=== PATIENT | female | born 1945 | race Caucasian/White ===

== ENCOUNTER 2019-12-17 09:45 | Outpatient (CLI) | payer MEDICARE, SELFPAY | END 2019-12-17 09:46 | disposition home or self-care (01) | PROVIDERS: PCP Family Medicine; Visit Provider Nurse Practitioner Family | DX: D51.9 Vitamin B12 deficiency anemia, unspecified (principal) | CPT/HCPCS: 36415; 82607 ==

== ENCOUNTER 2020-06-22 08:08 | Outpatient (CLI) | payer MEDICARE, SELFPAY ==
[2020-06-22 08:55] LABS: Basophils Percent Auto 0.2 % (0.2-1.2); Eosinophils Absolute Auto 0.1 K/mm3 (0-0.3); Eosinophils Percent Auto 2.1 % (0-4.4); Hematocrit 39.6 % (37.0-47.0); Hemoglobin 13.2 g/dL (12.0-15.0); Immature Granulocyte Absolute 0.02 K/mm3 (0.00-0.031); Immature Granulocyte Percent A 0.4 % (0-0.5); Lymphocytes Absolute Auto 1.31 K/mm3 (0.9-3.2); Lymphocytes Percent Auto 25.6 % (18.3-44.2); Mean Corpuscular HGB Conc 33.3 g/dl (32-36); Mean Corpuscular Hemoglobin 28.2 pg (26-34); Mean Corpuscular Volume 84.6 fl (80-100); Mean Platelet Volume 10.9 fl (7.4-10.4); Monocytes Absolute Auto 0.5 K/mm3 (0.1-0.6); Monocytes Percent Auto 9.2 % (2.6-8.5); Neutrophils Absolute Auto 3.2 K/mm3 (1.3-6.7); Neutrophils Percent Auto 62.5 % (45.5-73.1); Platelet Count Result 229 k/mm3 (150-375); Red Blood Count 4.68 M/mm3 (4.2-5.4); Red Cell Distribution Width 14.5 % (11.5-14.5); White Blood Count 5.1 K/mm3 (4.5-10.0)
[2020-06-22 09:10] LABS: Alanine Aminotransferase 14 U/L (4-35); Albumin Level 4.3 g/dL (3.5-5.1); Alkaline Phosphatase 44 U/L (38-126); Anion Gap 9 mmol/L (8-16); Aspartate Amino Transferase 24 U/L (14-36); Bilirubin,Total 1.3 mg/dL (0.2-1.3); Blood Urea Nitrogen 24 mg/dL (7-17); Calcium 9.3 mg/dL (8.4-10.2); Carbon Dioxide 27 mmol/L (22-30); Chloride 98 mmol/L (98-107); Cholesterol 147 mg/dL (0-200); Estimated Glomerular Filt Rate > 60; Glucose 124 mg/dL (65-105); HDL Direct 41 mg/dL; Sodium 134 mmol/L (137-145); Triglycerides 169 mg/dL (<150)
[2020-06-22 09:21] LABS: LDL Cholesterol Direct 70 mg/dL
[2020-06-22 09:34] LABS: Hemoglobin A1C 5.9 % (<5.7)
[2020-06-22 10:15] LABS: Creatinine Urine 42.4 mg/dL
[2020-06-22 10:25] LABS: Vitamin D 25 Hydroxy 39.7 ng/mL
[2020-06-22 10:26] LABS: Free T4 Free Thyroxine 1.38 ng/mL (0.78-2.19)
[2020-06-22 11:08] LABS: MALB Creatinine Ratio < 14.2 mg/g (0-30); Microalbumin Urine Random < 6.0 mg/L (0-16.7)
[2020-06-26 04:02] LABS: Triiodothyronine T3 Free 2.8 pg/mL (2.3-4.2)
== END 2020-06-22 08:09 | disposition home or self-care (01) ==
PROVIDERS: PCP Family Medicine; Visit Provider Family Medicine
DX: E55.9 Vitamin D deficiency, unspecified (principal); D51.9 Vitamin B12 deficiency anemia, unspecified; I10 Essential (primary) hypertension; E78.2 Mixed hyperlipidemia; E11.9 Type 2 diabetes mellitus without complications
CPT/HCPCS: 36415; 80053; 80061; 82043; 82306; 82607; 83036; 84439; 84443; 84481; 85025

== ENCOUNTER 2020-09-15 12:02 | Emergency (ER) | payer MEDICARE, SELFPAY ==
--- NOTE | ~2020-09-15 | CT_ITS ---
EXAMINATION: CT abdomen pelvis wo con DATE: 09/15/2020 13:13 INDICATION: Hematuria TECHNIQUE: Computed tomography (CT) of the abdomen and pelvis was performed without intravenous contr ast. The dose-length product (DLP) was 602.92 mGy-cm. Automated exposure control and iterative recons truction technique were employed. COMPARISON: 09/07/2015 FINDINGS: There is a moderate size right pleural effusion. A lobulated pericardial cyst is not signif icantly changed in size. The heart size is normal. Stones are present in the nondistended gallbladder . The liver, pancreas, and left adrenal gland are normal. There is a 1.8 cm fluid attenuation lesion of the spleen with increase in size since the comparison examination. Severe lumbar spondylosis is no jeferson. Unchanged nodules of the right adrenal gland measuring up to 12 mm are consistent with adenomas. Nonobstructing stones of the right kidney lower pole measure up to 5 mm. There is a 3 mm nonobstruct ing stone of the left kidney lower pole. No stones are identified in the ureters or bladder. There is no hydronephrosis or hydroureter. A peripelvic cyst is noted in the left kidney. There is a widemout h ventral hernia left lower quadrant containing nonobstructed large and small bowel. There is no free intraperitoneal gas. No pathologically enlarged abdominal or pelvic lymph nodes are identified. Ther e is severe lumbar spondylosis. IMPRESSION: 1. Bilateral nonobstructing nephrolithiasis. 2. Moderate-sized right pleural effusion. 3. Cholelithiasis without evidence of cholecystitis. 4. Large ventral hernia of the left lower quadrant containing nonobstructed large and small bowel. 5. Fluid attenuation lesion of the spleen with increase in size. In the absence of known malignancy, this likely represents a hemangioma or lymphangioma. Reviewed, dictated and finalized at location A. [facility] [employer] IMPRESSION: 1. Bilateral nonobstructing nephrolithiasis. 2. Moderate-sized right pleural effusion. 3. Cholelithiasis without evidence of cholecystitis. 4. Large ventral hernia of the left lower quadrant containing nonobstructed lar ge and small bowel. 5. Fluid attenuation lesion of the spleen with increase in size. In the absence of known malignancy, this likely represents a hemangioma or lymphangioma.
[2020-09-15 12:38] VITALS: BP 154/57; PULSE 72; RESP 16; TEMP 36; O2SAT 96
[2020-09-15 13:16] LABS: Add Urine Microscopic? YES; Appearance Urine Cloudy (Clear); Bacteria Urine Trace /hpf; Bilirubin Urine Negative (Negative); Blood Urine 3+ (Negative); Color Urine Red (Yellow); Glucose Urine UA 1+ mg/dL (Negative); Ketones Urine Negative (Negative); Leukocyte Esterase Ur Negative LEU/UL (Negative); Nitrate Urine Negative (Negative); Protein Urine 2+ mg/dL (Negative); RBC Urine >75 /hpf (0-2); Specific Grav Ur 1.014 (1.001-1.035); Urobilinogen Urine Negative mg/dL (<2.0); WBC Urine 16-20 /hpf
[2020-09-15 14:43] VITALS: BP 118/57; PULSE 62; RESP 18; O2SAT 97
--- NOTE | 2020-09-15 14:43 | ED.FEMALEGU ---
HPI - Female Genitourinary General Chief complaint: Urogenital-Female Stated complaint: hematuria Time Seen by Provider: 09/15/20 12:53 History of Present Illness HPI Narrative: Patient is a 75-year-old female who presents the ER with hematuria. Noticed it this morning. Reports she also had some left lower quadrant and right lower quadrant pain that is been sharp. It has been very infrequent nonradiating. No fevers or chills or sweats. She is without vomiting. Patient did however have some nausea earlier. Has history of kidney stones which caused hematuria in the past and she is concerned she may be having another one. Related Data Home Medications Medication Instructions Recorded Confirmed fenofibrate nanocrystallized mg PO 09/15/20 hydrochlorothiazide 09/15/20 lisinopril 09/15/20 metformin mg 09/15/20 metoprolol succinate PO 09/15/20 simvastatin mg 09/15/20 Allergies Allergy/AdvReac Type Severity Reaction Status Date / Time Penicillins Allergy Mild Hives / Verified 09/15/20 12:44 Red Face prochlorperazine Allergy Mild Muscle Verified 09/15/20 12:44 Spasms codeine AdvReac Mild Vomiting Verified 09/15/20 12:44 clarithromycin [From Biaxin] AdvReac Nausea and Verified 09/15/20 12:45 Vomiting clindamycin AdvReac Diarrhea Verified 09/15/20 12:44 Review of Systems Constitutional: Constitutional: Denies chills and Denies fatigue Gastrointestinal: Gastrointestinal: Reports abdominal pain, Denies diarrhea, Denies nausea and Reports vomiting Genitourinary: Genitourinary: Reports hematuria, Denies nocturia and Denies dysuria PMFSH Past Medical History Medical History (Updated 09/15/20 @ 14:50 by Richardson Liu MD) Dyslipidemia Hypertension Kidney stone Surgical History Surgical History (Updated 09/15/20 @ 14:48 by Richardson Liu MD) History of hysterectomy Social History Social History Smoking status: Never smoker Alcohol intake: never Gender identity (if verbalized by the patient): Female Exam Narrative: Exam Narrative: GENERAL: Well-appearing, well-nourished, and in no acute distress. HEAD: Normocephalic, atraumatic. CHEST: Clear to auscultation. No respiratory distress. HEART: Regular rate and rhythm. Normal peripheral pulses. EXTREMITIES: Normal range of motion. Normal strength. NEURO: Alert and oriented x3. PSYCH: Normal mood and affect. Course Course Emergency Course: Patient informed of results. Will treat as hemorrhagic cystitis. Vital Signs Vital signs: Vital Signs Temperature 96.8 F L 09/15/20 12:38 Pulse Rate 72 09/15/20 12:38 Respiratory Rate 16 09/15/20 12:38 Blood Pressure 154/57 H 09/15/20 12:38 Pulse Oximetry 96 09/15/20 12:38 Temperature 96.8 F L 09/15/20 12:38 Pulse Rate 72 09/15/20 12:38 Respiratory Rate 16 09/15/20 12:38 Blood Pressure 154/57 H 09/15/20 12:38 Pulse Oximetry 96 09/15/20 12:38 MDM - Female Genitourinary Lab Data Labs: Lab Results 09/15/20 Range/Units 13:00 Urine Color Red H (Yellow) Urine Appearance Cloudy H (Clear) Urine pH 6.0 (5.0-9.0) Ur Specific [place] 1.014 (1.001-1.035) Urine Protein 2+ H (Negative) mg/dL Urine Glucose (UA) 1+ H (Negative) mg/dL Urine Ketones Negative (Negative) mg/dL Ur Blood (Man) 3+ H (Negative) Urine Nitrate Negative (Negative) Urine Bilirubin Negative (Negative) Urine Urobilinogen Negative (<2.0) mg/dL Leukocyte Esterase Rfl Negative (Negative) KODY/UL Urine RBC >75 H (0-2) /hpf Urine WBC 16-20 H /hpf Urine Bacteria Trace /hpf Imaging Data Radiologist's impression: ITS Impressions Abdomen/Pelvis CT 09/15/20 13:14 IMPRESSION: 1. Bilateral nonobstructing nephrolithiasis. 2. Moderate-sized right pleural effusion. 3. Cholelithiasis without evidence of cholecystitis. 4. Large ventral hernia of the left lower quadrant containing nonobstructed large and small bowel. 5. Fluid atten
== END 2020-09-15 15:00 | disposition home or self-care (01) ==
PROVIDERS: Emergency Provider Emergency Medicine; PCP Family Medicine
DX: E78.5 Hyperlipidemia, unspecified (principal); I10 Essential (primary) hypertension; N30.01 Acute cystitis with hematuria; N20.0 Calculus of kidney; Z87.442 Personal history of urinary calculi; K80.20 Calculus of gallbladder without cholecystitis without obstruction; K43.9 Ventral hernia without obstruction or gangrene; D73.9 Disease of spleen, unspecified; J90 Pleural effusion, not elsewhere classified
CPT/HCPCS: 74176; 81001; 87086; 99284

== ENCOUNTER 2021-01-17 14:31 | Outpatient (CLI) | payer MEDICARE, SELFPAY | END 2021-01-17 14:32 | disposition home or self-care (01) | LOC: ANHCOVIDVC 14:31 | PROVIDERS: PCP Family Medicine | DX: Z23 Encounter for immunization (principal) | CPT/HCPCS: 0001A; 91300 ==

== ENCOUNTER 2021-02-07 14:30 | Outpatient (CLI) | payer MEDICARE, SELFPAY | END 2021-02-07 14:31 | disposition home or self-care (01) | LOC: ANHCOVIDVC 14:30 | PROVIDERS: PCP Family Medicine | DX: Z23 Encounter for immunization (principal) | CPT/HCPCS: 0002A; 91300 ==

== ENCOUNTER 2021-06-14 05:32 | Emergency (ER) | payer MEDICARE, SELFPAY ==
--- NOTE | ~2021-06-14 | XR_ITS ---
EXAMINATION: XR abdomen/kub 1V DATE: 06/14/2021 07:34 INDICATION: Kidney stone TECHNIQUE: A supine view of the abdomen on 2 radiographs was obtained. COMPARISON: CT dated 06/14/2021 FINDINGS: The proximal right ureteral stone seen on prior CT is unable to be identified on the radiographs and given positioning on CT suspect that it is obscured by the severe hypertrophic facet osteoarthritis a t the lower lumbar spine. Additional tiny renal stones are also not visualized likely due to their sm all size. Small blunting at the right costophrenic angle consistent with moderate sized pleural effus ion seen on prior CT. Gas-filled bowel within the large left lower quadrant/pelvic ventral hernia can be seen projecting over the left upper thigh. Cervical surgical clips projecting over the left ingui nal region likely related to a prior attempted hernia repair. A cluster of several tiny densities pro jecting over the left abdomen correspond to a chronic small calcified nodule in the mesentery which c ould represent either sequela of old granulomatous disease or sclerosing mesenteritis and which is un changed since an earlier CT dated 09/07/2015. IMPRESSION: 1. The obstructing stone in the proximal right ureter is unable to be identified on the plain radiogr aphs, likely obscured by severe hypertrophic lower lumbar facet osteoarthritis. 2. Gas containing bowel within a large left lower quadrant ventral hernia. 3. Right pleural effusion. Reviewed, dictated and finalized at location A. IMPRESSION: 1. The obstructing stone in the proximal right ureter is unable to be identifie d on the plain radiographs, likely obscured by severe hypertrophic lower lumbar facet osteoarthritis. 2. Gas containing bowel within a large left lower quadrant ventral hernia. 3. Right pleural effusion.
--- NOTE | ~2021-06-14 | CT_ITS ---
EXAMINATION: CT abdomen pelvis wo con DATE: 06/14/2021 06:06 INDICATION: Right-sided flank pain. Nephrolithiasis. TECHNIQUE: Computed tomography (CT) of the abdomen and pelvis was performed without intravenous contr ast. Automated exposure control and iterative reconstruction technique were employed. The dose-length product was 456.41 mGy-cm. COMPARISON: 09/15/2020 FINDINGS: Unchanged unilateral moderate-sized right pleural effusion. Heart size is normal. No pericardial effu fan. There is a 4.8 x 3.2 cm fluid attenuation either lymphangioma or pericardial cyst at the right paracardial fat pad. There are a few calcified gallstones in the dependent aspect of the bladder. The re is an additional small calcification along the nondependent wall. Gallbladder. Unchanged 7 mm low- attenuation likely hemangioma in the left hepatic lobe. Significant change in a 1.5 cm fluid attenuat ion likely cyst versus hemangioma in the spleen. Moderate fatty atrophy of the pancreas. Interval santiago nge in mild low density nodular thickening of the bilateral adrenal glands likely representing small adenomas. 5 x 3 mm obstructing stone in the proximal right ureter with mild right hydronephrosis. Add itional 1-2 mm stone at the lower pole of the right kidney and three 1 mm nonobstructing stones at th e lower pole of the left kidney. Unchanged 3.4 similar parapelvic cyst in the left kidney. Decompress ed bladder is unremarkable. Again seen are multiple loops of nonobstructed large and small bowel exte nding into a large anterior left pelvic ventral hernia with postoperative changes suggesting prior fa iled hernia repair. The cecum and a normal appendix are located within the hernia sac. No bowel obstr uction. The uterus is not identified and has likely been surgically resected. No free intraperitoneal gas or fluid. No pathologically enlarged abdominal or pelvic lymphadenopathy. Mild lumbar dextroscol iosis with severe spondylosis. Moderate bilateral hip and sacroiliac osteoarthritis. IMPRESSION: 1. Bilateral nephrolithiasis with obstructing 5 x 3 mm proximal right ureteral stone with mild right hydronephrosis. 2. Unilateral small to moderate-sized right pleural effusion. 3. Large left lower quadrant/pelvic ventral hernia containing the cecum, appendix and multiple loops of nonobstructed small bowel. 4. Unchanged unilateral moderate-sized right pleural effusion. 5. Cholelithiasis. Reviewed, dictated and finalized at location A. IMPRESSION: 1. Bilateral nephrolithiasis with obstructing 5 x 3 mm proximal right ureteral stone with mild right hydronephrosis. 2. Unilateral small to moderate-sized right pleural effusion. 3. Large left lower quadrant/pelvic ventral hernia containing the cecum, append ix and multiple loops of nonobstructed small bowel. 4. Unchanged unilateral moderate-sized right pleural effusion. 5. Cholelithiasis.
[2021-06-14 05:38] VITALS: BP 140/63; PULSE 74; RESP 20; TEMP 36.8; O2SAT 98
[2021-06-14 05:40] VITALS: RESP 15; O2SAT 98
[2021-06-14 05:57] LABS: Basophils Percent Auto 0.3 % (0.2-1.2); Eosinophils Absolute Auto 0.3 K/mm3 (0-0.3); Eosinophils Percent Auto 3.6 % (0-4.4); Hematocrit 40.4 % (37.0-47.0); Hemoglobin 13.2 g/dL (12.0-15.0); Immature Granulocyte Absolute 0.04 K/mm3 (0.00-0.031); Immature Granulocyte Percent A 0.6 % (0-0.5); Lymphocytes Absolute Auto 1.43 K/mm3 (0.9-3.2); Lymphocytes Percent Auto 19.9 % (18.3-44.2); Mean Corpuscular HGB Conc 32.7 g/dl (32-36); Mean Corpuscular Hemoglobin 28.4 pg (26-34); Mean Corpuscular Volume 86.9 fl (80-100); Mean Platelet Volume 10.8 fl (7.4-10.4); Monocytes Absolute Auto 0.8 K/mm3 (0.1-0.6); Neutrophils Absolute Auto 4.6 K/mm3 (1.3-6.7); Neutrophils Percent Auto 64.6 % (45.5-73.1); Platelet Count Result 224 k/mm3 (150-375); Red Blood Count 4.65 M/mm3 (4.2-5.4); Red Cell Distribution Width 14.4 % (11.5-14.5); White Blood Count 7.2 K/mm3 (4.5-10.0)
[2021-06-14 06:00] LABS: Anion Gap 8 mmol/L (8-16); Blood Urea Nitrogen 27 mg/dL (7-17); Calcium 9.7 mg/dL (8.4-10.2); Carbon Dioxide 26 mmol/L (22-30); Chloride 103 mmol/L (98-107); Estimated CRCL calculation 44 ml/min; Estimated Glomerular Filt Rate 48; Glucose 151 mg/dL (65-110); Potassium 3.7 mmol/L (3.4-5.0); Sodium 137 mmol/L (137-145)
[2021-06-14 06:15] LABS: Add Urine Microscopic? YES; Appearance Urine Cloudy (Clear); Bacteria Urine Trace /hpf; Bilirubin Urine Negative (Negative); Blood Urine 3+ (Negative); Color Urine Yellow (Yellow); Glucose Urine UA Negative (Negative); Ketones Urine Negative (Negative); Leukocyte Esterase Ur 2+ LEU/UL (Negative); Mucus Urine Rare /lpf; Nitrate Urine Negative (Negative); Protein Urine 2+ mg/dL (Negative); RBC Urine 51-75 /hpf (0-2); Specific Grav Ur 1.021 (1.001-1.035); Squamous Epithelial Cell Urine Moderate /hpf (Few); Urobilinogen Urine Negative mg/dL (<2.0)
--- NOTE | 2021-06-14 06:20 | ED.GENADULT ---
HPI - General Adult General Chief complaint: Abdominal Pain Stated complaint: RT ABD/FLANK PAIN - HX KIDNEY STONES Time Seen by Provider: 06/14/21 06:06 History of Present Illness HPI narrative: Patient is a 75-year-old female who presents the emergency department with chief complaint of right side flank pain. Patient reports that this evening she started having an uncomfortable feeling in the right side/flank the patient states that it is not worsened by anything and reports that improved spontaneously the patient reports she felt some nausea during this episode reports that she had no vomiting denies diarrhea denies chest pain denies shortness of breath. Patient reports she has prior history of kidney stones and reports this feels similar to when she had kidney stones in the past. Related Data Home Medications Medication Instructions Recorded Confirmed fenofibrate nanocrystallized mg PO 09/15/20 hydrochlorothiazide 09/15/20 lisinopril 09/15/20 metformin mg 09/15/20 metoprolol succinate PO 09/15/20 simvastatin mg 09/15/20 Allergies Allergy/AdvReac Type Severity Reaction Status Date / Time Penicillins Allergy Mild Hives / Verified 06/14/21 07:45 Red Face prochlorperazine Allergy Mild Muscle Verified 06/14/21 07:45 Spasms codeine AdvReac Mild Vomiting Verified 06/14/21 07:45 clarithromycin [From Biaxin] AdvReac Nausea and Verified 06/14/21 07:45 Vomiting clindamycin AdvReac Diarrhea Verified 06/14/21 07:45 Review of Systems Review of Systems: A 10 system review of systems was completed on the patient and is negative except for what is stated in the HPI. Nursing and ancillary documentation was reviewed. PMFSH Past Medical History Medical History Dyslipidemia Hypertension Kidney stone Surgical History Surgical History History of hysterectomy Social History Social History Smoking status: Never smoker Alcohol intake: never Gender identity (if verbalized by the patient): Female Exam Narrative: GENERAL: Well-appearing, well-nourished, and in no acute distress. HEAD: Normocephalic, atraumatic. EYES: PERRLA and EOMI. ENT: Nares clear, no rhinorrhea or epistaxis. Mucous membranes moist. NECK: Supple. CHEST: Clear to auscultation. No respiratory distress. HEART: Regular rate and rhythm. No murmur heard. Normal peripheral pulses. ABDOMEN: Soft, nontender, nondistended, normal active bowel sounds. EXTREMITIES: Normal range of motion. No edema. SKIN: Warm, dry, no rash. NEURO: No focal deficits. Alert and oriented x3. PSYCH: Normal mood and affect. Course Course Emergency Course: CT scan showed evidence of a 8 mm proximal stone this was discussed with urology she will be scheduled for an outpatient lithotripsy in the next [address] scan also showed a epicardiac masslike lesion that it is recommended for follow-up CT scan Vital Signs Vital signs: Vital Signs Temperature 36.8 C 06/14/21 05:38 Pulse Rate 74 06/14/21 05:38 Respiratory Rate 20 06/14/21 05:38 Blood Pressure 140/63 06/14/21 05:38 Pulse Oximetry 98 06/14/21 05:38 Temperature 36.8 C 06/14/21 05:38 Pulse Rate 67 06/14/21 07:09 Respiratory Rate 18 06/14/21 07:09 Blood Pressure 126/55 L 06/14/21 07:09 Pulse Oximetry 99 06/14/21 07:09 Medical Decision Making Vital Signs Vital Signs: Vital Signs Temperature 36.8 C 06/14/21 05:38 Pulse Rate 74 06/14/21 05:38 Respiratory Rate 20 06/14/21 05:38 Blood Pressure 140/63 06/14/21 05:38 Pulse Oximetry 98 06/14/21 05:38 Temperature 36.8 C 06/14/21 05:38 Pulse Rate 67 06/14/21 07:09 Respiratory Rate 18 06/14/21 07:09 Blood Pressure 126/55 L 06/14/21 07:09 Pulse Oximetry 99 06/14/21 07:09 Lab Data Result diagrams:
[2021-06-14 07:09] VITALS: BP 126/55; PULSE 67; RESP 18; O2SAT 99
--- NOTE | 2021-06-14 07:25 | PM.IMHP ---
H&P: HPI History of Present Illness Date/Time: 06/14/21 07:25 75-year-old female known to our practice with a history of urolithiasis. She was last seen approximately 6 months ago with imaging demonstrated moderate size nonobstructing bilateral calculus in each kidney. She presents to the ER today with right flank pain and nausea. She has had no fevers chills. CT scan of the abdomen and pelvis without contrast shows an obstructing 8 mm right proximal ureteral stone. She denies fevers chills or gross hematuria. She takes no blood thinners, denying aspirin or anti-inflammatories. Her urine appears uninfected. She is relatively comfortable at this point. I will discharge her and make arrangements for outpatient ESWL. Will get a KUB prior to discharge and give her 1 dose of ceftriaxone. Chief Complaint: Right flank pain Review of Systems Cardiovascular: Cardiovascular: Denies chest pain, Denies lightheadedness, Denies palpitations and Denies dyspnea Respiratory: Respiratory: Denies dyspnea Gastrointestinal: Gastrointestinal: Denies diarrhea, Denies nausea and Denies vomiting Genitourinary: Genitourinary: Denies hematuria and Denies dysuria Endocrine: Endocrine: Denies palpitations [facility] Past Medical History Medical History Dyslipidemia Hypertension Kidney stone Surgical History Surgical History History of hysterectomy Social History Social History Smoking status: Never smoker Alcohol intake: never Gender identity (if verbalized by the patient): Female Meds Home Medications and Allergies Home Medications Medication Instructions Recorded Confirmed Type cephalexin [Keflex] 500 mg PO Q12H #14 cap 09/15/20 Rx fenofibrate nanocrystallized mg PO 09/15/20 History hydrochlorothiazide 09/15/20 History lisinopril 09/15/20 History metformin mg 09/15/20 History metoprolol succinate PO 09/15/20 History simvastatin mg 09/15/20 History Allergies Allergy/AdvReac Type Severity Reaction Status Date / Time Penicillins Allergy Mild Hives / Verified 09/15/20 12:44 Red Face prochlorperazine Allergy Mild Muscle Verified 09/15/20 12:44 Spasms codeine AdvReac Mild Vomiting Verified 09/15/20 12:44 clarithromycin [From Biaxin] AdvReac Nausea and Verified 09/15/20 12:45 Vomiting clindamycin AdvReac Diarrhea Verified 09/15/20 12:44 Vital Signs Vital Signs - 24 hr 06/14/21 05:38 06/14/21 07:09 Temperature 98.3 F Pulse Rate 74 67 Respiratory Rate 20 18 Blood Pressure 140/63 126/55 L Pulse Oximetry 98 99 Exam Const: General: no acute distress Resp: Effort & Inspection: normal respiratory effort GI: Inspection: non-distended GI Palp: No abdominal tenderness and No Guarding due to palpation present (GI) Auscultation: normal bowel sounds H&P: Results Labs Labs: Short CBC 06/14/21 Range/Units 05:43 WBC 7.2 (4.5-10.0) K/mm3 Hgb 13.2 (12.0-15.0) g/dL Hct 40.4 (37.0-47.0) % Plt Count 224 (150-375) k/mm3 BMP 06/14/21 05:43 Sodium 137 Potassium 3.7 Chloride 103 Carbon Dioxide 26 BUN 27 H Creatinine 1.10 H Glucose 151 H Calcium 9.7 Urine 06/14/21 Range/Units 05:54 Urine Color Yellow (Yellow) Urine Appearance Cloudy H (Clear) Urine pH 5.0 (5.0-9.0) Ur Specific [place] 1.021 (1.001-1.035) Urine Protein 2+ H (Negative) mg/dL Urine Glucose (UA) Negative (Negative) mg/dL Assessment and Plan Assessment and plan (1) Right ureteral stone: Code(s): N20.1 - Calculus of ureter Status: Acute Assessment and Plan: Outpatient right ESWL
--- NOTE | 2021-06-14 07:29 | PC.NURSE ---
Report taken from SHANNA Powell. Pt to xray.
[2021-06-14 08:26] VITALS: BP 131/59; PULSE 73; RESP 18; O2SAT 98
== END 2021-06-14 08:29 | disposition home or self-care (01) ==
PROVIDERS: Emergency Provider Emergency Medicine; PCP Family Medicine
DX: N13.2 Hydronephrosis with renal and ureteral calculous obstruction (principal); E78.5 Hyperlipidemia, unspecified; I10 Essential (primary) hypertension; Z87.442 Personal history of urinary calculi; Z79.84 Long term (current) use of oral hypoglycemic drugs; J90 Pleural effusion, not elsewhere classified; K43.9 Ventral hernia without obstruction or gangrene; K80.20 Calculus of gallbladder without cholecystitis without obstruction
CPT/HCPCS: 36415; 74018; 74176; 80048; 81001; 85025; 87086; 87088; 96365; 99284; J0696

== ENCOUNTER 2021-06-15 02:25 | Day surgery (SDC) | payer MEDICARE, SELFPAY ==
[2021-06-14 12:52] VITALS: BMI 33.9
[2021-06-15] VITALS (8 sets, daily range): BP systolic 136–160; BP diastolic 60–77; PULSE 52–95; RESP 15–18; TEMP 36.4–36.7; O2SAT 99–100
--- NOTE | ~2021-06-15 | XR_ITS ---
EXAMINATION: XR abdomen/kub 1V INDICATION: Nephrolithiasis TECHNIQUE: Supine views of the abdomen were obtained on 2 radiographs. COMPARISON: 06/14/2021 FINDINGS: The right ureteral stone described on recent CT is not definitely identified. In addition, the small kidney stones on the recent CT are not definitely identified. The bowel gas pattern is norm al. A small right pleural effusion is noted. There is moderate osteoarthritis of the hips. IMPRESSION: 1. No definite urolithiasis identified. Reviewed, dictated and finalized at location A.
--- NOTE | ~2021-06-15 | XR_ITS ---
XR retrograde pyelo w/stent RT DATE: 06/15/2021 12:47 INDICATION: Obstructing 5 x 3 mm proximal right ureteral calculus TECHNIQUE: 41.5 seconds fluoroscopy time 893.20 radcm2 COMPARISON: 06/14/[address] abdomen pelvis 06/14/2021 and 06/15/2021 KUB examinations FINDINGS: A ureteroscope is visualized in the right ureter, with passage of a guidewire and subsequen t placement of a right internal urinary stent, proximal pigtail overlying the right renal collecting system, the distal pigtail overlying the base of the urinary bladder. IMPRESSION: Right internal urinary stent placement Reviewed, dictated and finalized at Location A. Reviewed, dictated and finalized at location B.
--- NOTE | 2021-06-15 06:03 | ECG_ITS ---
Measurements Intervals [place] Rate: 59 P: -43 LA: 184 QRS: -56 QRSD: 146 T: 53 QT: 471 QTc: 468 Interpretive Statements SINUS BRADYCARDIA RIGHT BUNDLE BRANCH BLOCK LEFT ANTERIOR FASCICULAR BLOCK BASELINE ARTIFACT- I, II, III, AVR, AVL, AVF, V4-V6 ABNORMAL ECG Electronically Signed On 06-15-2021 10:09:07 CDT by Pablo Pat D.O.
[2021-06-15] MEDS: LACTATED RINGERS 1,000 ML 30 ML IV CONT (10:19)
[2021-06-15 10:28] LABS: Glucose Point of Care 133 mg/dl (65-105)
--- NOTE | 2021-06-15 10:36 | WPDHPUPDATE1 ---
History and Physical Update Update Date/Time: 06/15/21 10:36 History and Physical has been reviewed, including an updated exam of the patient. There are NO changes in the patient's condition. Risks, benefits, and alternatives have been discussed and questions answered. Patient agrees to proceed with procedure. Stone not visualized on plain film. Proceed with cysto , right retrograde, right ureteroscopy with stone extraction, possible laser and stent placement.
[2021-06-15 10:57] LABS: Prothrombin Time 13.3 Seconds (11.1-14.7)
[2021-06-15 10:58] LABS: Partial Thromboplastin Time 28.1 SECONDS (22.3-36.8)
--- NOTE | 2021-06-15 11:08 | WPDANESEPPF ---
Anes - Initial Pre Proc Eval Procedure: Operation Date: 06/15/21 11:00 Proposed Procedures p Right Ureteral Extracorporeal Shock Wave Lithotripsy - Hussein Lopez MD s Possible Cystoscopy, Possible Right Ureteroscopy, Possible Right Retrograde Pyelogram, Possible Right Stone Extraction, Possible Right Stent Placement, - Hussein Lopez MD s Possible Holmium Laser Procedure - Hussein Lopez MD Date/Time: 06/15/21 11:08 Surgeon: Hussein Lopez MD Pre Op Diagnosis: right ureteral stone Patient Data Age: 75 Gender: F Height: 1.68 m Weight: 90.8 kg Last Vital Signs Temp 36.4 C L 06/15/21 10:00 Pulse 95 06/15/21 10:00 Resp 16 06/15/21 10:00 BP 151/68 H 06/15/21 10:00 Pulse Ox 100 06/15/21 10:00 Allergies Allergy/AdvReac Type Severity Reaction Status Date / Time Penicillins Allergy Mild Hives / Verified 06/15/21 10:35 Red Face prochlorperazine Allergy Mild Muscle Verified 06/15/21 10:35 Spasms codeine AdvReac Mild Vomiting Verified 06/15/21 10:35 clarithromycin [From Biaxin] AdvReac Nausea and Verified 06/15/21 10:35 Vomiting clindamycin AdvReac Diarrhea Verified 06/15/21 10:35 Home Medications Medication Instructions Recorded Confirmed Type fenofibrate nanocrystallized 145 mg PO DAILY 09/15/20 06/14/21 History hydrochlorothiazide 50 mg PO DAILY 09/15/20 06/14/21 History lisinopril 40 mg PO DAILY 09/15/20 06/14/21 History metformin 1,500 mg PO DAILY 09/15/20 06/14/21 History metoprolol succinate 125 mg PO QAM 09/15/20 06/15/21 History simvastatin 20 mg PO HS 09/15/20 06/14/21 History calcium 600 mg PO DAILY 06/14/21 06/14/21 History cholecalciferol (vitamin D3) 125 mcg PO DAILY 06/14/21 06/14/21 History sitagliptin [Januvia] 100 mg PO DAILY 06/14/21 06/14/21 History verapamil 300 mg PO HS 06/14/21 06/14/21 History Laboratory Tests 06/15/21 06/15/21 09:57 10:21 PT 13.3 Seconds Seconds (11.1-14.7) INR 1.0 APTT 28.1 SECONDS SECONDS (22.3-36.8) POC Capillary Glucose 133 mg/dl H mg/dl (65-105) Patient hx anesthesia problems: none Family hx anesthesia problems: none [facility] Past Medical History Medical History (Updated 06/15/21 @ 11:08 by Eliot Tao MD) Dyslipidemia Hypertension Kidney stone Obesity Surgical History Surgical History History of hysterectomy Social History Social History Smoking status: Never smoker Alcohol intake: never Living arrangements: with family Gender identity (if verbalized by the patient): Female Spiritual care concerns: No Anes - Eval Final PreProcedure Day of Procedure 06/15/21 11:08 Heart: regular rate and rhythm Lungs: clear to auscultation Airway: Mallampati scale class III Neurological: alert and oriented Last oral intake: >/= 8 hours ASA classification: III Emergent: no Anesthetic plan: proceed Anesthesia type and monitoring: general LMA and standard monitoring Informed Consent: The patient's anesthetic plan and its attendant risks and benefits were discussed with the patient/family/POA. Questions were solicited and answers provided to the satisfaction of the patient/family/POA.
[2021-06-15] MEDS: ceFAZolin 2 GM/D5W 50 ML 2 GM/50 ML BAG IVPB (12:10)
[2021-06-15] MEDS: LIDOCAINE HCL 2% GEL UROJET 10 ML PKG MUCOUS MEM (12:42)
--- NOTE | 2021-06-15 12:42 | W.PM.PROC2 ---
Procedure Note - Detailed Date of Procedure 06/15/21 Pre-op Diagnosis right ureteral stone Post-op Diagnosis same ( urethral tightness) Procedure Performed Cystoscopy, right retrograde pyelogram, right ureteroscopy with holmium laser, stone extraction, right ureteral stent placement, urethral dilation to 24 [place] Surgeon Hussein Lopez MD Description of Procedure patient is taken the operative suite and correctly identified. Once anesthesia was obtained she was placed in dorsal lithotomy position and prepped draped usual sterile fashion. The urethra was taken could not tolerated 22 [place] scope. We thus dilated the meatus using female sounds up to 24 [place]. Twenty-two [place] scope was then inserted into the bladder. There are no tumors noted. Right ureteral orifice was cannulated with a guidewire. It was dilated with an 8/10 dilator. A rigid ureteral scope was then inserted into the ureter. The stone was visualized but too large to retrieve 1 piece. Using the holmium laser fiber we fragmented in multiple pieces and retrieve the larger stones and sent for analysis. Reinspection revealed no residual stones. Pyelogram was then performed to confirm placement of the stent. 4.8 [place] contour stent was then placed with the proximal end coiled pelvis and the distal in the bladder. Bladder was drained. 2% viscous lidocaine was inserted urethra patient is taken recovery stable condition. She will follow up in a week's time for stent removal. Drains Yes Packing No Pathology yes Complications No immediate complications Condition stable
[2021-06-15 12:56] LABS: Glucose Point of Care 114 mg/dl (65-105)
== END 2021-06-15 14:45 | disposition home or self-care (01) ==
PROVIDERS: PCP Family Medicine; Visit Provider Urology
PROC: (CPT 52352; 2021-06-15 11:00)
PROC: (CPT 52356; 2021-06-15 11:00)
DX: N20.1 Calculus of ureter (principal); I10 Essential (primary) hypertension; E78.5 Hyperlipidemia, unspecified; E11.9 Type 2 diabetes mellitus without complications; K21.9 Gastro-esophageal reflux disease without esophagitis; E78.00 Pure hypercholesterolemia, unspecified; Z79.84 Long term (current) use of oral hypoglycemic drugs; E66.9 Obesity, unspecified; Z68.32 Body mass index [BMI] 32.0-32.9, adult
CPT/HCPCS: 52356; 36415; 74018; 74420; 82365; 82948; 85610; 85730; 88300; 93005; A9270; C1769; C2617; J0690; J1100; J2405; J2704; J3010; J7030; J7120; Q9966

== ENCOUNTER → 2022-01-22 14:42 | Outpatient (CLI) | payer MEDICARE, SELFPAY ==
--- NOTE | ~2022-01-22 | CT_ITS ---
EXAMINATION:CT diagnostic chest w con DATE: 01/22/2022 15:17 INDICATION: Right pleural effusion. Ill-defined heart disease. TECHNIQUE: Computed tomography (CT) of the chest was performed with 75 mm Omnipaque 350 intravenous c ontrast. Automated exposure control and iterative reconstruction technique were employed. The dose-le ngth product (DLP) was 444.75 mGy-cm. COMPARISON: CT abdomen and pelvis 06/14/2021, 09/07/2015 FINDINGS: There is a moderate-sized right pleural effusion. There is mild atelectasis bilaterally. Th ere are nodules in the thyroid measuring up to 11 mm, likely not clinically significant. The heart si ze is normal. No pericardial effusion. There is a 4.8 x 3.0 cm cystic mass in the right paracardial f at pad that measured 4.6 x 2.9 cm on 09/07/2015, likely a pericardial cyst. There is a small sliding hiatal hernia. There is a 16 mm cyst in the spleen. There is mild thoracic spondylosis. There are suleiman dging endplate osteophytes at multiple levels in the spine, consistent with diffuse idiopathic skelet al hyperostosis (DISH). IMPRESSION: 1. Moderate-sized right pleural effusion, mildly worsened from 06/14/2021. Reviewed, dictated and finalized at location A.
[2022-01-22 15:00] LABS: Estimated Glomerular Filt Rate > 60
== END ==
PROVIDERS: PCP Family Medicine; Visit Provider Nurse Practitioner Adult Health
DX: I51.89 Other ill-defined heart diseases (principal); K44.9 Diaphragmatic hernia without obstruction or gangrene; M47.814 Spondylosis without myelopathy or radiculopathy, thoracic region; D73.4 Cyst of spleen
CPT/HCPCS: 71260; Q9967

== ENCOUNTER → 2022-01-29 16:03 | Outpatient (CLI) | payer MEDICARE, SELFPAY ==
--- NOTE | ~2022-01-29 | XR_ITS ---
XR chest 2V 01/29/2022 16:28 Indication: Pleural effusion Procedure: 2 view chest Comparison: CT dated 01/22/2022 Findings: Moderate right pleural effusion with underlying compressive atelectasis. Heart size normal. Left lung is clear. No pneumothorax. No edema. Impression: 1: Moderate right pleural effusion with underlying compressive atelectasis. Reviewed, dictated and finalized at location A. Impression: 1: Moderate right pleural effusion with underlying compressive atelectasis.
== END ==
PROVIDERS: PCP Nurse Practitioner Adult Health; Visit Provider Nurse Practitioner Adult Health
DX: R06.02 Shortness of breath (principal); R91.8 Other nonspecific abnormal finding of lung field; J90 Pleural effusion, not elsewhere classified
CPT/HCPCS: 71046

== ENCOUNTER 2022-03-02 11:34 | Outpatient (CLI) | payer MEDICARE, SELFPAY ==
[2022-03-02 12:05] LABS: Basophils Percent Auto 0.4 % (0.2-1.2); Eosinophils Absolute Auto 0.1 K/mm3 (0-0.3); Eosinophils Percent Auto 1.4 % (0-4.4); Hematocrit 38.7 % (37.0-47.0); Hemoglobin 12.8 g/dL (12.0-15.0); Immature Granulocyte Absolute 0.03 K/mm3 (0.00-0.031); Immature Granulocyte Percent A 0.5 % (0-0.5); Lymphocytes Absolute Auto 1.17 K/mm3 (0.9-3.2); Lymphocytes Percent Auto 20.6 % (18.3-44.2); Mean Corpuscular HGB Conc 33.1 g/dl (32-36); Mean Corpuscular Hemoglobin 28.6 pg (26-34); Mean Corpuscular Volume 86.6 fl (80-100); Mean Platelet Volume 10.5 fl (7.4-10.4); Monocytes Absolute Auto 0.5 K/mm3 (0.1-0.6); Monocytes Percent Auto 7.9 % (2.6-8.5); Neutrophils Absolute Auto 3.9 K/mm3 (1.3-6.7); Neutrophils Percent Auto 69.2 % (45.5-73.1); Platelet Count Result 234 k/mm3 (150-375); Red Blood Count 4.47 M/mm3 (4.2-5.4); Red Cell Distribution Width 14.3 % (11.5-14.5); White Blood Count 5.7 K/mm3 (4.5-10.0)
[2022-03-02 12:15] LABS: Alanine Aminotransferase 16 U/L (4-35); Albumin Level 4.2 g/dL (3.5-5.1); Alkaline Phosphatase 51 U/L (38-126); Anion Gap 6 mmol/L (8-16); Aspartate Amino Transferase 26 U/L (14-36); Bilirubin,Total 1.4 mg/dL (0.2-1.3); Blood Urea Nitrogen 23 mg/dL (7-17); Carbon Dioxide 26 mmol/L (22-30); Chloride 105 mmol/L (98-107); Estimated Glomerular Filt Rate 54; Glucose 231 mg/dL (65-110); Potassium 3.8 mmol/L (3.4-5.0); Sodium 137 mmol/L (137-145)
[2022-03-06 11:42] LABS: ANA Cascade Screen Negative (Negative)
== END 2022-03-02 11:35 | disposition home or self-care (01) ==
LOC: ANHLAB 11:49
PROVIDERS: PCP Family Medicine; Visit Provider Internal Medicine Critical Care Medicine
DX: M35.9 Systemic involvement of connective tissue, unspecified (principal); J90 Pleural effusion, not elsewhere classified
CPT/HCPCS: 36415; 80053; 85025; 86038

== ENCOUNTER 2022-03-07 11:15 | Outpatient (CLI) | payer MEDICARE, SELFPAY ==
[2022-02-28 09:30] VITALS: BMI 35.2
--- NOTE | 2022-02-28 09:31 | PC.NURSE ---
Pre Radiology instructions Report to the Outpatient Waiting Room, entrance under the green pavilion located off [facility], at time __11:30AM on date ___03/07/22____. Procedure Time: ___1:30PM . One visitor will be allowed to accompany the patient into the hospital. The visitor will be instructed to remain with patient at all times or leave the building. We will allow the visitor to come back to the postoperative area when patient is ready. You and your visitor will be asked a series of questions to screen for COVID 19 for your protection. A mask is required within the hospital. Pre-procedure COVID Testing Requirements: No COVID Test needed if: (proof is required; if not received patient will have Rapid Test prior to entry)- Patient has received COVID Vaccine at least 14 days prior to procedure date or- Patient has positive COVID test result within last 90 days of procedure date. COVID Test needed if above criteria is not met If not COVID vaccinated a COVID test must be conducted within 72 hours of surgery and patient is asked to isolate self from time of testing until procedure. You will go to the [facility] for your COVID testing. The [facility] site is located at the corner of [address] [facility]. You will only be called if COVID results are positive and your surgeon may reschedule your elective procedure date Patients are to have no food or drink 6 hours prior to procedure time Driving will be restricted after the procedure, you must have a person to drive you home. Labs will be drawn in preop area and once reviewed, you will be taken to radiology area for procedure. When the procedure is completed, you will be taken to outpatient where you will be monitored for several hours. You may have one visitor in this area. Other than holding anti-coagulants, patient may take other medication(s) as scheduled. Prior to your appointment date patients are instructed to hold anti-coagulants after discussing with ordering provider to stop. If unable to discontinue anti-coagulants please notify radiologist. No aspirin or warfarin (Coumadin) for 7 days prior to the procedure. No clopidogrel (Plavix), ticagrelor (Brilinta), prasugrel (Effient) or dabigatran (Pradaxa) for 5 days prior to the procedure. No rivaroxaban (Xarelto), apixaban (Eliquis), dipyridamole (Aggrenox or Persantine) or cilostazol (Pletal) for 2 days prior to the procedure. Medications to discontinue per physician: NONE Date to take last dose: Please leave all valuables, including medications, at home the day of procedure. The hospital will not accept responsibility for valuables. Wear comfortable, loose fitting clothing. Follow any additional instructions given to you from ordering provider. Telephone instructions given to ___PATIENT and asked if any additional questions and then verbalized understanding. Patient advised to call scheduling provider office or registration scheduling [phone] if any additional questions.
[2022-03-07] VITALS (8 sets, daily range): BP systolic 143–169; BP diastolic 64–73; PULSE 53–66; RESP 14–18; TEMP 36.3; O2SAT 100
--- NOTE | ~2022-03-07 | US_ITS ---
EXAMINATION: US thoracentesis DATE: 03/07/2022 14:31 INDICATION: pleural effusion TECHNIQUE: The procedure and its risks, benefits, and alternatives were discussed with the patient. P otential risks discussed included bleeding, infection, and pneumothorax. The patient understood the r isks and agreed to proceed. The skin was prepped and draped in sterile fashion. 1% lidocaine was used for local anesthesia. Under ultrasound guidance, a 5 Fr catheter with trochar was advanced into the right pleural effusion. Fluid was aspirated. The catheter was removed, and a dressing was applied. Th ere were no immediate complications. FINDINGS: Ultrasound images demonstrate a right pleural effusion and the catheter within the fluid. IMPRESSION: 1. Successful ultrasound-guided thoracentesis yielding 1000 mL of clear, bereket-colored fluid. Reviewed, dictated and finalized at location A. IMPRESSION: 1. Successful ultrasound-guided thoracentesis yielding 1000 mL of clear, bereket -colored fluid.
--- NOTE | ~2022-03-07 | XR_ITS ---
EXAMINATION: [id number]_[id number]_CR DATE: 03/07/2022 14:20 INDICATION: Right pleural effusion status post thoracentesis. TECHNIQUE: A single frontal view of the chest was obtained. COMPARISON: Chest CT 01/23/2012, chest 2 views 01/29/2022 FINDINGS: There is a small right pleural effusion. There are airspace opacities are lung base. No pne umothorax. The heart size is normal. IMPRESSION: 1. Small right pleural effusion with improvement status post thoracentesis. 2. Airspace opacities at right lung base, likely atelectasis. Reviewed, dictated and finalized at location A.
[2022-03-07 12:15] LABS: INR 1.1; Prothrombin Time 13.4 Seconds (11.1-14.7)
[2022-03-07 14:29] LABS: Glucose Point of Care 110 mg/dl (65-105)
[2022-03-07 15:01] LABS: pH Pleural Fluid 7.474 (7.210-7.500)
[2022-03-07 16:08] LABS: Appearance Pleural Fluid Clear (Clear); Color Pleural Fluid Yellow (Colorless); Lymphocytes Pleural Fluid 54 %; Macrophages Pleural Fluid 22 %; Monocytes Pleural Fluid 22 %; Neutrophils Pleural Fluid 2 % (0-25); Nucleated Cell Pleural Fluid 418 /uL (0-1000); Pleural fluid source Pleural fluid; RBC Pleural Fluid 728 /uL (0-0)
[2022-03-12 20:59] LABS: Glucose Pleural Fluid 138 mg/dL; LDH Pleural Fluid 80 U/L; Total Protein Pleural Fluid 3.7 g/dL
== END 2022-03-07 16:28 | disposition home or self-care (01) ==
PROVIDERS: Radiology Diagnostic Radiology; PCP Family Medicine; Referring Provider Internal Medicine Critical Care Medicine; Visit Provider Radiology Diagnostic Radiology
DX: J90 Pleural effusion, not elsewhere classified (principal)
CPT/HCPCS: 32555; 36415; 82945; 82948; 83615; 83986; 84157; 85610; 87015; 87070; 87075; 87077; 87102; 87116; 87186; 87205; 87206; 88104; 88108; 88305; 89051

== ENCOUNTER → 2022-03-07 12:29 | Outpatient (REF) | payer MEDICARE, SELFPAY | LOC: ANHLAB 12:29 | PROVIDERS: PCP Family Medicine; Visit Provider Internal Medicine Critical Care Medicine | DX: J90 Pleural effusion, not elsewhere classified (principal) | CPT/HCPCS: 88104; 88108; 88305 ==

== ENCOUNTER 2022-03-20 12:21 | Outpatient (CLI) | payer MEDICARE, SELFPAY ==
--- NOTE | 2022-03-20 | ECHO_ITS ---
Patient Info Name: Katie Peguero Age: 76 years : 1945 Gender: Female Ht: 66 in Wt: 214 lbs BSA: 2.16 m2 HR: 66 bpm BP: 152 / 72 mmHg Technical Quality: Good Exam Date: 03/20/2022 1:20 PM Exam Location: [facility] Patient Status: Outpatient Admit Date: 03/20/2022 Staff Ordering Physician: Ivania Akhtar MD Philosophy Faculty: Rajan Liu RDCS, RT Attending Provider: Ivania Akhtar MD Referring Physician: Giovana SAUCEDO; Exam Type: CA echo doppler color flow Study Info Indications J90 - Pleural effusion, not elsewhere classified Complete two-dimensional, color flow and Doppler transthoracic echocardiogram is performed. Strain analysis performed. Summary 1. Complete two-dimensional, color flow and Doppler transthoracic echocardiogram is performed. 2. Left ventricular chamber dimension is normal. 3. Left ventricular systolic function is normal, estimated at 65-70%. 4. The left ventricular diastolic function is grade I diastolic dysfunction. 5. E/e' 14 is mildly elevated. 6. Global longitudinal strain is normal at -22.6%. 7. The mitral valve has mildly calcified annulus. 8. There is mild mitral valve regurgitation. 9. There is trace tricuspid valve regurgitation. Left Ventricle E/e' 14 is mildly elevated. Global longitudinal strain is normal at -22.6%. Left ventricular chamber dimension is normal. Left ventricular systolic function is normal, estimated at 65-70%. The left ventricular diastolic function is grade I diastolic dysfunction. Right Ventricle Right ventricular systolic function is normal and with normal TAPSE 2.4 cm. Right ventricular chamber dimension is normal. Left Atria Left atrial chamber dimension is normal. Right Atria Right atrial chamber dimension is normal. Aortic Valve The aortic valve is trileaflet. There is no aortic valve stenosis. There is no aortic valve regurgitation. Pulmonic Valve There is no pulmonic regurgitation. Mitral Valve The mitral valve has mildly calcified annulus. There is no mitral valve stenosis. There is mild mitral valve regurgitation. Tricuspid Valve There is trace tricuspid valve regurgitation. RVSP is not calculated due to an inadequate TR jet. Pericardium/Pleural There is no pericardial effusion. Inferior Vena Cava Normal inferior vena cava with >50% collapse upon inspiration consistent with normal right atrial pressure, 5 mmHg. Aorta The aortic root size at the sinus of Valsalva is normal. Left Ventricular Outflow Tract Name Value Normal LVOT 2D LVOT Diameter 2.0 cm LVOT Doppler LVOT Peak Gradient 6 mmHg LVOT Mean Gradient 3 mmHg LVOT VTI 29 cm LVOT VTI/AV VTI Ratio 0.8 LVOT Stroke Volume 94 ml LVOT CO 6.0 l/min LVOT CI 2.8 l/min/m2 Mitral Valve Name Value Normal -------
== END 2022-03-20 12:22 | disposition home or self-care (01) ==
LOC: ANHCARD 12:23
PROVIDERS: PCP Family Medicine; Visit Provider Internal Medicine Critical Care Medicine
DX: J90 Pleural effusion, not elsewhere classified (principal); I34.0 Nonrheumatic mitral (valve) insufficiency
CPT/HCPCS: 93306

== ENCOUNTER 2022-04-23 00:21 | Outpatient (CLI) | payer MEDICARE, SELFPAY ==
--- NOTE | 2022-04-12 14:23 | PC.NURSE ---
Pre Radiology instructions Report to the Outpatient Waiting Room, entrance under the green pavilion located off [facility], at time _1300 on date _04/23/22 . Procedure Time: __1330 . AT THE IMAGING ENTERENCE PER NOTE One visitor will be allowed to accompany the patient into the hospital. The visitor will be instructed to remain with patient at all times or leave the building. We will allow the visitor to come back to the postoperative area when patient is ready. You and your visitor will be asked a series of questions to screen for COVID 19 for your protection. A mask is required within the hospital. Patients are to have no food or drink 6 hours prior to procedure time Driving will be restricted after the procedure, you must have a person to drive you home. Labs will be drawn in preop area and once reviewed, you will be taken to radiology area for procedure. When the procedure is completed, you will be taken to outpatient where you will be monitored for several hours. You may have one visitor in this area. Other than holding anti-coagulants, patient may take other medication(s) as scheduled. Prior to your appointment date patients are instructed to hold anti-coagulants after discussing with ordering provider to stop. If unable to discontinue anti-coagulants please notify radiologist. No aspirin or warfarin (Coumadin) for 7 days prior to the procedure. No clopidogrel (Plavix), ticagrelor (Brilinta), prasugrel (Effient) or dabigatran (Pradaxa) for 5 days prior to the procedure. No rivaroxaban (Xarelto), apixaban (Eliquis), dipyridamole (Aggrenox or Persantine) or cilostazol (Pletal) for 2 days prior to the procedure. Medications to discontinue per physician: NONE Date to take last dose: Please leave all valuables, including medications, at home the day of procedure. The hospital will not accept responsibility for valuables. Wear comfortable, loose fitting clothing. Follow any additional instructions given to you from ordering provider. Telephone instructions given to __PATIEN and asked if any additional questions and then verbalized understanding. Patient advised to call scheduling provider office or registration scheduling [phone] if any additional questions.
[2022-04-12 14:34] VITALS: BMI 34.8
[2022-04-23] VITALS (9 sets, daily range): BP systolic 141–161; BP diastolic 58–75; PULSE 53–61; RESP 16–17; O2SAT 99–100
--- NOTE | ~2022-04-23 | US_ITS ---
EXAMINATION: US thoracentesis DATE: 04/23/2022 14:18 INDICATION: Right pleural effusion TECHNIQUE: The procedure and its risks and benefits were discussed with the patient. Potential risks discussed included bleeding, infection, and pneumothorax. The patient understood the risks and agreed to proceed. The skin was prepped and draped in sterile fashion. 1% lidocaine was used for local anes thesia. Under ultrasound guidance, a 5 Fr catheter with trochar was advanced into the right pleural e ffusion. Fluid was aspirated. The catheter was removed, and a dressing was applied. There were no imm ediate complications. FINDINGS: Ultrasound images demonstrate a small right pleural effusion and the catheter within the fluid. IMPRESSION: 1. Successful ultrasound-guided thoracentesis yielding 800 mL of clear rkrohnf-fpkqb-msqzuea fluid. Reviewed, dictated and finalized at location A. IMPRESSION: 1. Successful ultrasound-guided thoracentesis yielding 800 mL of clear reddish -bereket-colored fluid.
--- NOTE | ~2022-04-23 | XR_ITS ---
EXAMINATION: XR_[id number]_CR DATE: 04/23/2022 14:09 INDICATION: Status post right thoracentesis TECHNIQUE: frontal view of the chest was obtained. COMPARISON: Chest radiograph dated 03/07/2022 FINDINGS: Opacities at the right lung base consistent with small right pleural effusion and associated atelecta sis. Left lung is clear. No pulmonary edema, pneumothorax or left-sided pleural effusion.. The cardio mediastinal silhouette is normal. Visualized bones and soft tissues are unremarkable. IMPRESSION: 1. Opacities at the right lung base consistent with residual small right pleural effusion and associa jeferson atelectasis. Reviewed, dictated and finalized at location A. IMPRESSION: 1. Opacities at the right lung base consistent with residual small right pleura l effusion and associated atelectasis.
[2022-04-23 14:38] LABS: Glucose Point of Care 134 mg/dl (65-105)
[2022-04-23 16:27] LABS: Appearance Pleural Fluid Cloudy (Clear); Color Pleural Fluid Red (Colorless); Pleural fluid source Pleural fluid
[2022-04-23 16:30] LABS: Lymphocytes Pleural Fluid 58 %; Macrophages Pleural Fluid 35 %; Monocytes Pleural Fluid 2 %; Neutrophils Pleural Fluid 5 % (0-25); Nucleated Cell Pleural Fluid 456 /uL (0-1000); RBC Pleural Fluid 3822 /uL (0-0)
[2022-04-26 17:06] LABS: Glucose Pleural Fluid 134 mg/dL; LDH Pleural Fluid 77 U/L; Total Protein Pleural Fluid 3.5 g/dL
== END 2022-04-23 16:01 | disposition home or self-care (01) ==
PROVIDERS: PCP Family Medicine; Referring Provider Internal Medicine Critical Care Medicine; Visit Provider Radiology Diagnostic Radiology
DX: J90 Pleural effusion, not elsewhere classified (principal)
CPT/HCPCS: 32555; 82945; 82948; 83615; 83986; 84157; 87015; 87070; 87075; 87102; 87116; 87205; 87206; 89051

== ENCOUNTER → 2022-09-05 15:31 | Outpatient (CLI) | payer MEDICARE, SELFPAY ==
--- NOTE | ~2022-09-05 | XR_ITS ---
XR chest 2V 09/05/2022 16:03 Indication: Pleural effusion. Procedure: 2 view chest Comparison: Comparison to multiple prior studies sequentially, with oldest reviewed study dated 02/2012. Findings: There is a chronic right pleural effusion with underlying atelectasis. Heart size upper nor mal. Left lung clear. No pneumothorax. No edema. Impression: 1: Chronic right pleural effusion with underlying compressive atelectasis. Reviewed, dictated and finalized at location B. Impression: 1: Chronic right pleural effusion with underlying compressive atelectasis.
== END ==
PROVIDERS: PCP Family Medicine; Visit Provider Internal Medicine Critical Care Medicine
DX: J90 Pleural effusion, not elsewhere classified (principal)
CPT/HCPCS: 71046

== ENCOUNTER 2022-09-19 09:19 | Outpatient (CLI) | payer MEDICARE, SELFPAY ==
[2022-09-19 19:47] LABS: Cholesterol 202 mg/dL (0-200); HDL Direct 38 mg/dL; Triglycerides 193 mg/dL (<150)
[2022-09-19 19:57] LABS: LDL Cholesterol Direct 111 mg/dL
== END 2022-09-19 09:20 | disposition home or self-care (01) ==
LOC: ANHGOSHLAB 09:24
PROVIDERS: PCP Family Medicine; Visit Provider Family Medicine
DX: E78.5 Hyperlipidemia, unspecified (principal)
CPT/HCPCS: 36415; 80061

== ENCOUNTER 2022-11-07 12:24 | Emergency (ER) | payer MEDICARE, SELFPAY ==
[2022-11-07 13:06] VITALS: BP 133/66; PULSE 95; RESP 19; TEMP 36.6; O2SAT 100
--- NOTE | 2022-11-07 13:51 | ED.SKABFB ---
HPI - Skin/Abscess/Foreign Bdy General Chief complaint: Wound/Laceration Stated complaint: infected toenail Time Seen by Provider: 11/07/22 13:51 Source: patient, RN notes reviewed and old records reviewed Mode of arrival: ambulatory Limitations: no limitations History of Present Illness HPI narrative: 77-year-old female presents to the [facility] with infected right great toe. 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 Patient reports that calluses were trimmed for both great toes last week on the , states the 1 on the left is better, 1 on the right is causing her issues. No redness noted to the dorsal aspect measuring 3 in a half by 2 cm. No fluctuance noted Patient has a history of diabetes, poor circulation. Discussed in great detail with patient that if the redness gets any Chicas that she needs to go to the emergency room which she verbalized understanding Related Data Home Medications Medication Instructions Recorded Confirmed fenofibrate nanocrystallized 145 145 mg PO DAILY 09/15/20 11/07/22 mg tablet hydrochlorothiazide 50 mg tablet 50 mg PO DAILY 09/15/20 11/07/22 lisinopril 40 mg tablet 40 mg PO DAILY 09/15/20 11/07/22 metformin 500 mg tablet 1,500 mg PO DAILY 09/15/20 11/07/22 metoprolol succinate 100 mg 125 mg PO DAILY 09/15/20 04/12/22 tablet,extended release 24 hr simvastatin 20 mg tablet 20 mg PO HS 09/15/20 04/12/22 calcium 600 mg capsule 600 mg PO DAILY 06/14/21 11/07/22 cholecalciferol (vitamin D3) 125 125 mcg PO DAILY 06/14/21 11/07/22 mcg (5,000 unit) capsule sitagliptin phosphate 100 mg 100 mg PO DAILY 06/14/21 11/07/22 tablet (Januvia) verapamil 300 mg capsule 24hr 300 mg PO HS 06/14/21 04/12/[address],ext.release cyanocobalamin (vitamin B-12) 100 mcg subcut MONTHLY 02/22/22 11/07/22 1,000 mcg/mL injection solution Allergies Allergy/AdvReac Type Severity Reaction Status Date / Time Penicillins Allergy Mild Hives / Verified 11/07/22 13:26 Red Face alendronate sodium AdvReac Intermediate Diarrhea Verified 11/07/22 13:26 [From Fosamax] codeine AdvReac Mild Vomiting Verified 11/07/22 13:26 prochlorperazine AdvReac Mild Muscle Verified 11/07/22 13:26 Spasms clarithromycin [From Biaxin] AdvReac Nausea and Verified 11/07/22 13:26 Vomiting clindamycin AdvReac Diarrhea Verified 11/07/22 13:26 Review of Systems Review of Systems: All systems reviewed & are unremarkable except as noted in HPI and below Constitutional: Constitutional: Reports no additional constitutional complaints Eyes: Eyes: Reports no additional eye complaints ENT: Reports system reviewed and no additional complaints, except as documented Cardiovascular: Cardiovascular: Reports no additional cardiovascular complaints, Denies chest pain and Denies dyspnea Respiratory: Respiratory: Reports no additional respiratory complaints, Denies chest congestion, Denies cough and Denies dyspnea Gastrointestinal: Gastrointestinal: Reports no additional gastrointestinal complaints, Denies abdominal pain, Denies nausea and Denies vomiting Musculoskeletal: Musculoskeletal: Reports as per HPI Integumentary/Breasts: Skin/Breast: Reports as per HPI and Reports erythema Neurologic: Reports system reviewed and no additional complaints, except as documented Psychiatric: Psychiatric: Reports no additional psychiatric complaints Allergic/Immunologic: Allergic/Immunologic: Reports no additional allergic/immunologic complaints PMF Past Medical History Medical History (Updated 11/07/22 @ 14:02 by Nohelia Arroyo APRN) Diabetes Dyslipidemia Hypertension Kidney stone Obesity Surgical History Surgical History History of hysterectomy Status post repair of ventral hernia 1997; mesh broke, she required revision 2000 Social History Social History Smoking status: Never smoker Alcohol intak
== END 2022-11-07 14:03 | disposition home or self-care (01) ==
PROVIDERS: Emergency Provider Nurse Practitioner; PCP Family Medicine
DX: L03.031 Cellulitis of right toe (principal); E11.9 Type 2 diabetes mellitus without complications; E78.5 Hyperlipidemia, unspecified; I10 Essential (primary) hypertension; E66.9 Obesity, unspecified
CPT/HCPCS: 99213; G0463

== ENCOUNTER 2022-11-10 11:36 | Inpatient (IN) | payer MEDICARE, SELFPAY ==
--- NOTE | ~2022-11-10 | XR_ITS ---
EXAMINATION: XR foot LT 2V DATE: 11/10/2022 12:13 INDICATION: Left great toe ulcer. TECHNIQUE: 2 views of left foot were obtained. COMPARISON: None. FINDINGS: There is an old healed fracture of diaphysis of fifth metatarsal. There is diffuse osteopen ia. There is mild osteoarthritis of some of the interphalangeal joints and midfoot joints and first m etatarsophalangeal joint. There are enthesophytes at the posterior and plantar aspects of calcaneal t uberosity. IMPRESSION: 1. No evidence of osteomyelitis. 2. Mild polyarticular osteoarthritis. Reviewed, dictated and finalized at location A. [employer] S[employer] PROFESSIONAL
--- NOTE | ~2022-11-10 | US_ITS ---
EXAMINATION: US venous doppler [facility] DATE: 11/11/2022 12:41 INDICATION: Lower limb swelling. TECHNIQUE: Grayscale ultrasound images without and with compression and Doppler ultrasound images of the bilateral lower extremity veins were obtained. COMPARISON: Ultrasound 01/01/2017 FINDINGS: The visualized portions of right common femoral vein, profunda (deep) femoral vein, femoral vein, pop liteal vein, peroneal veins, posterior tibial veins, and greater saphenous vein outflow are patent. T here is thrombus in a varicose vein in right calf. The visualized portions of left common femoral vein, profunda femoral vein, femoral vein, and greater saphenous vein outflow are patent. There is thrombus in the left popliteal and posterior tibial vein s. IMPRESSION: 1. Deep vein thrombosis involving the left popliteal and posterior tibial veins. 2. Superficial vein thrombosis in right calf. Reviewed, dictated and finalized at location A. NT ACCOUNT MANAGER IMPRESSION: 1. Deep vein thrombosis involving the left popliteal and posterior tibial vein s. 2. Superficial vein thrombosis in right calf.
--- NOTE | ~2022-11-10 | XR_ITS ---
EXAMINATION: XR foot RT min 3V DATE: 11/11/2022 11:02 INDICATION: Right great toe diabetic ulcer. TECHNIQUE: 4 views of right foot were obtained. COMPARISON: None. FINDINGS: There is an ulcer at the plantar aspect of the great toe. There is dorsiflexion of the seco nd-fifth metatarsophalangeal joints with flexion of the interphalangeal joints. No fracture. There is mild osteoarthritis of first metatarsophalangeal joint and some the interphalangeal joints and midfo ot joints. There are enthesophytes at the posterior and plantar aspects of calcaneal tuberosity. IMPRESSION: 1. No evidence of osteomyelitis. 2. Mild polyarticular osteoarthritis. Reviewed, dictated and finalized at location A. HOUSE LOGISTICS MANAGER
--- NOTE | ~2022-11-10 | US_ITS ---
EXAMINATION: US art doppler w press LE BI DATE: 11/11/2022 12:41 INDICATION: Right great toe ulcer. TECHNIQUE: Segmental pressures and plethysmographic and Doppler waveforms of the brachial and lower e xtremity arteries were obtained. COMPARISON: Chest CT 01/22/2022 FINDINGS: Right and left brachial artery pressures of 158 mm Hg and 137 mm Hg, respectively, are concordant (no rmal difference <= 30 mmHg). The right ankle-brachial index (CRISTINA) is 1.21 (normal >= 0.9-1.0). The right great toe-brachial index (TBI) is 0.34 (normal >= 0.65). Arterial Doppler waveforms are biphasic from common femoral artery to the ankle. The left CRISTINA was not measured due to the presence of deep vein thrombosis. The left TBI is 0.47. Triny rial Doppler waveforms are biphasic from common femoral artery to the ankle. IMPRESSION: 1. Decreased bilateral TBIs and normal right CRISTINA, consistent with arterial occlusive disease. Note th at CRISTINA may be overestimated if arteries are calcified. Left CRISTINA not measured due to the presence of d eep vein thrombosis. Reviewed, dictated and finalized at location A. VIORAL HEALTH AIDE IMPRESSION: 1. Decreased bilateral TBIs and normal right CRISTINA, consistent with arterial occl usive disease. Note that CRISTINA may be overestimated if arteries are calcified. Le ft CRISTINA not measured due to the presence of deep vein thrombosis.
[2022-11-10 11:51] VITALS: BP 130/55; PULSE 101; RESP 20; TEMP 36.4; O2SAT 95
[2022-11-10 12:43] LABS: Basophils Percent Auto 0.1 % (0.2-1.2); Eosinophils Absolute Auto 0.1 K/mm3 (0-0.3); Eosinophils Percent Auto 0.5 % (0-4.4); Hematocrit 36.1 % (37.0-47.0); Hemoglobin 12.1 g/dL (12.0-15.0); Immature Granulocyte Absolute 0.06 K/mm3 (0.00-0.031); Immature Granulocyte Percent A 0.6 % (0-0.5); Lymphocytes Absolute Auto 0.39 K/mm3 (0.9-3.2); Lymphocytes Percent Auto 4.2 % (18.3-44.2); Mean Corpuscular HGB Conc 33.5 g/dl (32-36); Mean Corpuscular Hemoglobin 28.1 pg (26-34); Mean Platelet Volume 10.8 fl (7.4-10.4); Monocytes Absolute Auto 1.1 K/mm3 (0.1-0.6); Monocytes Percent Auto 11.6 % (2.6-8.5); Neutrophils Absolute Auto 7.7 K/mm3 (1.3-6.7); Platelet Count Result 228 k/mm3 (150-375); Red Cell Distribution Width 14.5 % (11.5-14.5); White Blood Count 9.3 K/mm3 (4.5-10.0)
[2022-11-10 13:41] LABS: Alanine Aminotransferase 23 U/L (6-35); Albumin Level 4.2 g/dL (3.5-5.1); Alkaline Phosphatase 54 U/L (38-126); Anion Gap 10 mmol/L (8-16); Aspartate Amino Transferase 25 U/L (14-36); Bilirubin,Total 1.7 mg/dL (0.2-1.3); Blood Urea Nitrogen 28 mg/dL (7-17); Calcium 8.9 mg/dL (8.4-10.2); Carbon Dioxide 26 mmol/L (22-30); Chloride 96 mmol/L (98-107); Estimated CRCL calculation 43 ml/min; Estimated Glomerular Filt Rate 48; Glucose 187 mg/dL (65-110); Potassium 3.6 mmol/L (3.4-5.0); Sodium 132 mmol/L (137-145)
[2022-11-10 13:42] LABS: Influenza A QL RT-PCR Negative (Negative); Influenza B QL RT-PCR Negative (Negative); SARS-CoV-2 RNA PCR Negative
[2022-11-10 13:53] LABS: Lactic Acid Reflex 1.5 mmol/L (0.7-2.0)
--- NOTE | 2022-11-10 14:33 | ED.EXTPRO ---
HPI - Extremity Problem General Chief complaint: Extremity Problem,Nontraumatic Stated complaint: infection right big toe, back of left foot black Time Seen by Provider: 11/10/22 12:02 History of Present Illness HPI Narrative: Patient is a 77-year-old female who presents ER with infection to her feet bilaterally. Patient recently underwent skin debridement by her hair dryer. A couple days later she developed redness to right great toe and she was started on cephalexin by an urgent care. Today she has developed redness to her left great toe that extending towards mid thigh and the right great toe also has redness that is extending to midfoot. Is worsened. She also has developed a new blister over the medial plantar aspect of the first MTP. No fevers or chills or sweats. No chest pain. Here for further evaluation. Related Data Home Medications Medication Instructions Recorded Confirmed fenofibrate nanocrystallized 145 145 mg PO DAILY 09/15/20 11/10/22 mg tablet hydrochlorothiazide 50 mg tablet 50 mg PO DAILY 09/15/20 11/10/22 lisinopril 40 mg tablet 40 mg PO DAILY 09/15/20 11/10/22 metformin 500 mg tablet 1,500 mg PO BIDWMEAL 09/15/20 11/10/22 metoprolol succinate 100 mg 100 mg PO DAILY 09/15/20 11/10/22 tablet,extended release 24 hr calcium 600 mg capsule 600 mg PO DAILY 06/14/21 11/10/22 cholecalciferol (vitamin D3) 125 125 mcg PO DAILY 06/14/21 11/10/22 mcg (5,000 unit) capsule sitagliptin phosphate 100 mg 100 mg PO DAILY 06/14/21 11/10/22 tablet (Januvia) Allergies Allergy/AdvReac Type Severity Reaction Status Date / Time Penicillins Allergy Mild Hives / Verified 11/07/22 13:26 Red Face alendronate sodium AdvReac Intermediate Diarrhea Verified 11/07/22 13:26 [From Fosamax] codeine AdvReac Mild Vomiting Verified 11/07/22 13:26 prochlorperazine AdvReac Mild Muscle Verified 11/07/22 13:26 Spasms clarithromycin [From Biaxin] AdvReac Nausea and Verified 11/07/22 13:26 Vomiting clindamycin AdvReac Diarrhea Verified 11/07/22 13:26 Review of Systems Constitutional: Constitutional: Reports no additional constitutional complaints Cardiovascular: Cardiovascular: Reports no additional cardiovascular complaints Respiratory: Respiratory: Reports no additional respiratory complaints Gastrointestinal: Gastrointestinal: Reports no additional gastrointestinal complaints Musculoskeletal: Musculoskeletal: Reports no additional musculoskeletal complaints Integumentary/Breasts: Skin/Breast: Reports erythema and Reports skin ulcer PMFSH Past Medical History Medical History (Updated 11/10/22 @ 14:35 by Richardson Liu MD) Diabetes Dyslipidemia Hypertension Kidney stone Obesity Surgical History Surgical History History of hysterectomy Status post repair of ventral hernia 1997; mesh broke, she required revision 2000 Social History Social History Smoking status: Never smoker Alcohol intake: never Substance use: never Substance use type: does not use Lack of Transportation: No Lack of Food: Never True Current Housing: I Have Housing Concerned About Future Housing: No Difficulty Paying Gas/Electric Bills: No Difficulty Paying for Meds: No Currently Unemployed: No Education: High School Diploma/GED Difficulty w/ Childcare or Family Care: No Gender identity (if verbalized by the patient): Female Spiritual care concerns: Yes (Rastafarian) Exam Narrative: GENERAL: Well-appearing, morbidly obese, and in no acute distress. HEAD: Normocephalic, atraumatic. NECK: Supple. CHEST: Clear to auscultation. No respiratory distress. HEART: Regular rate and rhythm. Normal peripheral pulses. EXTREMITIES: Normal range of motion. No edema. Cellulitis to bilateral great toes with a large blister that contained blood to the medial aspect of left first MTP. SKIN
[2022-11-10 14:44] VITALS: BP 124/50; PULSE 77; RESP 15; O2SAT 100
--- NOTE | 2022-11-10 14:59 | PC.NURSE ---
called dietary and ordered dinner tray at this time, per pt request
[2022-11-10 16:20] VITALS: BMI 34.0
[2022-11-10 16:37] LABS: Glucose Point of Care 200 mg/dl (65-105)
[2022-11-10 17:00] VITALS: BP 110/32; PULSE 79; RESP 16; TEMP 36.2; O2SAT 99
[2022-11-10] MEDS: SODIUM CHLORIDE 0.9% IV 1,000 ML 999 ML IV CONT (17:11)
[2022-11-10] MEDS: metroNIDAZOLE 500 MG/ISO 100ML 500 MG/100 ML BAG 100 MG IVPB ×2 (18:15→22:45)
[2022-11-10 18:21] VITALS: BP 118/52; TEMP 36.3
[2022-11-10] MEDS: SODIUM CHLORIDE 0.9% IV 1,000 ML 75 ML IV CONT (20:55)
[2022-11-10 20:56] LABS: Glucose Point of Care 136 mg/dl (65-105)
[2022-11-10 22:00] VITALS: BP 130/74; PULSE 70; RESP 16; TEMP 36.2; O2SAT 97
--- NOTE | 2022-11-10 22:24 | PM.IMHP ---
H&P: HPI History of Present Illness Date/Time: 11/10/22 22:24 Chief Complaint: Infection the lower extremities. Narrative: This is a 77-year-old female patient who came to the emergency room with complaints of infection to bilateral big toes. The patient has been seeing her salvage engineer Every few weeks. The patient stated that she has been wearing shoes that have been too small for her and she does not recall if her salvage engineer actually debrided her feet or not. Patient has wounds on each great toe that appeared to be a popped blister. Both of her toes are red and swollen. Patient was started on Keflex by urgent care. her condition worsened. She has redness up both of her legs. And the left streak radiates up to her mid thigh. Patient has no fever chills. X-ray of left foot shows no evidence of osteomyelitis mild poly articular osteoarthritis. Chest x-ray read is right chronic pleural effusion with underlying compressive atelectasis. The patient is diabetic and therefore was started on cefepime, Flagyl and vancomycin. She was also started on IV fluids. The patient's blood pressure dropped low earlier today and had to be given an IV bolus. BUN 28 creatinine 1.1 which is baseline of normal readings either 0.9 or 1.0. Her A1c from today was 7.0. Her blood glucose was 200 earlier in came down to 136. The patient is being admitted to observation status on the date of service of 11/10/2022 Review of Systems Review of Systems: see HPI All systems reviewed & are unremarkable except as noted in HPI and below Constitutional: Constitutional: Reports as per HPI and Reports no additional constitutional complaints Eyes: Eyes: Reports as per HPI and Reports no additional eye complaints ENT: Reports system reviewed and no additional complaints, except as documented and Reports Normal hearing present Cardiovascular: Cardiovascular: Reports no additional cardiovascular complaints Respiratory: Respiratory: Reports no additional respiratory complaints and Reports no additional respiratory complaints Gastrointestinal: Gastrointestinal: Reports as per HPI and Reports no additional gastrointestinal complaints Musculoskeletal: Musculoskeletal: Reports no additional musculoskeletal complaints Integumentary/Breasts: Skin/Breast: Reports system reviewed and no additional complaints, except as docu and Reports as per HPI Neurologic: Reports system reviewed and no additional complaints, except as documented, Reports as per HPI and Reports Normal hearing present Psychiatric: Psychiatric: Reports no additional psychiatric complaints and Reports as per HPI Endocrine: Endocrine: Reports no additional endocrine complaints Hematologic/Lymphatic: Hematologic/Lymphatic: Reports no additional hematologic/lymphatic complaints Allergic/Immunologic: Allergic/Immunologic: Reports no additional allergic/immunologic complaints [facility] Past Medical History Medical History (Updated 11/10/22 @ 14:35 by Richardson Liu MD) Diabetes Dyslipidemia Hypertension Kidney stone Obesity Surgical History Surgical History (Updated 11/11/22 @ 00:56 by Renetta Mcclure NP) History of hysterectomy S/P tonsillectomy and adenoidectomy Status post repair of ventral hernia 1997; mesh broke, she required revision 2000 Social History Social History (Updated 11/11/22 @ 00:57 by Renetta Mcclure NP) Social History: the patient is and lives home alone. She only has 1 daughter. 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 She does not use any alcohol marijuana illicit drugs. - code status full code. Smoking status: Never smoker Alcohol intake: never Substance use: never Substance use type: does not use Lack of Transportation: No Lack of Food: Never True Current Housing: I Have Housing Concerned About Future Housing: No Difficulty Paying Gas/Electric Bills: No Difficulty Paying for Meds: No Cu
[2022-11-11 05:41] VITALS: BP 117/54; PULSE 71; RESP 16; TEMP 36.2; O2SAT 97
[2022-11-11] MEDS: metroNIDAZOLE 500 MG/ISO 100ML 500 MG/100 ML BAG 100 MG IVPB ×3 (06:05→21:43)
[2022-11-11 06:46] LABS: Basophils Percent Auto 0.2 % (0.2-1.2); Eosinophils Absolute Auto 0.2 K/mm3 (0-0.3); Eosinophils Percent Auto 4.5 % (0-4.4); Hematocrit 32.5 % (37.0-47.0); Hemoglobin 10.8 g/dL (12.0-15.0); Immature Granulocyte Absolute 0.03 K/mm3 (0.00-0.031); Immature Granulocyte Percent A 0.7 % (0-0.5); Lymphocytes Percent Auto 11.9 % (18.3-44.2); Mean Corpuscular HGB Conc 33.2 g/dl (32-36); Mean Corpuscular Hemoglobin 28.6 pg (26-34); Mean Platelet Volume 10.3 fl (7.4-10.4); Monocytes Absolute Auto 0.7 K/mm3 (0.1-0.6); Monocytes Percent Auto 15.7 % (2.6-8.5); Neutrophils Absolute Auto 2.8 K/mm3 (1.3-6.7); Platelet Count Result 198 k/mm3 (150-375); Red Blood Count 3.78 M/mm3 (4.2-5.4); Red Cell Distribution Width 14.5 % (11.5-14.5); White Blood Count 4.2 K/mm3 (4.5-10.0)
[2022-11-11 06:53] LABS: Lactic Acid Reflex 0.9 mmol/L (0.7-2.0)
[2022-11-11 07:14] LABS: Alanine Aminotransferase 18 U/L (6-35); Albumin Level 3.3 g/dL (3.5-5.1); Alkaline Phosphatase 43 U/L (38-126); Anion Gap 5 mmol/L (8-16); Aspartate Amino Transferase 20 U/L (14-36); Bilirubin,Total 1.1 mg/dL (0.2-1.3); Blood Urea Nitrogen 18 mg/dL (7-17); Calcium 8.1 mg/dL (8.4-10.2); Carbon Dioxide 26 mmol/L (22-30); Chloride 106 mmol/L (98-107); Estimated CRCL calculation 52 ml/min; Estimated Glomerular Filt Rate 60; Glucose 136 mg/dL (65-110); Magnesium 1.5 mg/dL (1.6-2.3); Potassium 3.4 mmol/L (3.4-5.0); Sodium 137 mmol/L (137-145)
[2022-11-11 08:30] LABS: Glucose Point of Care 154 mg/dl (65-105)
[2022-11-11] MEDS: SODIUM CHLORIDE 0.9% IV 1,000 ML 75 ML IV CONT (08:30)
[2022-11-11] MEDS: FENOFIBRATE NANOCRYSTALLIZED 145 MG TABLET PO (08:31)
[2022-11-11] MEDS: ENOXAPARIN 40 MG/0.4 ML SYRINGE SUB-Q (08:31)
[2022-11-11] MEDS: CHOLECALCIFEROL 1,000 UNITS TABLET 5000 UNITS PO (08:31)
[2022-11-11] MEDS: CALCIUM CARBONATE (OSCAL) 500 MG TABLET PO (08:31)
[2022-11-11] MEDS: METOPROLOL SUCCINATE EXT REL 100 MG TABCR PO (08:31)
--- NOTE | 2022-11-11 10:01 | PM.CNOR ---
Assessment and Plan Assessment and plan (1) Foot ulcer: Qualifiers: Laterality: bilateral Code(s): L97.509 - Non-pressure chronic ulcer of other part of unspecified foot with unspecified severity Status: Acute Assessment and Plan: patient is a 77-year-old female came into the hospital emergency room yesterday afternoon noticing yesterday morning a large blood blister under the 1st metatarsal phalangeal joint of the left foot. She had developed blistering and some drainage 5 days earlier were she had a intractable plantar keratosis he is under the plantar medial aspect of the right great toe under the distal pad to the level of the IP joint and went to the urgent care 5 days ago was started on Keflex at that time. She has a history of IPK under the left 1st metatarsophalangeal joint and medial aspect of the foot. She sees Dr. Gordon on a scheduled basis approximately every 9 weeks and was last seen 20 days ago for her trimming work on these IPKs right great toe left 1st MTP. Her shoes were noted to be quite worn out and she was told to get rid of them and to start wearing her new diabetic shoes. She has been doing so over the last 20 days. Her past medical history is significant for diabetes. No history of deep venous thromboses. On exam she has lymphedema in both lower legs from the knee down. She has pronounced numbness in both feet. I was able to debride the blisters without discomfort both feet. She had a 2+ dorsalis pedis pulse palpable on the right side. I could not feel a dorsalis pedis or posterior tibial on the left. She did have normal pink color in the skin around the ulcers both feet. On the right side she has a blister about an inch by 1 in and there was a 7 by 10 mm area of white dermis and the center of this plantar medial which likely corresponds to the plantar medial aspect of the IP joint. The blister skin was carefully debrided at the bedside. On the left side there is a much larger area of skin blistering about 3 x 2 in that is centered over the plantar medial aspect of the 1st MTP joint and there was an area about 2 cm wide 1 cm proximal to distal right under the sesamoids where the dermis underneath was white looked necrotic. Proximal to that area there was appearance of at least partial dermal necrosis but it appeared only partial. The blistering extended far passed these areas particularly distally where this dermis underneath was pink and bled. The blister area was debrided Sharply with scissors and exudate wiped off with 4x4s. she had no pain with movements of her great toes on both sides. Again she has I believe fairly dense neuropathy. 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 Coinciding with her switching to a new pair of diabetic shoes, she has developed soft tissue breakdown and blistering under these keratoses and has some central necrosis in both. Certainly there is concomitant infection but she does not have obvious signs of spreading cellulitis and I think that the infection seems to be localized to the areas of tissue necrosis. I have wrapped the wounds with Kerlix which will provide some mechanical debridement with dressing changes and I will consult the wound care nurse for recommendations on conducive gels that should be applied and their use. I think she will need to be followed in the [facility] and I would recommend that she be seen by Dr. Silveira additional recommendations and decision on whether formal debridement in the operating room would be indicated or further imaging be obtained And any other specialized recommendations would be request. I am going to obtain x-rays of the right foot since those have not been done yet. Left foot x-rays sh
[2022-11-11 14:00] VITALS: BP 129/50; PULSE 82; RESP 16; TEMP 36.3; O2SAT 97
--- NOTE | 2022-11-11 15:10 | PM.IMPN ---
Progress Note: A&P Assessment and Plan (1) Cellulitis in diabetic foot: Code(s): E11.628 - Type 2 diabetes mellitus with other skin complications; L03.119 - Cellulitis of unspecified part of limb Status: Acute Assessment and Plan: As per diabetic cellulitis antibiotics stewardship the patient was started on cefepime, Flagyl and vancomycin. - tailor antibiotics to culture sensitivities. - consult Dr. Lujan (2) Hypertension: Code(s): I10 - Essential (primary) hypertension Status: Acute Assessment and Plan: -the patient's blood pressure was 110/32 and was given IV bolus. Now her blood pressures up to 130/70. I did continue with metoprolol after her blood pressure came back to normal. Hydrochlorothiazide and lisinopril on hold. Blood pressure optimal continue to hold for (3) Diabetes: Code(s): E11.9 - Type 2 diabetes mellitus without complications Status: Acute Assessment and Plan: -I held her metformin to avoid lactic acidosis. - Accu-Cheks AC and HS with sliding scale insulin and hypoglycemic protocol. Patient's A1c is 7.0. Continue with Januvia (4) DVT (deep venous thrombosis): Code(s): I82.409 - Acute embolism and thrombosis of unspecified deep veins of unspecified lower extremity Status: Acute Plan Acute left popliteal and tibial vein DVT: Will start Lovenox. If no further procedure will transition to 1 of the [place] Peripheral vascular disease low TBI normal CRISTINA will get aspirin 81 mg daily check lipid panel may need statin she is already on fenofibrate at home Subjective Date/time seen: 11/11/22 15:10 Interval history: HPI: This is a 77-year-old female patient who came to the emergency room with complaints of infection to bilateral big toes.? The patient has been seeing her digital editor ? Every few weeks.? The patient stated that she has been wearing shoes that have been too small for her and she does not recall if her digital editor actually debrided her feet or not.? Patient has wounds on each great toe that appeared to be a popped blister.? Both of her toes are red and swollen.? Patient was started on Keflex by urgent care. ? her condition worsened.? She has redness up both of her legs.? And the left streak radiates up to her mid thigh.? Patient has no fever chills.? X-ray of left foot shows no evidence of osteomyelitis mild poly articular osteoarthritis.? Chest x-ray read is right chronic pleural effusion with underlying compressive atelectasis.? The patient is diabetic and therefore was started on cefepime, Flagyl and vancomycin.? She was also started on IV fluids.? The patient's blood pressure dropped low earlier today and had to be given an IV bolus.? BUN 28 creatinine 1.1 which is baseline of normal readings either 0.9 or 1.0.? Her A1c from today was 7.0.? Her blood glucose was 200 earlier in came down to 136.? The patient is being admitted to observation status on the date of service of 11/10/2022 11/11/2022: No overnight events. History reviewed. Denies any fever chills. Review of Systems Review of Systems: All systems reviewed & are unremarkable except as noted in HPI and below Exam Narrative: GENERAL: Well-appearing, morbidly obese, and in no acute distress. HEAD: Normocephalic, atraumatic. NECK: Supple. Nontender CHEST: Clear to auscultation.? No respiratory distress. HEART: Regular rate and rhythm. ? Normal peripheral pulses. EXTREMITIES: Normal range of motion.? No edema.? Cellulitis to bilateral great toes with open ulceration in plantar aspect of great toe SKIN: Warm, dry, no rash.? Cellulitis to forefoot NEURO: No focal deficits.? Alert and oriented x3. PSYCH: Normal mood and affect. Objective Data Vital Signs Vital Signs: Vital Signs - 24 hr 11/10/22 17:00 11/10/22 18:21 11/10/22 17:00 Temperature 97.3 F L 97.2 F L Pulse Rate 79 Respiratory Rate 16 Blood Pressure 118/52 L 110/32 L Pulse Oximetry 99 Oxygen Hamiltonive
[2022-11-11] MEDS: CYANOCOBALAMIN INJ 1,000 MCG/ML VIAL 1000 MCG IM (16:09)
[2022-11-11 17:01] LABS: Glucose Point of Care 148 mg/dl (65-105)
[2022-11-11] MEDS: ENOXAPARIN 100 MG/ML SYRINGE 95 MG SUB-Q (17:52)
[2022-11-11] MEDS: MAGNESIUM SULF 2 GM/WATER 50ML 2 GM/50 ML BAG IVPB (18:26)
[2022-11-11 21:08] LABS: Glucose Point of Care 181 mg/dl (65-105)
[2022-11-11 22:22] VITALS: BP 138/72; PULSE 76; RESP 16; TEMP 36.7; O2SAT 97
[2022-11-12 01:03] LABS: Glucose Point of Care 170 mg/dl (65-105)
--- NOTE | 2022-11-12 01:13 | PC.NURSE ---
Patient woke up confused. Stated she did not know how she got to [facility] or why she was here. Reorientated her to surroundings and situation. Lathe Hand was strong. Glucose checked-107. Patient was not slurring words. Arms were not dropping when held out in front of her. Patient stuck out tongue with no issues. After lights were turned on patient started to come to after some time. She now remembers more details of her hospital stay. Will continue to monitor.
[2022-11-12 05:01] VITALS: BP 158/67; PULSE 77; RESP 16; TEMP 36.1; O2SAT 97
[2022-11-12] MEDS: SODIUM CHLORIDE 0.9% IV 1,000 ML 75 ML IV CONT (05:04)
[2022-11-12] MEDS: metroNIDAZOLE 500 MG/ISO 100ML 500 MG/100 ML BAG 100 MG IVPB ×3 (06:14→21:06)
[2022-11-12] MEDS: ENOXAPARIN 100 MG/ML SYRINGE 95 MG SUB-Q (06:20)
[2022-11-12 07:28] LABS: Alanine Aminotransferase 16 U/L (6-35); Albumin Level 3.3 g/dL (3.5-5.1); Alkaline Phosphatase 46 U/L (38-126); Anion Gap 7 mmol/L (8-16); Aspartate Amino Transferase 20 U/L (14-36); Bilirubin,Total 0.7 mg/dL (0.2-1.3); Blood Urea Nitrogen 13 mg/dL (7-17); Calcium 8.4 mg/dL (8.4-10.2); Carbon Dioxide 25 mmol/L (22-30); Chloride 107 mmol/L (98-107); Estimated CRCL calculation 58 ml/min; Estimated Glomerular Filt Rate > 60; Glucose 153 mg/dL (65-110); Magnesium 1.8 mg/dL (1.6-2.3); Potassium 3.5 mmol/L (3.4-5.0); Sodium 139 mmol/L (137-145)
[2022-11-12 07:35] LABS: Basophils Percent Auto 0.3 % (0.2-1.2); Eosinophils Absolute Auto 0.2 K/mm3 (0-0.3); Eosinophils Percent Auto 4.4 % (0-4.4); Hematocrit 33.5 % (37.0-47.0); Immature Granulocyte Absolute 0.05 K/mm3 (0.00-0.031); Immature Granulocyte Percent A 1.3 % (0-0.5); Lymphocytes Absolute Auto 0.67 K/mm3 (0.9-3.2); Lymphocytes Percent Auto 17.5 % (18.3-44.2); Mean Corpuscular HGB Conc 32.8 g/dl (32-36); Mean Corpuscular Volume 85.2 fl (80-100); Mean Platelet Volume 10.5 fl (7.4-10.4); Monocytes Absolute Auto 0.6 K/mm3 (0.1-0.6); Monocytes Percent Auto 15.1 % (2.6-8.5); Neutrophils Absolute Auto 2.4 K/mm3 (1.3-6.7); Neutrophils Percent Auto 61.4 % (45.5-73.1); Platelet Count Result 223 k/mm3 (150-375); Red Blood Count 3.93 M/mm3 (4.2-5.4); Red Cell Distribution Width 14.3 % (11.5-14.5); White Blood Count 3.8 K/mm3 (4.5-10.0)
[2022-11-12 08:55] LABS: Glucose Point of Care 166 mg/dl (65-105)
--- NOTE | 2022-11-12 09:24 | PM.CNOR ---
Assessment and Plan Assessment and plan (1) Foot ulcer: Qualifiers: Laterality: bilateral Non-pressure ulcer stage: limited to breakdown of skin Qualified Code(s): L97.511 - Non-pressure chronic ulcer of other part of right foot limited to breakdown of skin; L97.521 - Non-pressure chronic ulcer of other part of left foot limited to breakdown of skin Code(s): L97.509 - Non-pressure chronic ulcer of other part of unspecified foot with unspecified severity Status: Acute Assessment and Plan: History, exam, radiographs, CRISTINA and Dopplers reviewed with the patient. Bilateral foot radiographs reveal no evidence of osteomyelitis. Patient has undergone debridement by Dr. Mcqueen per reports. patient has wounds on both the right hallux and left plantar 1st MTP joint. Wounds appear to be superficial in nature, and no probing to bone at this time. Surrounding tissue with cellulitis and erythema. Discussed condition, nature, etiology and course of natural history. Conservative and operative treatment options reviewed as well as risks and benefits of each. Recommended conservative treatment at this time with daily dressing changes. [place] wound care nurse available during assessment and decision for dressing changes with silver gel and covered dry. Patient may need home health to assist with wound care. Patient is well established with a union carpenter who she may follow-up with upon discharge. She would also benefit from a referral to vascular surgery which she can obtain from her primary care provider or through care coordination prior to discharge if possible. Patient would benefit from bilateral postop shoes. Will eventually require custom orthotics depth shoes. These may be obtained through her union carpenter as well. Continue antibiotics under the direction of the medicine team. Blood cultures pending. Thank you for allowing us to assist in the care of this patient. (2) Arterial occlusive disease: Code(s): I70.90 - Unspecified atherosclerosis Status: Acute Assessment and Plan: ABIs reviewed. ABIs reveal decreased bilateral TBIs and a normal right CRISTINA. Results are consistent with arterial occlusive disease. Patient would need vascular workup as an outpatient. (3) DVT (deep venous thrombosis): Code(s): I82.409 - Acute embolism and thrombosis of unspecified deep veins of unspecified lower extremity Status: Acute Assessment and Plan: Lower extremity Doppler reveals a left DVT in the superficial vein thrombosis in the right calf. Medicine team following. Patient has been started on Lovenox. (4) Cellulitis in diabetic foot: Code(s): E11.628 - Type 2 diabetes mellitus with other skin complications; L03.119 - Cellulitis of unspecified part of limb Status: Acute Assessment and Plan: Blood cultures are pending. It does not appear wound cultures were obtained. Patient is being treated with antibiotics per the antibiotic stewardship program. Given her diabetes, she is currently on cefepime, Flagyl and vancomycin. (5) Diabetes: Code(s): E11.9 - Type 2 diabetes mellitus without complications Status: Acute Assessment and Plan: Defer to medicine team. Patient will need optimal blood glucose control in order for healing of bilateral foot ulcers. History of Present Illness HPI Consult date: 11/12/22 Chief complaint: Cellulitis in Diabetic Foot Narrative: 77-year-old female admitted due to concern for infection of bilateral feet. The patient is closely followed by union carpenter, Dr. Becerra in [place], [place]. The patient states that she recently saw her union carpenter and he debrided her feet and began dressing changes. Per the medical record, patient was also seen in the Urgent Care on 11/07 reporting the union carpenter had trimmed calluses the week prior. She was started on oral antibiotics at that time. After noticing no improvement and seeing worsening of the
[2022-11-12] MEDS: METOPROLOL SUCCINATE EXT REL 100 MG TABCR PO (09:57)
[2022-11-12] MEDS: FENOFIBRATE NANOCRYSTALLIZED 145 MG TABLET PO (09:57)
[2022-11-12] MEDS: CHOLECALCIFEROL 1,000 UNITS TABLET 5000 UNITS PO (09:57)
[2022-11-12] MEDS: SILVERGEL (ELTA) 45 ML 1 APPLIC TOPICAL (09:57)
[2022-11-12] MEDS: CALCIUM CARBONATE (OSCAL) 500 MG TABLET PO (09:57)
[2022-11-12 12:03] LABS: Glucose Point of Care 221 mg/dl (65-105)
--- NOTE | 2022-11-12 14:22 | PM.IMPN ---
Progress Note: A&P Assessment and Plan (1) Cellulitis in diabetic foot: Code(s): E11.628 - Type 2 diabetes mellitus with other skin complications; L03.119 - Cellulitis of unspecified part of limb Status: Acute Assessment and Plan: As per diabetic cellulitis antibiotics stewardship the patient was started on cefepime, Flagyl and vancomycin. - tailor antibiotics to culture sensitivities. - consult Dr. Lujan Continue wound care at home. (2) Hypertension: Code(s): I10 - Essential (primary) hypertension Status: Acute Assessment and Plan: -the patient's blood pressure was 110/32 and was given IV bolus. Now her blood pressures up to 130/70. I did continue with metoprolol after her blood pressure came back to normal. Hydrochlorothiazide and lisinopril on hold. Blood pressure optimal continue to hold for (3) Diabetes: Code(s): E11.9 - Type 2 diabetes mellitus without complications Status: Acute Assessment and Plan: -I held her metformin to avoid lactic acidosis. - Accu-Cheks AC and HS with sliding scale insulin and hypoglycemic protocol. Patient's A1c is 7.0. Continue with Januvia (4) DVT (deep venous thrombosis): Code(s): I82.409 - Acute embolism and thrombosis of unspecified deep veins of unspecified lower extremity Status: Acute Assessment and Plan: Acute left popliteal and tibial vein DVT: Started on Lovenox. No further plans for any procedure. Will switch to Eliquis from this evening Plan # Peripheral vascular disease low TBI normal CRISTINA will get aspirin 81 mg daily check lipid panel may need statin she is already on fenofibrate at home Subjective Date/time seen: 11/12/22 14:22 Interval history: HPI: This is a 77-year-old female patient who came to the emergency room with complaints of infection to bilateral big toes.? The patient has been seeing her pusher runner ? Every few weeks.? The patient stated that she has been wearing shoes that have been too small for her and she does not recall if her pusher runner actually debrided her feet or not.? Patient has wounds on each great toe that appeared to be a popped blister.? Both of her toes are red and swollen.? Patient was started on Keflex by urgent care. ? her condition worsened.? She has redness up both of her legs.? And the left streak radiates up to her mid thigh.? Patient has no fever chills.? X-ray of left foot shows no evidence of osteomyelitis mild poly articular osteoarthritis.? Chest x-ray read is right chronic pleural effusion with underlying compressive atelectasis.? The patient is diabetic and therefore was started on cefepime, Flagyl and vancomycin.? She was also started on IV fluids.? The patient's blood pressure dropped low earlier today and had to be given an IV bolus.? BUN 28 creatinine 1.1 which is baseline of normal readings either 0.9 or 1.0.? Her A1c from today was 7.0.? Her blood glucose was 200 earlier in came down to 136.? The patient is being admitted to observation status on the date of service of 11/10/2022 11/11/2022: No overnight events. History reviewed. Denies any fever chills. 11/12/2022: No overnight events. She however states that she was confused when she woke up at night last night. Her wound has been dressed. She is independent prior to this admission. She is also independent now. Needs dressing changes Review of Systems Review of Systems: All systems reviewed & are unremarkable except as noted in HPI and below Exam Narrative: GENERAL: Well-appearing, morbidly obese, and in no acute distress. HEAD: Normocephalic, atraumatic. NECK: Supple. Nontender CHEST: Clear to auscultation.? No respiratory distress. HEART: Regular rate and rhythm. ? Normal peripheral pulses. EXTREMITIES: Normal range of motion.? No edema.? Cellulitis to bilateral great toes with open ulceration in plantar aspect of great toe SKIN: Warm, dry, no rash.? Cellulitis to forefoot which has improved.
[2022-11-12 15:18] LABS: Cholesterol 162 mg/dL (0-200); HDL Direct 27 mg/dL; Triglycerides 204 mg/dL (<150)
[2022-11-12 15:20] VITALS: BP 140/66; PULSE 74; RESP 18; TEMP 36.9; O2SAT 99
[2022-11-12 15:29] LABS: LDL Cholesterol Direct 89 mg/dL
[2022-11-12 17:22] LABS: Glucose Point of Care 188 mg/dl (65-105)
[2022-11-12] MEDS: APIXABAN 5 MG TABLET 10 MG PO (21:05)
[2022-11-12] MEDS: MELATONIN 3 MG TABLET PO (21:06)
[2022-11-12 21:12] VITALS: BP 143/70; PULSE 72; RESP 16; TEMP 36.5; O2SAT 100
[2022-11-12] MEDS: HALOPERIDOL LACTATE 5 MG/ML VIAL IM (22:16)
[2022-11-12 23:53] VITALS: O2SAT 98
[2022-11-13] MEDS: LORazepam INJ (*CRX) 2 MG/ML VIAL 1 MG IV PUSH (00:51)
[2022-11-13 06:00] VITALS: BP 105/45; PULSE 55; RESP 12; TEMP 36.5; O2SAT 100
[2022-11-13 06:21] LABS: Basophils Percent Auto 0.2 % (0.2-1.2); Eosinophils Absolute Auto 0.1 K/mm3 (0-0.3); Eosinophils Percent Auto 2.9 % (0-4.4); Hematocrit 33.1 % (37.0-47.0); Hemoglobin 10.9 g/dL (12.0-15.0); Immature Granulocyte Absolute 0.06 K/mm3 (0.00-0.031); Immature Granulocyte Percent A 1.4 % (0-0.5); Lymphocytes Absolute Auto 0.71 K/mm3 (0.9-3.2); Lymphocytes Percent Auto 16.1 % (18.3-44.2); Mean Corpuscular HGB Conc 32.9 g/dl (32-36); Mean Corpuscular Hemoglobin 28.3 pg (26-34); Mean Platelet Volume 9.9 fl (7.4-10.4); Monocytes Absolute Auto 0.6 K/mm3 (0.1-0.6); Monocytes Percent Auto 12.9 % (2.6-8.5); Neutrophils Absolute Auto 2.9 K/mm3 (1.3-6.7); Neutrophils Percent Auto 66.5 % (45.5-73.1); Platelet Count Result 235 k/mm3 (150-375); Red Blood Count 3.85 M/mm3 (4.2-5.4); Red Cell Distribution Width 14.5 % (11.5-14.5); White Blood Count 4.4 K/mm3 (4.5-10.0)
[2022-11-13] MEDS: metroNIDAZOLE 500 MG/ISO 100ML 500 MG/100 ML BAG 100 MG IVPB ×3 (06:36→21:17)
[2022-11-13 06:40] LABS: Alanine Aminotransferase 18 U/L (6-35); Albumin Level 3.2 g/dL (3.5-5.1); Alkaline Phosphatase 42 U/L (38-126); Anion Gap 4 mmol/L (8-16); Aspartate Amino Transferase 26 U/L (14-36); Bilirubin,Total 0.5 mg/dL (0.2-1.3); Blood Urea Nitrogen 11 mg/dL (7-17); Calcium 8.2 mg/dL (8.4-10.2); Carbon Dioxide 26 mmol/L (22-30); Chloride 109 mmol/L (98-107); Estimated CRCL calculation 58 ml/min; Estimated Glomerular Filt Rate > 60; Glucose 156 mg/dL (65-110); Magnesium 1.6 mg/dL (1.6-2.3); Potassium 3.7 mmol/L (3.4-5.0); Sodium 139 mmol/L (137-145)
[2022-11-13 06:43] LABS: Vancomycin Trough 12.6 ug/mL (10.0-20.0)
--- NOTE | 2022-11-13 08:06 | PM.PNORT ---
Progress Note: A&P Assessment and Plan (1) Cellulitis in diabetic foot: Code(s): E11.628 - Type 2 diabetes mellitus with other skin complications; L03.119 - Cellulitis of unspecified part of limb Status: Acute Assessment and Plan: Patient seen and examined. Orthopedic consultation reviewed and agree. On IV antibiotic regimen. Dressings changed this morning. Moderate serous drainage left hallux. May be from venous stasis or DVT. Also with peripheral arterial disease. Continue IV antibiotics. Continue dressing changes with silver gel. Protected weight with postoperative shoes. Will be prolonged healing time due to peripheral arterial disease. No indication for surgical debridement at this time. (2) Foot ulcer: Qualifiers: Laterality: bilateral Non-pressure ulcer stage: limited to breakdown of skin Qualified Code(s): L97.511 - Non-pressure chronic ulcer of other part of right foot limited to breakdown of skin; L97.521 - Non-pressure chronic ulcer of other part of left foot limited to breakdown of skin Code(s): L97.509 - Non-pressure chronic ulcer of other part of unspecified foot with unspecified severity Status: Acute (3) Arterial occlusive disease: Code(s): I70.90 - Unspecified atherosclerosis Status: Acute (4) DVT (deep venous thrombosis): Code(s): I82.409 - Acute embolism and thrombosis of unspecified deep veins of unspecified lower extremity Status: Acute Subjective Subjective Date/Time Seen: 11/13/22 08:06 Principal diagnosis: Cellulitis Interval history: patient resting comfortably. No overnight complaints. States that her toes began having problems within the past week. Review of Systems Constitutional: Constitutional: Reports no additional constitutional complaints, Denies chills, Denies fatigue, Denies fever(s), Denies headache(s) and Denies weakness Eyes: Eyes: Denies change in vision ENT: Reports Normal hearing present and Denies headache(s) Cardiovascular: Cardiovascular: Denies chest pain and Denies dyspnea Respiratory: Respiratory: Denies cough, Denies dyspnea and Denies wheezing Gastrointestinal: Gastrointestinal: Denies constipation, Denies diarrhea, Denies nausea and Denies vomiting Genitourinary: Genitourinary: Denies hematuria, Denies dysuria and Denies urinary urgency Musculoskeletal: Musculoskeletal: Reports as per HPI, Denies numbness and Denies tingling Integumentary/Breasts: Skin/Breast: Reports as per HPI Neurologic: Reports as per HPI, Reports Normal hearing present, Denies headache(s), Denies numbness, Denies tingling and Denies weakness Psychiatric: Psychiatric: Reports no additional psychiatric complaints Endocrine: Endocrine: Reports no additional endocrine complaints and Denies fatigue Hematologic/Lymphatic: Hematologic/Lymphatic: Reports no additional hematologic/lymphatic complaints Allergic/Immunologic: Allergic/Immunologic: Reports no additional allergic/immunologic complaints and Denies wheezing Exam Const: General: comfortable and no acute distress Nutritional Appearance: overweight Orientation/consciousness: patient oriented x3 Neck: Neck: supple and no JVD Resp: Effort & Inspection: normal respiratory effort GI: Inspection: non-distended GI Palp: Yes Soft to palpation Neuro: Cognition (Neuro): normal cognition Speech: normal speech Extrem: Right lower extremity: lower leg (edema ), ankle Details: swelling and foot (swelling, wounds noted, see below ) Left lower extremity: lower leg (edema ), ankle Details: swelling and foot (swelling, wounds noted, see below ) Other: Right Medial Hallux measures 2.5x2.5x0.2cm, 50% red/50% yellow, superficial, no probing to bone. Appears to be blistering in nature. Left plantar 1st MTP joint wound measures 3.0x5.0x0.3cm, 30% yellow/70% red. Erythema of bilateral forefoot. No extension to the midfoot or ankle noted. B/L Lower extremity swelling
[2022-11-13] MEDS: APIXABAN 5 MG TABLET 10 MG PO ×2 (08:38→21:17)
[2022-11-13] MEDS: CALCIUM CARBONATE (OSCAL) 500 MG TABLET PO (08:39)
[2022-11-13] MEDS: FENOFIBRATE NANOCRYSTALLIZED 145 MG TABLET PO (08:39)
[2022-11-13] MEDS: CHOLECALCIFEROL 1,000 UNITS TABLET 5000 UNITS PO (08:39)
[2022-11-13] MEDS: METOPROLOL SUCCINATE EXT REL 100 MG TABCR PO (08:39)
[2022-11-13] MEDS: ASPIRIN 81 MG ENTERIC TABLET PO (08:39)
[2022-11-13 09:08] LABS: Glucose Point of Care 153 mg/dl (65-105)
[2022-11-13 11:57] LABS: Glucose Point of Care 186 mg/dl (65-105)
[2022-11-13 14:00] VITALS: BP 138/58; PULSE 88; RESP 18; TEMP 36.6; O2SAT 98
[2022-11-13] MEDS: SILVERGEL (ELTA) 45 ML 1 APPLIC TOPICAL (15:43)
[2022-11-13 16:58] LABS: Glucose Point of Care 200 mg/dl (65-105)
--- NOTE | 2022-11-13 17:51 | PM.IMPN ---
Progress Note: A&P Assessment and Plan (1) Foot ulcer: Qualifiers: Laterality: bilateral Non-pressure ulcer stage: limited to breakdown of skin Qualified Code(s): L97.511 - Non-pressure chronic ulcer of other part of right foot limited to breakdown of skin; L97.521 - Non-pressure chronic ulcer of other part of left foot limited to breakdown of skin Code(s): L97.509 - Non-pressure chronic ulcer of other part of unspecified foot with unspecified severity Status: Acute Assessment and Plan: Appreciate orthopedic surgeon consultation. Continue IV antibiotics.? Continue dressing changes with silver gel.? Protected weight with postoperative shoes. ? Will be prolonged healing time due to peripheral arterial disease.? No indication for surgical debridement at this time. (2) Arterial occlusive disease: Code(s): I70.90 - Unspecified atherosclerosis Status: Acute (3) Cellulitis in diabetic foot: Code(s): E11.628 - Type 2 diabetes mellitus with other skin complications; L03.119 - Cellulitis of unspecified part of limb Status: Acute (4) Hypertension: Code(s): I10 - Essential (primary) hypertension Status: Acute (5) Diabetes: Code(s): E11.9 - Type 2 diabetes mellitus without complications Status: Acute (6) Collagen vascular disease: Code(s): M35.9 - Systemic involvement of connective tissue, unspecified Status: Acute (7) Pleural effusion: Code(s): J90 - Pleural effusion, not elsewhere classified Status: Acute (8) DVT (deep venous thrombosis): Code(s): I82.409 - Acute embolism and thrombosis of unspecified deep veins of unspecified lower extremity Status: Acute Assessment and Plan: Acute left popliteal and tibial vein DVT:? Started on Lovenox.? No further plans for any procedure.? Will switch to Eliquis from this evening (9) Right ureteral stone: Code(s): N20.1 - Calculus of ureter Status: Acute Subjective Date/time seen: 11/13/22 17:51 Saw examined patient. Patient does not have a new showed event or even over the night. Pain swelling, purulent discharge from left foot is improving. Afebrile, hemodynamically stable, denies chest pain, some pain, shortness a diarrhea dysuria Interval history: patient resting comfortably. No overnight complaints. States that her toes began having problems within the past week. Exam Narrative: GENERAL: Well-appearing, morbidly obese, and in no acute distress. HEAD: Normocephalic, atraumatic. NECK: Supple. Nontender CHEST: Clear to auscultation.? No respiratory distress. HEART: Regular rate and rhythm. ? Normal peripheral pulses. EXTREMITIES: Normal range of motion.? No edema.? Cellulitis to bilateral great toes with open ulceration in plantar aspect of great toe SKIN: Warm, dry, no rash.? Cellulitis to forefoot which has improved. Bilateral forefoot with dressing on NEURO: No focal deficits.? Alert and oriented x3. PSYCH: Normal mood and affect. Const: General: cooperative, comfortable, no acute distress, well developed, alert, awake, Physically active, ill appearing and obese Nutritional Appearance: obese Orientation/consciousness: oriented to person, oriented to place, oriented to time and patient oriented x3 Limitations: no limitations HENMT: Head: normal to inspection, No palpable skull fracture present, normocephalic, atraumatic and abrasion Ears: hearing grossly normal bilaterally and external ears normal Face/Nose/Sinus: Normal external nose present and Normal nares present Eyes: General: appearance normal, both eyes and all related structures Alignment and Position: alignment normal Periorbital: periorbital findings normal Eyelids: eyelids normal Sclera: sclerae normal Pupils: Equal, round and reactive pupils present EOM: EOMs intact bilaterally Neck: Neck: normal visual inspection, full ROM, no lymphadenopathy, trachea midline and supple Chest:
[2022-11-13] MEDS: MELATONIN 3 MG TABLET PO (21:17)
[2022-11-13 22:00] VITALS: BP 141/65; PULSE 84; RESP 18; TEMP 36.3; O2SAT 97
[2022-11-13 22:00] LABS: Glucose Point of Care 196 mg/dl (65-105)
[2022-11-14] MEDS: metroNIDAZOLE 500 MG/ISO 100ML 500 MG/100 ML BAG 100 MG IVPB (05:07)
[2022-11-14 06:00] VITALS: BP 134/72; PULSE 78; RESP 18; TEMP 36.4; O2SAT 94
[2022-11-14 06:54] LABS: Estimated CRCL calculation 66 ml/min; Estimated Glomerular Filt Rate > 60
[2022-11-14] MEDS: APIXABAN 5 MG TABLET 10 MG PO (08:14)
[2022-11-14] MEDS: ASPIRIN 81 MG ENTERIC TABLET PO (08:14)
[2022-11-14] MEDS: CHOLECALCIFEROL 1,000 UNITS TABLET 5000 UNITS PO (08:15)
[2022-11-14] MEDS: SILVERGEL (ELTA) 45 ML 1 APPLIC TOPICAL (08:15)
[2022-11-14] MEDS: CALCIUM CARBONATE (OSCAL) 500 MG TABLET PO (08:15)
[2022-11-14] MEDS: FENOFIBRATE NANOCRYSTALLIZED 145 MG TABLET PO (08:15)
[2022-11-14] MEDS: METOPROLOL SUCCINATE EXT REL 100 MG TABCR PO (08:15)
[2022-11-14 08:16] LABS: Glucose Point of Care 207 mg/dl (65-105)
[2022-11-14] MEDS: INSULIN ASPART (*BKC) 100 UNITS/ML SUB-Q (08:22)
[2022-11-14 12:19] LABS: Glucose Point of Care 156 mg/dl (65-105)
--- NOTE | 2022-11-14 13:11 | PM.DS ---
DS: Admitting Diagnosis Discharge Date 11/14/22 Admitting Diagnosis cellulitis DS: Discharge Diagnosis Discharge Diagnosis (1) Arterial occlusive disease: Code(s): I70.90 - Unspecified atherosclerosis Status: Acute (2) Cellulitis in diabetic foot: Code(s): E11.628 - Type 2 diabetes mellitus with other skin complications; L03.119 - Cellulitis of unspecified part of limb Status: Acute (3) Hypertension: Code(s): I10 - Essential (primary) hypertension Status: Acute (4) Diabetes: Code(s): E11.9 - Type 2 diabetes mellitus without complications Status: Acute DS: Summary Hospital Course Reason for hospitalization: cellulitis Hospital Course: This is a 77-year-old female patient who came to the emergency room with complaints of infection to bilateral big toes.? The patient has been seeing her project management it specialist ? Every few weeks.? The patient stated that she has been wearing shoes that have been too small for her and she does not recall if her project management it specialist actually debrided her feet or not.? Patient has wounds on each great toe that appeared to be a popped blister.? Both of her toes are red and swollen.? Patient was started on Keflex by urgent care. ? her condition worsened.? She has redness up both of her legs.? And the left streak radiates up to her mid thigh.? Patient has no fever chills.? X-ray of left foot shows no evidence of osteomyelitis mild poly articular osteoarthritis.? Chest x-ray read is right chronic pleural effusion with underlying compressive atelectasis.? The patient is diabetic and therefore was started on cefepime, Flagyl and vancomycin.? She was also started on IV fluids.? The patient's blood pressure dropped low earlier POA in ED and had to be given an IV bolus.? BUN 28 creatinine 1.1 which is baseline of normal readings either 0.9 or 1.0.? Her A1c from today was 7.0.? Her blood glucose was 200 earlier in came down to 136.? during hospitalization, patient received vancomycin, cefepime, metronidazole IV. osteophytic surgery also evaluated the patient, patient does not debridement. no cellulitis is improving. Kidney function recovers. patient is afebrile, hemodynamically stable. will continue Keflex p.o. 7 days, added doxycycline 100 mg b.i.d. p.o. for 7 days. patient will see primary care doctor and orthopedic surgeon in the office and schedule appointments Status at Discharge Cognitive/behavioral status at discharge: stable Time Spent with Patient Time attestation: Total time spent providing and/or coordinating discharge services: 40 mins Exam Narrative: GENERAL: Well-appearing, morbidly obese, and in no acute distress. HEAD: Normocephalic, atraumatic. NECK: Supple.? Nontender CHEST: Clear to auscultation.? No respiratory distress. HEART: Regular rate and rhythm. ? Normal peripheral pulses. EXTREMITIES: Normal range of motion.? No edema.? Cellulitis to bilateral great toes with open ulceration in plantar aspect of great toe, but improving significantly SKIN: Warm, dry, no rash.? Cellulitis to forefoot which has improved.? Bilateral forefoot with dressing on NEURO: No focal deficits.? Alert and oriented x3. PSYCH: Normal mood and affect. DS: Data Data Completed and Pending Labs on day of discharge: Labs from last 24 hours 11/14/22 11/14/22 11/14/22 12:07 08:12 06:08 Creatinine 0.70 Estim Creat Clear Calc 66 Estimated GFR > 60 POC Capillary Glucose 156 H 207 H 11/13/22 11/13/22 21:25 16:42 Creatinine Estim Creat Clear Calc Estimated GFR POC Capillary Glucose 196 H 200 H Preliminary micro results at discharge 11/10/22 12:48 Blood Culture - Preliminary Blood 11/10/22 12:48 Blood Culture - Preliminary Blood Discharge Plan Discharge Attending physician on discharge: Briana Schroeder Consulting providers: Trev Cardenas ; Benny Silveira Discharging Clinician: Briana Schroeder Patient Disposition:
== END 2022-11-14 15:30 | disposition home health service (06) | DRG 638 ==
LOC: ANHED 14:35 → ANH3MEDSUR 15:25
PROVIDERS: Nurse Practitioner; Admitting Provider Internal Medicine; Emergency Provider Emergency Medicine; PCP Family Medicine; Visit Provider Hospitalist
DX: E11.628 Type 2 diabetes mellitus with other skin complications (principal); L97.411 Non-pressure chronic ulcer of right heel and midfoot limited to breakdown of skin; L97.521 Non-pressure chronic ulcer of other part of left foot limited to breakdown of skin; L03.032 Cellulitis of left toe; L03.031 Cellulitis of right toe; I82.432 Acute embolism and thrombosis of left popliteal vein; I82.442 Acute embolism and thrombosis of left tibial vein; E11.621 Type 2 diabetes mellitus with foot ulcer; E11.51 Type 2 diabetes mellitus with diabetic peripheral angiopathy without gangrene; E78.5 Hyperlipidemia, unspecified; E66.01 Morbid (severe) obesity due to excess calories; I10 Essential (primary) hypertension; Z68.34 Body mass index [BMI] 34.0-34.9, adult; Z90.710 Acquired absence of both cervix and uterus; Z87.442 Personal history of urinary calculi; Z20.822 Contact with and (suspected) exposure to COVID-19; Z79.84 Long term (current) use of oral hypoglycemic drugs
CPT/HCPCS: 36415; 73620; 73630; 80053; 80061; 80202; 82565; 82948; 83036; 83605; 83735; 84443; 85025; 87040; 87636; 93923; 93970; 96361; 96365; 96366; 96367; 96372; 96375; 97116; 97161; 97165; 97530; 99285; A9270; G0378; G0379; J0692; J1630; J1650; J1815; J2060; J3370; J3420; J3475; J7030

== ENCOUNTER 2022-12-06 19:47 | Inpatient (IN) | payer MEDICARE, SELFPAY ==
--- NOTE | ~2022-12-06 | MR_ITS ---
EXAMINATION: MR foot LT wo con DATE: 12/07/2022 15:40 INDICATION: Left great toe ulcer. TECHNIQUE: Magnetic resonance imaging (MRI) of the left foot was performed without intravenous contra st. COMPARISON: Left foot radiographs 11/10/2022 FINDINGS: Bone alignment is normal. No fracture. There is mild osteoarthritis of first metatarsophala ngeal joint and medial naviculocuneiform joint. Lisfranc ligament is intact. The flexor and extensor tendons are normal. There is variable fatty atrophy of much of the musculature. There is edema in the forefoot with a plantar predominance. IMPRESSION: 1. No evidence of osteomyelitis. Reviewed, dictated and finalized at location A. LE HOME TECHNICIAN
--- NOTE | ~2022-12-06 | XR_ITS ---
XR foot RT min 3V 12/07/2022 00:42 Indication: Right great toe cellulitis Procedure: 4 views right foot Comparison: 12/07/2022 Findings: Osteopenia. Mild polyarticular osteoarthritis. No acute fracture or traumatic malalignment. Lisfranc joint intact. No evidence to suggest osteomyelitis. No foreign bodies. Impression: 1: No acute bone or joint abnormality. If there is continued clinical concern for osteomyelitis, amandeep elation with MRI without and with contrast recommended. Reviewed, dictated and finalized at location A. MONKEY Impression: 1: No acute bone or joint abnormality. If there is continued clinical concern f or osteomyelitis, correlation with MRI without and with contrast recommended.
--- NOTE | ~2022-12-06 | MR_ITS ---
EXAMINATION: MR foot RT wo con DATE: 12/07/2022 15:40 INDICATION: Right great toe ulcer. TECHNIQUE: Magnetic resonance imaging (MRI) of the right foot was performed without intravenous contr ast. COMPARISON: Right foot radiographs 12/07/2022 FINDINGS: A bunionette is noted. No fracture. There is soft tissue edema involving the great toe at i ts medial and plantar aspect. There is edema in first distal phalanx and head of first proximal phala nx characterized by increased T2-weighted signal intensity and normal T1-weighted signal intensity, c onsistent with reactive osteitis. There is mild osteoarthritis of many of the interphalangeal joints. There is severe osteoarthritis of third proximal interphalangeal joint. Lisfranc ligament is normal. There is variable fatty atrophy of much of the musculature. IMPRESSION: 1. Reactive osteitis involving first distal phalanx and head of first proximal phalanx. No T1-weighte d signal abnormality to suggest osteomyelitis. Reviewed, dictated and finalized at location A. WARE SUPPORT TECHNICIAN IMPRESSION: 1. Reactive osteitis involving first distal phalanx and head of first proximal phalanx. No T1-weighted signal abnormality to suggest osteomyelitis.
[2022-12-06 19:57] VITALS: BP 124/50; PULSE 66; RESP 16; TEMP 36.2; O2SAT 100
[2022-12-06 21:46] VITALS: BP 106/42; PULSE 77; RESP 16; O2SAT 100
[2022-12-06 23:50] VITALS: PULSE 62; RESP 17; O2SAT 100
[2022-12-07] VITALS (14 sets, daily range): BP systolic 116–131; BP diastolic 58–79; PULSE 58–66; RESP 12–25; TEMP 36.2–36.9; O2SAT 95–100; BMI 30.9
--- NOTE | 2022-12-07 00:03 | ED.EXTPRO ---
HPI - Extremity Problem General Chief complaint: Extremity Problem,Nontraumatic <Uzma Hayes PA-C - Last Filed: 12/07/22 03:02> Stated complaint: Cellulitis to Right foot <KAREN Medley Last Filed: 12/07/22 03:02> Time Seen by Provider: 12/06/22 23:52 <Uzma Hayes PA-C - Last Filed: 12/07/22 03:02> Source: patient and family <Uzma Hayes PA-C - Last Filed: 12/07/22 03:02> Mode of arrival: ambulatory <KAREN Medley Last Filed: 12/07/22 03:02> Limitations: no limitations <KAREN Medley Last Filed: 12/07/22 03:02> History of Present Illness HPI Narrative: This is a 77 year old female that presents to the ER for right foot cellulitis. Was recently admitted for same. She did have relief of her symptoms with antibiotics initially. Her daughter noted again yesterday that the right great toe started to get red and swollen. This is started to radiate into the foot. Patient denies any fevers. She does have history of diabetes and peripheral neuropathy. They called her PCP who prompted her to be seen in the ER for further evaluation. <Uzma Hayes PA-C - Last Filed: 12/07/22 03:02> Related Data Home medications: Home Medications Medication Instructions Recorded Confirmed fenofibrate nanocrystallized 145 145 mg PO DAILY 09/15/20 12/07/22 mg tablet hydrochlorothiazide 50 mg tablet 50 mg PO DAILY 09/15/20 12/07/22 lisinopril 40 mg tablet 40 mg PO DAILY 09/15/20 12/07/22 metformin 500 mg tablet 1,500 mg PO BIDWMEAL 09/15/20 12/07/22 metoprolol succinate 100 mg 100 mg PO DAILY 09/15/20 12/07/22 tablet,extended release 24 hr calcium 600 mg capsule 600 mg PO DAILY 06/14/21 12/07/22 cholecalciferol (vitamin D3) 125 125 mcg PO DAILY 06/14/21 12/07/22 mcg (5,000 unit) capsule sitagliptin phosphate 100 mg 100 mg PO DAILY 06/14/21 12/07/22 tablet (Januvia) cyanocobalamin (vitamin B-12) 1,000 mcg IM MONTHLY 11/11/22 12/07/22 1,000 mcg/mL injection solution <Uzma Hayes PA-C - Last Filed: 12/07/22 03:02> Allergies/Adverse reactions: Allergies Allergy/AdvReac Type Severity Reaction Status Date / Time Penicillins Allergy Mild Hives / Verified 12/06/22 23:54 Red Face alendronate sodium AdvReac Intermediate Diarrhea Verified 12/06/22 23:54 [From Fosamax] codeine AdvReac Mild Vomiting Verified 12/06/22 23:54 prochlorperazine AdvReac Mild Muscle Verified 12/06/22 23:54 Spasms clarithromycin [From Biaxin] AdvReac Nausea and Verified 12/06/22 23:54 Vomiting clindamycin AdvReac Diarrhea Verified 12/06/22 23:54 <Uzma Hayes PA-C - Last Filed: 12/07/22 03:02> Review of Systems Review of Systems: CONSTITUTIONAL: Denies fever SKIN: Reports redness and swelling NEUROLOGIC: Reports numbness <Uzma Hayes PA-C - Last Filed: 12/07/22 03:02> All systems reviewed & are unremarkable except as noted in HPI and below <Uzma Hayes PA-C - Last Filed: 12/07/22 03:02> FORMERLY [facility], [facility] Past Medical History Medical History: Medical History (Updated 12/07/22 @ 01:25 by Uzma Hayes PA-C) Arterial occlusive disease Diabetes Dyslipidemia Hypertension Kidney stone Obesity <Uzma Hayes PA-C - Last Filed: 12/07/22 03:02> Surgical History Surgical History: Surgical History History of hysterectomy S/P tonsillectomy and adenoidectomy Status post repair of ventral hernia 1997; mesh broke, she required revision 2000 <Uzma Hayes PA-C - Last Filed: 12/07/22 03:02> Social History Social History: Social History (Reviewed 11/12/22 @ 13:03 by ALEKSANDAR Fitzgerald Social History: the patient is and lives home alone. She only has 1 daughter. 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 She does not use any alcohol marijuana illicit drugs. - code status full code. Smoking status: Ne
[2022-12-07 00:11] LABS: Basophils Percent Auto 0.1 % (0.2-1.2); Eosinophils Absolute Auto 0.2 K/mm3 (0-0.3); Eosinophils Percent Auto 2.6 % (0-4.4); Hematocrit 39.4 % (37.0-47.0); Hemoglobin 13.1 g/dL (12.0-15.0); Immature Granulocyte Absolute 0.05 K/mm3 (0.00-0.031); Immature Granulocyte Percent A 0.7 % (0-0.5); Lymphocytes Absolute Auto 1.73 K/mm3 (0.9-3.2); Lymphocytes Percent Auto 23.5 % (18.3-44.2); Mean Corpuscular HGB Conc 33.2 g/dl (32-36); Mean Corpuscular Hemoglobin 28.4 pg (26-34); Mean Corpuscular Volume 85.3 fl (80-100); Monocytes Percent Auto 12.9 % (2.6-8.5); Neutrophils Absolute Auto 4.4 K/mm3 (1.3-6.7); Neutrophils Percent Auto 60.2 % (45.5-73.1); Platelet Count Result 261 k/mm3 (150-375); Red Blood Count 4.62 M/mm3 (4.2-5.4); Red Cell Distribution Width 15.1 % (11.5-14.5); White Blood Count 7.4 K/mm3 (4.5-10.0)
[2022-12-07 00:19] LABS: Chloride 99 mmol/L (98-107)
[2022-12-07 00:47] LABS: Anion Gap 9 mmol/L (8-16); Blood Urea Nitrogen 41 mg/dL (7-17); Calcium 9.5 mg/dL (8.4-10.2); Carbon Dioxide 25 mmol/L (22-30); Estimated CRCL calculation 34 ml/min; Estimated Glomerular Filt Rate 36; Glucose 137 mg/dL (65-110); Potassium 3.8 mmol/L (3.4-5.0); Sodium 133 mmol/L (137-145)
[2022-12-07 00:54] LABS: Erythrocyte Sedimentation Rate 24 mm/hr (0-20)
[2022-12-07] MEDS: SODIUM CHLORIDE 0.9% IV 500 ML 999 ML IV CONT (01:18)
[2022-12-07] MEDS: metroNIDAZOLE 500 MG/ISO 100ML 500 MG/100 ML BAG 100 MG IVPB (02:11)
[2022-12-07 02:24] LABS: Glucose Point of Care 120 mg/dl (65-105)
--- NOTE | 2022-12-07 02:32 | PM.IMHP ---
H&P: HPI History of Present Illness Date/Time: 12/07/22 02:32 Chief Complaint: Right toe redness Narrative: This is a 77-year-old female with past medical history significant for type diabetes mellitus, chronic bilateral toes ulcers, anticoagulated, hypertension, rate controlled. Patient was just recently discharged on a course of antibiotics for bilateral lower extremity ulcers went home with home healthcare and nurse noted redness on the right side and was recommended to come to the emergency room for evaluation. Patient denies any chills, rigors, fevers, night sweats, nausea, vomiting, abdominal pain had some diarrhea with the antibiotics, concluded a course of 4 days ago. Preliminary workup was significant for chemistry panel with BUN of 41, creatinine 1.4. Patient is been admitted for further evaluation management and treatment. Review of Systems Review of Systems: Right toe cellulitis, worsening diabetic foot ulcer Constitutional: Constitutional: Denies chills, Denies fever(s), Denies malaise, Denies night sweats, Denies poor appetite and Denies weakness Eyes: Eyes: Denies change in vision ENT: Denies dysphagia and Denies odynophagia Cardiovascular: Cardiovascular: Denies chest pain, Reports leg edema, Denies lightheadedness, Denies radiating jaw, neck or arm pain and Denies palpitations Respiratory: Respiratory: Denies chest congestion, Denies cough, Denies excessive phlegm production, Denies dyspnea, Denies dyspnea on exertion and Denies wheezing Gastrointestinal: Gastrointestinal: Denies abdominal pain, Denies dyspepsia, Denies heartburn, Denies diarrhea, Denies nausea and Denies vomiting Genitourinary: Genitourinary: Denies dysuria Musculoskeletal: Musculoskeletal: Reports other (Bilateral toe ulcers) Integumentary/Breasts: Skin/Breast: Reports swelling, Reports non-healing lesions, Reports erythema and Reports skin ulcer Neurologic: Denies focal weakness and Denies Sensory deficit (Neuro) Psychiatric: Psychiatric: Reports no additional psychiatric complaints and Reports as per HPI Endocrine: Endocrine: Denies cold intolerance, Denies flushing, Denies heat intolerance, Denies polyphagia, Denies polydipsia and Denies palpitations Hematologic/Lymphatic: Hematologic/Lymphatic: Reports no additional hematologic/lymphatic complaints and Reports as per HPI Allergic/Immunologic: Allergic/Immunologic: Reports no additional allergic/immunologic complaints and Reports as per HPI [facility] Past Medical History Medical History (Updated 12/07/22 @ 01:25 by Uzma Hayes PA-C) Arterial occlusive disease Diabetes Dyslipidemia Hypertension Kidney stone Obesity Surgical History Surgical History History of hysterectomy S/P tonsillectomy and adenoidectomy Status post repair of ventral hernia 1997; mesh broke, she required revision 2000 Social History Social History Social History: the patient is and lives home alone. She only has 1 daughter. 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 She does not use any alcohol marijuana illicit drugs. - code status full code. Smoking status: Never smoker Alcohol intake: never Substance use: never Substance use type: does not use Lack of Transportation: No Lack of Food: Never True Current Housing: I Have Housing Concerned About Future Housing: No Difficulty Paying Gas/Electric Bills: No Difficulty Paying for Meds: No Currently Unemployed: No Education: High School Diploma/GED Difficulty w/ Childcare or Family Care: No Living arrangements: with family Gender identity (if verbalized by the patient): Female Spiritual care concerns: Yes (Islam) Meds Home Medications and Allergies Home Medications Medication Instructions Recorded Confirmed Type fenofibrate nanocrystallized 145 145 mg P
--- NOTE | 2022-12-07 02:53 | PC.NURSE ---
Daughter, Kaycee, called at this time per family request that pt now has a bed assignment. VM left at this time.
--- NOTE | 2022-12-07 04:10 | PC.NURSE ---
This patient, Katie Marteg, was admitted to Medical Room 346-01. Patient/family oriented to hospital policies and general routines including ID bracelet, bed and alarms, visiting hours, pain management, procedures, bathroom and other care routines, personal items, smoking policy, room service/diet, and visiting hours. Information on how to activate the Rapid Response Team has been discussed. Patient/Family are encouraged to report perceived risks to care and to ask questions if they do not understand what they are told or what they should do.
[2022-12-07 09:14] LABS: Glucose Point of Care 159 mg/dl (65-105)
--- NOTE | 2022-12-07 09:18 | PM.IMPN ---
Progress Note: A&P Assessment and Plan (1) Foot ulcer: Qualifiers: Laterality: bilateral Non-pressure ulcer stage: limited to breakdown of skin Qualified Code(s): L97.511 - Non-pressure chronic ulcer of other part of right foot limited to breakdown of skin; L97.521 - Non-pressure chronic ulcer of other part of left foot limited to breakdown of skin Code(s): L97.509 - Non-pressure chronic ulcer of other part of unspecified foot with unspecified severity Status: Acute Assessment and Plan: Started on cefepime, metronidazole and vancomycin in ED. attempt to obtain wound culture Blood cultures pending. Wound care consult Will add silver gel and gauze dressing changes daily for now. XRAY negative for osteomyelitis involvement. Will check MRI. (2) Arterial occlusive disease: Code(s): I70.90 - Unspecified atherosclerosis Status: Acute Assessment and Plan: On Eliquis BID. Right TBI diminished. No necrosis noted. (3) Cellulitis in diabetic foot: Code(s): E11.628 - Type 2 diabetes mellitus with other skin complications; L03.119 - Cellulitis of unspecified part of limb Status: Acute Assessment and Plan: A1c 7% this month. Blood sugars with good control. Accu-checks AC/HS with sliding scale and hypoglycemia protocol. Resume januvia. Hold metformin while inpatient. Her dose is >recommended values. Consider adjusting medications. (4) Hypertension: Code(s): I10 - Essential (primary) hypertension Status: Acute Assessment and Plan: Resume home meds continue to monitor (5) DVT (deep venous thrombosis): Code(s): I82.409 - Acute embolism and thrombosis of unspecified deep veins of unspecified lower extremity Status: Acute Assessment and Plan: Continue apixaban Time Spent With Patient Time with patient: 25 - 35 minutes Subjective Date/time seen: 12/07/22 09:18 Patient is a 77-year-old female with past medical history significant for type diabetes mellitus, chronic bilateral toes ulcers, anticoagulated, hypertension, rate controlled.? Patient was just recently discharged on a course of antibiotics for bilateral lower extremity ulcers went home with home healthcare and nurse noted redness on the right side, recommended to come to the emergency room for evaluation.? She denies fevers, chills, diaphoresis, dizziness, or wound discharge. She was told she had green discharge to her right foot wound by the home health nurse. The erythema to her right great toe is unchanged.? Review of Systems Review of Systems: All systems reviewed & are unremarkable except as noted in HPI and below Exam Narrative: General: No acute distress.? Well-developed older adult female. Nontoxic appearing. Mental Status/Psych: Awake, alert and oriented x3 with clear speech. Neutral mood and affect. Pleasant and cooperative. Skin: Skin fair, warm, and dry. plantar surface at the right first digit with quarter-sized diabetic ulcer; wound bed with yellow slough; minimal discharge noted to be clear; dull erythema to dorsal surface of first metatarsal blanches.. Left plantar surface of first metatarsal with nickel sized diabetic ulcer surrounding skin with peeling, hyperkeratinized skin. HEENT: Normocephalic. Sclera is non-icteric. EOM intact. PERRL. Grossly normal hearing. Oral mucosa pink and moist. Tongue midline. Oropharynx within normal limits. Neck: Supple. Thyroid without nodularity. Trachea midline. No JVD. Heart: S1 and S2 regular rate and rhythm. No murmurs, gallops, or rubs auscultated. Chest: Respirations even and unlabored. Lung sounds are clear to auscultation in all lobes bilaterally without wheezes, rhonchi, or rales. Abdomen: Soft, round and non-tender to palpation.? Bowel sounds present in all 4 quadrants. Extremities:? Grossly normal ROM all extremities. No edema. Radial and dorsalis pedis pulses +2 bilaterally. Neurological: No focal deficits. Crani
[2022-12-07] MEDS: METOPROLOL SUCCINATE EXT REL 100 MG TABCR PO (10:14)
[2022-12-07] MEDS: CHOLECALCIFEROL 1,000 UNITS TABLET 5000 UNITS PO (10:15)
[2022-12-07] MEDS: APIXABAN 5 MG TABLET PO ×2 (10:15→20:04)
[2022-12-07] MEDS: CALCIUM CARBONATE (OSCAL) 500 MG TABLET PO (10:15)
[2022-12-07] MEDS: FENOFIBRATE NANOCRYSTALLIZED 145 MG TABLET PO (10:16)
[2022-12-07] MEDS: lisinopriL 20 MG TABLET 40 MG PO (10:16)
[2022-12-07] MEDS: SODIUM CHLORIDE 0.9% IV 1,000 ML 75 ML IV CONT (10:21)
[2022-12-07 10:28] LABS: Anion Gap 6 mmol/L (8-16); Blood Urea Nitrogen 32 mg/dL (7-17); Calcium 8.7 mg/dL (8.4-10.2); Carbon Dioxide 27 mmol/L (22-30); Chloride 100 mmol/L (98-107); Estimated CRCL calculation 41 ml/min; Estimated Glomerular Filt Rate 48; Glucose 191 mg/dL (65-110); Potassium 3.6 mmol/L (3.4-5.0); Sodium 133 mmol/L (137-145)
[2022-12-07 10:39] LABS: Uric Acid 5.5 mg/dL (2.5-7.5)
[2022-12-07 10:58] LABS: Procalcitonin 0.1 ng/mL
[2022-12-07 11:59] LABS: Glucose Point of Care 237 mg/dl (65-105)
[2022-12-07] MEDS: INSULIN ASPART (*BKC) 100 UNITS/ML SUB-Q (12:40)
[2022-12-07] MEDS: metroNIDAZOLE 250 MG TABLET 500 MG PO ×2 (12:40→20:04)
[2022-12-07 17:21] LABS: Glucose Point of Care 135 mg/dl (65-105)
[2022-12-07 20:24] LABS: Glucose Point of Care 186 mg/dl (65-105)
[2022-12-08 05:20] LABS: Basophils Percent Auto 0.2 % (0.2-1.2); Eosinophils Absolute Auto 0.2 K/mm3 (0-0.3); Eosinophils Percent Auto 4.5 % (0-4.4); Hematocrit 33.7 % (37.0-47.0); Hemoglobin 11.2 g/dL (12.0-15.0); Immature Granulocyte Absolute 0.02 K/mm3 (0.00-0.031); Immature Granulocyte Percent A 0.4 % (0-0.5); Lymphocytes Percent Auto 10.6 % (18.3-44.2); Mean Corpuscular HGB Conc 33.2 g/dl (32-36); Mean Corpuscular Hemoglobin 27.8 pg (26-34); Mean Corpuscular Volume 83.6 fl (80-100); Mean Platelet Volume 11.1 fl (7.4-10.4); Monocytes Absolute Auto 0.6 K/mm3 (0.1-0.6); Monocytes Percent Auto 12.1 % (2.6-8.5); Neutrophils Absolute Auto 3.4 K/mm3 (1.3-6.7); Neutrophils Percent Auto 72.2 % (45.5-73.1); Platelet Count Result 211 k/mm3 (150-375); Red Blood Count 4.03 M/mm3 (4.2-5.4); Red Cell Distribution Width 14.7 % (11.5-14.5); White Blood Count 4.7 K/mm3 (4.5-10.0)
[2022-12-08] MEDS: metroNIDAZOLE 250 MG TABLET 500 MG PO ×3 (05:24→20:26)
[2022-12-08 05:33] LABS: Alanine Aminotransferase 18 U/L (6-35); Albumin Level 3.2 g/dL (3.5-5.1); Alkaline Phosphatase 44 U/L (38-126); Anion Gap 7 mmol/L (8-16); Aspartate Amino Transferase 24 U/L (14-36); Bilirubin,Total 1.2 mg/dL (0.2-1.3); Blood Urea Nitrogen 25 mg/dL (7-17); Calcium 8.5 mg/dL (8.4-10.2); Carbon Dioxide 24 mmol/L (22-30); Chloride 105 mmol/L (98-107); Estimated CRCL calculation 35 ml/min; Estimated Glomerular Filt Rate 40; Glucose 132 mg/dL (65-110); Potassium 3.6 mmol/L (3.4-5.0); Sodium 136 mmol/L (137-145)
[2022-12-08 06:00] VITALS: BP 119/51; PULSE 79; RESP 18; TEMP 36.9; O2SAT 97
[2022-12-08 08:24] VITALS: PULSE 77
[2022-12-08] MEDS: METOPROLOL SUCCINATE EXT REL 100 MG TABCR PO (08:24)
[2022-12-08] MEDS: FENOFIBRATE NANOCRYSTALLIZED 145 MG TABLET PO (08:24)
[2022-12-08] MEDS: lisinopriL 20 MG TABLET 40 MG PO (08:24)
[2022-12-08] MEDS: CHOLECALCIFEROL 1,000 UNITS TABLET 5000 UNITS PO (08:24)
[2022-12-08] MEDS: CALCIUM CARBONATE (OSCAL) 500 MG TABLET PO (08:25)
[2022-12-08] MEDS: APIXABAN 5 MG TABLET PO ×2 (08:25→20:26)
[2022-12-08] MEDS: SILVERGEL (ELTA) 45 ML 1 APPLIC TOPICAL (08:25)
[2022-12-08 08:38] LABS: Glucose Point of Care 147 mg/dl (65-105)
[2022-12-08 11:56] LABS: Glucose Point of Care 157 mg/dl (65-105)
[2022-12-08 14:00] VITALS: BP 141/54; PULSE 64; RESP 20; TEMP 36.9; O2SAT 98
--- NOTE | 2022-12-08 14:30 | PM.IMPN ---
Progress Note: A&P Assessment and Plan (1) Foot ulcer: Qualifiers: Laterality: bilateral Non-pressure ulcer stage: limited to breakdown of skin Qualified Code(s): L97.511 - Non-pressure chronic ulcer of other part of right foot limited to breakdown of skin; L97.521 - Non-pressure chronic ulcer of other part of left foot limited to breakdown of skin Code(s): L97.509 - Non-pressure chronic ulcer of other part of unspecified foot with unspecified severity Status: Acute Assessment and Plan: Started on cefepime, metronidazole and vancomycin in ED. attempt to obtain wound culture - no significant drainage to culture. Blood cultures negative to date. Wound care consulted and appreciate recommendations. continue silver gel and gauze dressing changes daily for now. XRAY negative for osteomyelitis involvement. MRI suggests ostelitis right great toe. Will plan to consult Ortho, it appears she has been seen by Dr. Silveira during her last hospital stay. (2) Arterial occlusive disease: Code(s): I70.90 - Unspecified atherosclerosis Status: Acute Assessment and Plan: On Eliquis BID. Right TBI diminished. No necrosis noted. (3) Cellulitis in diabetic foot: Code(s): E11.628 - Type 2 diabetes mellitus with other skin complications; L03.119 - Cellulitis of unspecified part of limb Status: Acute Assessment and Plan: A1c 7% this month. Blood sugars with good control. Accu-checks AC/HS with sliding scale and hypoglycemia protocol. continue januvia. Hold metformin while inpatient. Her dose is >recommended dose. Consider adjusting medication. (4) Hypertension: Code(s): I10 - Essential (primary) hypertension Status: Acute Assessment and Plan: Resume home meds continue to monitor (5) DVT (deep venous thrombosis): Code(s): I82.409 - Acute embolism and thrombosis of unspecified deep veins of unspecified lower extremity Status: Acute Assessment and Plan: Continue apixaban (6) CKD (chronic kidney disease) stage 3, GFR 30-59 ml/min: Code(s): N18.30 - Chronic kidney disease, stage 3 unspecified Status: Acute Assessment and Plan: Acute on chronic renal disease. Stage 3a BUN 25-41, creatinine 0.8 to 1.1, eGFR 48 to >60 since 03/02/22. Holding metformin and HCTZ. On lisinopril PO. Pharmacy to dose vancomycin. I/Os unable to fully discern due to unquantified voids but does not appear overtly dehydrated or hypervolemic. Avoid nephrotoxic agents and trend BMP Time Spent With Patient Time with patient: 15 - 25 minutes Subjective Date/time seen: 12/08/22 14:30 Patient is a 77-year-old female with past medical history significant for type diabetes mellitus, chronic bilateral toes ulcers, anticoagulated, hypertension, rate controlled.? Patient was just recently discharged on a course of antibiotics for bilateral lower extremity ulcers went home with home healthcare and nurse noted redness on the right side, recommended to come to the emergency room for evaluation.? No new complaints or overnight events. Afebrile since admission. No diarrhea. Review of Systems Review of Systems: All systems reviewed & are unremarkable except as noted in HPI and below Exam Narrative: General: No acute distress.? Nontoxic appearing. Mental Status/Psych: Awake, alert and oriented x3 with clear speech. Neutral mood and affect. Pleasant and cooperative. Skin: Skin fair, warm, and dry. plantar surface at the right first digit with quarter-sized diabetic ulcer; wound bed with yellow slough 2/3 center of would with surrounding pink granulation tissue; minimal discharge noted to be clear; dull erythema to dorsal surface of first metatarsal blanches and unchanged in appearance. Left plantar surface of first metatarsal with nickel sized diabetic ulcer surrounding skin with peeling, hyperkeratinized skin. bilateral varicose veins. HEENT: Sclera is
[2022-12-08 17:46] LABS: Glucose Point of Care 145 mg/dl (65-105)
[2022-12-08 20:00] VITALS: PULSE 64; RESP 20; O2SAT 98
[2022-12-08 21:12] LABS: Glucose Point of Care 171 mg/dl (65-105)
[2022-12-08 22:00] VITALS: BP 138/52; PULSE 68; RESP 16; TEMP 36.6; O2SAT 98
[2022-12-09 05:53] LABS: Estimated CRCL calculation 41 ml/min; Estimated Glomerular Filt Rate 48
[2022-12-09] MEDS: metroNIDAZOLE 250 MG TABLET 500 MG PO ×3 (05:56→20:14)
[2022-12-09 06:00] VITALS: BP 130/57; PULSE 70; RESP 16; TEMP 36.7; O2SAT 99
--- NOTE | 2022-12-09 08:14 | PM.IMPN ---
Progress Note: A&P Assessment and Plan (1) Foot ulcer: Qualifiers: Laterality: bilateral Non-pressure ulcer stage: limited to breakdown of skin Qualified Code(s): L97.511 - Non-pressure chronic ulcer of other part of right foot limited to breakdown of skin; L97.521 - Non-pressure chronic ulcer of other part of left foot limited to breakdown of skin Code(s): L97.509 - Non-pressure chronic ulcer of other part of unspecified foot with unspecified severity Status: Acute Assessment and Plan: Started on cefepime, metronidazole and vancomycin in ED. attempt to obtain wound culture - no significant drainage to culture. Blood cultures negative to date. Wound care consulted and appreciate recommendations - continue silver gel and gauze dressing changes daily. XRAY negative for osteomyelitis involvement. MRI suggests ostelitis right great toe - consult Ortho, it appears she has been seen by Dr. Silveira during her last hospital stay. (2) Arterial occlusive disease: Code(s): I70.90 - Unspecified atherosclerosis Status: Acute Assessment and Plan: On Eliquis BID. Right TBI diminished. No necrosis noted. (3) Cellulitis in diabetic foot: Code(s): E11.628 - Type 2 diabetes mellitus with other skin complications; L03.119 - Cellulitis of unspecified part of limb Status: Acute Assessment and Plan: A1c 7% this month. Blood sugars with good control. Accu-checks AC/HS with sliding scale and hypoglycemia protocol. continue januvia. Hold metformin while inpatient. Her dose is >recommended dose. Consider adjusting medication. (4) Hypertension: Code(s): I10 - Essential (primary) hypertension Status: Chronic Assessment and Plan: Resume home meds continue to monitor (5) DVT (deep venous thrombosis): Code(s): I82.409 - Acute embolism and thrombosis of unspecified deep veins of unspecified lower extremity Status: Chronic Assessment and Plan: Continue apixaban (6) CKD (chronic kidney disease) stage 3, GFR 30-59 ml/min: Code(s): N18.30 - Chronic kidney disease, stage 3 unspecified Status: Chronic Assessment and Plan: Acute on chronic renal disease. Stage 3a BUN 25-41, creatinine 0.8 to 1.1, eGFR 48 to >60 since 03/02/22. Holding metformin and HCTZ. On lisinopril PO. Pharmacy to dose vancomycin. I/Os unable to fully discern due to unquantified voids but does not appear overtly dehydrated or hypervolemic. Avoid nephrotoxic agents and trend BMP Plan code status: full code Discharge disposition: home with home health care resumed Time Spent With Patient Time with patient: 15 - 25 minutes Subjective Date/time seen: 12/09/22 08:14 Patient is a 77-year-old female with past medical history significant for type diabetes mellitus, chronic bilateral toes ulcers, anticoagulated, hypertension, rate controlled.? Patient was just recently discharged on a course of antibiotics for bilateral lower extremity ulcers went home with home healthcare and nurse noted redness on the right side, recommended to come to the emergency room for evaluation.? She felt some cold air blowing on her this morning and was concerned. She reports the wound care nurse changed her dressing today and she wasn't sure if she should be wearing her postop shoe or not. She reported wearing the shoes in bed because it was easier for her to get around and not get up and down all the time. No fever, diaphoresis, rigors, abd pain, N/V/D or anuria. Review of Systems Review of Systems: All systems reviewed & are unremarkable except as noted in HPI and below Exam Narrative: General: No acute distress.? Nontoxic appearing. Mental Status/Psych: Awake, alert and oriented x3 with clear speech. Neutral mood and affect. Skin: Skin fair, warm, and dry. bilateral plantar surface of great toes with clean, dry and intact dressing. varicose veins BLE
[2022-12-09] MEDS: CHOLECALCIFEROL 1,000 UNITS TABLET 5000 UNITS PO (08:30)
[2022-12-09] MEDS: lisinopriL 20 MG TABLET 40 MG PO (08:32)
[2022-12-09] MEDS: CALCIUM CARBONATE (OSCAL) 500 MG TABLET PO (08:33)
[2022-12-09] MEDS: FENOFIBRATE NANOCRYSTALLIZED 145 MG TABLET PO (08:33)
[2022-12-09] MEDS: APIXABAN 5 MG TABLET PO ×2 (08:33→20:14)
[2022-12-09 08:48] LABS: Glucose Point of Care 124 mg/dl (65-105)
[2022-12-09 09:48] VITALS: PULSE 67
[2022-12-09] MEDS: METOPROLOL SUCCINATE EXT REL 100 MG TABCR PO (09:48)
[2022-12-09 12:17] LABS: Glucose Point of Care 171 mg/dl (65-105)
[2022-12-09 14:00] VITALS: BP 130/51; PULSE 63; RESP 16; TEMP 36.1; O2SAT 100
[2022-12-09 17:15] LABS: Glucose Point of Care 121 mg/dl (65-105)
[2022-12-09 20:00] VITALS: PULSE 63; RESP 16; O2SAT 100
[2022-12-09 20:34] LABS: Glucose Point of Care 208 mg/dl (65-105)
[2022-12-09 22:00] VITALS: BP 139/58; PULSE 63; RESP 16; TEMP 36.7; O2SAT 98
[2022-12-10 03:01] LABS: Alanine Aminotransferase 19 U/L (6-35); Albumin Level 3.3 g/dL (3.5-5.1); Alkaline Phosphatase 47 U/L (38-126); Anion Gap 6 mmol/L (8-16); Aspartate Amino Transferase 27 U/L (14-36); Bilirubin,Total 0.7 mg/dL (0.2-1.3); Blood Urea Nitrogen 18 mg/dL (7-17); CRP 1.1 mg/dL (<1.0); Calcium 8.7 mg/dL (8.4-10.2); Carbon Dioxide 26 mmol/L (22-30); Chloride 102 mmol/L (98-107); Estimated CRCL calculation 45 ml/min; Estimated Glomerular Filt Rate 53; Glucose 124 mg/dL (65-110); Potassium 3.8 mmol/L (3.4-5.0); Sodium 134 mmol/L (137-145)
[2022-12-10 03:14] LABS: INR 1.5; Prothrombin Time 17.7 Seconds (11.1-14.7)
[2022-12-10 03:18] LABS: Vancomycin Trough 8.5 ug/mL (10.0-20.0)
[2022-12-10 03:33] LABS: Basophils Percent Auto 0.2 % (0.2-1.2); Eosinophils Absolute Auto 0.3 K/mm3 (0-0.3); Eosinophils Percent Auto 8.2 % (0-4.4); Hematocrit 36.6 % (37.0-47.0); Hemoglobin 12.2 g/dL (12.0-15.0); Immature Granulocyte Absolute 0.02 K/mm3 (0.00-0.031); Immature Granulocyte Percent A 0.5 % (0-0.5); Lymphocytes Absolute Auto 0.74 K/mm3 (0.9-3.2); Lymphocytes Percent Auto 17.9 % (18.3-44.2); Mean Corpuscular HGB Conc 33.3 g/dl (32-36); Mean Corpuscular Hemoglobin 28.2 pg (26-34); Mean Corpuscular Volume 84.5 fl (80-100); Monocytes Absolute Auto 0.6 K/mm3 (0.1-0.6); Monocytes Percent Auto 14.8 % (2.6-8.5); Neutrophils Absolute Auto 2.4 K/mm3 (1.3-6.7); Neutrophils Percent Auto 58.4 % (45.5-73.1); Platelet Count Result 220 k/mm3 (150-375); Red Blood Count 4.33 M/mm3 (4.2-5.4); Red Cell Distribution Width 14.6 % (11.5-14.5); White Blood Count 4.1 K/mm3 (4.5-10.0)
[2022-12-10] MEDS: metroNIDAZOLE 250 MG TABLET 500 MG PO ×3 (05:37→21:13)
[2022-12-10 06:00] VITALS: BP 102/47; PULSE 56; RESP 16; TEMP 36.5; O2SAT 99
[2022-12-10 09:08] LABS: Glucose Point of Care 135 mg/dl (65-105)
[2022-12-10] MEDS: SILVERGEL (ELTA) 45 ML 1 APPLIC TOPICAL (09:28)
[2022-12-10] MEDS: lisinopriL 20 MG TABLET 40 MG PO (09:29)
[2022-12-10] MEDS: CALCIUM CARBONATE (OSCAL) 500 MG TABLET PO (09:29)
[2022-12-10] MEDS: APIXABAN 5 MG TABLET PO ×2 (09:29→21:13)
[2022-12-10 09:30] VITALS: PULSE 60; PULSE 69; RESP 16; O2SAT 100
[2022-12-10] MEDS: FENOFIBRATE NANOCRYSTALLIZED 145 MG TABLET PO (09:30)
[2022-12-10] MEDS: METOPROLOL SUCCINATE EXT REL 100 MG TABCR PO (09:30)
[2022-12-10] MEDS: CHOLECALCIFEROL 1,000 UNITS TABLET 5000 UNITS PO (09:31)
--- NOTE | 2022-12-10 09:31 | PM.CNOR ---
Assessment and Plan Assessment and plan (1) Foot ulcer: Qualifiers: Laterality: bilateral Non-pressure ulcer stage: limited to breakdown of skin Qualified Code(s): L97.511 - Non-pressure chronic ulcer of other part of right foot limited to breakdown of skin; L97.521 - Non-pressure chronic ulcer of other part of left foot limited to breakdown of skin <Laisha Isma. Jovani, SEARCH ANALYST - Last Filed: 12/10/22 16:35> Code(s): L97.509 - Non-pressure chronic ulcer of other part of unspecified foot with unspecified severity <Laisha M. Ruwe, SEARCH ANALYST - Last Filed: 12/10/22 16:35> Status: Acute <Laisha M. Ruwe, SEARCH ANALYST - Last Filed: 12/10/22 16:35> Assessment and Plan: History, exam, radiographs and MRI reviewed with the patient. Radiographs of the right foot reveal no acute bone or joint abnormality. Possible concern for osteomyelitis which prompted MRI. MRI of the left foot reveals no evidence of osteomyelitis. MRI of the right foot reveals reactive osteitis involving the 1st distal phalanx in the head of the 1st proximal phalanx. No T1 weighted signal abnormality to suggest osteomyelitis. On exam, patient has an ulcer on the plantar right foot which does probe to bone. It is 50% red 50% yellow. Mild malodor. Hallux with erythema. No purulence. Scant serosanguineous drainage. Surrounding callus noted. Ulcer on the plantar aspect of the left 1st MTP joint with abundant callus formation surrounding. Recommended debridement under sterile conditions at the bedside of bilateral feet. See procedure note for details. Recommended continued IV antibiotics this time under the direction of the medicine team. We will continue to watch bilateral feet to see if there is resolution of erythema. recommended topical antibiotic as well with daily dressing changes. Foam for pressure offloading. change dressings daily. No current surgical plan so we will continue to follow the patient and monitor for overall improvement. <Laisha Isma. Ryanduane, SEARCH ANALYST - Last Filed: 12/10/22 16:35> (2) Arterial occlusive disease: Code(s): I70.90 - Unspecified atherosclerosis <Laisha M. Ryanduane, SEARCH ANALYST - Last Filed: 12/10/22 16:35> Status: Acute <Laisha M. Ruwe, SEARCH ANALYST - Last Filed: 12/10/22 16:35> (3) Cellulitis in diabetic foot: Code(s): E11.628 - Type 2 diabetes mellitus with other skin complications; L03.119 - Cellulitis of unspecified part of limb <FOZIA Fitzgerald - Last Filed: 12/10/22 16:35> Status: Acute <FOZIA Fitzgerald - Last Filed: 12/10/22 16:35> Assessment and Plan: Patient seen and examined with FOZIA Hahn. Consult reviewed and agree. Plan for debridement bilateral toes today. Continue IV antibiotics and dressing changes. We will re-evaluate. <Benny Silveira MD - Last Filed: 12/11/22 12:08> History of Present Illness HPI Consult date: 12/10/22 <FOZIA Fitzgerald - Last Filed: 12/10/22 16:35> 12/11/22 <Benny Silveira MD - Last Filed: 12/11/22 12:08> Consult reason: other (b/l foot wounds ) <FOZIA Fitzgerald - Last Filed: 12/10/22 16:35> Chief complaint: Cellulitis, Zohreh <FOZIA Fitzgerald - Last Filed: 12/10/22 16:35> Narrative: 77-year-old female admitted for recurrent bilateral foot ulcers. Patient is known to the Orthopedic service for these wounds at a recent visit. Patient had been discharged from the hospital on November 14 on a 14 day course of doxycycline due to these wounds. She was supposed to follow up with her utilization engineer but her appointment was not until December 17. She has not seen him up until this time. She does have a home health nurse who noted redness on the right hallux and recommended the patient come to the emergency room for further evaluation. Patient denies fever, chills, night sweats, nausea, vomiting or diarrhea. Patient was admitted under the hospitalist service for further evaluation and orthopedic consult
[2022-12-10 12:34] LABS: Glucose Point of Care 143 mg/dl (65-105)
--- NOTE | 2022-12-10 12:34 | PM.IMPN ---
Progress Note: A&P Assessment and Plan (1) Foot ulcer: Qualifiers: Laterality: bilateral Non-pressure ulcer stage: limited to breakdown of skin Qualified Code(s): L97.511 - Non-pressure chronic ulcer of other part of right foot limited to breakdown of skin; L97.521 - Non-pressure chronic ulcer of other part of left foot limited to breakdown of skin Code(s): L97.509 - Non-pressure chronic ulcer of other part of unspecified foot with unspecified severity Status: Acute Assessment and Plan: Started on cefepime, metronidazole and vancomycin in ED, first doses given 12/07/22. attempt to obtain wound culture - no significant drainage to culture. Blood cultures negative to date. Wound care consulted and appreciate recommendations - continue silver gel and gauze dressing changes daily. XRAY negative for osteomyelitis involvement. MRI suggests osteitis right great toe - consulted Ortho, it appears she has been seen by Dr. Silveira during her last hospital stay. Appreciate recommendations on management. Continue IV antibiotics until further recommendations by Ortho (2) Arterial occlusive disease: Code(s): I70.90 - Unspecified atherosclerosis Status: Acute Assessment and Plan: On Eliquis BID. Right TBI diminished. No wound or digit necrosis noted. (3) Cellulitis in diabetic foot: Code(s): E11.628 - Type 2 diabetes mellitus with other skin complications; L03.119 - Cellulitis of unspecified part of limb Status: Acute Assessment and Plan: A1c 7% this month. Blood sugars with good control. Accu-checks AC/HS with sliding scale and hypoglycemia protocol. continue januvia. Hold metformin while inpatient. Her dose is >recommended dose and should consider dose adjustment at discharge. (4) Hypertension: Qualifiers: Hypertension type: primary hypertension Qualified Code(s): I10 - Essential (primary) hypertension Code(s): I10 - Essential (primary) hypertension Status: Chronic Assessment and Plan: Resume home meds continue to monitor (5) DVT (deep venous thrombosis): Qualifiers: DVT location: lower extremity Affected thrombotic vein of extremity: popliteal Chronicity: chronic Laterality: left Qualified Code(s): I82.532 - Chronic embolism and thrombosis of left popliteal vein Code(s): I82.409 - Acute embolism and thrombosis of unspecified deep veins of unspecified lower extremity Status: Chronic Assessment and Plan: Left popliteal/post tibial DVT and right calf SVT found 11/11/22 Continue apixaban (6) CKD (chronic kidney disease) stage 3, GFR 30-59 ml/min: Code(s): N18.30 - Chronic kidney disease, stage 3 unspecified Status: Chronic Assessment and Plan: Acute on chronic renal disease. Stage 3a BUN 25-41, creatinine 0.8 to 1.1, eGFR 48 to >60 since 03/02/22. Holding metformin and HCTZ. resume HCTZ 12/11/22 if BP still stable. On lisinopril PO. Pharmacy to dose vancomycin. I/Os unable to fully discern due to unquantified voids but does not appear overtly dehydrated or hypervolemic. Avoid nephrotoxic agents and trend BMP Stable. Avoid hypo or hypertension (7) Constipation: Qualifiers: Constipation type: slow transit constipation Qualified Code(s): K59.01 - Slow transit constipation Code(s): K59.00 - Constipation, unspecified Status: Acute Assessment and Plan: No BM for 3 days, per patient. 12/10/22 start senna plus 1 tab at HS and PRN bisacodyl. encourage ambulation. Plan code status: full code Discharge disposition: home with home health care resumed Time Spent With Patient Time with patient: 15 - 25 minutes Subjective Date/time seen: 12/10/22 12:34 Patient is a 77-year-old female with past medical history significant for type diabetes mellitus, chronic bilateral toes ulcers, anticoagulated, hypertension, rate control
--- NOTE | 2022-12-10 13:10 | P.OPB_ITS ---
Procedure Note - Brief Procedure Note - Brief Date of procedure: 12/10/22 Pre-op diagnosis: Cellulitis, Zohreh Procedure performed: Bilateral foot debridement Description of procedure: Debridement of the skin, subcutaneous tissue debrided under sterile conditions with #15 blade knife. All devitalized tissue removed. Procedure tolerated well. Patient instructed on post-debridement dressing changes. Reviewed signs/symptoms of complications to report to the office. Patient verbalized understanding and agrees with plan of care. Anesthesia: none Surgeon: FOZIA Fitzgerald Private Sector Executive: n/a Estimated blood loss (mL): 0 Tourniquet time (min): 0 IV fluids (mL): 0 Urine output (mL): 0 Drains: No Packing: No Pathology: None sent Complications: No immediate complications Condition: Stable Disposition: Floor Debridement/Burn/Wound Pre Procedure Consent was obtained, Procedures/risks were explained, Questions were answered, Correct patient identified and Correct side and site confirmed Episode New Episode Area was prepped and draped using sterile technique?: Yes Ulcer/Wound Debridement, skin, first 20 sq cm or less: Yes Bilateral Wound Location: big toe (Plantar right hallux, plantar left 1st MTP joint ) Dressing Applied antibiotic ointment and Applied sterile dressing Post Procedure Patient tolerated the procedure well?: Tolerated procedure well Comments: Ulcer on the plantar aspect of the right hallux debrided under sterile condition. Wound with probing to bone at 1.6cm depth. No purulence. Mild malodor. Redness on the dorsum of the hallux noted. No extension into the forefoot. Ulcer on the plantar aspect of the left 1st MTP joint debrided under sterile condition. Wound without probing to bone. 100% red/pink wound bed. No malodor. Moderate serous drainage. Mild redness noted.
[2022-12-10 14:00] VITALS: BP 126/50; PULSE 60; RESP 16; TEMP 36.8; O2SAT 100
[2022-12-10 16:54] LABS: Glucose Point of Care 147 mg/dl (65-105)
[2022-12-10 20:00] VITALS: PULSE 62; RESP 18; O2SAT 98
[2022-12-10 20:52] VITALS: BP 102/52; PULSE 62; RESP 18; TEMP 36.3; O2SAT 98
[2022-12-10 21:06] LABS: Glucose Point of Care 145 mg/dl (65-105)
[2022-12-11] MEDS: methylPREDNISolone SOD SUCC 125 MG VIAL IV PUSH (02:51)
[2022-12-11] MEDS: diphenhydrAMINE HCl INJ 50 MG/ML VIAL IV PUSH (02:51)
[2022-12-11 05:44] VITALS: BP 120/48; PULSE 58; RESP 16; TEMP 36.1; O2SAT 97
[2022-12-11] MEDS: metroNIDAZOLE 250 MG TABLET 500 MG PO ×3 (06:18→21:06)
[2022-12-11 09:30] VITALS: PULSE 68
[2022-12-11] MEDS: FENOFIBRATE NANOCRYSTALLIZED 145 MG TABLET PO (09:30)
[2022-12-11] MEDS: lisinopriL 20 MG TABLET 40 MG PO (09:30)
[2022-12-11] MEDS: SACCHAROMYCES BOULARDII 250 MG CAPSULE PO ×2 (09:30→17:28)
[2022-12-11] MEDS: hydroCHLOROthiazide 25 MG TABLET PO (09:30)
[2022-12-11] MEDS: SILVERGEL (ELTA) 45 ML 1 APPLIC TOPICAL (09:30)
[2022-12-11] MEDS: APIXABAN 5 MG TABLET PO ×2 (09:30→21:06)
[2022-12-11] MEDS: INSULIN ASPART (*BKC) 100 UNITS/ML SUB-Q ×2 (09:30→12:41)
[2022-12-11] MEDS: CHOLECALCIFEROL 1,000 UNITS TABLET 5000 UNITS PO (09:30)
[2022-12-11] MEDS: METOPROLOL SUCCINATE EXT REL 100 MG TABCR PO (09:30)
[2022-12-11] MEDS: CALCIUM CARBONATE (OSCAL) 500 MG TABLET PO (09:30)
[2022-12-11 10:29] LABS: Glucose Point of Care 229 mg/dl (65-105)
--- NOTE | 2022-12-11 11:00 | PC.NURSE ---
[facility] was down. Per pharmacy, meds can be seen on [facility] just not scanned in. all meds and dosage verified with pt. pt gave all correct identifiers. morning meds given at 0930. hospitalist notified of this.
[2022-12-11 11:29] LABS: Anion Gap 5 mmol/L (8-16); Blood Urea Nitrogen 20 mg/dL (7-17); Calcium 8.6 mg/dL (8.4-10.2); Carbon Dioxide 26 mmol/L (22-30); Chloride 98 mmol/L (98-107); Estimated CRCL calculation 41 ml/min; Estimated Glomerular Filt Rate 48; Glucose 332 mg/dL (65-110); Sodium 129 mmol/L (137-145)
[2022-12-11 11:30] LABS: Hematocrit 36.7 % (37.0-47.0); Hemoglobin 12.2 g/dL (12.0-15.0); Mean Corpuscular HGB Conc 33.2 g/dl (32-36); Mean Corpuscular Hemoglobin 28.6 pg (26-34); Mean Corpuscular Volume 86.2 fl (80-100); Platelet Count Result 230 k/mm3 (150-375); Red Blood Count 4.26 M/mm3 (4.2-5.4); Red Cell Distribution Width 14.8 % (11.5-14.5); White Blood Count 3.5 K/mm3 (4.5-10.0)
--- NOTE | 2022-12-11 12:08 | PM.PNORT ---
Progress Note: A&P Assessment and Plan (1) Foot ulcer: Qualifiers: Laterality: bilateral Non-pressure ulcer stage: with necrosis of muscle Qualified Code(s): L97.513 - Non-pressure chronic ulcer of other part of right foot with necrosis of muscle; L97.523 - Non-pressure chronic ulcer of other part of left foot with necrosis of muscle Code(s): L97.509 - Non-pressure chronic ulcer of other part of unspecified foot with unspecified severity Status: Acute Assessment and Plan: debridement performed yesterday bilateral feet and hallux. Redness and swelling improved today. No active drainage. Does not probe to bone or joint or tendon. Overall improved. Continue IV antibiotics. Continue daily dressing changes. offloading and protective weight-bearing with postoperative shoes. SCDs for edema control. (2) Arterial occlusive disease: Code(s): I70.90 - Unspecified atherosclerosis Status: Acute (3) Cellulitis in diabetic foot: Code(s): E11.628 - Type 2 diabetes mellitus with other skin complications; L03.119 - Cellulitis of unspecified part of limb Status: Acute Subjective Subjective Date/Time Seen: 12/11/22 12:08 Principal diagnosis: Bilateral diabetic foot ulcers Interval history: patient resting comfortably. No overnight complaints. States that her toes began having problems within the past week. Review of Systems Constitutional: Constitutional: Reports no additional constitutional complaints, Denies chills, Denies fatigue, Denies fever(s), Denies headache(s) and Denies weakness Eyes: Eyes: Denies change in vision ENT: Reports Normal hearing present and Denies headache(s) Cardiovascular: Cardiovascular: Denies chest pain and Denies dyspnea Respiratory: Respiratory: Denies cough, Denies dyspnea and Denies wheezing Gastrointestinal: Gastrointestinal: Denies constipation, Denies diarrhea, Denies nausea and Denies vomiting Genitourinary: Genitourinary: Denies hematuria, Denies dysuria and Denies urinary urgency Musculoskeletal: Musculoskeletal: Reports as per HPI, Denies numbness and Denies tingling Integumentary/Breasts: Skin/Breast: Reports as per HPI Neurologic: Reports as per HPI, Reports Normal hearing present, Denies headache(s), Denies numbness, Denies tingling and Denies weakness Psychiatric: Psychiatric: Reports no additional psychiatric complaints Endocrine: Endocrine: Reports no additional endocrine complaints and Denies fatigue Hematologic/Lymphatic: Hematologic/Lymphatic: Reports no additional hematologic/lymphatic complaints Allergic/Immunologic: Allergic/Immunologic: Reports no additional allergic/immunologic complaints and Denies wheezing Exam Const: General: comfortable, no acute distress and overweight Nutritional Appearance: overweight Orientation/consciousness: patient oriented x3 HENMT: Mouth: Yes moist mucous membranes Eyes: General: appearance normal, both eyes and all related structures Neck: Neck: supple and no JVD Resp: Effort & Inspection: normal respiratory effort Cardio: Rate: regular rate Rhythm: regular rhythm GI: Inspection: non-distended Neuro: General: patient oriented x3 and gait normal Cranial nerves: Yes Normal hearing present Cognition (Neuro): normal cognition Speech: normal speech Extrem: Right lower extremity: lower leg (edema ), ankle Details: swelling and foot (swelling, wounds noted, see below ) Left lower extremity: lower leg (edema ), ankle Details: swelling and foot (swelling, wounds noted, see below ) Other: Wound on the plantar aspect of the right hallux measures 1.5 x 1.5 x 1 cm. 50% red/ pink and 50% slough. Ability to probe to bone. Mild malodor. Hallux with erythema. Mild serous drainage. No purulence. No erythema into the forefoot. Wound on the plantar aspect of the left 1st MTP measures 1.8 x 1.5 x 0.1 cm. This is 100% red/pink. Both wounds show improvement in measurement
[2022-12-11 12:24] LABS: Glucose Point of Care 301 mg/dl (65-105)
[2022-12-11 13:00] LABS: Appearance Urine Clear (Clear); Bilirubin Urine Negative (Negative); Blood Urine Trace-lysed (Negative); Color Urine Yellow (Yellow); Glucose Urine UA 2+ mg/dL (Negative); Ketones Urine Negative (Negative); Leukocyte Esterase Ur 1+ LEU/UL (NEGATIVE); Nitrate Urine Negative (Negative); Protein Urine Negative (Negative); Specific Grav Ur <= 1.005 (1.001-1.035); Urobilinogen Urine 0.2 mg/dL (<2.0)
[2022-12-11 13:40] LABS: Budding Yeast Urine Present /hpf; Mucus Urine Rare /lpf; Squamous Epithelial Cell Urine Rare /hpf (Few); Transitional Epi Cells Urine Rare /hpf (None Seen)
[2022-12-11 13:42] LABS: Add Urine Microscopic? YES
--- NOTE | 2022-12-11 15:26 | PM.IMPN ---
Progress Note: A&P Assessment and Plan (1) Foot ulcer: Qualifiers: Laterality: bilateral Non-pressure ulcer stage: with necrosis of muscle Qualified Code(s): L97.513 - Non-pressure chronic ulcer of other part of right foot with necrosis of muscle; L97.523 - Non-pressure chronic ulcer of other part of left foot with necrosis of muscle Code(s): L97.509 - Non-pressure chronic ulcer of other part of unspecified foot with unspecified severity Status: Acute Assessment and Plan: Started on cefepime, metronidazole and vancomycin in ED, first doses given 12/07/22. attempt to obtain wound culture - no significant drainage to culture. Blood cultures negative to date. Wound care consulted and appreciate recommendations - continue silver gel and gauze dressing changes daily. XRAY negative for osteomyelitis involvement. MRI suggests osteitis right great toe - consulted Ortho, it appears she has been seen by Dr. Silveira during her last hospital stay. Appreciate recommendations on management. Patient underwent debridement on 12/10/22 12/11/20 Debridement revealed no purulence, mild malodor, moderate serous drainage and mild redness. No bone probing. Blood cultures likely a contaminant due to 1 out of 4 with gram pos. bacilli. Discussed patient's antibiotics with infectious disease pharmacist. Patient transitioned to oral antibiotics for treatment of cellulitis with flagyl and doxycycline. Augmentin would be preferred over flagyl but pt is allergic to penicillins. Will continue to follow blood cultures. (2) Arterial occlusive disease: Code(s): I70.90 - Unspecified atherosclerosis Status: Acute Assessment and Plan: On Eliquis BID. Right TBI diminished. No wound or digit necrosis noted. (3) Cellulitis in diabetic foot: Code(s): E11.628 - Type 2 diabetes mellitus with other skin complications; L03.119 - Cellulitis of unspecified part of limb Status: Acute Assessment and Plan: A1c 7% this month. Blood sugars with good control. Accu-checks AC/HS with sliding scale and hypoglycemia protocol. continue januvia. Hold metformin while inpatient. Her dose is >recommended dose and should consider dose adjustment at discharge. (4) Hypertension: Qualifiers: Hypertension type: primary hypertension Qualified Code(s): I10 - Essential (primary) hypertension Code(s): I10 - Essential (primary) hypertension Status: Chronic Assessment and Plan: Resume home meds continue to monitor (5) DVT (deep venous thrombosis): Qualifiers: Affected thrombotic vein of extremity: popliteal Chronicity: chronic DVT location: lower extremity Laterality: left Qualified Code(s): I82.532 - Chronic embolism and thrombosis of left popliteal vein Code(s): I82.409 - Acute embolism and thrombosis of unspecified deep veins of unspecified lower extremity Status: Chronic Assessment and Plan: Left popliteal/post tibial DVT and right calf SVT found 11/11/22 Continue apixaban (6) CKD (chronic kidney disease) stage 3, GFR 30-59 ml/min: Code(s): N18.30 - Chronic kidney disease, stage 3 unspecified Status: Chronic Assessment and Plan: Acute on chronic renal disease. Stage 3a BUN 25-41, creatinine 0.8 to 1.1, eGFR 48 to >60 since 03/02/22. Holding metformin and HCTZ. resume HCTZ 12/11/22 if BP still stable. On lisinopril PO. Pharmacy to dose vancomycin. I/Os unable to fully discern due to unquantified voids but does not appear overtly dehydrated or hypervolemic. Avoid nephrotoxic agents and trend BMP Stable. Avoid hypo or hypertension (7) Constipation: Qualifiers: Constipation type: slow transit constipation Qualified Code(s): K59.01 - Slow transit constipation Code(s): K59.00 - Constipation, unspecified Status: Acute Assessment and Plan: No BM for 3 days, per patient. 1
[2022-12-11 15:38] VITALS: BP 143/48; PULSE 67; RESP 18; TEMP 36.4; O2SAT 98
[2022-12-11 17:33] LABS: Glucose Point of Care 178 mg/dl (65-105)
[2022-12-11 19:59] VITALS: BP 120/60; PULSE 60; RESP 16; TEMP 36.6; O2SAT 98
[2022-12-11 20:00] VITALS: PULSE 60; RESP 16; O2SAT 98
[2022-12-11 21:01] LABS: Glucose Point of Care 205 mg/dl (65-105)
[2022-12-11] MEDS: DOXYCYCLINE HYCLATE 100 MG TABLET PO (21:06)
[2022-12-12 04:53] VITALS: BP 130/56; PULSE 66; RESP 16; TEMP 36.3; O2SAT 99
[2022-12-12] MEDS: metroNIDAZOLE 250 MG TABLET 500 MG PO ×3 (04:56→20:22)
[2022-12-12 05:42] LABS: Basophils Percent Auto 0.2 % (0.2-1.2); Eosinophils Absolute Auto 0.3 K/mm3 (0-0.3); Eosinophils Percent Auto 6.1 % (0-4.4); Hematocrit 35.2 % (37.0-47.0); Hemoglobin 11.5 g/dL (12.0-15.0); Immature Granulocyte Absolute 0.04 K/mm3 (0.00-0.031); Immature Granulocyte Percent A 0.8 % (0-0.5); Lymphocytes Percent Auto 22.2 % (18.3-44.2); Mean Corpuscular HGB Conc 32.7 g/dl (32-36); Mean Corpuscular Hemoglobin 27.6 pg (26-34); Mean Corpuscular Volume 84.4 fl (80-100); Mean Platelet Volume 10.7 fl (7.4-10.4); Monocytes Absolute Auto 0.6 K/mm3 (0.1-0.6); Monocytes Percent Auto 12.3 % (2.6-8.5); Neutrophils Absolute Auto 2.9 K/mm3 (1.3-6.7); Neutrophils Percent Auto 58.4 % (45.5-73.1); Platelet Count Result 213 k/mm3 (150-375); Red Blood Count 4.17 M/mm3 (4.2-5.4); Red Cell Distribution Width 14.7 % (11.5-14.5)
[2022-12-12 05:59] LABS: Alanine Aminotransferase 17 U/L (6-35); Albumin Level 3.2 g/dL (3.5-5.1); Alkaline Phosphatase 43 U/L (38-126); Anion Gap 5 mmol/L (8-16); Aspartate Amino Transferase 21 U/L (14-36); Bilirubin,Total 0.5 mg/dL (0.2-1.3); Blood Urea Nitrogen 22 mg/dL (7-17); Calcium 8.6 mg/dL (8.4-10.2); Carbon Dioxide 25 mmol/L (22-30); Chloride 103 mmol/L (98-107); Estimated CRCL calculation 41 ml/min; Estimated Glomerular Filt Rate 48; Glucose 140 mg/dL (65-110); Potassium 3.9 mmol/L (3.4-5.0); Sodium 133 mmol/L (137-145)
[2022-12-12 08:16] VITALS: PULSE 66
[2022-12-12] MEDS: APIXABAN 5 MG TABLET PO ×2 (08:16→20:22)
[2022-12-12] MEDS: DOXYCYCLINE HYCLATE 100 MG TABLET PO ×2 (08:16→20:22)
[2022-12-12] MEDS: METOPROLOL SUCCINATE EXT REL 100 MG TABCR PO (08:16)
[2022-12-12] MEDS: FENOFIBRATE NANOCRYSTALLIZED 145 MG TABLET PO (08:16)
[2022-12-12] MEDS: hydroCHLOROthiazide 25 MG TABLET PO (08:16)
[2022-12-12] MEDS: SACCHAROMYCES BOULARDII 250 MG CAPSULE PO ×2 (08:16→17:01)
[2022-12-12] MEDS: lisinopriL 20 MG TABLET 40 MG PO (08:17)
[2022-12-12] MEDS: CHOLECALCIFEROL 1,000 UNITS TABLET 5000 UNITS PO (08:17)
[2022-12-12] MEDS: CALCIUM CARBONATE (OSCAL) 500 MG TABLET PO (08:17)
[2022-12-12] MEDS: SILVERGEL (ELTA) 45 ML 1 APPLIC TOPICAL (08:18)
[2022-12-12 08:56] LABS: Glucose Point of Care 148 mg/dl (65-105)
[2022-12-12 12:17] LABS: Glucose Point of Care 175 mg/dl (65-105)
--- NOTE | 2022-12-12 13:06 | PM.PNORT ---
Progress Note: A&P Assessment and Plan (1) Foot ulcer: Qualifiers: Laterality: bilateral Non-pressure ulcer stage: with necrosis of muscle Qualified Code(s): L97.513 - Non-pressure chronic ulcer of other part of right foot with necrosis of muscle; L97.523 - Non-pressure chronic ulcer of other part of left foot with necrosis of muscle Code(s): L97.509 - Non-pressure chronic ulcer of other part of unspecified foot with unspecified severity Status: Acute Assessment and Plan: 2 days s/p debridement of bilateral feet and hallux. Redness and swelling with continued improvement today. Scant drainage. Overall improved. Medicine team transitioned patient to oral antibiotics. Defer antibiotic decision to medicine at discharge. Continue daily dressing changes. Offloading and protective weight-bearing with postoperative shoes. SCDs for edema control. 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 No current surgical intervention necessary. (2) Arterial occlusive disease: Code(s): I70.90 - Unspecified atherosclerosis Status: Acute (3) Cellulitis in diabetic foot: Code(s): E11.628 - Type 2 diabetes mellitus with other skin complications; L03.119 - Cellulitis of unspecified part of limb Status: Acute Subjective Subjective Date/Time Seen: 12/12/22 13:06 Principal diagnosis: Bilateral diabetic foot ulcers Interval history: Patient resting comfortably. No new complaints. Review of Systems Constitutional: Constitutional: Reports no additional constitutional complaints, Denies chills, Denies fatigue, Denies fever(s), Denies headache(s) and Denies weakness Eyes: Eyes: Denies change in vision ENT: Reports Normal hearing present and Denies headache(s) Cardiovascular: Cardiovascular: Denies chest pain and Denies dyspnea Respiratory: Respiratory: Denies cough, Denies dyspnea and Denies wheezing Gastrointestinal: Gastrointestinal: Denies constipation, Denies diarrhea, Denies nausea and Denies vomiting Genitourinary: Genitourinary: Denies hematuria, Denies dysuria and Denies urinary urgency Musculoskeletal: Musculoskeletal: Reports as per HPI, Denies numbness and Denies tingling Integumentary/Breasts: Skin/Breast: Reports as per HPI Neurologic: Reports as per HPI, Reports Normal hearing present, Denies headache(s), Denies numbness, Denies tingling and Denies weakness Psychiatric: Psychiatric: Reports no additional psychiatric complaints Endocrine: Endocrine: Reports no additional endocrine complaints and Denies fatigue Hematologic/Lymphatic: Hematologic/Lymphatic: Reports no additional hematologic/lymphatic complaints Allergic/Immunologic: Allergic/Immunologic: Reports no additional allergic/immunologic complaints and Denies wheezing Exam Const: General: comfortable, no acute distress and overweight Nutritional Appearance: overweight Orientation/consciousness: patient oriented x3 HENMT: Mouth: Yes moist mucous membranes Eyes: General: appearance normal, both eyes and all related structures Neck: Neck: supple and no JVD Resp: Effort & Inspection: normal respiratory effort Cardio: Rate: regular rate Rhythm: regular rhythm GI: Inspection: non-distended Neuro: General: patient oriented x3 and gait normal Cranial nerves: Yes Normal hearing present Cognition (Neuro): normal cognition Speech: normal speech Extrem: Right lower extremity: lower leg (edema ), ankle Details: swelling and foot (swelling, wounds noted, see below ) Left lower extremity: lower leg (edema ), ankle Details: swelling and foot (swelling, wounds noted, see below ) Other: Wound on the plantar aspect of the right hallux measures 1.5 x 1.5 x 1 cm. 70% red/ pink and 30% slough. Ability to probe to bone. Mild malodor. Hallux with erythema, significantly improve. Swelling resolved. Mild serous drainage. No purulence. No erythema into the forefoot. Wound on the pl
[2022-12-12 14:00] VITALS: BP 133/55; PULSE 61; RESP 18; TEMP 37.1; O2SAT 98
--- NOTE | 2022-12-12 14:32 | P.PNIM_ITS ---
Progress Note: A&P Assessment and Plan (1) Foot ulcer: Qualifiers: Laterality: bilateral Non-pressure ulcer stage: with necrosis of muscle Qualified Code(s): L97.513 - Non-pressure chronic ulcer of other part of right foot with necrosis of muscle; L97.523 - Non-pressure chronic ulcer of other part of left foot with necrosis of muscle Code(s): L97.509 - Non-pressure chronic ulcer of other part of unspecified foot with unspecified severity Status: Acute Assessment and Plan: Started on cefepime, metronidazole and vancomycin in ED, first doses given 12/07/22. * attempt to obtain wound culture - no significant drainage to culture. * Blood cultures negative to date. * Wound care consulted and appreciate recommendations - continue silver gel and gauze dressing changes daily. * XRAY negative for osteomyelitis involvement. * MRI suggests osteitis right great toe - consulted Ortho, it appears she has been seen by Dr. Silveira during her last hospital stay. Appreciate recommendations on management. * Patient underwent debridement on 12/10/22 12/11/20 * Debridement revealed no purulence, mild malodor, moderate serous drainage and mild redness. No bone probing. * Blood cultures likely a contaminant due to 1 out of 4 with gram pos. bacilli. * Discussed patient's antibiotics with infectious disease pharmacist. * Patient transitioned to oral antibiotics for treatment of cellulitis with flagyl and doxycycline. Augmentin would be preferred over flagyl but pt is allergic to penicillins. * Will continue to follow blood cultures. 12/12/22 * Patient transitioned to oral antibiotics. * Blood cultures likely contaminant. * Will continue to monitor blood culture growth. Should be final tomorrow. * Plan on discharge tomorrow. (2) Arterial occlusive disease: Code(s): I70.90 - Unspecified atherosclerosis Status: Acute Assessment and Plan: On Eliquis BID. Right TBI diminished. No wound or digit necrosis noted. (3) Cellulitis in diabetic foot: Code(s): E11.628 - Type 2 diabetes mellitus with other skin complications; L03.119 - Cellulitis of unspecified part of limb Status: Acute Assessment and Plan: A1c 7% this month. Blood sugars with good control. * Accu-checks AC/HS with sliding scale and hypoglycemia protocol. * continue januvia. * Hold metformin while inpatient. Her dose is >recommended dose and should consider dose adjustment at discharge. (4) Hypertension: Qualifiers: Hypertension type: primary hypertension Qualified Code(s): I10 - Essential (primary) hypertension Code(s): I10 - Essential (primary) hypertension Status: Chronic Assessment and Plan: Resume home meds * continue to monitor (5) DVT (deep venous thrombosis): Qualifiers: DVT location: lower extremity Affected thrombotic vein of extremity: popliteal Chronicity: chronic Laterality: left Qualified Code(s): I82.532 - Chronic embolism and thrombosis of left popliteal vein Code(s): I82.409 - Acute embolism and thrombosis of unspecified deep veins of unspecified lower extremity Status: Chronic Assessment and Plan: Left popliteal/post tibial DVT and right calf SVT found 11/11/22 * Continue apixaban (6) CKD (chronic kidney disease) stage 3, GFR 30-59 ml/min: Code(s): N18.30 - Chronic kidney disease, stage 3 unspecified Status: Chronic Assessment and Plan: Acute on chronic renal disease. Stage 3a * BUN 25-41, creatinine 0.8 to 1.1, eGFR 48 to >60 since 03/02/22. * Holding
--- NOTE | 2022-12-12 14:32 | PM.IMPN ---
Progress Note: A&P Assessment and Plan (1) Foot ulcer: Qualifiers: Laterality: bilateral Non-pressure ulcer stage: with necrosis of muscle Qualified Code(s): L97.513 - Non-pressure chronic ulcer of other part of right foot with necrosis of muscle; L97.523 - Non-pressure chronic ulcer of other part of left foot with necrosis of muscle Code(s): L97.509 - Non-pressure chronic ulcer of other part of unspecified foot with unspecified severity Status: Acute Assessment and Plan: Started on cefepime, metronidazole and vancomycin in ED, first doses given 12/07/22. attempt to obtain wound culture - no significant drainage to culture. Blood cultures negative to date. Wound care consulted and appreciate recommendations - continue silver gel and gauze dressing changes daily. XRAY negative for osteomyelitis involvement. MRI suggests osteitis right great toe - consulted Ortho, it appears she has been seen by Dr. Silveira during her last hospital stay. Appreciate recommendations on management. Patient underwent debridement on 12/10/22 12/11/20 Debridement revealed no purulence, mild malodor, moderate serous drainage and mild redness. No bone probing. Blood cultures likely a contaminant due to 1 out of 4 with gram pos. bacilli. Discussed patient's antibiotics with infectious disease pharmacist. Patient transitioned to oral antibiotics for treatment of cellulitis with flagyl and doxycycline. Augmentin would be preferred over flagyl but pt is allergic to penicillins. Will continue to follow blood cultures. 12/12/22 Patient transitioned to oral antibiotics. Blood cultures likely contaminant. Will continue to monitor blood culture growth. Should be final tomorrow. Plan on discharge tomorrow. (2) Arterial occlusive disease: Code(s): I70.90 - Unspecified atherosclerosis Status: Acute Assessment and Plan: On Eliquis BID. Right TBI diminished. No wound or digit necrosis noted. (3) Cellulitis in diabetic foot: Code(s): E11.628 - Type 2 diabetes mellitus with other skin complications; L03.119 - Cellulitis of unspecified part of limb Status: Acute Assessment and Plan: A1c 7% this month. Blood sugars with good control. Accu-checks AC/HS with sliding scale and hypoglycemia protocol. continue januvia. Hold metformin while inpatient. Her dose is >recommended dose and should consider dose adjustment at discharge. (4) Hypertension: Qualifiers: Hypertension type: primary hypertension Qualified Code(s): I10 - Essential (primary) hypertension Code(s): I10 - Essential (primary) hypertension Status: Chronic Assessment and Plan: Resume home meds continue to monitor (5) DVT (deep venous thrombosis): Qualifiers: DVT location: lower extremity Affected thrombotic vein of extremity: popliteal Chronicity: chronic Laterality: left Qualified Code(s): I82.532 - Chronic embolism and thrombosis of left popliteal vein Code(s): I82.409 - Acute embolism and thrombosis of unspecified deep veins of unspecified lower extremity Status: Chronic Assessment and Plan: Left popliteal/post tibial DVT and right calf SVT found 11/11/22 Continue apixaban (6) CKD (chronic kidney disease) stage 3, GFR 30-59 ml/min: Code(s): N18.30 - Chronic kidney disease, stage 3 unspecified Status: Chronic Assessment and Plan: Acute on chronic renal disease. Stage 3a BUN 25-41, creatinine 0.8 to 1.1, eGFR 48 to >60 since 03/02/22. Holding metformin and HCTZ. resume HCTZ 12/11/22 if BP still stable. On lisinopril PO. Pharmacy to dose vancomycin. I/Os unable to fully discern due to unquantified voids but does not appear overtly dehydrated or hypervolemic. Avoid nephrotoxic agents and trend BMP Stable. Avoid hypo or hypertension (7) Constipation: Qualifiers: Constipation type: slow transit constipati
[2022-12-12 17:03] LABS: Glucose Point of Care 151 mg/dl (65-105)
[2022-12-12] MEDS: SENNA/DOCUSATE SODIUM TABLET 1 TAB PO (20:22)
[2022-12-12 21:00] LABS: Glucose Point of Care 192 mg/dl (65-105)
[2022-12-12 21:37] VITALS: BP 130/46; PULSE 58; RESP 16; TEMP 36.6; O2SAT 99
[2022-12-13] MEDS: metroNIDAZOLE 250 MG TABLET 500 MG PO ×2 (05:47→14:38)
[2022-12-13 05:51] LABS: Hematocrit 34.3 % (37.0-47.0); Hemoglobin 11.4 g/dL (12.0-15.0); Mean Corpuscular HGB Conc 33.2 g/dl (32-36); Mean Corpuscular Hemoglobin 28.3 pg (26-34); Mean Corpuscular Volume 85.1 fl (80-100); Mean Platelet Volume 10.9 fl (7.4-10.4); Platelet Count Result 220 k/mm3 (150-375); Red Blood Count 4.03 M/mm3 (4.2-5.4); Red Cell Distribution Width 14.7 % (11.5-14.5); White Blood Count 3.8 K/mm3 (4.5-10.0)
[2022-12-13 06:00] VITALS: BP 128/43; PULSE 63; RESP 16; TEMP 36.6; O2SAT 97
[2022-12-13 06:02] LABS: Anion Gap 4 mmol/L (8-16); Blood Urea Nitrogen 21 mg/dL (7-17); Calcium 8.7 mg/dL (8.4-10.2); Carbon Dioxide 27 mmol/L (22-30); Chloride 104 mmol/L (98-107); Estimated CRCL calculation 49 ml/min; Estimated Glomerular Filt Rate 60; Glucose 131 mg/dL (65-110); Potassium 4.2 mmol/L (3.4-5.0); Sodium 135 mmol/L (137-145)
[2022-12-13 08:34] LABS: Glucose Point of Care 159 mg/dl (65-105)
[2022-12-13 08:37] VITALS: PULSE 68
[2022-12-13] MEDS: SACCHAROMYCES BOULARDII 250 MG CAPSULE PO (08:37)
[2022-12-13] MEDS: METOPROLOL SUCCINATE EXT REL 100 MG TABCR PO (08:37)
[2022-12-13] MEDS: CALCIUM CARBONATE (OSCAL) 500 MG TABLET PO (08:37)
[2022-12-13] MEDS: hydroCHLOROthiazide 25 MG TABLET PO (08:37)
[2022-12-13] MEDS: APIXABAN 5 MG TABLET PO (08:37)
[2022-12-13] MEDS: lisinopriL 20 MG TABLET 40 MG PO (08:37)
[2022-12-13] MEDS: DOXYCYCLINE HYCLATE 100 MG TABLET PO (08:37)
[2022-12-13] MEDS: FENOFIBRATE NANOCRYSTALLIZED 145 MG TABLET PO (08:37)
[2022-12-13] MEDS: CHOLECALCIFEROL 1,000 UNITS TABLET 5000 UNITS PO (08:38)
[2022-12-13] MEDS: SILVERGEL (ELTA) 45 ML 1 APPLIC TOPICAL (08:40)
[2022-12-13 12:22] LABS: Glucose Point of Care 192 mg/dl (65-105)
[2022-12-13 14:00] VITALS: BP 118/50; PULSE 57; RESP 18; TEMP 36.8; O2SAT 99
--- NOTE | 2022-12-13 16:06 | PM.DS ---
DS: Admitting Diagnosis Discharge Date 12/13/22 Admitting Diagnosis Right Diabetic foot ulcer DS: Discharge Diagnosis Discharge Diagnosis (1) Foot ulcer: Qualifiers: Laterality: bilateral Non-pressure ulcer stage: with necrosis of muscle Qualified Code(s): L97.513 - Non-pressure chronic ulcer of other part of right foot with necrosis of muscle; L97.523 - Non-pressure chronic ulcer of other part of left foot with necrosis of muscle Code(s): L97.509 - Non-pressure chronic ulcer of other part of unspecified foot with unspecified severity Status: Acute Assessment and Plan: Started on cefepime, metronidazole and vancomycin in ED, first doses given 12/07/22. attempt to obtain wound culture - no significant drainage to culture. Blood cultures negative to date. Wound care consulted and appreciate recommendations - continue silver gel and gauze dressing changes daily. XRAY negative for osteomyelitis involvement. MRI suggests osteitis right great toe - consulted Ortho, it appears she has been seen by Dr. Silveira during her last hospital stay. Appreciate recommendations on management. Patient underwent debridement on 12/10/22 12/11/20 Debridement revealed no purulence, mild malodor, moderate serous drainage and mild redness. No bone probing. Blood cultures likely a contaminant due to 1 out of 4 with gram pos. bacilli. Discussed patient's antibiotics with infectious disease pharmacist. Patient transitioned to oral antibiotics for treatment of cellulitis with flagyl and doxycycline. Augmentin would be preferred over flagyl but pt is allergic to penicillins. Will continue to follow blood cultures. 12/12/22 Patient transitioned to oral antibiotics. Blood cultures likely contaminant. Will continue to monitor blood culture growth. (2) Arterial occlusive disease: Code(s): I70.90 - Unspecified atherosclerosis Status: Acute Assessment and Plan: On Eliquis BID. Right TBI diminished. No wound or digit necrosis noted. (3) Cellulitis in diabetic foot: Code(s): E11.628 - Type 2 diabetes mellitus with other skin complications; L03.119 - Cellulitis of unspecified part of limb Status: Acute Assessment and Plan: A1c 7% this month. Blood sugars with good control. Accu-checks AC/HS with sliding scale and hypoglycemia protocol. continue januvia. Hold metformin while inpatient. Her dose is >recommended dose and should consider dose adjustment at discharge. (4) Hypertension: Qualifiers: Hypertension type: primary hypertension Qualified Code(s): I10 - Essential (primary) hypertension Code(s): I10 - Essential (primary) hypertension Status: Chronic Assessment and Plan: Resume home meds continue to monitor (5) DVT (deep venous thrombosis): Qualifiers: DVT location: lower extremity Affected thrombotic vein of extremity: popliteal Chronicity: chronic Laterality: left Qualified Code(s): I82.532 - Chronic embolism and thrombosis of left popliteal vein Code(s): I82.409 - Acute embolism and thrombosis of unspecified deep veins of unspecified lower extremity Status: Chronic Assessment and Plan: Left popliteal/post tibial DVT and right calf SVT found 11/11/22 Continue apixaban (6) CKD (chronic kidney disease) stage 3, GFR 30-59 ml/min: Code(s): N18.30 - Chronic kidney disease, stage 3 unspecified Status: Chronic Assessment and Plan: Acute on chronic renal disease. Stage 3a BUN 25-41, creatinine 0.8 to 1.1, eGFR 48 to >60 since 03/02/22. Holding metformin and HCTZ. resume HCTZ 12/11/22 if BP still stable. On lisinopril PO. Pharmacy to dose vancomycin. I/Os unable to fully discern due to unquantified voids but does not appear overtly dehydrated or hypervolemic. Avoid nephrotoxic agents and trend BMP Stable. Avoid hypo or hypertension (7) Constipation: Qualifiers:
== END 2022-12-13 17:30 | disposition home health service (06) | DRG 623 ==
LOC: ANHED 12-07 01:35 → ANH3MED 12-07 02:52
PROVIDERS: Nurse Practitioner Family; Orthopaedic Surgery; Physician Assistant; Admitting Provider Internal Medicine; Emergency Provider Emergency Medicine; PCP Family Medicine; Visit Provider Internal Medicine Critical Care Medicine
DX: E11.621 Type 2 diabetes mellitus with foot ulcer (principal); L03.115 Cellulitis of right lower limb; L97.519 Non-pressure chronic ulcer of other part of right foot with unspecified severity; L97.529 Non-pressure chronic ulcer of other part of left foot with unspecified severity; I82.532 Chronic embolism and thrombosis of left popliteal vein; I82.542 Chronic embolism and thrombosis of left tibial vein; I82.B22 Chronic embolism and thrombosis of left subclavian vein; N17.9 Acute kidney failure, unspecified; E11.628 Type 2 diabetes mellitus with other skin complications; E11.22 Type 2 diabetes mellitus with diabetic chronic kidney disease; I12.9 Hypertensive chronic kidney disease with stage 1 through stage 4 chronic kidney disease, or unspecified chronic kidney disease; N18.31 Chronic kidney disease, stage 3a; E11.42 Type 2 diabetes mellitus with diabetic polyneuropathy; E78.5 Hyperlipidemia, unspecified; E66.9 Obesity, unspecified; K59.00 Constipation, unspecified; I70.90 Unspecified atherosclerosis; Z79.84 Long term (current) use of oral hypoglycemic drugs; Z87.442 Personal history of urinary calculi; Z68.30 Body mass index [BMI] 30.0-30.9, adult; Z90.710 Acquired absence of both cervix and uterus
CPT/HCPCS: 36415; 73630; 73718; 80048; 80053; 80202; 81001; 82565; 82948; 84145; 84550; 85025; 85027; 85610; 85652; 86140; 87040; 87076; 96365; 96366; 96367; 96375; 99285; A9270; G0378; J0692; J1200; J1815; J2930; J3370; J7030; J7040

== ENCOUNTER 2023-01-28 15:15 | Outpatient (NON) | payer MEDICARE, SELFPAY ==
[2023-01-28 15:57] LABS: Appearance Urine Cloudy (Clear); Bacteria Urine 4+ /hpf; Bilirubin Urine Negative (Negative); Blood Urine 3+ (Negative); Color Urine Yellow (Yellow); Glucose Urine UA Trace mg/dL (Negative); Ketones Urine Trace mg/dL (Negative); Leukocyte Esterase Ur 3+ LEU/UL (Negative); Nitrate Urine Negative (Negative); Protein Urine Negative (Negative); RBC Urine >100 /hpf (0-2); Specific Grav Ur 1.012 (1.001-1.035); Squamous Epithelial Cell Urine Occasional /hpf (Few); WBC Urine 51-100 /hpf; pH Urine 6.5 (5.0-9.0)
[2023-01-28 16:07] LABS: Add Urine Microscopic? YES
== END 2023-01-28 15:16 | disposition home or self-care (01) ==
LOC: ANHLAB 15:18
PROVIDERS: PCP Family Medicine; Visit Provider Family Medicine
DX: E11.628 Type 2 diabetes mellitus with other skin complications (principal); L97.511 Non-pressure chronic ulcer of other part of right foot limited to breakdown of skin; L97.521 Non-pressure chronic ulcer of other part of left foot limited to breakdown of skin; Z48.00 Encounter for change or removal of nonsurgical wound dressing; N20.1 Calculus of ureter
CPT/HCPCS: 81001; 87077; 87086; 87186

== ENCOUNTER → 2023-02-03 15:05 | Outpatient (CLI) | payer MEDICARE, SELFPAY ==
--- NOTE | ~2023-02-03 | XR_ITS ---
XR chest 2V DATE: 02/03/2023 15:43 INDICATION: Pleural effusion TECHNIQUE: 2 views COMPARISON: 09/05/2022 PA and lateral chest 01/22/2022 CT chest FINDINGS: There is chronic mild right pleural effusion and right lower lobe infiltrate and/atelectasi s. The lungs are hyperinflated but otherwise clear. No left pleural effusion is noted. No pulmonary vascular congestion. No hilar or mediastinal enlargement. Heart size is within normal limits. Osteopenia. Degenerative spurring and mild levoscoliosis of the lumbar spine. IMPRESSION: Chronic right pleural effusion and right lower lung infiltrate or atelectasis Reviewed, dictated and finalized at location B. IMPRESSION: Chronic right pleural effusion and right lower lung infiltrate or a telectasis
== END ==
PROVIDERS: PCP Family Medicine; Visit Provider Internal Medicine Critical Care Medicine
DX: J90 Pleural effusion, not elsewhere classified (principal)
CPT/HCPCS: 71046

== ENCOUNTER 2023-03-24 14:52 | Outpatient (RCR) | payer MEDICARE, SELFPAY ==
[2023-03-24 15:15] LABS: Basophils Percent Auto 0.1 % (0.2-1.2); Eosinophils Absolute Auto 0.2 K/mm3 (0-0.3); Eosinophils Percent Auto 2.6 % (0-4.4); Hematocrit 38.4 % (37.0-47.0); Hemoglobin 12.6 g/dL (12.0-15.0); Immature Granulocyte Absolute 0.05 K/mm3 (0.00-0.031); Immature Granulocyte Percent A 0.7 % (0-0.5); Lymphocytes Absolute Auto 1.68 K/mm3 (0.9-3.2); Mean Corpuscular HGB Conc 32.8 g/dl (32-36); Mean Corpuscular Volume 88.3 fl (80-100); Mean Platelet Volume 11.6 fl (7.4-10.4); Monocytes Absolute Auto 0.8 K/mm3 (0.1-0.6); Monocytes Percent Auto 11.2 % (2.6-8.5); Neutrophils Absolute Auto 4.3 K/mm3 (1.3-6.7); Neutrophils Percent Auto 61.4 % (45.5-73.1); Platelet Count Result 274 k/mm3 (150-375); Red Blood Count 4.35 M/mm3 (4.2-5.4); Red Cell Distribution Width 15.6 % (11.5-14.5)
[2023-03-24 15:31] LABS: Alanine Aminotransferase 21 U/L (6-35); Albumin Level 3.7 g/dL (3.5-5.1); Alkaline Phosphatase 61 U/L (38-126); Anion Gap 10 mmol/L (8-16); Aspartate Amino Transferase 33 U/L (14-36); Bilirubin,Total 1.3 mg/dL (0.2-1.3); Blood Urea Nitrogen 36 mg/dL (7-17); CRP < 0.5 mg/dL (<1.0); Carbon Dioxide 24 mmol/L (22-30); Chloride 100 mmol/L (98-107); Estimated Glomerular Filt Rate 40; Glucose 86 mg/dL (65-110); Potassium 3.4 mmol/L (3.4-5.0); Sodium 134 mmol/L (137-145)
[2023-03-24 17:16] LABS: Vancomycin Trough 19.6 ug/mL (10.0-20.0)
== END 2023-06-22 23:59 | disposition home or self-care (01) ==
LOC: HOME HLTH 14:52
PROVIDERS: PCP Family Medicine
DX: M86.171 Other acute osteomyelitis, right ankle and foot (principal)
CPT/HCPCS: 80053; 80202; 85025; 86140

== ENCOUNTER 2023-03-31 16:40 | Outpatient (NON) | payer MEDICARE, SELFPAY ==
[2023-03-31 17:01] LABS: Hematocrit 33.3 % (37.0-47.0); Hemoglobin 10.7 g/dL (12.0-15.0); Mean Corpuscular HGB Conc 32.1 g/dl (32-36); Mean Corpuscular Volume 90.2 fl (80-100); Mean Platelet Volume 12.2 fl (7.4-10.4); Platelet Count Result 200 k/mm3 (150-375); Red Blood Count 3.69 M/mm3 (4.2-5.4); Red Cell Distribution Width 15.6 % (11.5-14.5); White Blood Count 6.5 K/mm3 (4.5-10.0)
[2023-03-31 17:02] LABS: Eosinophils Absolute Auto 0.1 K/mm3 (0-0.3); Eosinophils Percent Auto 2.1 % (0-4.4); Immature Granulocyte Absolute 0.04 K/mm3 (0.00-0.031); Immature Granulocyte Percent A 0.6 % (0-0.5); Lymphocytes Absolute Auto 1.17 K/mm3 (0.9-3.2); Lymphocytes Percent Auto 17.9 % (18.3-44.2); Monocytes Absolute Auto 0.7 K/mm3 (0.1-0.6); Neutrophils Absolute Auto 4.5 K/mm3 (1.3-6.7); Neutrophils Percent Auto 69.4 % (45.5-73.1)
[2023-03-31 17:16] LABS: Alanine Aminotransferase 18 U/L (6-35); Albumin Level 3.2 g/dL (3.5-5.1); Alkaline Phosphatase 52 U/L (38-126); Anion Gap 8 mmol/L (8-16); Aspartate Amino Transferase 30 U/L (14-36); Bilirubin,Total 0.5 mg/dL (0.2-1.3); Blood Urea Nitrogen 34 mg/dL (7-17); CRP 0.6 mg/dL (<1.0); Calcium 8.3 mg/dL (8.4-10.2); Carbon Dioxide 22 mmol/L (22-30); Chloride 106 mmol/L (98-107); Estimated Glomerular Filt Rate 19; Glucose 100 mg/dL (65-110); Potassium 3.4 mmol/L (3.4-5.0); Sodium 136 mmol/L (137-145)
[2023-03-31 18:42] LABS: Vancomycin Trough 37.9 ug/mL (10.0-20.0)
== END 2023-03-31 16:41 | disposition home or self-care (01) ==
PROVIDERS: PCP Family Medicine
DX: L97.511 Non-pressure chronic ulcer of other part of right foot limited to breakdown of skin (principal); L97.521 Non-pressure chronic ulcer of other part of left foot limited to breakdown of skin; E11.628 Type 2 diabetes mellitus with other skin complications; Z48.00 Encounter for change or removal of nonsurgical wound dressing
CPT/HCPCS: 80053; 80202; 85025; 86140

== ENCOUNTER 2023-04-03 11:49 | Outpatient (NON) | payer MEDICARE, SELFPAY ==
[2023-04-03 12:32] LABS: Alanine Aminotransferase 15 U/L (6-35); Albumin Level 3.2 g/dL (3.5-5.1); Alkaline Phosphatase 49 U/L (38-126); Anion Gap 9 mmol/L (8-16); Aspartate Amino Transferase 24 U/L (14-36); Bilirubin,Total 0.6 mg/dL (0.2-1.3); Blood Urea Nitrogen 26 mg/dL (7-17); Calcium 8.5 mg/dL (8.4-10.2); Carbon Dioxide 25 mmol/L (22-30); Chloride 101 mmol/L (98-107); Creatine Kinase 23 U/L (30-135); Estimated Glomerular Filt Rate 20; Glucose 112 mg/dL (65-110); Potassium 4.1 mmol/L (3.4-5.0); Sodium 135 mmol/L (137-145)
== END 2023-04-03 11:50 | disposition home or self-care (01) ==
LOC: HOME HLTH 11:52
PROVIDERS: PCP Family Medicine; Visit Provider Family Medicine
DX: M86.171 Other acute osteomyelitis, right ankle and foot (principal)
CPT/HCPCS: 80053; 82550

== ENCOUNTER 2023-04-10 14:43 | Outpatient (NON) | payer MEDICARE, SELFPAY ==
[2023-04-10 15:23] LABS: Basophils Percent Auto 0.2 % (0.2-1.2); Eosinophils Absolute Auto 0.2 K/mm3 (0-0.3); Eosinophils Percent Auto 2.4 % (0-4.4); Hematocrit 32.9 % (37.0-47.0); Hemoglobin 10.7 g/dL (12.0-15.0); Immature Granulocyte Absolute 0.03 K/mm3 (0.00-0.031); Immature Granulocyte Percent A 0.5 % (0-0.5); Lymphocytes Absolute Auto 0.96 K/mm3 (0.9-3.2); Lymphocytes Percent Auto 14.5 % (18.3-44.2); Mean Corpuscular HGB Conc 32.5 g/dl (32-36); Mean Corpuscular Hemoglobin 29.4 pg (26-34); Mean Corpuscular Volume 90.4 fl (80-100); Mean Platelet Volume 11.4 fl (7.4-10.4); Monocytes Absolute Auto 0.7 K/mm3 (0.1-0.6); Monocytes Percent Auto 10.3 % (2.6-8.5); Neutrophils Absolute Auto 4.8 K/mm3 (1.3-6.7); Neutrophils Percent Auto 72.1 % (45.5-73.1); Platelet Count Result 242 k/mm3 (150-375); Red Blood Count 3.64 M/mm3 (4.2-5.4); Red Cell Distribution Width 14.9 % (11.5-14.5); White Blood Count 6.6 K/mm3 (4.5-10.0)
[2023-04-10 15:36] LABS: Alanine Aminotransferase 17 U/L (6-35); Albumin Level 3.2 g/dL (3.5-5.1); Alkaline Phosphatase 48 U/L (38-126); Anion Gap 7 mmol/L (8-16); Aspartate Amino Transferase 30 U/L (14-36); Bilirubin,Total 0.6 mg/dL (0.2-1.3); Blood Urea Nitrogen 23 mg/dL (7-17); CRP 0.7 mg/dL (<1.0); Calcium 8.4 mg/dL (8.4-10.2); Carbon Dioxide 26 mmol/L (22-30); Chloride 100 mmol/L (98-107); Creatine Kinase 26 U/L (30-135); Estimated Glomerular Filt Rate 19; Glucose 127 mg/dL (65-110); Sodium 133 mmol/L (137-145)
== END 2023-04-10 14:44 | disposition home or self-care (01) ==
PROVIDERS: PCP Family Medicine
DX: M86.171 Other acute osteomyelitis, right ankle and foot (principal)
CPT/HCPCS: 36415; 80053; 82550; 85025; 86140

== ENCOUNTER 2023-04-17 10:40 | Outpatient (RCR) | payer MEDICARE, SELFPAY ==
[2023-04-17 11:05] LABS: Basophils Percent Auto 0.2 % (0.2-1.2); Eosinophils Absolute Auto 0.2 K/mm3 (0-0.3); Eosinophils Percent Auto 3.3 % (0-4.4); Hematocrit 33.8 % (37.0-47.0); Hemoglobin 11.1 g/dL (12.0-15.0); Immature Granulocyte Absolute 0.02 K/mm3 (0.00-0.031); Immature Granulocyte Percent A 0.3 % (0-0.5); Lymphocytes Absolute Auto 0.96 K/mm3 (0.9-3.2); Lymphocytes Percent Auto 15.8 % (18.3-44.2); Mean Corpuscular HGB Conc 32.8 g/dl (32-36); Mean Corpuscular Volume 88.3 fl (80-100); Mean Platelet Volume 10.9 fl (7.4-10.4); Monocytes Absolute Auto 0.7 K/mm3 (0.1-0.6); Monocytes Percent Auto 10.9 % (2.6-8.5); Neutrophils Absolute Auto 4.2 K/mm3 (1.3-6.7); Neutrophils Percent Auto 69.5 % (45.5-73.1); Platelet Count Result 283 k/mm3 (150-375); Red Blood Count 3.83 M/mm3 (4.2-5.4); Red Cell Distribution Width 14.9 % (11.5-14.5); White Blood Count 6.1 K/mm3 (4.5-10.0)
[2023-04-17 11:19] LABS: Alanine Aminotransferase 15 U/L (6-35); Albumin Level 3.5 g/dL (3.5-5.1); Alkaline Phosphatase 58 U/L (38-126); Anion Gap 10 mmol/L (8-16); Aspartate Amino Transferase 29 U/L (14-36); Bilirubin,Total 0.8 mg/dL (0.2-1.3); Blood Urea Nitrogen 24 mg/dL (7-17); CRP 1.4 mg/dL (<1.0); Calcium 8.5 mg/dL (8.4-10.2); Carbon Dioxide 25 mmol/L (22-30); Chloride 100 mmol/L (98-107); Creatine Kinase 41 U/L (30-135); Estimated Glomerular Filt Rate 20; Glucose 115 mg/dL (65-110); Potassium 3.5 mmol/L (3.4-5.0); Sodium 135 mmol/L (137-145)
== END 2023-07-16 23:59 | disposition home or self-care (01) ==
LOC: HOME HLTH 10:40
PROVIDERS: PCP Family Medicine
DX: M86.171 Other acute osteomyelitis, right ankle and foot (principal)
CPT/HCPCS: 80053; 82550; 85025; 86140

== ENCOUNTER 2023-04-24 15:59 | Outpatient (NON) | payer MEDICARE, SELFPAY ==
[2023-04-24 16:33] LABS: Basophils Percent Auto 0.2 % (0.2-1.2); Eosinophils Absolute Auto 0.1 K/mm3 (0-0.3); Hematocrit 32.1 % (37.0-47.0); Hemoglobin 10.4 g/dL (12.0-15.0); Immature Granulocyte Absolute 0.06 K/mm3 (0.00-0.031); Immature Granulocyte Percent A 1.1 % (0-0.5); Lymphocytes Absolute Auto 1.08 K/mm3 (0.9-3.2); Lymphocytes Percent Auto 19.9 % (18.3-44.2); Mean Corpuscular HGB Conc 32.4 g/dl (32-36); Mean Corpuscular Hemoglobin 29.2 pg (26-34); Mean Corpuscular Volume 90.2 fl (80-100); Mean Platelet Volume 10.9 fl (7.4-10.4); Monocytes Absolute Auto 0.7 K/mm3 (0.1-0.6); Monocytes Percent Auto 12.3 % (2.6-8.5); Neutrophils Absolute Auto 3.5 K/mm3 (1.3-6.7); Neutrophils Percent Auto 64.5 % (45.5-73.1); Platelet Count Result 245 k/mm3 (150-375); Red Blood Count 3.56 M/mm3 (4.2-5.4); Red Cell Distribution Width 15.1 % (11.5-14.5); White Blood Count 5.4 K/mm3 (4.5-10.0)
[2023-04-24 19:14] LABS: Alanine Aminotransferase 15 U/L (6-35); Albumin Level 3.3 g/dL (3.5-5.1); Alkaline Phosphatase 47 U/L (38-126); Anion Gap 8 mmol/L (8-16); Aspartate Amino Transferase 29 U/L (14-36); Bilirubin,Total 0.7 mg/dL (0.2-1.3); Blood Urea Nitrogen 29 mg/dL (7-17); CRP 0.5 mg/dL (<1.0); Calcium 8.3 mg/dL (8.4-10.2); Carbon Dioxide 25 mmol/L (22-30); Chloride 101 mmol/L (98-107); Creatine Kinase 46 U/L (30-135); Estimated Glomerular Filt Rate 19; Glucose 91 mg/dL (65-110); Potassium 3.4 mmol/L (3.4-5.0); Sodium 134 mmol/L (137-145)
== END 2023-04-24 16:00 | disposition home or self-care (01) ==
PROVIDERS: PCP Family Medicine
DX: E11.628 Type 2 diabetes mellitus with other skin complications (principal); L97.511 Non-pressure chronic ulcer of other part of right foot limited to breakdown of skin; L97.521 Non-pressure chronic ulcer of other part of left foot limited to breakdown of skin; Z48.00 Encounter for change or removal of nonsurgical wound dressing
CPT/HCPCS: 80053; 82550; 85025; 86140

== ENCOUNTER → 2023-05-09 12:30 | Outpatient (CLI) | payer MEDICARE, SELFPAY ==
--- NOTE | ~2023-05-09 | MR_ITS ---
EXAMINATION: MR foot LT wo/w con DATE: 05/09/2023 13:53 INDICATION: Acute osteomyelitis of the left foot TECHNIQUE: Magnetic resonance imaging (MRI) of the left fore/mid foot was performed without intraveno us contrast. Sequences included axial, sagittal and coronal T1-weighted FSE, axial and sagittal fluid sensitive FSE STIR, coronal PD-weighted FS FSE, axial T1-weighted FS FSE and postcontrast axial, sag ittal and coronal T1-weighted FS FSE. COMPARISON: 12/07/2022 FINDINGS: Bone alignment is normal. Old healed mid diaphyseal fracture deformity of the fifth metatarsal. Again seen is mild polyarticular osteoarthritis at the first metatarsophalangeal, the navicular cuneiform, the tarsometatarsal joints and multiple interphalangeal joints. Lisfranc ligament complex is normal. The collateral ligament complex at the metatarsophalangeal and interphalangeal joints are normal. Th e flexor and extensor tendons are normal. Moderate diffuse fatty atrophy of the visualized intrinsic musculature of the foot. There is diffuse subcutaneous edema about the forefoot. One of the regions t his is most focally prominent is at the dorsal aspect of the middle phalanx of the fourth toe which u nderlies the marker indicating the region of concern. There is a second region of prominent increased soft tissue edema and enhancement centered plantar to the head of the first metatarsal and first met atarsophalangeal joint. There is a 3 mm focus of essentially absent signal within this region of enha ncement plantar to the first metatarsophalangeal joint which suggests either a foreign body or focus of gas. No evident cortical erosions or regions of geographic T1 marrow signal loss or enhancement to suggest osteomyelitis. IMPRESSION: 1. Edema and enhancement in the subcutaneous tissues dorsal to the fourth middle phalanx consistent w ith a marker indicating the region of concern which is consistent with cellulitis. No associated absc ess or osteomyelitis.. 2. 3 mm focus of absent signal within a region of soft tissue edema and enhancement plantar to the fi rst metatarsophalangeal joint which suggests either a foreign body or focus of gas. Correlate for wit h plain radiographs and for adjacent skin ulceration or puncture wound. Reviewed, dictated and finalized at location A. IMPRESSION: 1. Edema and enhancement in the subcutaneous tissues dorsal to the fourth middl e phalanx consistent with a marker indicating the region of concern which is co nsistent with cellulitis. No associated abscess or osteomyelitis.. 2. 3 mm focus of absent signal within a region of soft tissue edema and enhance ment plantar to the first metatarsophalangeal joint which suggests either a for eign body or focus of gas. Correlate for with plain radiographs and for adjacen t skin ulceration or puncture wound.
== END ==
PROVIDERS: PCP Family Medicine; Visit Provider Podiatrist Foot & Ankle Surgery
DX: M86.172 Other acute osteomyelitis, left ankle and foot (principal); R60.0 Localized edema
CPT/HCPCS: 73720; A9577

== ENCOUNTER 2023-06-06 14:00 | Emergency (ER) | payer MEDICARE, SELFPAY ==
[2023-06-06 14:13] VITALS: BP 115/62; PULSE 104; RESP 16; TEMP 36.5; O2SAT 99
--- NOTE | 2023-06-06 14:14 | ED.EXTPRO ---
HPI - Extremity Problem General Chief complaint: Extremity Problem,Nontraumatic Stated complaint: INFECTED TOE Time Seen by Provider: 06/06/23 14:14 Source: patient, RN notes reviewed and old records reviewed Mode of arrival: ambulatory Limitations: no limitations History of Present Illness HPI Narrative: 77 year old female presents to express care with complaints of right great toe being increasingly red today and also noted some bloody drainage on Optifoam dressing she puts around her right great toe to prevent rubbing. Patient reports that she has been treated for wounds to her right foot in recent past with IV antibiotics and has been seeing Merchandise Handler routinely for follow up care. She states that she called elementary reading specialist and not in office today and PCP not available either was told to come to urgent care and get antibiotic.Patient has appointment on Friday with Podiatry. Patient is wearing bilateral post op shoes to her feet. Patient had been followed by home care services for wound care till 05/07/2023. Patient is diabetic and has decreased kidney functioning. MD Complaint: other (bloody drainage right plantar aspect great toe and redness dorsal aspect of right great toe) Onset (ago): day(s) (1) Related Data Home Medications Medication Instructions Recorded Confirmed fenofibrate nanocrystallized 145 145 mg PO DAILY 09/15/20 12/07/22 mg tablet hydrochlorothiazide 50 mg tablet 50 mg PO DAILY 09/15/20 12/07/22 lisinopril 40 mg tablet 40 mg PO DAILY 09/15/20 12/07/22 metformin 500 mg tablet 1,500 mg PO BIDWMEAL 09/15/20 12/07/22 metoprolol succinate 100 mg 100 mg PO DAILY 09/15/20 12/07/22 tablet,extended release 24 hr calcium 600 mg capsule 600 mg PO DAILY 06/14/21 12/07/22 cholecalciferol (vitamin D3) 125 125 mcg PO DAILY 06/14/21 12/07/22 mcg (5,000 unit) capsule sitagliptin phosphate 100 mg 100 mg PO DAILY 06/14/21 12/07/22 tablet (Januvia) cyanocobalamin (vitamin B-12) 1,000 mcg IM MONTHLY 11/11/22 12/07/22 1,000 mcg/mL injection solution Allergies Allergy/AdvReac Type Severity Reaction Status Date / Time Penicillins Allergy Mild Hives / Verified 12/06/22 23:54 Red Face alendronate sodium AdvReac Intermediate Diarrhea Verified 12/06/22 23:54 [From Fosamax] codeine AdvReac Mild Vomiting Verified 12/06/22 23:54 prochlorperazine AdvReac Mild Muscle Verified 12/06/22 23:54 Spasms clarithromycin [From Biaxin] AdvReac Nausea and Verified 12/06/22 23:54 Vomiting clindamycin AdvReac Diarrhea Verified 12/06/22 23:54 Review of Systems Review of Systems: CONSTITUTIONAL: Denies fever, chills, or sweats. EYES: Denies visual changes, redness, or discharge. ENT: Denies rhinorrhea, congestion, sore throat, or otalgia. CARDIOVASCULAR: Denies chest pain, palpitations, or edema. RESPIRATORY: Denies cough or dyspnea. GASTROINTESTINAL: Denies abdominal pain, nausea, vomiting, or diarrhea. GENITOURINARY: Denies dysuria or hematuria. SKIN: Denies rash or itching. Reports increased redness to dorsal aspect of right great toe today and also some bloody drainage from plantar aspect right great toe MUSCULOSKELETAL: Denies back pain, joint pain, or myalgia. NEUROLOGIC: Denies headache, numbness, or weakness. PSYCHIATRIC: Denies anxiety or depression. All systems reviewed & are unremarkable except as noted in HPI and below PMFSH Past Medical History Medical History Arterial occlusive disease CKD (chronic kidney disease) stage 3, GFR 30-59 ml/min Diabetes DVT (deep venous thrombosis) Dyslipidemia Foot ulcer Hypertension Kidney stone Obesity Surgical History Surgical History History of hysterectomy S/P tonsillectomy and adenoidectomy Status post repair of ventral hernia 1997; mesh broke, she required revision 2000 Social History Social History (Reviewed 06/06/23 @ 14:44 by Irma Blanca, N
== END 2023-06-06 14:51 | disposition home or self-care (01) ==
PROVIDERS: Emergency Provider Registered Nurse; PCP Family Medicine
DX: S91.101A Unspecified open wound of right great toe without damage to nail, initial encounter (principal); X58.XXXA Exposure to other specified factors, initial encounter; L53.9 Erythematous condition, unspecified; I12.9 Hypertensive chronic kidney disease with stage 1 through stage 4 chronic kidney disease, or unspecified chronic kidney disease; E11.22 Type 2 diabetes mellitus with diabetic chronic kidney disease; N18.30 Chronic kidney disease, stage 3 unspecified; Z79.84 Long term (current) use of oral hypoglycemic drugs; E78.5 Hyperlipidemia, unspecified; E66.9 Obesity, unspecified; Z68.29 Body mass index [BMI] 29.0-29.9, adult; Z86.718 Personal history of other venous thrombosis and embolism; I70.90 Unspecified atherosclerosis
CPT/HCPCS: 99213; G0463

== ENCOUNTER 2023-06-24 15:41 | Outpatient (CLI) | payer MEDICARE, SELFPAY ==
[2023-06-24 17:34] LABS: Albumin Level 3.9 g/dL (3.5-5.1); Anion Gap 8 mmol/L (8-16); Blood Urea Nitrogen 31 mg/dL (7-17); Calcium 9.3 mg/dL (8.4-10.2); Carbon Dioxide 26 mmol/L (22-30); Chloride 103 mmol/L (98-107); Estimated Glomerular Filt Rate 31; Glucose 103 mg/dL (65-110); Phosphorus 3.5 mg/dL (2.5-4.5); Potassium 3.7 mmol/L (3.4-5.0); Sodium 137 mmol/L (137-145)
== END 2023-06-24 15:42 | disposition home or self-care (01) ==
LOC: ANHLAB 15:45
PROVIDERS: PCP Family Medicine; Visit Provider Internal Medicine Nephrology
DX: R79.89 Other specified abnormal findings of blood chemistry (principal); I10 Essential (primary) hypertension
CPT/HCPCS: 36415; 80069

== ENCOUNTER 2023-08-19 14:28 | Outpatient (CLI) | payer MEDICARE, SELFPAY ==
[2023-08-19 15:18] LABS: Albumin Level 3.9 g/dL (3.5-5.1); Anion Gap 13 mmol/L (8-16); Blood Urea Nitrogen 47 mg/dL (7-17); Calcium 9.3 mg/dL (8.4-10.2); Carbon Dioxide 22 mmol/L (22-30); Chloride 98 mmol/L (98-107); Estimated Glomerular Filt Rate 25; Glucose 93 mg/dL (65-110); Phosphorus 4.3 mg/dL (2.5-4.5); Potassium 3.5 mmol/L (3.4-5.0); Sodium 133 mmol/L (137-145)
== END 2023-08-19 14:29 | disposition home or self-care (01) ==
LOC: ANHLAB 14:30
PROVIDERS: PCP Family Medicine; Visit Provider Internal Medicine Nephrology
DX: R79.89 Other specified abnormal findings of blood chemistry (principal)
CPT/HCPCS: 36415; 80069

== ENCOUNTER 2023-09-10 09:48 | Outpatient (CLI) | payer MEDICARE, SELFPAY ==
[2023-09-10 18:28] LABS: Basophils Percent Auto 0.3 % (0.2-1.2); Eosinophils Absolute Auto 0.2 K/mm3 (0-0.3); Eosinophils Percent Auto 2.2 % (0-4.4); Hematocrit 38.9 % (37.0-47.0); Hemoglobin 12.3 g/dL (12.0-15.0); Immature Granulocyte Absolute 0.03 K/mm3 (0.00-0.031); Immature Granulocyte Percent A 0.4 % (0-0.5); Lymphocytes Absolute Auto 0.91 K/mm3 (0.9-3.2); Lymphocytes Percent Auto 12.4 % (18.3-44.2); Mean Corpuscular HGB Conc 31.6 g/dl (32-36); Mean Corpuscular Hemoglobin 28.1 pg (26-34); Mean Corpuscular Volume 88.8 fl (80-100); Mean Platelet Volume 11.2 fl (7.4-10.4); Monocytes Absolute Auto 0.6 K/mm3 (0.1-0.6); Monocytes Percent Auto 8.1 % (2.6-8.5); Neutrophils Absolute Auto 5.6 K/mm3 (1.3-6.7); Neutrophils Percent Auto 76.6 % (45.5-73.1); Platelet Count Result 296 k/mm3 (150-375); Red Blood Count 4.38 M/mm3 (4.2-5.4); Red Cell Distribution Width 17.2 % (11.5-14.5); White Blood Count 7.3 K/mm3 (4.5-10.0)
[2023-09-10 20:28] LABS: Vitamin D 25 Hydroxy 43.7 ng/mL
[2023-09-10 20:30] LABS: Hemoglobin A1C 5.3 % (<5.7)
[2023-09-10 21:16] LABS: Alanine Aminotransferase 16 U/L (6-35); Albumin Level 3.9 g/dL (3.5-5.1); Alkaline Phosphatase 72 U/L (38-126); Anion Gap 9 mmol/L (8-16); Aspartate Amino Transferase 26 U/L (14-36); Bilirubin,Total 2.2 mg/dL (0.2-1.3); Blood Urea Nitrogen 25 mg/dL (7-17); Calcium 9.5 mg/dL (8.4-10.2); Carbon Dioxide 27 mmol/L (22-30); Chloride 98 mmol/L (98-107); Cholesterol 217 mg/dL (0-200); Estimated Glomerular Filt Rate 33; Glucose 122 mg/dL (65-110); HDL Direct 43 mg/dL; Potassium 3.9 mmol/L (3.4-5.0); Sodium 134 mmol/L (137-145); Triglycerides 130 mg/dL (<150)
[2023-09-10 21:27] LABS: LDL Cholesterol Direct 128 mg/dL
[2023-09-11 15:52] LABS: Total Triiodothyronine (T3) 1.04 NG/ML (0.97-1.69)
== END 2023-09-10 09:49 | disposition home or self-care (01) ==
PROVIDERS: PCP Family Medicine; Visit Provider Family Medicine
DX: E11.628 Type 2 diabetes mellitus with other skin complications (principal); I10 Essential (primary) hypertension; E78.5 Hyperlipidemia, unspecified; E55.9 Vitamin D deficiency, unspecified; R53.83 Other fatigue; R53.1 Weakness
CPT/HCPCS: 36415; 80053; 80061; 82306; 83036; 84439; 84443; 84480; 85025

== ENCOUNTER → 2023-09-19 15:46 | Outpatient (CLI) | payer MEDICARE, SELFPAY ==
--- NOTE | ~2023-09-19 | MR_ITS ---
EXAMINATION: MR foot RT wo con DATE: 09/19/2023 16:37 INDICATION: Right foot ulcer and osteomyelitis. TECHNIQUE: Magnetic resonance imaging (MRI) of the right foot was performed without intravenous contr ast. COMPARISON: Right foot radiographs 12/07/2022, MRI 12/07/2022 FINDINGS: There is dorsal subluxation of first distal phalanx with respect to the proximal phalanx. N o fracture. There is edema-like marrow signal intensity in first proximal phalanx and first distal ph alanx. There is an effusion of first interphalangeal joint. There is an ulcer plantar to first interp halangeal joint. There is mild osteoarthritis of first metatarsophalangeal joint and some the interph alangeal joints and midfoot joints. Lisfranc ligament is intact. There is widespread subcutaneous rickey ma. IMPRESSION: 1. Osteomyelitis involving first proximal and distal phalanges. Reviewed, dictated and finalized at location E. CTOR OF ALUMNI RELATIONS
== END ==
PROVIDERS: PCP Podiatrist Foot & Ankle Surgery; Visit Provider Podiatrist Foot & Ankle Surgery
DX: M86.171 Other acute osteomyelitis, right ankle and foot (principal)
CPT/HCPCS: 73718

== ENCOUNTER 2023-12-15 11:35 | Outpatient (CLI) | payer MEDICARE, SELFPAY ==
[2023-12-15 13:54] LABS: Albumin Level 3.7 g/dL (3.5-5.1); Anion Gap 18 mmol/L (8-16); Blood Urea Nitrogen 98 mg/dL (7-17); Calcium 8.9 mg/dL (8.4-10.2); Carbon Dioxide 14 mmol/L (22-30); Chloride 99 mmol/L (98-107); Estimated Glomerular Filt Rate 6; Glucose 143 mg/dL (65-110); Phosphorus 8.7 mg/dL (2.5-4.5); Potassium 5.3 mmol/L (3.4-5.0); Sodium 131 mmol/L (137-145)
[2023-12-15 13:59] LABS: Complement C3 102 mg/dL (88-165)
[2023-12-15 14:03] LABS: Parathyroid Intact 166.2 pg/mL (7.5-53.5)
[2023-12-15 15:12] LABS: Creatinine Urine 117.3 mg/dL; Total Protein Urine Random 26 mg/dL; Ur Ttl Prot Creatinine Ratio 0.22 mg/mg (0-0.20)
[2023-12-17 13:17] LABS: Albumin 3.3 g/dL (3.8-4.8); Alpha 1 Globulin 0.4 g/dL (0.2-0.3); Alpha 2 Globulin 0.8 g/dL (0.5-0.9); Beta 1 Globulin 0.4 g/dL (0.4-0.6); Gamma Globulin 0.6 g/dL (0.8-1.7); Protein, Total 5.8 g/dL (6.1-8.1)
[2023-12-18 12:22] LABS: Anti Glomerular Basement Memb <1.0 AI (<1.0)
[2023-12-19 22:25] LABS: ANCA Screen Negative (Negative)
[2023-12-20 01:59] LABS: Creatinine, Random Urine 105 mg/dL (20-275); Total Protein/Creatinine Ratio 267 mg/g creat (24-184)
== END 2023-12-15 11:36 | disposition home or self-care (01) ==
PROVIDERS: Visit Provider Internal Medicine Nephrology
DX: E11.22 Type 2 diabetes mellitus with diabetic chronic kidney disease (principal); E55.9 Vitamin D deficiency, unspecified; I12.9 Hypertensive chronic kidney disease with stage 1 through stage 4 chronic kidney disease, or unspecified chronic kidney disease; N18.4 Chronic kidney disease, stage 4 (severe); N25.81 Secondary hyperparathyroidism of renal origin
CPT/HCPCS: 36415; 80069; 82570; 83520; 83970; 84155; 84156; 84165; 84166; 86036; 86038; 86160; 86225

== ENCOUNTER 2023-12-16 21:54 | Inpatient (IN) | payer MEDICARE, SELFPAY ==
--- NOTE | ~2023-12-16 | US_ITS ---
EXAMINATION: US renal BI DATE: 12/17/2023 15:58 INDICATION: Chronic kidney disease, stage IV. TECHNIQUE: Multiple ultrasound grayscale images of the kidneys were obtained. COMPARISON: CT abdomen and pelvis 12/16/23 FINDINGS: The right kidney measures 9.8 x 4.3 x 4.5 cm. The left kidney measures 10.2 x 4.9 x 5.3 cm. The kidne ys demonstrate normal parenchymal echogenicity. There is a peripelvic cyst in left kidney. There is n o hydronephrosis. The bladder is decompressed by a [place] catheter. The gallbladder is distended and c ontains gallstones. There is trace ascites. IMPRESSION: 1. Normal kidney sizes. No hydronephrosis. 2. Cholelithiasis. Gallbladder distention may be secondary to fasting. Reviewed, dictated and finalized at location E. MODELER
--- NOTE | ~2023-12-16 | XR_ITS ---
EXAMINATION: XR chest 1V portable INDICATION: Shock TECHNIQUE: Portable AP chest at 1455 hours COMPARISON: 02/03/2023 FINDINGS: There is a small, chronic right pleural effusion with associated right basilar airspace opa cities. No new airspace opacities are identified. The left lung is clear. The cardiomediastinal silho uette is stable. IMPRESSION: 1. Small, chronic right pleural effusion with associated right basilar airspace opacity, likely passi ve atelectasis. Reviewed, dictated and finalized at location B. HES MODEL IMPRESSION: 1. Small, chronic right pleural effusion with associated right basilar airspace opacity, likely passive atelectasis.
--- NOTE | ~2023-12-16 | XR_ITS ---
Portable chest x-ray Comparison: 12/17/2023 Clinical History: Septic shock Findings: Stable small to moderate right pleural effusion. Left lung remains clear. Cardiomediastin al silhouette is stable. Bones and soft tissues are unremarkable. Impression: Stable small to moderate right pleural effusion. Reviewed, dictated and finalized at [facility]. OSIVES OPERATOR Impression: Stable small to moderate right pleural effusion.
--- NOTE | ~2023-12-16 | CT_ITS ---
EXAMINATION: CT abdomen pelvis wo con DATE: 12/16/2023 22:49 INDICATION: renal failure TECHNIQUE: Computed tomography (CT) of the abdomen and pelvis was performed without intravenous contr ast. Automated exposure control and iterative reconstruction technique were employed. The dose-length product was 716.56 mGy-cm. COMPARISON: 06/14/2021. FINDINGS: Lower thorax: Moderate right pleural effusion. Bibasilar atelectasis. Right pericardial fat pad lymph angioma or pericardial cyst, interval decreased size, now measuring 1.7 cm. Liver: Hepatomegaly. Left lobe cyst or hemangioma. Biliary/Gallbladder: Dilated gallbladder containing stones. Mild pericholecystic fluid. No bile duct dilation. Pancreas: Fatty atrophy. Spleen: 1.4 cm cyst or hemangioma. Adrenals:Bilateral nodular thickening. Kidneys: No suspicious mass. Simple left parapelvic cyst. Nonobstructing left inferior pole calcifica tions. GI tract: Wall edema at the junction of the second and third portions of the duodenum, with surroundi ng inflammatory change. Mild wall thickening noted multiple loops of proximal jejunum, also with mese nteric stranding. No small or large bowel dilation. Normal appendix (located within the hernia sac). Mesentery/Peritoneum: No ascites, mass, or free air. Retroperitoneum: No mass. Atherosclerotic abdominal aortic and/or arterial calcifications. Pelvis: The urinary bladder is mostly empty. Absent uterus. Small volume free pelvic fluid. Soft Tissues: Severe body wall edema. Large anterior left lower abdominal/pelvic wall hernia containi ng multiple loops of nonobstructed large and small bowel, with adjacent mesh. Bones: No acute osseous finding. Lumbar scoliosis. Multilevel severe lumbar degenerative disc diseas e and facet arthropathy. IMPRESSION: Moderate right pleural effusion. Hepatomegaly. Likely duodenitis and jejunal enteritis. Presumed reactive distention/fluid at the gallbladder. Cholecystitis is not excluded. Interval enlargement of the left lower abdominal/pelvic hernia containing multiple loops of nonobstru cted large and small bowel, as well as the normal appendix. Small volume ascites. Severe body wall edema. Reviewed, dictated and finalized at location K. SCOPIC TECHNICIAN IMPRESSION: Moderate right pleural effusion. Hepatomegaly. Likely duodenitis and jejunal enteritis. Presumed reactive distention/fluid at the gallbladder. Cholecystitis is not exc luded. Interval enlargement of the left lower abdominal/pelvic hernia containing multi ple loops of nonobstructed large and small bowel, as well as the normal appendi x. Small volume ascites. Severe body wall edema.
[2023-12-16 22:05] VITALS: BP 78/27; PULSE 42; RESP 12; TEMP 35.1; O2SAT 100
--- NOTE | 2023-12-16 22:13 | ECG_ITS ---
Measurements Intervals [place] Rate: 43 P: 57 AK: 218 QRS: -81 QRSD: 157 T: 83 QT: 563 QTc: 477 Interpretive Statements SINUS BRADYCARDIA WITH FIRST DEGREE AV BLOCK LEFT AXIS DEVIATION [QRS AXIS < -30] RIGHT BUNDLE BRANCH BLOCK [120+ ms QRS DURATION, UPRIGHT V1, 40+ ms S IN I/aVL/V4/V5/V6] PROLONGED QT INTERVAL COMPARED TO ECG 06/15/2021 10:05:20 FIRST DEGREE AV BLOCK NOW PRESENT PROLONGED QT INTERVAL NOW PRESENT Electronically Signed On 12-17-2023 15:10:28 AUTOMATIC PACKER OPERATOR by Nitesh Coronel M.D.
[2023-12-16 22:14] VITALS: BP 101/30; PULSE 43; RESP 14; O2SAT 99
[2023-12-16 22:15] VITALS: PULSE 43
[2023-12-16 22:16] VITALS: BP 97/37; PULSE 50; RESP 15; O2SAT 100
[2023-12-16] MEDS: SODIUM CHLORIDE 0.9% IV 1,000 ML 999 ML IV CONT ×2 (22:38→23:52)
[2023-12-16 23:06] VITALS: BP 83/31; PULSE 41; RESP 18; O2SAT 100
[2023-12-16 23:23] LABS: Basophils Percent Auto 0.2 % (0.2-1.2); Hematocrit 37.7 % (37.0-47.0); Hemoglobin 12.3 g/dL (12.0-15.0); Immature Granulocyte Absolute 0.09 K/mm3 (0.00-0.031); Immature Granulocyte Percent A 0.8 % (0-0.5); Mean Corpuscular HGB Conc 32.6 g/dl (32-36); Mean Corpuscular Hemoglobin 29.4 pg (26-34); Mean Platelet Volume 10.8 fl (7.4-10.4); Monocytes Absolute Auto 0.7 K/mm3 (0.1-0.6); Monocytes Percent Auto 6.2 % (2.6-8.5); Neutrophils Absolute Auto 9.9 K/mm3 (1.3-6.7); Neutrophils Percent Auto 85.8 % (45.5-73.1); Platelet Count Result 302 k/mm3 (150-375); Red Blood Count 4.19 M/mm3 (4.2-5.4); Red Cell Distribution Width 20.2 % (11.5-14.5); White Blood Count 11.5 K/mm3 (4.5-10.0)
[2023-12-16 23:35] LABS: INR 1.2; Prothrombin Time 16.3 Seconds (11.1-14.7)
[2023-12-16 23:36] LABS: Partial Thromboplastin Time 34.6 SECONDS (22.3-36.8)
[2023-12-16 23:37] LABS: Lactic Acid Reflex 1.6 mmol/L (0.7-2.0)
[2023-12-16 23:58] LABS: Alanine Aminotransferase 15 U/L (6-35); Albumin Level 3.6 g/dL (3.5-5.1); Alkaline Phosphatase 40 U/L (38-126); Anion Gap 18 mmol/L (8-16); Aspartate Amino Transferase 28 U/L (14-36); Bilirubin,Total 0.8 mg/dL (0.2-1.3); Carbon Dioxide 14 mmol/L (22-30); Chloride 99 mmol/L (98-107); Glucose 137 mg/dL (65-110); Magnesium 2.5 mg/dL (1.6-2.3); Sodium 131 mmol/L (137-145)
[2023-12-17] VITALS (31 sets, daily range): BP systolic 46–129; BP diastolic 24–59; PULSE 42–58; RESP 10–22; TEMP 33.6–36.9; O2SAT 90–100; BMI 26.4
--- NOTE | 2023-12-17 | ECHO_ITS ---
Patient Info Name: Katie Peguero Age: 78 years : 1945 Gender: Female Ht: 66 in Wt: 164 lbs BSA: 1.88 m2 HR: 51 bpm BP: 97 / 40 mmHg Heart Rhythm: Indeterminant Technical Quality: Good Exam Date: 12/17/2023 1:07 PM Exam Location: Echo Lab Patient Status: Inpatient Admit Date: 12/17/2023 Staff Ordering Physician: Leanne Rojo MD Lot Technician: Attending Provider: Leanne Rojo MD Referring Physician: Alia BOBO; Exam Type: CA echo doppler color flow Study Info Indications - hypotension Complete two-dimensional, color flow and Doppler transthoracic echocardiogram is performed. Summary 1. Complete two-dimensional, color flow and Doppler transthoracic echocardiogram is performed. 2. Normal left ventricular size with mild concentric hypertrophy. Good contractility of all segments. Ejection fraction 65-70%. Grade 2 diastolic dysfunction is present. 3. Left atrial chamber dimension is moderately enlarged. 4. No significant valve disease. 5. Dilated inferior vena cava with <50% collapse upon inspiration consistent with elevated right atrial pressure. RVSP could not be calculated on this study.. 6. Rhythm indeterminate. Left Ventricle Left ventricular chamber dimension is normal. Left ventricular systolic function is normal, estimated at 65-70%. There is mildly increased left ventricular wall thickness. Left ventricular septal wall motion is normal. The left ventricular diastolic function is grade II diastolic dysfunction. Right Ventricle Right ventricular chamber dimension is normal. Right ventricular systolic function is normal. Left Atria Left atrial chamber dimension is moderately enlarged. Right Atria Right atrial chamber dimension is normal. Aortic Valve The aortic valve is trileaflet. There is mild aortic valve sclerosis. There is no aortic valve stenosis. There is no aortic valve regurgitation. Pulmonic Valve The pulmonic valve is normal. There is no pulmonic valve stenosis. There is no pulmonic regurgitation. Mitral Valve The mitral valve has normal leaflets. There is no mitral valve stenosis. There is trace mitral valve regurgitation. Tricuspid Valve The tricuspid valve leaflets are normal. There is no significant tricuspid valve stenosis. There is trace tricuspid valve regurgitation. No pulmonary hypertension, estimated pulmonary arterial systolic pressure is Empty. Pericardium/Pleural The pericardium appears normal. There is no pericardial effusion. Inferior Vena Cava Dilated inferior vena cava with <50% collapse upon inspiration consistent with elevated right atrial pressure. RVSP could not be calculated on this study.. Aorta The aortic root size at the sinus of Valsalva is normal. The prox ascending aorta size is normal. Left Ventricular Outflow Tract Name Value Normal LVOT 2D LVOT Diameter 2.0 cm LVOT Doppler LVOT Peak Gradient 4 mmHg LVOT Mean Gradient 2 mmHg LVOT VTI 31 cm LVOT VTI/AV VTI Ratio 0.6 LVOT Stroke Volume 97 ml LVOT CO 4.5 l/min
[2023-12-17 00:02] LABS: Influenza A QL RT-PCR Negative (Negative); Influenza B QL RT-PCR Negative (Negative); RSV RNA, RT-PCR Negative (Negative); SARS-CoV-2 RNA PCR Negative (Negative)
[2023-12-17 00:09] LABS: Estimated CRCL calculation 8 ml/min; Estimated Glomerular Filt Rate 7
[2023-12-17 00:11] LABS: Blood Urea Nitrogen 126 mg/dL (7-17)
[2023-12-17] MEDS: SODIUM ZIRCONIUM CYCLOSILICATE 10 GM POWD.PACK PO (00:19)
[2023-12-17] MEDS: DEXTROSE 50% 25 GM/50 ML SYRINGE IV PUSH (00:21)
[2023-12-17] MEDS: SODIUM BICARBONATE 8.4% 50 MEQ/50 ML SYRINGE IV PUSH (00:21)
[2023-12-17] MEDS: CALCIUM GLUCONATE 1,000 MG/10 ML VIAL 1000 MG IV PUSH (00:22)
[2023-12-17] MEDS: INSULIN HUMAN REGULAR (*BKC) 100 UNITS/ML 10 UNITS IV PUSH (00:23)
--- NOTE | 2023-12-17 02:06 | ED.GENADULT ---
HPI - General Adult General Chief complaint: Weakness Stated complaint: Sent by [employer] Time Seen by Provider: 12/16/23 22:22 History of Present Illness HPI narrative: patient 78-year-old female who presents emergency department with chief complaint of generalized weakness. Patient reports that she is followed by nephrology and reports that she had labs that were done and was called and told to come to the emergency department. The patient has history of a baseline renal insufficiency with a creatinine normally around 1.5 the patient was called and told to come to the emergency department as her creatinine was over 6.0 potassium was in the 5's. The patient denies chest pain denies shortness of breath denies syncope does report that she feels extremely weak Related Data Home Medications Medication Instructions Recorded Confirmed fenofibrate nanocrystallized 145 145 mg PO DAILY 09/15/20 08/26/23 mg tablet hydrochlorothiazide 50 mg tablet 50 mg PO DAILY 09/15/20 08/26/23 lisinopril 40 mg tablet 40 mg PO DAILY 09/15/20 08/26/23 metformin 500 mg tablet 1,500 mg PO BIDWMEAL 09/15/20 08/26/23 metoprolol succinate 100 mg 100 mg PO DAILY 09/15/20 08/26/23 tablet,extended release 24 hr calcium 600 mg capsule 600 mg PO DAILY 06/14/21 08/26/23 cholecalciferol (vitamin D3) 125 125 mcg PO DAILY 06/14/21 08/26/23 mcg (5,000 unit) capsule sitagliptin phosphate 100 mg 100 mg PO DAILY 06/14/21 08/26/23 tablet (Januvia) cyanocobalamin (vitamin B-12) 1,000 mcg IM MONTHLY 11/11/22 08/26/23 1,000 mcg/mL injection solution Allergies Allergy/AdvReac Type Severity Reaction Status Date / Time Penicillins Allergy Mild Hives / Verified 12/16/23 22:16 Red Face alendronate sodium AdvReac Intermediate Diarrhea Verified 12/16/23 22:16 [From Fosamax] codeine AdvReac Mild Vomiting Verified 12/16/23 22:16 prochlorperazine AdvReac Mild Muscle Verified 12/16/23 22:16 Spasms clarithromycin [From Biaxin] AdvReac Nausea and Verified 12/16/23 22:16 Vomiting clindamycin AdvReac Diarrhea Verified 12/16/23 22:16 Review of Systems Review of Systems: A 10 system review of systems was completed on the patient and is negative except for what is stated in the HPI. Nursing and ancillary documentation was reviewed. [facility] Past Medical History Medical History Arterial occlusive disease CKD (chronic kidney disease) stage 3, GFR 30-59 ml/min Diabetes DVT (deep venous thrombosis) Dyslipidemia Foot ulcer Hypertension Kidney stone Obesity Surgical History Surgical History History of hysterectomy S/P tonsillectomy and adenoidectomy Status post repair of ventral hernia 1997; mesh broke, she required revision 2000 Social History Social History Social History: the patient is and lives home alone. She only has 1 daughter. 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 She does not use any alcohol marijuana illicit drugs. - code status full code. Smoking status: Never smoker Alcohol intake: never Substance use: never Substance use type: does not use Lack of Transportation: No Lack of Food: Never True Current Housing: I Have Housing Concerned About Future Housing: No Difficulty Paying Gas/Electric Bills: No Difficulty Paying for Meds: No Currently Unemployed: No Education: High School Diploma/GED Difficulty w/ Childcare or Family Care: No Living arrangements: with family Gender identity (if verbalized by the patient): Female Spiritual care concerns: No Exam Narrative: GENERAL: Well-appearing, well-nourished, and in no acute distress. HEAD: Normocephalic, atraumatic. EYES: PERRLA and EOMI. ENT: Nares clear, no rhinorrhea or epistaxis. Mucous membranes mois
[2023-12-17] MEDS: SODIUM CHLORIDE 0.9% IV 1,000 ML 999 ML IV CONT ×2 (03:43→06:00)
--- NOTE | 2023-12-17 03:53 | PM.IMHP ---
H&P: HPI History of Present Illness Date/Time: 12/17/23 03:53 Chief Complaint: Fatigue Narrative: This is an 78-year-old female with past medical history significant for type diabetes mellitus, chronic kidney disease, DVT. Patient was sent to the emergency room from Nephrology is office due to abnormal lab work patient had been in to see her doctor due to weakness. At the time of my visit patient is unable to provide much history to contributory to present illness. Preliminary workup was significant for a BUN of 120 creatinine of 6 potassium of 6 upon arrival to IMU patient was noted to be bradycardic in the 40s, rectal temperature of 92 ? blood pressure of 90/40. Patient wants us to talk to her daughter regarding advanced directives however we were unable to get hold of the daughter at the present time patient remains a full code. EXAMINATION: CT abdomen pelvis wo con DATE: 12/16/2023 22:49 INDICATION: renal failure TECHNIQUE: Computed tomography (CT) of the abdomen and pelvis was performed without intravenous contrast. Automated exposure control and iterative reconstruction technique were employed. The dose-length product was 716.56 mGy-cm. COMPARISON: 06/14/2021. FINDINGS: Lower thorax: Moderate right pleural effusion. Bibasilar atelectasis. Right pericardial fat pad lymphangioma or pericardial cyst, interval decreased size, now measuring 1.7 cm. Liver: Hepatomegaly. Left lobe cyst or hemangioma. Biliary/Gallbladder: Dilated gallbladder containing stones. Mild pericholecystic fluid. No bile duct dilation. Pancreas: Fatty atrophy. Spleen: 1.4 cm cyst or hemangioma. Adrenals:Bilateral nodular thickening. Kidneys: No suspicious mass. Simple left parapelvic cyst. Nonobstructing left inferior pole calcifications. GI tract: Wall edema at the junction of the second and third portions of the duodenum, with surrounding inflammatory change. Mild wall thickening noted multiple loops of proximal jejunum, also with mesenteric stranding. No small or large bowel dilation. Normal appendix (located within the hernia sac). Mesentery/Peritoneum: No ascites, mass, or free air. Retroperitoneum: No mass. Atherosclerotic abdominal aortic and/or arterial calcifications. Pelvis: The urinary bladder is mostly empty. Absent uterus. Small volume free pelvic fluid. Soft Tissues: Severe body wall edema. Large anterior left lower abdominal/pelvic wall hernia containing multiple loops of nonobstructed large and small bowel, with adjacent mesh. Bones:? No acute osseous finding. Lumbar scoliosis. Multilevel severe lumbar degenerative disc disease and facet arthropathy. IMPRESSION: Moderate right pleural effusion. Hepatomegaly. Likely duodenitis and jejunal enteritis. Presumed reactive distention/fluid at the gallbladder. Cholecystitis is not excluded. Interval enlargement of the left lower abdominal/pelvic hernia containing multiple loops of nonobstructed large and small bowel, as well as the normal appendix. Small volume ascites. Severe body wall edema. Review of Systems Review of Systems: fatigue Constitutional: Constitutional: Denies chills, Reports fatigue, Denies fever(s), Denies malaise and Reports weakness Eyes: Eyes: Denies change in vision ENT: Denies dysphagia and Denies odynophagia Cardiovascular: Cardiovascular: Denies chest pain, Denies radiating jaw, neck or arm pain and Denies palpitations Respiratory: Respiratory: Denies cough, Denies dyspnea and Denies dyspnea on exertion Gastrointestinal: Gastrointestinal: Denies abdominal pain, Denies dyspepsia, Denies heartburn, Denies diarrhea, Denies nausea and Denies vomiting Genitourinary: Genitourinary: Denies dysuria Musculoskeletal: Musculoskeletal: Reports muscle weakness Integumentary/Breasts: Skin/Breast: Denies rash Neurologic: Denies focal weakness and Denies Sensory deficit (Neuro) Psychiatric: Psychiatric: Reports no additional psychiatric complaints and Re
--- NOTE | 2023-12-17 04:01 | ADMGEN ---
This patient, Katie Marteg, was admitted to IMU Room 232-01. Patient/family oriented to hospital policies and general routines including ID bracelet, bed and alarms, visiting hours, pain management, procedures, bathroom and other care routines, personal items, smoking policy, room service/diet, and visiting hours. Information on how to activate the Rapid Response Team has been discussed. Patient/Family are encouraged to report perceived risks to care and to ask questions if they do not understand what they are told or what they should do.
[2023-12-17] MEDS: HYDROCORTISONE SODIUM SUCCINATE 100 MG/2 ML VIAL IV PUSH ×3 (04:43→20:39)
[2023-12-17 05:28] LABS: Eosinophils Percent Auto 0.1 % (0-4.4); Hematocrit 30.2 % (37.0-47.0); Hemoglobin 9.8 g/dL (12.0-15.0); Immature Granulocyte Absolute 0.05 K/mm3 (0.00-0.031); Immature Granulocyte Percent A 0.5 % (0-0.5); Lymphocytes Absolute Auto 0.59 K/mm3 (0.9-3.2); Lymphocytes Percent Auto 6.5 % (18.3-44.2); Mean Corpuscular HGB Conc 32.5 g/dl (32-36); Mean Corpuscular Hemoglobin 29.3 pg (26-34); Mean Corpuscular Volume 90.4 fl (80-100); Mean Platelet Volume 11.1 fl (7.4-10.4); Monocytes Absolute Auto 0.7 K/mm3 (0.1-0.6); Monocytes Percent Auto 7.9 % (2.6-8.5); Neutrophils Absolute Auto 7.7 K/mm3 (1.3-6.7); Platelet Count Result 219 k/mm3 (150-375); Red Blood Count 3.34 M/mm3 (4.2-5.4); White Blood Count 9.1 K/mm3 (4.5-10.0)
[2023-12-17 06:18] LABS: Anion Gap 13 mmol/L (8-16); Blood Urea Nitrogen 116 mg/dL (7-17); Calcium 8.1 mg/dL (8.4-10.2); Carbon Dioxide 13 mmol/L (22-30); Chloride 106 mmol/L (98-107); Estimated CRCL calculation 6 ml/min; Estimated Glomerular Filt Rate 6; Glucose 81 mg/dL (65-110); Potassium 4.6 mmol/L (3.4-5.0); Sodium 132 mmol/L (137-145)
--- NOTE | 2023-12-17 08:36 | PC.NURSE ---
Pt with BP of 74/29. Minimal urine output. Dr. Wray notified. No new orders
[2023-12-17] MEDS: APIXABAN 5 MG TABLET PO ×2 (08:54→20:39)
[2023-12-17] MEDS: CALCIUM CARBONATE (OSCAL) 500 MG TABLET PO (08:54)
[2023-12-17] MEDS: CHOLECALCIFEROL 1,000 UNITS TABLET 5000 UNITS PO (08:54)
[2023-12-17 10:17] LABS: Creatinine Urine 158.2 mg/dL; Urea Random Urine 300 MG/DL
[2023-12-17] MEDS: LACTATED RINGERS 1,000 ML 999 ML IV CONT (10:20)
[2023-12-17 10:24] LABS: Appearance Urine Turbid (Clear); Bacteria Urine 1+ /hpf; Bilirubin Urine Negative (Negative); Blood Urine 3+ (Negative); Budding Yeast Urine Present /hpf; Color Urine Yellow (Yellow); Glucose Urine UA Negative (Negative); Hyaline Casts Urine Present /lpf; Ketones Urine Negative (Negative); Leukocyte Esterase Ur 2+ LEU/UL (Negative); Need Manual Microscopic Reviewed; Nitrate Urine Negative (Negative); Non Pathogenic Casts >20; Protein Urine 2+ mg/dL (Negative); RBC Urine 21-50 /hpf (0-2); Specific Grav Ur 1.017 (1.001-1.035); Squamous Epithelial Cell Urine Many /hpf (Few); Urobilinogen Urine 0.2 mg/dL (<2.0); WBC Urine >100 /hpf
[2023-12-17 10:25] LABS: Add Urine Microscopic? YES
[2023-12-17 10:26] LABS: Eosinophil Urine None Seen % (None Seen); Sodium Urine Random 17 meq/L; Urine Eos QC 2nd Tech Confirmed
--- NOTE | 2023-12-17 11:05 | PC.NURSE ---
Addendum entered by Qi Calero RN 12/17/23 11:16: Pt had been confused overnight. When pt was confused, the daughter was called for code status. At that time daughter stated she did not want invasive measures taken to prolong life. Dr. Brooke then put in order for comfort care. At 7:30 when this nurse assumed care, pt was alert and oriented and stated she was unsure of wanting to remain comfort care only. Was agreeable to go through some testing. Dr. Wei spoke to pt's daughter again to clarify what measures should be taken. Pt and daughter both agreed to have all measures taken except intubation and CPR. At 1015, pt BP was 46/28. Confirmed with manual cuff. Notified Dr. Marques, who came to the bedside. Pt alert and oriented. Does not report any dizziness, shortness of breath. Order received to bolus 3 liters LR. Repeat BP at 1025 was 62/28. Social Sciences Department Chair, Dr. Dimas came to bedside. Pt transferred to ICU. Report given to SHANNA Castro. Original Note: At 1015, pt BP was 46/28. Confirmed with manual cuff. Notified Dr. Marques, who came to the bedside. Pt alert and oriented. Does not report any dizziness, shortness of breath. Order received to bolus 3 liters LR. Repeat BP at 1025 was 62/28. Social Sciences Department Chair, Dr. Dimas came to bedside. Pt transferred to ICU. Report given to SHANNA Castro.
--- NOTE | 2023-12-17 11:15 | PC.NURSE ---
This patient, Katie Marteg, was transferred to ICU-10 on 12/17/23 at 1031. Personal belongings sent with patient. Report given to SHANNA Castro. Appropriate documentation sent with patient.
--- NOTE | 2023-12-17 11:19 | P.PCNBED_ITS ---
Procedures Central Line Placement Right Femoral: Central Line Date: 12/17/23 Central Line Time: 11:20 Discussed w/ the patient/family/POA,the placement of a central venous catheter, including its clinical necessity/indication & associated potential risks, benifits and alternatives.: Yes The patient/family/POA understand(s) and acknowledge(s) the need to proceed with central venous catheter insertion as an important element of the patient's clinical management.: Yes Consent: I have discussed with the patient and/or surrogate, the non-emergent placement of a central venous catheter, including its clinical necessity/indication and associated potential risks and complications. The patient and/or surrogate understand(s) and acknowledge(s) the need to proceed with central venous catheter insertion as an important element of the patient's clinical management. Time Out Performed: Yes Patient placed on monitor/pulse ox: Yes Provider Prep: mask, sterile gown, sterile gloves, Max. sterile barrier precautions, cap and hand hygiene with conventional soap/water or alcohol based hand rub Central line prep: 2% Chlorhexidine scrub and sterile full body sheet applied Local anesthesia used: lidocaine 1% Amount of anesthesia used (ml): 3 Sterile US Technique with sterile gel/sterile probe covers: Yes Central line lumen inserted: triple [place]: 12 Length (cm): 16 Depth of Insertion (cm): 16 Post Procedure: sutured in place, good blood return, all ports aspirated, flushed, capped, transparent dressing, hemostatic product, antimicrobial product, securement product and aseptic technique maintained throughout procedure Patient tolerated procedure: well Complications: none
[2023-12-17] MEDS: NOREPINEPHRINE 8 MG/D5W 250 ML 8 MG/250 ML BAG 9.38 MG IV CONT (11:30)
--- NOTE | 2023-12-17 11:47 | WPDCNINT ---
Assessment and Plan Assessment and plan (1) Septic shock: Code(s): A41.9 - Sepsis, unspecified organism; R65.21 - Severe sepsis with septic shock Status: Acute Assessment and Plan: Patient with hypotension, refractory to 4 L IV fluids, initially patient was admitted to the IMU, her SBP on 12/17/2023 was in the 40s to 60s, additional 1 L IV fluid was started, patient was brought to the ICU and I emergently placed a central line in the right femoral vein and started her on Levophed -continue Levophed to maintain MAP > 70 mmHg or SBP > 100 mmHg for adequate end organ and renal perfusion -started on meropenem and vancomycin (12/17) -lactic acid is normal -will add albumin for volume expansion 12/16/2023 CT scan of the abdomen and pelvis without contrast Moderate right pleural effusion. Hepatomegaly. Likely duodenitis and jejunal enteritis. Presumed reactive distention/fluid at the gallbladder. Cholecystitis is not excluded. Interval enlargement of the left lower abdominal/pelvic hernia containing multiple loops of nonobstructed large and small bowel, as well as the normal appendix. Small volume ascites. (2) Bradycardia: Code(s): R00.1 - Bradycardia, unspecified Status: Acute Assessment and Plan: Likely related to hyperkalemia, septic shock, ACS, ischemic heart disease -troponins negative x1 -EKG bradycardia, with RBBB, 1st degree AV block -check echocardiogram (3) UTI (urinary tract infection): Code(s): N39.0 - Urinary tract infection, site not specified Status: Acute Assessment and Plan: UA reflective of UTI, continue antibiotics as above -obtain urine culture (4) Acute on chronic renal failure: Code(s): N17.9 - Acute kidney failure, unspecified; N18.9 - Chronic kidney disease, unspecified Status: Acute Assessment and Plan: Patient has history of chronic kidney disease stage 3, follows with as outpatient -baseline creatinine has been 1.5-2.4 -patient presented with a creatinine of 6.30 -received a total of 5 L of IV fluids -currently on Levophed -will check CK level, urine eosinophils -renal ultrasound has been ordered -renal electrolytes reflective of prerenal picture -nephrology has been consulted -monitor urine output, renal function and electrolytes -patient is at risk for needing dialysis if she does not have adequate urine output or if renal function does not improve (5) Diabetes: Code(s): E11.9 - Type 2 diabetes mellitus without complications Status: Acute Assessment and Plan: Will start Accu-Cheks and sliding scale insulin Plan DVT prophylaxis: Apixaban, history of DVTs Stress ulcer prophylaxis: Not indicated Nutrition: Diabetic diet Code Status: Do not resuscitate Critical Care Time Spent: 52 minutes Due to a high probability of clinically significant, life threatening deterioration, the patient required my highest level of preparedness to intervene emergently and I personally spent this critical care time directly and personally managing the patient. This critical care time included obtaining a history; examining the patient; pulse oximetry; ordering and review of studies; arranging urgent treatment with development of a management plan; evaluation of patient's response to treatment; frequent reassessment; and discussions with other providers. It was exclusive of separately billable procedures and treating other patients and teaching time. Please see Assessment and Plan section and the rest of the note for further information on patient assessment and treatment This dictation may have been done utilizing a voice recognition system. Attempts have been made to correct errors. However, there may be uncorrected grammatical, spelling, and recognitions errors present. Electroplater Helper Consult Note Consult date: 12/17/23 Reason for consult: Shock, hypotension, sepsis, leukocytosis, hypovolemia, acute on chronic kidney
--- NOTE | 2023-12-17 11:55 | PC.NURSE ---
1030- This patient, Katie Iglesias Rehg, was received from [facility] on 12/17/23 at 1156. Patient/family oriented to unit policies and routines.
--- NOTE | 2023-12-17 12:08 | ECG_ITS ---
Measurements Intervals [place] Rate: 48 P: 53 DC: 238 QRS: -65 QRSD: 145 T: 83 QT: 502 QTc: 451 Interpretive Statements SINUS BRADYCARDIA WITH FIRST DEGREE AV BLOCK RIGHT BUNDLE BRANCH BLOCK [120+ ms QRS DURATION, UPRIGHT V1, 40+ ms S IN I/aVL/V4/V5/V6] LEFT ANTERIOR FASCICULAR BLOCK [QRS AXIS <= -45, QR IN I, RS IN II] COMPARED TO ECG 12/16/2023 22:13:52 NO SIGNIFICANT CHANGES Electronically Signed On 12-17-2023 15:37:37 SAP BASIS ARCHITECT by Nitesh Coronel M.D.
[2023-12-17] MEDS: MEROPENEM 500 MG in SODIUM CHLORIDE 0.9% IV 100 ML 200 ML IVPB (12:48)
[2023-12-17] MEDS: VANCOMYCIN 1,000 MG/NS 250 ML 1,000 MG/250 ML BAG 250 MG IVPB (12:50)
[2023-12-17] MEDS: CALCIUM CARBONATE (TUMS) 500 MG (200 MG ELEMENTAL) PO (12:50)
[2023-12-17 13:07] LABS: Troponin I 0.016 ng/mL (0.000-0.034)
--- NOTE | 2023-12-17 13:35 | P.CONNP_ITS ---
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/dialysis given severity of insult * follow repeat labs and UOP (2) Stage 3b chronic kidney disease: Code(s): N18.32 - Chronic kidney disease, stage 3b Status: Chronic Assessment and Plan: * normal renal function about a year ago (early November 2022) * worsened to 2.3 - 2.4mg/dl in March 2023 * etiology suspected to be ATN for infection/osteomyelitis + vancomycin toxicity * leveled off to 1.5 - 1.9mg/dl from June - September 2023 * suspect left overs from DOLLY in March 2023 in conjunction with HTN, DM, vascular disease and age-related change (3) Septic shock: Code(s): A41.9 - Sepsis, unspecified organism; R65.21 - Severe sepsis with septic shock Status: Acute Assessment and Plan: * severe/significant hypotension earlier today * 80 - 90s systolic on admission/presentation * noted drop to 60 - 70s systolic several hours ago * refractory to IVF resuscitation (no improvement in BP despite 5L IVFs) * central line placed and initiated on vasopressor therapy * IV albumin added for further volume expansion * follow culture data * empiric antibiotics (4) Bradycardia: Code(s): R00.1 - Bradycardia, unspecified Status: Acute Assessment and Plan: * presumably due to to hyperkalemia and septic shock * EKG - bradycardia, with RBBB, 1st degree AV block * troponin so far negative * check echocardiogram (5) Metabolic acidosis: Code(s): E87.20 - Acidosis, unspecified Status: Acute Assessment and Plan: * likely due to DOLLY/ARF * lactic acid normal * follow trend of CO2 levels (6) UTI (urinary tract infection): Code(s): N39.0 - Urinary tract infection, site not specified Status: Acute Assessment and Plan: * admission UA suggestive of infection * follow culture data * on antibiotics (7) Diabetes: Code(s): E11.9 - Type 2 diabetes mellitus without complications Status: Acute Assessment and Plan: * follow accu-cheks * glycemic control per systems support engineer/hospitalist Discussed case with Dr. Dimas. Long and extensive discussion (> 2o minutes) with patient and her daughter (by phone) regarding her severe DOLLY/ARF on top her her CKD with the particular discussion regarding the possibility of renal replacement therapy/dialysis if her renal function continues to deteriorate or if she runs into problems with further hyperkalemia, metabolic acidosis, volume overload, or uremia despite conversative medical therapy -- I am not sure how much the patient understood during my explanation of this (due to relative confusion) but her daughter seemed to understand things quite clearly. Her daughter seem to indicate that she would not want to pursue renal replacement therapy /dialysis given the patient's age and multiple comorbidities. I will continue follow the patient with you while she remains hospitalized to make further recommendations as deemed ne
--- NOTE | 2023-12-17 13:35 | PM.CNNEP ---
Assessment and Plan Assessment and plan (1) DOLLY (acute kidney injury): Code(s): N17.9 - Acute kidney failure, unspecified Status: Acute Assessment and Plan: presumably related to hemodynamic instability/shock and possible infection (UTI) admission creatinine 6.3mg/dl and associated hyperkalemia s/p medical management for elevated K+ follow-up on outpatient serological testing evaluation to date noted: urine electrolytes prerenal urine eosinophils negative CT abd/pelvis without obstruction renal ultrasound pending follow-up on CPK remains at risk for SAT INSTRUCTOR/dialysis given severity of insult follow repeat labs and UOP (2) Stage 3b chronic kidney disease: Code(s): N18.32 - Chronic kidney disease, stage 3b Status: Chronic Assessment and Plan: normal renal function about a year ago (early November 2022) worsened to 2.3 - 2.4mg/dl in March 2023 etiology suspected to be ATN for infection/osteomyelitis + vancomycin toxicity leveled off to 1.5 - 1.9mg/dl from June - September 2023 suspect left overs from DOLLY in March 2023 in conjunction with HTN, DM, vascular disease and age-related change (3) Septic shock: Code(s): A41.9 - Sepsis, unspecified organism; R65.21 - Severe sepsis with septic shock Status: Acute Assessment and Plan: severe/significant hypotension earlier today 80 - 90s systolic on admission/presentation noted drop to 60 - 70s systolic several hours ago refractory to IVF resuscitation (no improvement in BP despite 5L IVFs) central line placed and initiated on vasopressor therapy IV albumin added for further volume expansion follow culture data empiric antibiotics (4) Bradycardia: Code(s): R00.1 - Bradycardia, unspecified Status: Acute Assessment and Plan: presumably due to to hyperkalemia and septic shock EKG - bradycardia, with RBBB, 1st degree AV block troponin so far negative check echocardiogram (5) Metabolic acidosis: Code(s): E87.20 - Acidosis, unspecified Status: Acute Assessment and Plan: likely due to DOLLY/ARF lactic acid normal follow trend of CO2 levels (6) UTI (urinary tract infection): Code(s): N39.0 - Urinary tract infection, site not specified Status: Acute Assessment and Plan: admission UA suggestive of infection follow culture data on antibiotics (7) Diabetes: Code(s): E11.9 - Type 2 diabetes mellitus without complications Status: Acute Assessment and Plan: follow accu-cheks glycemic control per kiln charger/hospitalist Discussed case with Dr. Dimas. Long and extensive discussion (> 2o minutes) with patient and her daughter (by phone) regarding her severe DOLLY/ARF on top her her CKD with the particular discussion regarding the possibility of renal replacement therapy/dialysis if her renal function continues to deteriorate or if she runs into problems with further hyperkalemia, metabolic acidosis, volume overload, or uremia despite conversative medical therapy -- I am not sure how much the patient understood during my explanation of this (due to relative confusion) but her daughter seemed to understand things quite clearly. Her daughter seem to indicate that she would not want to pursue renal replacement therapy /dialysis given the patient's age and multiple comorbidities. I will continue follow the patient with you while she remains hospitalized to make further recommendations as deemed necessary. Thank you for allowing me to participate care this patient. History of Present Illness Reason for Consult Consult date: 12/17/23 Reason for consult: acute renal failure (on chronic kidney disease) Chief Complaint Chief complaint: Acute Renal Failure, Hyperkalemia History of Present Illness Narrative: The patient is an 78-year-old female with a past medical history as outlined below who presented to [facility]
[2023-12-17] MEDS: CENTRAL LINE FLUSH 10 ML IV PUSH ×2 (14:13→20:40)
[2023-12-17] MEDS: ALBUMIN HUMAN 25% 25 GM/100 ML 100 ML IVPB ×2 (14:13→17:54)
[2023-12-17 15:11] LABS: Creatine Kinase 150 U/L (30-135)
[2023-12-17 15:23] LABS: Troponin I 0.015 ng/mL (0.000-0.034)
[2023-12-17 17:00] LABS: Glucose Point of Care 145 mg/dl (65-105)
[2023-12-17 18:23] LABS: Eosinophil Urine None Seen % (None Seen); Urine Eos QC 2nd Tech Confirmed
--- NOTE | 2023-12-17 18:54 | PM.IMPN ---
Progress Note: A&P Assessment and Plan (1) Septic shock: Code(s): A41.9 - Sepsis, unspecified organism; R65.21 - Severe sepsis with septic shock Status: Acute Assessment and Plan: Patient with hypotension, refractory to 4 L IV fluids, initially patient was admitted to the IMU, her SBP on 12/17/2023 was in the 40s to 60s, additional 1 L IV fluid was started, patient was brought to the ICU and I emergently placed a central line in the right femoral vein and started her on Levophed -continue Levophed to maintain MAP > 70 mmHg or SBP > 100 mmHg for adequate end organ and renal perfusion -started on meropenem and vancomycin (12/17) -lactic acid is normal -will add albumin for volume expansion 12/16/2023 CT scan of the abdomen and pelvis without contrast Moderate right pleural effusion. Hepatomegaly. Likely duodenitis and jejunal enteritis. Presumed reactive distention/fluid at the gallbladder. Cholecystitis is not excluded. Interval enlargement of the left lower abdominal/pelvic hernia containing multiple loops of nonobstructed large and small bowel, as well as the normal appendix. Small volume ascites. 12/17/23: Transferred to ICU; on Meropenem, Vancomycin, Norepinephrine (2) Bradycardia: Code(s): R00.1 - Bradycardia, unspecified Status: Acute Assessment and Plan: Likely related to hyperkalemia, septic shock, ACS, ischemic heart disease -troponins negative x1 -EKG bradycardia, with RBBB, 1st degree AV block -check echocardiogram (3) UTI (urinary tract infection): Code(s): N39.0 - Urinary tract infection, site not specified Status: Acute Assessment and Plan: UA reflective of UTI, continue antibiotics as above -obtain urine culture (4) Acute on chronic renal failure: Code(s): N17.9 - Acute kidney failure, unspecified; N18.9 - Chronic kidney disease, unspecified Status: Acute Assessment and Plan: Patient has history of chronic kidney disease stage 3, follows with as outpatient -baseline creatinine has been 1.5-2.4 -patient presented with a creatinine of 6.30 -received a total of 5 L of IV fluids -currently on Levophed -will check CK level, urine eosinophils -renal ultrasound has been ordered -renal electrolytes reflective of prerenal picture -nephrology has been consulted -monitor urine output, renal function and electrolytes -patient is at risk for needing dialysis if she does not have adequate urine output or if renal function does not improve (5) Diabetes: Code(s): E11.9 - Type 2 diabetes mellitus without complications Status: Acute Assessment and Plan: Will start Accu-Cheks and sliding scale insulin (6) Hypotension: Code(s): I95.9 - Hypotension, unspecified Status: Acute Plan DVT prophylaxis: Apixaban, history of DVTs Stress ulcer prophylaxis: Not indicated Nutrition: Diabetic diet Code Status: Do not resuscitate Time Spent With Patient Time with patient: 25 - 35 minutes Subjective Date/time seen: 12/17/23 18:54 Interval history: Seen and examined; not in painful or respiratory distress Poor urine output Review of Systems Review of Systems: fatigue All systems reviewed & are unremarkable except as noted in HPI and below Constitutional: Constitutional: Denies chills, Reports fatigue, Denies fever(s), Denies malaise and Reports weakness Eyes: Eyes: Denies change in vision ENT: Denies dysphagia and Denies odynophagia Cardiovascular: Cardiovascular: Denies chest pain, Denies radiating jaw, neck or arm pain, Denies palpitations, Denies dyspnea and Denies dyspnea on exertion Respiratory: Respiratory: Denies cough, Denies dyspnea and Denies dyspnea on exertion Gastrointestinal: Gastrointestinal: Denies abdominal pain, Denies dysphagia, Denies dyspepsia, Denies heartburn, Denies diarrhea, Denies nausea, Denies odynophagia and Denies vomiting Genitourinary: Genitourinary: Denies dysu
[2023-12-18] VITALS (24 sets, daily range): BP systolic 86–118; BP diastolic 40–80; PULSE 46–551; RESP 10–18; TEMP 36.1–37.2; O2SAT 92–99
[2023-12-18] MEDS: CENTRAL LINE FLUSH 10 ML IV PUSH ×3 (04:37→21:17)
[2023-12-18] MEDS: ALBUMIN HUMAN 25% 25 GM/100 ML 100 ML IVPB ×2 (04:37)
[2023-12-18] MEDS: HYDROCORTISONE SODIUM SUCCINATE 100 MG/2 ML VIAL IV PUSH ×3 (04:37→21:17)
[2023-12-18 04:47] LABS: Hematocrit 30.1 % (37.0-47.0); Hemoglobin 9.8 g/dL (12.0-15.0); Immature Granulocyte Absolute 0.04 K/mm3 (0.00-0.031); Immature Granulocyte Percent A 0.5 % (0-0.5); Lymphocytes Absolute Auto 0.46 K/mm3 (0.9-3.2); Lymphocytes Percent Auto 5.8 % (18.3-44.2); Mean Corpuscular HGB Conc 32.6 g/dl (32-36); Mean Corpuscular Hemoglobin 29.4 pg (26-34); Mean Corpuscular Volume 90.4 fl (80-100); Monocytes Absolute Auto 0.2 K/mm3 (0.1-0.6); Monocytes Percent Auto 2.9 % (2.6-8.5); Neutrophils Absolute Auto 7.3 K/mm3 (1.3-6.7); Neutrophils Percent Auto 90.8 % (45.5-73.1); Platelet Count Result 209 k/mm3 (150-375); Red Blood Count 3.33 M/mm3 (4.2-5.4); Red Cell Distribution Width 20.3 % (11.5-14.5)
[2023-12-18 04:59] LABS: Alanine Aminotransferase 9 U/L (6-35); Albumin Level 2.9 g/dL (3.5-5.1); Alkaline Phosphatase 29 U/L (38-126); Anion Gap 11 mmol/L (8-16); Aspartate Amino Transferase 19 U/L (14-36); Bilirubin,Total 0.5 mg/dL (0.2-1.3); Blood Urea Nitrogen 112 mg/dL (7-17); Calcium 8.3 mg/dL (8.4-10.2); Carbon Dioxide 15 mmol/L (22-30); Chloride 105 mmol/L (98-107); Estimated CRCL calculation 7 ml/min; Estimated Glomerular Filt Rate 7; Glucose 168 mg/dL (65-110); Magnesium 2.2 mg/dL (1.6-2.3); Phosphorus 8.2 mg/dL (2.5-4.5); Potassium 5.3 mmol/L (3.4-5.0); Sodium 131 mmol/L (137-145)
[2023-12-18 05:00] LABS: Lactic Acid Reflex 0.6 mmol/L (0.7-2.0)
[2023-12-18 05:03] LABS: Prothrombin Time 24.1 Seconds (11.1-14.7)
[2023-12-18 05:04] LABS: Partial Thromboplastin Time 40.1 SECONDS (22.3-36.8)
[2023-12-18 05:22] LABS: Anisocytosis 1+ (NORMAL); Burr Cells 2+ (NORMAL); Platelet Estimate Adequate (Adequate); Schistocytes None Seen (NORMAL)
[2023-12-18 07:42] LABS: Glucose Point of Care 159 mg/dl (65-105)
[2023-12-18 08:00] LABS: Hepatitis B Surface Antigen Negative (Negative)
[2023-12-18 08:07] LABS: Hepatitis B Surface Anti Res Negative
[2023-12-18] MEDS: CALCIUM CARBONATE (OSCAL) 500 MG TABLET PO (08:15)
[2023-12-18] MEDS: CHOLECALCIFEROL 1,000 UNITS TABLET 5000 UNITS PO (08:15)
[2023-12-18] MEDS: APIXABAN 5 MG TABLET PO ×2 (08:15→21:16)
[2023-12-18] MEDS: NOREPINEPHRINE 8 MG/D5W 250 ML 8 MG/250 ML BAG 3.75 MG IV CONT (08:16)
[2023-12-18] MEDS: BUMETANIDE INJ 1 MG/4 ML VIAL 1.5 MG IV PUSH (08:39)
[2023-12-18] MEDS: SODIUM ZIRCONIUM CYCLOSILICATE 10 GM POWD.PACK PO (08:39)
[2023-12-18] MEDS: SODIUM BICARBONATE 8.4% 50 MEQ/50 ML SYRINGE IV PUSH (08:39)
[2023-12-18 11:29] LABS: Glucose Point of Care 196 mg/dl (65-105)
[2023-12-18] MEDS: MEROPENEM 500 MG in SODIUM CHLORIDE 0.9% IV 100 ML 200 ML IVPB (11:50)
--- NOTE | 2023-12-18 12:59 | WPDINTPN ---
Progress Note: A&P Assessment and Plan (1) Septic shock: Code(s): A41.9 - Sepsis, unspecified organism; R65.21 - Severe sepsis with septic shock Status: Acute Assessment and Plan: Patient with hypotension, refractory to 4 L IV fluids, initially patient was admitted to the IMU, her SBP on 12/17/2023 was in the 40s to 60s, additional 1 L IV fluid was started, patient was brought to the ICU and I emergently placed a central line in the right femoral vein and started her on Levophed -continue Levophed to maintain MAP > 70 mmHg or SBP > 100 mmHg for adequate end organ and renal perfusion -continue meropenem and vancomycin (12/17) -lactic acid is normal -status post albumin -12/17: Blood cultures negative x2 so far -12/17: Urine cultures pending 12/16/2023 CT scan of the abdomen and pelvis without contrast Moderate right pleural effusion. Hepatomegaly. Likely duodenitis and jejunal enteritis. Presumed reactive distention/fluid at the gallbladder. Cholecystitis is not excluded. Interval enlargement of the left lower abdominal/pelvic hernia containing multiple loops of nonobstructed large and small bowel, as well as the normal appendix. Small volume ascites. (2) Bradycardia: Code(s): R00.1 - Bradycardia, unspecified Status: Acute Assessment and Plan: Likely related to hyperkalemia, septic shock, ACS, ischemic heart disease -troponins negative x1 -EKG bradycardia, with RBBB, 1st degree AV block -12/17/23 echocardiogram Summary ? 1. Complete two-dimensional, color flow and Doppler transthoracic echocardiogram is performed. ? 2. Normal left ventricular size with mild concentric hypertrophy.? Good contractility of all segments.? Ejection fraction 65-70%.? Grade 2 diastolic dysfunction is present. ? 3. Left atrial chamber dimension is moderately enlarged. ? 4. No significant valve disease. ? 5. Dilated inferior vena cava with <50% collapse upon inspiration consistent with elevated right atrial pressure.? RVSP could not be calculated on this study.. ? 6. Rhythm indeterminate. (3) UTI (urinary tract infection): Code(s): N39.0 - Urinary tract infection, site not specified Status: Acute Assessment and Plan: UA reflective of UTI, continue antibiotics as above -urine cultures pending (4) Acute on chronic renal failure: Code(s): N17.9 - Acute kidney failure, unspecified; N18.9 - Chronic kidney disease, unspecified Status: Acute Assessment and Plan: Patient has history of chronic kidney disease stage 3, follows with as outpatient -baseline creatinine has been 1.5-2.4 -patient presented with a creatinine of 6.30 -patient had been adequately resuscitated with 5 L IV fluids -currently on Levophed -CK level was normal, no urine eosinophils were seen -12/17 renal ultrasound: Normal size kidneys, no hydronephrosis -renal electrolytes reflective of prerenal picture -appreciate Nephrology evaluation and recommendation -monitor urine output, renal function and electrolytes -patient is at risk for needing dialysis if she does not have adequate urine output or if renal function does not improve 12/18: Discuss with Nephrology, will diurese patient with Bumex 1.5 mg IV x1 today (5) Diabetes: Code(s): E11.9 - Type 2 diabetes mellitus without complications Status: Acute Assessment and Plan: Continue Accu-Cheks and sliding scale insulin Plan DVT prophylaxis: Apixaban, history of DVTs Stress ulcer prophylaxis: Not indicated Nutrition: Diabetic diet, will add supplements Code Status: Do not resuscitate Critical Care Time Spent: 33 minutes Due to a high probability of clinically significant, life threatening deterioration, the patient required my highest level of preparedness to intervene emergently and I personally spent this critical care time directly and personally managing the patient. This critical care time included obtaining a history; ex
--- NOTE | 2023-12-18 13:08 | P.PNNP_ITS ---
Progress Note: A&P Assessment and Plan (1) DOLLY (acute kidney injury): Code(s): N17.9 - Acute kidney failure, unspecified Status: Acute Assessment and Plan: * slight improvement * presumably related to hemodynamic instability/shock and possible infection (UTI) * admission creatinine 6.3mg/dl and associated hyperkalemia * s/p medical management for elevated K+ * follow trend of K+ * follow-up on outpatient serological testing * evaluation to date noted: * urine electrolytes prerenal * urine eosinophils negative * CT abd/pelvis without obstruction * renal ultrasound normal * CPK mildly elevated (but not enough to affect kidney function) * remains at risk for BARGE CAPTAIN/dialysis given severity of insult * trial of IV diuretics today (IV bumex 1.5mg x 1) * follow trend of repeat labs and UOP (2) Stage 3b chronic kidney disease: Code(s): N18.32 - Chronic kidney disease, stage 3b Status: Chronic Assessment and Plan: * normal renal function about a year ago (early November 2022) * worsened to 2.3 - 2.4mg/dl in March 2023 * etiology suspected to be ATN for infection/osteomyelitis + vancomycin toxicity * leveled off to 1.5 - 1.9mg/dl from June - September 2023 * suspect left overs from DOLLY in March 2023 in conjunction with HTN, DM, vascular disease and age-related change (3) Septic shock: Code(s): A41.9 - Sepsis, unspecified organism; R65.21 - Severe sepsis with septic shock Status: Acute Assessment and Plan: * severe/significant hypotension noted * 80 - 90s systolic on admission/presentation * noted drop to 60 - 70s systolic (on 12/17/23) * refractory to IVF resuscitation (no improvement in BP despite 5L IVFs) * central line placed and initiated on vasopressor therapy * IV albumin added for further volume expansion * follow culture data * empiric antibiotics (4) Bradycardia: Code(s): R00.1 - Bradycardia, unspecified Status: Acute Assessment and Plan: * presumably due to to hyperkalemia and septic shock * EKG - bradycardia, with RBBB, 1st degree AV block * troponin so far negative * Echo results noted (5) Metabolic acidosis: Code(s): E87.20 - Acidosis, unspecified Status: Acute Assessment and Plan: * likely due to DOLLY/ARF * lactic acid normal * follow trend of CO2 levels * consider oral sodium bicarbonate (6) UTI (urinary tract infection): Code(s): N39.0 - Urinary tract infection, site not specified Status: Acute Assessment and Plan: * admission UA suggestive of infection * follow culture data * on antibiotics (7) Diabetes: Code(s): E11.9 - Type 2 diabetes mellitus without complications Status: Acute Assessment and Plan: * follow accu-cheks * glycemic control per state archivist/hospitalist Discussed case with Dr. Dimas. Will continue to follow. Subjective Date/time seen: 12/18/23 13:08 Interval history: Follow-up for acute kidney injury/acute renal failure on chronic kidney disease. Remains on low dose levophed to maintain MAP/blood pressure; mild improvement in creatinine/renal function but potassium slightly elevated in association with metabolic acidosis; minimal urine output in the last 24 hours; mentation seems stable aside from fluctuating confusion and forgetfulness. Exam Narrative: General: elderly but WD/WN female in NAD Heart: bradycardic but normal S1 and S2; no rub Lungs: clear to ausc
--- NOTE | 2023-12-18 13:08 | PM.PNNEP ---
Progress Note: A&P Assessment and Plan (1) DOLLY (acute kidney injury): Code(s): N17.9 - Acute kidney failure, unspecified Status: Acute Assessment and Plan: slight improvement presumably related to hemodynamic instability/shock and possible infection (UTI) admission creatinine 6.3mg/dl and associated hyperkalemia s/p medical management for elevated K+ follow trend of K+ follow-up on outpatient serological testing evaluation to date noted: urine electrolytes prerenal urine eosinophils negative CT abd/pelvis without obstruction renal ultrasound normal CPK mildly elevated (but not enough to affect kidney function) remains at risk for PARALEGAL LEGAL SECRETARY/dialysis given severity of insult trial of IV diuretics today (IV bumex 1.5mg x 1) follow trend of repeat labs and UOP (2) Stage 3b chronic kidney disease: Code(s): N18.32 - Chronic kidney disease, stage 3b Status: Chronic Assessment and Plan: normal renal function about a year ago (early November 2022) worsened to 2.3 - 2.4mg/dl in March 2023 etiology suspected to be ATN for infection/osteomyelitis + vancomycin toxicity leveled off to 1.5 - 1.9mg/dl from June - September 2023 suspect left overs from DOLLY in March 2023 in conjunction with HTN, DM, vascular disease and age-related change (3) Septic shock: Code(s): A41.9 - Sepsis, unspecified organism; R65.21 - Severe sepsis with septic shock Status: Acute Assessment and Plan: severe/significant hypotension noted 80 - 90s systolic on admission/presentation noted drop to 60 - 70s systolic (on 12/17/23) refractory to IVF resuscitation (no improvement in BP despite 5L IVFs) central line placed and initiated on vasopressor therapy IV albumin added for further volume expansion follow culture data empiric antibiotics (4) Bradycardia: Code(s): R00.1 - Bradycardia, unspecified Status: Acute Assessment and Plan: presumably due to to hyperkalemia and septic shock EKG - bradycardia, with RBBB, 1st degree AV block troponin so far negative Echo results noted (5) Metabolic acidosis: Code(s): E87.20 - Acidosis, unspecified Status: Acute Assessment and Plan: likely due to DOLLY/ARF lactic acid normal follow trend of CO2 levels consider oral sodium bicarbonate (6) UTI (urinary tract infection): Code(s): N39.0 - Urinary tract infection, site not specified Status: Acute Assessment and Plan: admission UA suggestive of infection follow culture data on antibiotics (7) Diabetes: Code(s): E11.9 - Type 2 diabetes mellitus without complications Status: Acute Assessment and Plan: follow accu-cheks glycemic control per charge master specialist/hospitalist Discussed case with Dr. Dimas. Will continue to follow. Subjective Date/time seen: 12/18/23 13:08 Interval history: Follow-up for acute kidney injury/acute renal failure on chronic kidney disease. Remains on low dose levophed to maintain MAP/blood pressure; mild improvement in creatinine/renal function but potassium slightly elevated in association with metabolic acidosis; minimal urine output in the last 24 hours; mentation seems stable aside from fluctuating confusion and forgetfulness. Exam Narrative: General: elderly but WD/WN female in NAD Heart: bradycardic but normal S1 and S2; no rub Lungs: clear to auscultation Abdomen: soft, nontender, nondistended, hypoactive bowel sounds Extremities: no cyanosis or clubbing; no edema Skin: chronic skin changes present Objective Data Vital Signs Vital Signs: Vital Signs Temp Pulse Resp BP Pulse Ox O2 Del Method O2 Flow Rate 12/18/23 13:00 54 L 14 107/50 L 96 12/18/23 12:00 97.5 F L 55 L 13 115/54 L 97 12/18/23 12:00 98.9 F 49 L 18 107/46 L 98 12/18/23 11:00 53 L 13 108/51 L 99 12/18/23 10:00 56 L 12/18/23 08:00
[2023-12-18 16:00] LABS: Vancomycin Random 8.2 ug/mL (10-20)
[2023-12-18 16:10] LABS: Glucose Point of Care 177 mg/dl (65-105)
[2023-12-18 16:30] LABS: MRSA (PCR) NOT DETECTED (NOT DETECTE)
[2023-12-18] MEDS: VANCOMYCIN 1,000 MG/NS 250 ML 1,000 MG/250 ML BAG 250 MG IVPB (17:20)
[2023-12-18 17:34] LABS: Anion Gap 12 mmol/L (8-16); Blood Urea Nitrogen 115 mg/dL (7-17); Calcium 8.4 mg/dL (8.4-10.2); Carbon Dioxide 17 mmol/L (22-30); Chloride 104 mmol/L (98-107); Estimated CRCL calculation 8 ml/min; Estimated Glomerular Filt Rate 7; Glucose 187 mg/dL (65-110); Potassium 4.6 mmol/L (3.4-5.0); Sodium 133 mmol/L (137-145)
[2023-12-18 21:27] LABS: Glucose Point of Care 191 mg/dl (65-105)
[2023-12-19] VITALS (18 sets, daily range): BP systolic 84–120; BP diastolic 40–63; PULSE 46–65; RESP 9–19; TEMP 36.1–36.4; O2SAT 94–100
[2023-12-19] MEDS: CENTRAL LINE FLUSH 10 ML IV PUSH ×3 (06:54→21:31)
[2023-12-19] MEDS: HYDROCORTISONE SODIUM SUCCINATE 100 MG/2 ML VIAL IV PUSH ×3 (06:54→21:20)
[2023-12-19 08:07] LABS: Glucose Point of Care 162 mg/dl (65-105)
[2023-12-19 08:12] LABS: Hematocrit 29.4 % (37.0-47.0); Hemoglobin 9.8 g/dL (12.0-15.0); Immature Granulocyte Absolute 0.03 K/mm3 (0.00-0.031); Immature Granulocyte Percent A 0.4 % (0-0.5); Lymphocytes Absolute Auto 0.48 K/mm3 (0.9-3.2); Mean Corpuscular HGB Conc 33.3 g/dl (32-36); Mean Corpuscular Hemoglobin 29.4 pg (26-34); Mean Corpuscular Volume 88.3 fl (80-100); Mean Platelet Volume 10.2 fl (7.4-10.4); Monocytes Absolute Auto 0.3 K/mm3 (0.1-0.6); Monocytes Percent Auto 4.3 % (2.6-8.5); Neutrophils Absolute Auto 6.1 K/mm3 (1.3-6.7); Neutrophils Percent Auto 88.3 % (45.5-73.1); Platelet Count Result 192 k/mm3 (150-375); Red Blood Count 3.33 M/mm3 (4.2-5.4); Red Cell Distribution Width 20.3 % (11.5-14.5); White Blood Count 6.9 K/mm3 (4.5-10.0)
[2023-12-19] MEDS: APIXABAN 5 MG TABLET PO ×2 (08:57→21:19)
[2023-12-19] MEDS: CHOLECALCIFEROL 1,000 UNITS TABLET 5000 UNITS PO (08:57)
[2023-12-19] MEDS: MIDODRINE HCL 2.5 MG TABLET 5 MG PO ×2 (08:58→10:41)
[2023-12-19 09:03] LABS: Alanine Aminotransferase 9 U/L (6-35); Albumin Level 2.6 g/dL (3.5-5.1); Alkaline Phosphatase 29 U/L (38-126); Anion Gap 9 mmol/L (8-16); Aspartate Amino Transferase 18 U/L (14-36); Bilirubin,Total 0.4 mg/dL (0.2-1.3); Blood Urea Nitrogen 120 mg/dL (7-17); Calcium 8.3 mg/dL (8.4-10.2); Carbon Dioxide 18 mmol/L (22-30); Chloride 105 mmol/L (98-107); Estimated CRCL calculation 7 ml/min; Estimated Glomerular Filt Rate 7; Glucose 162 mg/dL (65-110); Magnesium 2.2 mg/dL (1.6-2.3); Phosphorus 7.4 mg/dL (2.5-4.5); Potassium 4.5 mmol/L (3.4-5.0); Sodium 132 mmol/L (137-145)
[2023-12-19] MEDS: CALCIUM CARBONATE (OSCAL) 500 MG TABLET PO (09:22)
[2023-12-19] MEDS: MEROPENEM 500 MG in SODIUM CHLORIDE 0.9% IV 100 ML 200 ML IVPB (09:50)
[2023-12-19] MEDS: ALBUMIN HUMAN 25% 25 GM/100 ML 100 ML IVPB (09:50)
--- NOTE | 2023-12-19 11:28 | PM.PNNEP ---
Progress Note: A&P Assessment and Plan (1) DOLLY (acute kidney injury): Code(s): N17.9 - Acute kidney failure, unspecified Status: Acute Assessment and Plan: slight improvement presumably related to hemodynamic instability/shock and possible infection (UTI) admission creatinine 6.3mg/dl and associated hyperkalemia s/p medical management for elevated K+ follow trend of K+ follow-up on outpatient serological testing evaluation to date noted: urine electrolytes prerenal urine eosinophils negative CT abd/pelvis without obstruction renal ultrasound normal CPK mildly elevated (but not enough to affect kidney function) remains at risk for INSURANCE CLAIM REPRESENTATIVE/dialysis given severity of insult follow trend of repeat labs and UOP (2) Stage 3b chronic kidney disease: Code(s): N18.32 - Chronic kidney disease, stage 3b Status: Chronic Assessment and Plan: normal renal function about a year ago (early November 2022) worsened to 2.3 - 2.4mg/dl in March 2023 etiology suspected to be ATN for infection/osteomyelitis + vancomycin toxicity leveled off to 1.5 - 1.9mg/dl from June - September 2023 suspect left overs from DOLLY in March 2023 in conjunction with HTN, DM, vascular disease and age-related change (3) Septic shock: Code(s): A41.9 - Sepsis, unspecified organism; R65.21 - Severe sepsis with septic shock Status: Acute Assessment and Plan: severe/significant hypotension noted 80 - 90s systolic on admission/presentation noted drop to 60 - 70s systolic (on 12/17/23) refractory to IVF resuscitation (no improvement in BP despite 5L IVFs) central line placed and initiated on vasopressor therapy weaned off levophed follow trend of hemodynamics follow culture data empiric antibiotics (4) Bradycardia: Code(s): R00.1 - Bradycardia, unspecified Status: Acute Assessment and Plan: stable if not improvig presumably due to to hyperkalemia and septic shock EKG - bradycardia, with RBBB, 1st degree AV block troponin so far negative Echo results noted (5) Metabolic acidosis: Code(s): E87.20 - Acidosis, unspecified Status: Acute Assessment and Plan: likely due to DOLLY/ARF lactic acid normal follow trend of CO2 levels consider oral sodium bicarbonate (6) UTI (urinary tract infection): Code(s): N39.0 - Urinary tract infection, site not specified Status: Acute Assessment and Plan: admission UA suggestive of infection follow culture data on antibiotics (7) Diabetes: Code(s): E11.9 - Type 2 diabetes mellitus without complications Status: Acute Assessment and Plan: follow accu-cheks glycemic control per director food and beverage/hospitalist Discussed case with Dr. Dimas. Will continue to follow. Subjective Date/time seen: 12/19/23 11:28 Interval history: Follow-up for acute kidney injury/acute renal failure on chronic kidney disease. Weaned off levophed yesterday afternoon with stable hemodynamics noted; reasonable response with regard to urine output with IV diuretic trial; potassium as well as renal function remains stable; no other acute issues/events overnight or earlier this AM. Exam Narrative: General: elderly but WD/WN female in NAD Heart: bradycardic but normal S1 and S2; no rub Lungs: clear to auscultation Abdomen: soft, nontender, nondistended, + bowel sounds Extremities: no cyanosis or clubbing; no edema Skin: chronic skin changes noted Objective Data Vital Signs Vital Signs: Vital Signs Temp Pulse Resp BP Pulse Ox O2 Del Method 12/19/23 11:00 97.0 F L 61 19 100/40 L 95 12/19/23 10:00 59 L 12/19/23 10:00 62 16 95/42 L 95 12/19/23 09:00 62 13 100/44 L 94 12/19/23 08:49 97.3 F L 12/19/23 08:00 Room Air 12/19/23 08:00 53 L 14 105/52 L 99 12/19/23 07:00 53 L 14 106/51 L 100 12/19/23 0
--- NOTE | 2023-12-19 11:28 | P.PNNP_ITS ---
Progress Note: A&P Assessment and Plan (1) DOLLY (acute kidney injury): Code(s): N17.9 - Acute kidney failure, unspecified Status: Acute Assessment and Plan: * slight improvement * presumably related to hemodynamic instability/shock and possible infection (UTI) * admission creatinine 6.3mg/dl and associated hyperkalemia * s/p medical management for elevated K+ * follow trend of K+ * follow-up on outpatient serological testing * evaluation to date noted: * urine electrolytes prerenal * urine eosinophils negative * CT abd/pelvis without obstruction * renal ultrasound normal * CPK mildly elevated (but not enough to affect kidney function) * remains at risk for MACHINE REPAIRER MAINTENANCE/dialysis given severity of insult * follow trend of repeat labs and UOP (2) Stage 3b chronic kidney disease: Code(s): N18.32 - Chronic kidney disease, stage 3b Status: Chronic Assessment and Plan: * normal renal function about a year ago (early November 2022) * worsened to 2.3 - 2.4mg/dl in March 2023 * etiology suspected to be ATN for infection/osteomyelitis + vancomycin toxicity * leveled off to 1.5 - 1.9mg/dl from June - September 2023 * suspect left overs from DOLLY in March 2023 in conjunction with HTN, DM, vascular disease and age-related change (3) Septic shock: Code(s): A41.9 - Sepsis, unspecified organism; R65.21 - Severe sepsis with septic shock Status: Acute Assessment and Plan: * severe/significant hypotension noted * 80 - 90s systolic on admission/presentation * noted drop to 60 - 70s systolic (on 12/17/23) * refractory to IVF resuscitation (no improvement in BP despite 5L IVFs) * central line placed and initiated on vasopressor therapy * weaned off levophed * follow trend of hemodynamics * follow culture data * empiric antibiotics (4) Bradycardia: Code(s): R00.1 - Bradycardia, unspecified Status: Acute Assessment and Plan: * stable if not improvig * presumably due to to hyperkalemia and septic shock * EKG - bradycardia, with RBBB, 1st degree AV block * troponin so far negative * Echo results noted (5) Metabolic acidosis: Code(s): E87.20 - Acidosis, unspecified Status: Acute Assessment and Plan: * likely due to DOLLY/ARF * lactic acid normal * follow trend of CO2 levels * consider oral sodium bicarbonate (6) UTI (urinary tract infection): Code(s): N39.0 - Urinary tract infection, site not specified Status: Acute Assessment and Plan: * admission UA suggestive of infection * follow culture data * on antibiotics (7) Diabetes: Code(s): E11.9 - Type 2 diabetes mellitus without complications Status: Acute Assessment and Plan: * follow accu-cheks * glycemic control per district commercial superintendent/hospitalist Discussed case with Dr. Dimas. Will continue to follow. Subjective Date/time seen: 12/19/23 11:28 Interval history: Follow-up for acute kidney injury/acute renal failure on chronic kidney disease. Weaned off levophed yesterday afternoon with stable hemodynamics noted; reasonable response with regard to urine output with IV diuretic trial; potassium as well as renal function remains stable; no other acute issues/events overnight or earlier this AM. Exam Narrative: General: elderly but WD/WN female in NAD Heart: bradycardic but normal S1 and S2; no rub Lungs: clear to auscultation Abdomen: soft, nontender, nondistended
--- NOTE | 2023-12-19 11:30 | WPDINTPN ---
Progress Note: A&P Assessment and Plan (1) Septic shock: Code(s): A41.9 - Sepsis, unspecified organism; R65.21 - Severe sepsis with septic shock Status: Acute Assessment and Plan: Patient with hypotension, refractory to 4 L IV fluids, initially patient was admitted to the IMU, her SBP on 12/17/2023 was in the 40s to 60s, additional 1 L IV fluid was started, patient was brought to the ICU and I emergently placed a central line in the right femoral vein and started her on Levophed -off Levophed since afternoon of 12/18 -continue meropenem and vancomycin (12/17) for total of 5 days -lactic acid is normal -status post albumin -12/17: Blood cultures negative x2 so far -12/17: Urine cultures no growth 12/16/2023 CT scan of the abdomen and pelvis without contrast Moderate right pleural effusion. Hepatomegaly. Likely duodenitis and jejunal enteritis. Presumed reactive distention/fluid at the gallbladder. Cholecystitis is not excluded. Interval enlargement of the left lower abdominal/pelvic hernia containing multiple loops of nonobstructed large and small bowel, as well as the normal appendix. Small volume ascites. (2) Bradycardia: Code(s): R00.1 - Bradycardia, unspecified Status: Acute Assessment and Plan: Likely related to hyperkalemia, septic shock, ACS, ischemic heart disease -troponins negative x1 -EKG bradycardia, with RBBB, 1st degree AV block -12/17/23 echocardiogram Summary ? 1. Complete two-dimensional, color flow and Doppler transthoracic echocardiogram is performed. ? 2. Normal left ventricular size with mild concentric hypertrophy.? Good contractility of all segments.? Ejection fraction 65-70%.? Grade 2 diastolic dysfunction is present. ? 3. Left atrial chamber dimension is moderately enlarged. ? 4. No significant valve disease. ? 5. Dilated inferior vena cava with <50% collapse upon inspiration consistent with elevated right atrial pressure.? RVSP could not be calculated on this study.. ? 6. Rhythm indeterminate. (3) UTI (urinary tract infection): Code(s): N39.0 - Urinary tract infection, site not specified Status: Acute Assessment and Plan: UA reflective of UTI, continue antibiotics as above -urine cultures pending (4) Acute on chronic renal failure: Code(s): N17.9 - Acute kidney failure, unspecified; N18.9 - Chronic kidney disease, unspecified Status: Acute Assessment and Plan: Patient has history of chronic kidney disease stage 3, follows with as outpatient -baseline creatinine has been 1.5-2.4 -patient presented with a creatinine of 6.30 -patient had been adequately resuscitated with 5 L IV fluids -currently on Levophed -CK level was normal, no urine eosinophils were seen -12/17 renal ultrasound: Normal size kidneys, no hydronephrosis -renal electrolytes reflective of prerenal picture -appreciate Nephrology evaluation and recommendation -monitor urine output, renal function and electrolytes -patient is at risk for needing dialysis if she does not have adequate urine output or if renal function does not improve 12/18: Discuss with Nephrology, will diurese patient with Bumex 1.5 mg IV x1 today 12/18: Discussed with daughter, she does not feel that the patient will tolerated dialysis. She was to further discuss in patient and then decide (5) Diabetes: Code(s): E11.9 - Type 2 diabetes mellitus without complications Status: Acute Assessment and Plan: Continue Accu-Cheks and sliding scale insulin Plan DVT prophylaxis: Apixaban, history of DVTs Stress ulcer prophylaxis: Not indicated Nutrition: Diabetic diet, continue supplements Code Status: Do not resuscitate Critical Care Time Spent: 32 minutes Due to a high probability of clinically significant, life threatening deterioration, the patient required my highest level of preparedness to intervene emergently and I personally spent this critical care time
[2023-12-19 11:55] LABS: Glucose Point of Care 243 mg/dl (65-105)
[2023-12-19] MEDS: INSULIN ASPART (*BKC) 100 UNITS/ML SUB-Q ×2 (12:03→21:20)
[2023-12-19] MEDS: MIDODRINE HCL 2.5 MG TABLET 10 MG PO ×2 (14:19→21:20)
[2023-12-19 17:38] LABS: Vancomycin Random 14.1 ug/mL (10-20)
[2023-12-19] MEDS: VANCOMYCIN 500 MG/NS 100 ML 500 MG/100 ML BAG 100 MG IVPB (18:18)
[2023-12-19 18:28] LABS: Glucose Point of Care 171 mg/dl (65-105)
[2023-12-19 22:03] LABS: Glucose Point of Care 256 mg/dl (65-105)
[2023-12-20] VITALS (13 sets, daily range): BP systolic 96–122; BP diastolic 37–58; PULSE 48–81; RESP 9–15; TEMP 36.3–36.6; O2SAT 95–98
[2023-12-20] MEDS: CENTRAL LINE FLUSH 20 ML IV PUSH (05:46)
[2023-12-20] MEDS: HYDROCORTISONE SODIUM SUCCINATE 100 MG/2 ML VIAL IV PUSH (05:47)
[2023-12-20] MEDS: CENTRAL LINE FLUSH 10 ML IV PUSH ×2 (05:47→21:43)
[2023-12-20] MEDS: MIDODRINE HCL 2.5 MG TABLET 10 MG PO ×3 (05:49→21:39)
[2023-12-20 06:00] LABS: Basophils Percent Auto 0.1 % (0.2-1.2); Hemoglobin 9.8 g/dL (12.0-15.0); Immature Granulocyte Absolute 0.05 K/mm3 (0.00-0.031); Immature Granulocyte Percent A 0.7 % (0-0.5); Lymphocytes Absolute Auto 0.41 K/mm3 (0.9-3.2); Lymphocytes Percent Auto 5.7 % (18.3-44.2); Mean Corpuscular HGB Conc 33.8 g/dl (32-36); Mean Corpuscular Hemoglobin 29.6 pg (26-34); Mean Corpuscular Volume 87.6 fl (80-100); Mean Platelet Volume 10.3 fl (7.4-10.4); Monocytes Absolute Auto 0.3 K/mm3 (0.1-0.6); Monocytes Percent Auto 3.9 % (2.6-8.5); Neutrophils Absolute Auto 6.5 K/mm3 (1.3-6.7); Neutrophils Percent Auto 89.6 % (45.5-73.1); Platelet Count Result 202 k/mm3 (150-375); Red Blood Count 3.31 M/mm3 (4.2-5.4); White Blood Count 7.2 K/mm3 (4.5-10.0)
[2023-12-20 07:02] LABS: Alanine Aminotransferase 11 U/L (6-35); Albumin Level 2.6 g/dL (3.5-5.1); Alkaline Phosphatase 31 U/L (38-126); Anion Gap 10 mmol/L (8-16); Aspartate Amino Transferase 22 U/L (14-36); Bilirubin,Total 0.4 mg/dL (0.2-1.3); Calcium 8.2 mg/dL (8.4-10.2); Carbon Dioxide 18 mmol/L (22-30); Chloride 103 mmol/L (98-107); Estimated CRCL calculation 8 ml/min; Estimated Glomerular Filt Rate 7; Glucose 161 mg/dL (65-110); Magnesium 2.2 mg/dL (1.6-2.3); Phosphorus 6.5 mg/dL (2.5-4.5); Potassium 4.6 mmol/L (3.4-5.0); Sodium 131 mmol/L (137-145)
[2023-12-20 07:09] LABS: Blood Urea Nitrogen 131 mg/dL (7-17)
[2023-12-20 10:01] LABS: Glucose Point of Care 182 mg/dl (65-105)
[2023-12-20] MEDS: APIXABAN 5 MG TABLET PO ×2 (10:09→21:39)
[2023-12-20] MEDS: CHOLECALCIFEROL 1,000 UNITS TABLET 5000 UNITS PO (10:09)
[2023-12-20] MEDS: CALCIUM CARBONATE (OSCAL) 500 MG TABLET PO (10:09)
[2023-12-20] MEDS: MEROPENEM 500 MG in SODIUM CHLORIDE 0.9% IV 100 ML 200 ML IVPB (10:11)
--- NOTE | 2023-12-20 10:18 | PM.PNNEP ---
Progress Note: A&P Assessment and Plan (1) DOLLY (acute kidney injury): Code(s): N17.9 - Acute kidney failure, unspecified Status: Acute Assessment and Plan: slight improvement presumably related to hemodynamic instability/shock and possible infection (UTI) admission creatinine 6.3mg/dl and associated hyperkalemia s/p medical management for elevated K+ follow trend of K+ follow-up on outpatient serological testing evaluation to date noted: urine electrolytes prerenal urine eosinophils negative CT abd/pelvis without obstruction renal ultrasound normal CPK mildly elevated (but not enough to affect kidney function) remains at risk for 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 follow trend of repeat labs and UOP (2) Stage 3b chronic kidney disease: Code(s): N18.32 - Chronic kidney disease, stage 3b Status: Chronic Assessment and Plan: normal renal function about a year ago (early November 2022) worsened to 2.3 - 2.4mg/dl in March 2023 etiology suspected to be ATN for infection/osteomyelitis + vancomycin toxicity leveled off to 1.5 - 1.9mg/dl from June - September 2023 suspect left overs from DOLLY in March 2023 in conjunction with HTN, DM, vascular disease and age-related change (3) Septic shock: Code(s): A41.9 - Sepsis, unspecified organism; R65.21 - Severe sepsis with septic shock Status: Acute Assessment and Plan: severe/significant hypotension noted 80 - 90s systolic on admission/presentation noted drop to 60 - 70s systolic (on 12/17/23) refractory to IVF resuscitation (no improvement in BP despite 5L IVFs) central line placed and initiated on vasopressor therapy weaned off levophed follow trend of hemodynamics follow culture data - blood/urine cultures negative to date on antibiotics (to complete 5 day course) (4) Bradycardia: Code(s): R00.1 - Bradycardia, unspecified Status: Acute Assessment and Plan: stable if not improvig presumably due to to hyperkalemia and septic shock EKG - bradycardia, with RBBB, 1st degree AV block troponin so far negative Echo results noted (5) Metabolic acidosis: Code(s): E87.20 - Acidosis, unspecified Status: Acute Assessment and Plan: likely due to DOLLY/ARF lactic acid normal follow trend of CO2 levels consider oral sodium bicarbonate (6) UTI (urinary tract infection): Code(s): N39.0 - Urinary tract infection, site not specified Status: Acute Assessment and Plan: admission UA suggestive of infection urine culture results negative on antibiotics (7) Diabetes: Code(s): E11.9 - Type 2 diabetes mellitus without complications Status: Acute Assessment and Plan: follow accu-cheks glycemic control per set rider/hospitalist Will continue to follow. Subjective Date/time seen: 12/20/23 10:18 Interval history: Follow-up for acute kidney injury/acute renal failure on chronic kidney disease. Stable hemodynamics off vasopressor therapy but was initiated on midodrine and stress dose steroids; improvement in creatinine and potassium noted with reasonable urine output but BUN rising; appetite appears to be doing better; no apparent distress noted. Exam Narrative: General: elderly but WD/WN female in NAD Heart: normal S1 and S2; no rub Lungs: clear to auscultation Abdomen: soft, nontender, nondistended, + bowel sounds Extremities: no cyanosis or clubbing; no edema Skin: chronic skin changes Objective Data Vital Signs Vital Signs: Vital Signs Temp Pulse Resp BP Pulse Ox O2 Del Method 12/20/23 10:00 67 103/37 L 12/20/23 08:00 55 L 12/20/23 08:00 Room Air 12/20/23 08:00 97.4 F L 48 L 13 109/58 L 97 12/20/23 06:00 48 L 10 L 109/53 L 9
--- NOTE | 2023-12-20 10:18 | P.PNNP_ITS ---
Progress Note: A&P Assessment and Plan (1) DOLLY (acute kidney injury): Code(s): N17.9 - Acute kidney failure, unspecified Status: Acute Assessment and Plan: * slight improvement * presumably related to hemodynamic instability/shock and possible infection (UTI) * admission creatinine 6.3mg/dl and associated hyperkalemia * s/p medical management for elevated K+ * follow trend of K+ * follow-up on outpatient serological testing * evaluation to date noted: * urine electrolytes prerenal * urine eosinophils negative * CT abd/pelvis without obstruction * renal ultrasound normal * CPK mildly elevated (but not enough to affect kidney function) * 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 * follow trend of repeat labs and UOP (2) Stage 3b chronic kidney disease: Code(s): N18.32 - Chronic kidney disease, stage 3b Status: Chronic Assessment and Plan: * normal renal function about a year ago (early November 2022) * worsened to 2.3 - 2.4mg/dl in March 2023 * etiology suspected to be ATN for infection/osteomyelitis + vancomycin toxicity * leveled off to 1.5 - 1.9mg/dl from June - September 2023 * suspect left overs from DOLLY in March 2023 in conjunction with HTN, DM, vascular disease and age-related change (3) Septic shock: Code(s): A41.9 - Sepsis, unspecified organism; R65.21 - Severe sepsis with septic shock Status: Acute Assessment and Plan: * severe/significant hypotension noted * 80 - 90s systolic on admission/presentation * noted drop to 60 - 70s systolic (on 12/17/23) * refractory to IVF resuscitation (no improvement in BP despite 5L IVFs) * central line placed and initiated on vasopressor therapy * weaned off levophed * follow trend of hemodynamics * follow culture data - blood/urine cultures negative to date * on antibiotics (to complete 5 day course) (4) Bradycardia: Code(s): R00.1 - Bradycardia, unspecified Status: Acute Assessment and Plan: * stable if not improvig * presumably due to to hyperkalemia and septic shock * EKG - bradycardia, with RBBB, 1st degree AV block * troponin so far negative * Echo results noted (5) Metabolic acidosis: Code(s): E87.20 - Acidosis, unspecified Status: Acute Assessment and Plan: * likely due to DOLLY/ARF * lactic acid normal * follow trend of CO2 levels * consider oral sodium bicarbonate (6) UTI (urinary tract infection): Code(s): N39.0 - Urinary tract infection, site not specified Status: Acute Assessment and Plan: * admission UA suggestive of infection * urine culture results negative * on antibiotics (7) Diabetes: Code(s): E11.9 - Type 2 diabetes mellitus without complications Status: Acute Assessment and Plan: * follow accu-cheks * glycemic control per mainframe systems administrator/hospitalist Will continue to follow. Subjective Date/time seen: 12/20/23 10:18 Interval history: Follow-up for acute kidney injury/acute renal failure on chronic kidney disease. Stable hemodynamics off vasopressor therapy but was initiated on midodrine and stress dose steroids; improvement in creatinine and potassium noted with reasonable urine output but BUN rising; appetite appears to be doing better; no apparent distress noted. Exam Narrative: General: elderly but
--- NOTE | 2023-12-20 11:53 | PC.NURSE ---
PT/OT orders in. New orders to discontinue femoral central line.
--- NOTE | 2023-12-20 12:12 | WPDINTPN ---
Progress Note: A&P Assessment and Plan (1) Septic shock: Code(s): A41.9 - Sepsis, unspecified organism; R65.21 - Severe sepsis with septic shock Status: Acute Assessment and Plan: Patient with hypotension, refractory to 4 L IV fluids, initially patient was admitted to the IMU, her SBP on 12/17/2023 was in the 40s to 60s, additional 1 L IV fluid was started, patient was brought to the ICU and I emergently placed a central line in the right femoral vein and started her on Levophed -off Levophed since afternoon of 12/18 -continue meropenem and vancomycin (12/17) for total of 5 days -lactic acid is normal -status post albumin -12/17: Blood cultures negative x2 so far -12/17: Urine cultures no growth 12/16/2023 CT scan of the abdomen and pelvis without contrast Moderate right pleural effusion. Hepatomegaly. Likely duodenitis and jejunal enteritis. Presumed reactive distention/fluid at the gallbladder. Cholecystitis is not excluded. Interval enlargement of the left lower abdominal/pelvic hernia containing multiple loops of nonobstructed large and small bowel, as well as the normal appendix. Small volume ascites. (2) Bradycardia: Code(s): R00.1 - Bradycardia, unspecified Status: Acute Assessment and Plan: Likely related to hyperkalemia, septic shock, ACS, ischemic heart disease -troponins negative x1 -EKG bradycardia, with RBBB, 1st degree AV block -12/17/23 echocardiogram Summary ? 1. Complete two-dimensional, color flow and Doppler transthoracic echocardiogram is performed. ? 2. Normal left ventricular size with mild concentric hypertrophy.? Good contractility of all segments.? Ejection fraction 65-70%.? Grade 2 diastolic dysfunction is present. ? 3. Left atrial chamber dimension is moderately enlarged. ? 4. No significant valve disease. ? 5. Dilated inferior vena cava with <50% collapse upon inspiration consistent with elevated right atrial pressure.? RVSP could not be calculated on this study.. ? 6. Rhythm indeterminate. (3) UTI (urinary tract infection): Code(s): N39.0 - Urinary tract infection, site not specified Status: Acute Assessment and Plan: UA reflective of UTI, continue antibiotics as above -urine cultures negative (4) Acute on chronic renal failure: Code(s): N17.9 - Acute kidney failure, unspecified; N18.9 - Chronic kidney disease, unspecified Status: Acute Assessment and Plan: Patient has history of chronic kidney disease stage 3, follows with as outpatient -baseline creatinine has been 1.5-2.4 -patient presented with a creatinine of 6.30 -patient had been adequately resuscitated with 5 L IV fluids -currently on Levophed -CK level was normal, no urine eosinophils were seen -12/17 renal ultrasound: Normal size kidneys, no hydronephrosis -renal electrolytes reflective of prerenal picture -appreciate Nephrology evaluation and recommendation -monitor urine output, renal function and electrolytes -patient is at risk for needing dialysis if she does not have adequate urine output or if renal function does not improve 12/18: Discuss with Nephrology, will diurese patient with Bumex 1.5 mg IV x1 12/18: Discussed with daughter, she does not feel that the patient will tolerated dialysis. She was to further discuss in patient and then decide 12/20: urine output improving, creatinine trending down gradually, BUN still increasing (5) Diabetes: Code(s): E11.9 - Type 2 diabetes mellitus without complications Status: Acute Assessment and Plan: Continue Accu-Cheks and sliding scale insulin Plan DVT prophylaxis: Apixaban, history of DVTs Stress ulcer prophylaxis: Not indicated Nutrition: Diabetic diet, continue supplements Code Status: Do not resuscitate Critical Care Time Spent: 32 minutes Patient may transfer out of the ICU Due to a high probability of clinically significant, life threatening deteriorat
[2023-12-20 12:56] LABS: Glucose Point of Care 298 mg/dl (65-105)
[2023-12-20] MEDS: INSULIN ASPART (*BKC) 100 UNITS/ML SUB-Q (13:14)
[2023-12-20] MEDS: SODIUM CHLORIDE 0.9% IV 500 ML 999 ML IV CONT (13:28)
--- NOTE | 2023-12-20 13:48 | PC.NURSE ---
BP 105/37. Midodrine 10 mg given at 1300. Dr. Marques made aware. New orders noted for 500 ml bolus of NS.
--- NOTE | 2023-12-20 13:53 | PCOTNOTE ---
Attempted OT evaluation; per RN pt.'s blood pressure is low and requests to hold at this time. Will continue to follow and complete evaluation when pt. is stable.
--- NOTE | 2023-12-20 14:25 | PC.NURSE ---
BP 108/44, MAP 61. [address] Marques made aware. No new orders at this time.
--- NOTE | 2023-12-20 14:27 | PCPTNOTE ---
BP too low today, per RN hold therapy for today
[2023-12-20 16:21] LABS: Glucose Point of Care 187 mg/dl (65-105)
--- NOTE | 2023-12-20 16:34 | P.PNIM_ITS ---
Progress Note: A&P Assessment and Plan (1) Septic shock: Code(s): A41.9 - Sepsis, unspecified organism; R65.21 - Severe sepsis with septic shock Status: Acute Assessment and Plan: Patient with hypotension, refractory to 4 L IV fluids, initially patient was admitted to the IMU, her SBP on 12/17/2023 was in the 40s to 60s, additional 1 L IV fluid was started, patient was brought to the ICU and I emergently placed a central line in the right femoral vein and started her on Levophed -off Levophed since afternoon of 12/18 -continue meropenem and vancomycin (12/17) for total of 5 days -lactic acid is normal -status post albumin -12/17: Blood cultures negative x2 so far -12/17: Urine cultures no growth 12/16/2023 CT scan of the abdomen and pelvis without contrast Moderate right pleural effusion. Hepatomegaly. Likely duodenitis and jejunal enteritis. Presumed reactive distention/fluid at the gallbladder. Cholecystitis is not excluded. Interval enlargement of the left lower abdominal/pelvic hernia containing multiple loops of nonobstructed large and small bowel, as well as the normal appendix. Small volume ascites. (2) Bradycardia: Code(s): R00.1 - Bradycardia, unspecified Status: Acute Assessment and Plan: Likely related to hyperkalemia, septic shock, ACS, ischemic heart disease -troponins negative x1 -EKG bradycardia, with RBBB, 1st degree AV block -12/17/23 echocardiogram Summary ? 1. Complete two-dimensional, color flow and Doppler transthoracic echocardiogram is performed. ? 2. Normal left ventricular size with mild concentric hypertrophy.? Good contractility of all segments.? Ejection fraction 65-70%.? Grade 2 diastolic dysfunction is present. ? 3. Left atrial chamber dimension is moderately enlarged. ? 4. No significant valve disease. ? 5. Dilated inferior vena cava with <50% collapse upon inspiration consistent with elevated right atrial pressure.? RVSP could not be calculated on this study.. ? 6. Rhythm indeterminate. (3) UTI (urinary tract infection): Code(s): N39.0 - Urinary tract infection, site not specified Status: Acute Assessment and Plan: UA reflective of UTI, continue antibiotics as above -urine cultures negative (4) Acute on chronic renal failure: Code(s): N17.9 - Acute kidney failure, unspecified; N18.9 - Chronic kidney disease, unspecified Status: Acute Assessment and Plan: Patient has history of chronic kidney disease stage 3, follows with as outpatient -baseline creatinine has been 1.5-2.4 -patient presented with a creatinine of 6.30 -patient had been adequately resuscitated with 5 L IV fluids -currently on Levophed -CK level was normal, no urine eosinophils were seen -12/17 renal ultrasound: Normal size kidneys, no hydronephrosis -renal electrolytes reflective of prerenal picture -appreciate Nephrology evaluation and recommendation -monitor urine output, renal function and electrolytes -patient is at risk for needing dialysis if she does not have adequate urine output or if renal function does not improve 12/18: Discuss with Nephrology, will diurese patient with Bumex 1.5 mg IV x1 12/18: Discussed with daughter, she does not feel that the patient will tolerated dialysis. She was to further discuss in patient and then decide 12/20: urine output improving, creatinine trending down gradually, BUN still increasing (5) Diabetes: Code(s): E11.9 - Type 2 diabetes mellitus without complications Status: Acute Assessment and Plan: Continue Accu-Cheks and sliding scale insulin
--- NOTE | 2023-12-20 17:04 | PC.NURSE ---
Pt transferred from bed to bedside chair assist x 1 with gait belt. 17 beat run of Vtach noted on telemetry. Pt asymptomatic. BP 125/96. Dr. Marques made aware. No new orders noted.
[2023-12-20] MEDS: VANCOMYCIN 500 MG/NS 100 ML 500 MG/100 ML BAG 100 MG IVPB (21:32)
[2023-12-20] MEDS: HYDROCORTISONE SODIUM SUCCINATE 100 MG/2 ML VIAL 50 MG IV PUSH (21:36)
[2023-12-20 21:49] LABS: Glucose Point of Care 194 mg/dl (65-105)
[2023-12-21] VITALS (11 sets, daily range): BP systolic 102–111; BP diastolic 43–57; PULSE 46–81; RESP 10–18; TEMP 35.9–36.8; O2SAT 95–100
[2023-12-21 04:30] LABS: Basophils Percent Auto 0.1 % (0.2-1.2); Hematocrit 30.4 % (37.0-47.0); Hemoglobin 10.1 g/dL (12.0-15.0); Immature Granulocyte Absolute 0.11 K/mm3 (0.00-0.031); Immature Granulocyte Percent A 1.4 % (0-0.5); Lymphocytes Percent Auto 6.4 % (18.3-44.2); Mean Corpuscular HGB Conc 33.2 g/dl (32-36); Mean Corpuscular Hemoglobin 29.7 pg (26-34); Mean Corpuscular Volume 89.4 fl (80-100); Mean Platelet Volume 10.2 fl (7.4-10.4); Monocytes Absolute Auto 0.6 K/mm3 (0.1-0.6); Monocytes Percent Auto 7.6 % (2.6-8.5); Neutrophils Absolute Auto 6.6 K/mm3 (1.3-6.7); Neutrophils Percent Auto 84.5 % (45.5-73.1); Platelet Count Result 209 k/mm3 (150-375); Red Cell Distribution Width 20.5 % (11.5-14.5); White Blood Count 7.8 K/mm3 (4.5-10.0)
[2023-12-21 04:54] LABS: Alanine Aminotransferase 13 U/L (6-35); Albumin Level 2.7 g/dL (3.5-5.1); Alkaline Phosphatase 34 U/L (38-126); Anion Gap 10 mmol/L (8-16); Aspartate Amino Transferase 20 U/L (14-36); Bilirubin,Total 0.3 mg/dL (0.2-1.3); Calcium 8.2 mg/dL (8.4-10.2); Carbon Dioxide 17 mmol/L (22-30); Chloride 104 mmol/L (98-107); Estimated CRCL calculation 8 ml/min; Estimated Glomerular Filt Rate 8; Glucose 163 mg/dL (65-110); Magnesium 2.1 mg/dL (1.6-2.3); Phosphorus 6.8 mg/dL (2.5-4.5); Potassium 4.5 mmol/L (3.4-5.0); Sodium 131 mmol/L (137-145)
[2023-12-21 05:07] LABS: Blood Urea Nitrogen 136 mg/dL (7-17)
[2023-12-21] MEDS: MIDODRINE HCL 10 MG TABLET PO ×2 (06:25→15:00)
[2023-12-21] MEDS: CENTRAL LINE FLUSH 10 ML IV PUSH (06:26)
[2023-12-21 08:50] LABS: Glucose Point of Care 156 mg/dl (65-105)
[2023-12-21] MEDS: APIXABAN 5 MG TABLET PO ×2 (08:55→20:22)
[2023-12-21] MEDS: HYDROCORTISONE SODIUM SUCCINATE 100 MG/2 ML VIAL 50 MG IV PUSH ×2 (08:55→20:22)
[2023-12-21] MEDS: CALCIUM CARBONATE (OSCAL) 500 MG TABLET PO (08:55)
[2023-12-21] MEDS: CHOLECALCIFEROL 1,000 UNITS TABLET 5000 UNITS PO (08:55)
--- NOTE | 2023-12-21 11:00 | P.PNNP_ITS ---
Progress Note: A&P Assessment and Plan (1) DOLLY (acute kidney injury): Code(s): N17.9 - Acute kidney failure, unspecified Status: Acute Assessment and Plan: * slow improvement noted * presumably related to hemodynamic instability/shock and possible infection (UTI) * admission creatinine 6.3mg/dl and associated hyperkalemia * s/p medical management for elevated K+ * follow trend of K+ * follow-up on outpatient serological testing * evaluation to date noted: * urine electrolytes prerenal * urine eosinophils negative * CT abd/pelvis without obstruction * renal ultrasound normal * CPK mildly elevated (but not enough to affect kidney function) * 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 * follow trend of repeat labs and UOP (2) Stage 3b chronic kidney disease: Code(s): N18.32 - Chronic kidney disease, stage 3b Status: Chronic Assessment and Plan: * normal renal function about a year ago (early November 2022) * worsened to 2.3 - 2.4mg/dl in March 2023 * etiology suspected to be ATN for infection/osteomyelitis + vancomycin toxicity * leveled off to 1.5 - 1.9mg/dl from June - September 2023 * suspect left overs from DOLLY in March 2023 in conjunction with HTN, DM, vascular disease and age-related change (3) Septic shock: Code(s): A41.9 - Sepsis, unspecified organism; R65.21 - Severe sepsis with septic shock Status: Acute Assessment and Plan: * severe/significant hypotension noted * 80 - 90s systolic on admission/presentation * noted drop to 60 - 70s systolic (on 12/17/23) * refractory to IVF resuscitation (no improvement in BP despite 5L IVFs) * central line placed and initiated on vasopressor therapy * weaned off levophed * follow trend of hemodynamics * follow culture data - blood/urine cultures negative to date * on antibiotics (to complete 5 day course -- last dose today) (4) Bradycardia: Code(s): R00.1 - Bradycardia, unspecified Status: Acute Assessment and Plan: * stable if not improving * presumably due to to hyperkalemia and septic shock * EKG - bradycardia, with RBBB, 1st degree AV block * troponins negative * Echo results noted (5) Metabolic acidosis: Code(s): E87.20 - Acidosis, unspecified Status: Acute Assessment and Plan: * likely due to DOLLY/ARF * lactic acid normal * follow trend of CO2 levels * start oral sodium bicarbonate to compensate (6) UTI (urinary tract infection): Code(s): N39.0 - Urinary tract infection, site not specified Status: Acute Assessment and Plan: * admission UA suggestive of infection * urine culture results negative * on antibiotics - last dose today (7) Diabetes: Code(s): E11.9 - Type 2 diabetes mellitus without complications Status: Acute Assessment and Plan: * follow accu-cheks * glycemic control per creative services designer/hospitalist Will continue to follow. Subjective Date/time seen: 12/21/23 11:00 Interval history: Follow-up for acute kidney injury/acute renal failure on chronic kidney disease. Continues to do reasonably well; stable hemodynamics noted off vasopresor therapy although remains on midodrine and stress dose steroids; slow improvement in creatinine and potassium noted with reasonable urine output but BUN still elevated; no other issues/event
--- NOTE | 2023-12-21 11:00 | PM.PNNEP ---
Progress Note: A&P Assessment and Plan (1) DOLLY (acute kidney injury): Code(s): N17.9 - Acute kidney failure, unspecified Status: Acute Assessment and Plan: slow improvement noted presumably related to hemodynamic instability/shock and possible infection (UTI) admission creatinine 6.3mg/dl and associated hyperkalemia s/p medical management for elevated K+ follow trend of K+ follow-up on outpatient serological testing evaluation to date noted: urine electrolytes prerenal urine eosinophils negative CT abd/pelvis without obstruction renal ultrasound normal CPK mildly elevated (but not enough to affect kidney function) 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 follow trend of repeat labs and UOP (2) Stage 3b chronic kidney disease: Code(s): N18.32 - Chronic kidney disease, stage 3b Status: Chronic Assessment and Plan: normal renal function about a year ago (early November 2022) worsened to 2.3 - 2.4mg/dl in March 2023 etiology suspected to be ATN for infection/osteomyelitis + vancomycin toxicity leveled off to 1.5 - 1.9mg/dl from June - September 2023 suspect left overs from DOLLY in March 2023 in conjunction with HTN, DM, vascular disease and age-related change (3) Septic shock: Code(s): A41.9 - Sepsis, unspecified organism; R65.21 - Severe sepsis with septic shock Status: Acute Assessment and Plan: severe/significant hypotension noted 80 - 90s systolic on admission/presentation noted drop to 60 - 70s systolic (on 12/17/23) refractory to IVF resuscitation (no improvement in BP despite 5L IVFs) central line placed and initiated on vasopressor therapy weaned off levophed follow trend of hemodynamics follow culture data - blood/urine cultures negative to date on antibiotics (to complete 5 day course -- last dose today) (4) Bradycardia: Code(s): R00.1 - Bradycardia, unspecified Status: Acute Assessment and Plan: stable if not improving presumably due to to hyperkalemia and septic shock EKG - bradycardia, with RBBB, 1st degree AV block troponins negative Echo results noted (5) Metabolic acidosis: Code(s): E87.20 - Acidosis, unspecified Status: Acute Assessment and Plan: likely due to DOLLY/ARF lactic acid normal follow trend of CO2 levels start oral sodium bicarbonate to compensate (6) UTI (urinary tract infection): Code(s): N39.0 - Urinary tract infection, site not specified Status: Acute Assessment and Plan: admission UA suggestive of infection urine culture results negative on antibiotics - last dose today (7) Diabetes: Code(s): E11.9 - Type 2 diabetes mellitus without complications Status: Acute Assessment and Plan: follow accu-cheks glycemic control per landscape engineer/hospitalist Will continue to follow. Subjective Date/time seen: 12/21/23 11:00 Interval history: Follow-up for acute kidney injury/acute renal failure on chronic kidney disease. Continues to do reasonably well; stable hemodynamics noted off vasopresor therapy although remains on midodrine and stress dose steroids; slow improvement in creatinine and potassium noted with reasonable urine output but BUN still elevated; no other issues/events overnight or earlier today. Exam Narrative: General: elderly but WD/WN female in NAD Heart: normal S1 and S2; no rub Lungs: clear to auscultation Abdomen: soft, nontender, nondistended, + bowel sounds Extremities: no cyanosis or clubbing; no edema Skin: chronic skin changes apparent Objective Data Vital Signs Vital Signs: Vital Signs Temp Pulse Resp BP Pulse Ox O2 Del Method 12/21/23 11:00 81 12/21/23 08:00 97 Room Air 12/21/23 08:00
[2023-12-21] MEDS: MEROPENEM 500 MG in SODIUM CHLORIDE 0.9% IV 100 ML 200 ML IVPB (11:18)
[2023-12-21] MEDS: INSULIN ASPART (*BKC) 100 UNITS/ML SUB-Q (11:19)
[2023-12-21 11:20] LABS: Glucose Point of Care 231 mg/dl (65-105)
--- NOTE | 2023-12-21 12:10 | PC.NURSE ---
This patient, Katie Iglesias Rehg, was transferred to [[id number]] on 12/21/23 at 1210. Personal belongings sent with patient. Report given to [Radha OTERO]. Appropriate documentation sent with patient. daughter Kaycee was called, no answer, voicemail left that mother was moved to new room
--- NOTE | 2023-12-21 12:20 | PC.NURSE ---
This patient, Katie Iglesias Rehg, was received from icu 10 on 12/21/23 at 1215. Patient/family oriented to unit policies and routines. Report from Aaliyah
[2023-12-21 16:50] LABS: Glucose Point of Care 192 mg/dl (65-105)
[2023-12-21] MEDS: SODIUM BICARBONATE TAB 650 MG TABLET PO (17:43)
[2023-12-22] VITALS (10 sets, daily range): BP systolic 86–123; BP diastolic 42–57; PULSE 52–95; RESP 14–18; TEMP 35.7–36.1; O2SAT 97–100
[2023-12-22] MEDS: MIDODRINE HCL 10 MG TABLET PO ×3 (05:08→21:25)
[2023-12-22 07:15] LABS: Basophils Percent Auto 0.2 % (0.2-1.2); Eosinophils Percent Auto 0.2 % (0-4.4); Hematocrit 31.2 % (37.0-47.0); Hemoglobin 10.1 g/dL (12.0-15.0); Immature Granulocyte Absolute 0.08 K/mm3 (0.00-0.031); Immature Granulocyte Percent A 1.2 % (0-0.5); Lymphocytes Absolute Auto 0.63 K/mm3 (0.9-3.2); Lymphocytes Percent Auto 9.8 % (18.3-44.2); Mean Corpuscular HGB Conc 32.4 g/dl (32-36); Mean Corpuscular Hemoglobin 29.6 pg (26-34); Mean Corpuscular Volume 91.5 fl (80-100); Mean Platelet Volume 10.5 fl (7.4-10.4); Monocytes Absolute Auto 0.5 K/mm3 (0.1-0.6); Neutrophils Absolute Auto 5.2 K/mm3 (1.3-6.7); Neutrophils Percent Auto 80.6 % (45.5-73.1); Platelet Count Result 210 k/mm3 (150-375); Red Blood Count 3.41 M/mm3 (4.2-5.4); Red Cell Distribution Width 20.6 % (11.5-14.5); White Blood Count 6.4 K/mm3 (4.5-10.0)
[2023-12-22 07:38] LABS: Alanine Aminotransferase 13 U/L (6-35); Albumin Level 2.7 g/dL (3.5-5.1); Alkaline Phosphatase 38 U/L (38-126); Anion Gap 10 mmol/L (8-16); Aspartate Amino Transferase 20 U/L (14-36); Bilirubin,Total 0.4 mg/dL (0.2-1.3); Calcium 8.4 mg/dL (8.4-10.2); Carbon Dioxide 20 mmol/L (22-30); Chloride 100 mmol/L (98-107); Estimated CRCL calculation 9 ml/min; Estimated Glomerular Filt Rate 9; Glucose 146 mg/dL (65-110); Magnesium 2.2 mg/dL (1.6-2.3); Phosphorus 6.2 mg/dL (2.5-4.5); Potassium 4.9 mmol/L (3.4-5.0); Sodium 130 mmol/L (137-145)
[2023-12-22 07:59] LABS: Glucose Point of Care 148 mg/dl (65-105)
[2023-12-22] MEDS: CHOLECALCIFEROL 1,000 UNITS TABLET 5000 UNITS PO (09:18)
[2023-12-22] MEDS: APIXABAN 5 MG TABLET PO ×2 (09:18→21:25)
[2023-12-22] MEDS: SODIUM BICARBONATE TAB 650 MG TABLET PO ×2 (09:18→17:14)
[2023-12-22] MEDS: CALCIUM CARBONATE (OSCAL) 500 MG TABLET PO (09:18)
[2023-12-22] MEDS: HYDROCORTISONE SODIUM SUCCINATE 100 MG/2 ML VIAL 50 MG IV PUSH (09:24)
--- NOTE | 2023-12-22 09:38 | ECG_ITS ---
Measurements Intervals [place] Rate: 91 P: 59 TX: 198 QRS: -59 QRSD: 106 T: 78 QT: 327 QTc: 404 Interpretive Statements SINUS RHYTHM POSSIBLE LEFT ATRIAL ENLARGEMENT [-0.1mV P WAVE IN V1/V2] RIGHT BUNDLE BRANCH BLOCK LEFT ANTERIOR SUPERIOR HEMIBLOCK ABNORMAL ECG COMPARED TO ECG 12/17/2023 12:21:19 HEART RATE INCREASED, NO OTHER CHANGE Electronically Signed On 12-22-2023 15:04:17 ACTUARIAL MANAGER by Terrell Castillo M.D.
[2023-12-22 09:42] LABS: Blood Urea Nitrogen 143 mg/dL (7-17)
--- NOTE | 2023-12-22 10:11 | PM.PNNEP ---
Progress Note: A&P Assessment and Plan (1) DOLLY (acute kidney injury): Code(s): N17.9 - Acute kidney failure, unspecified Status: Acute Assessment and Plan: slow improvement noted presumably related to hemodynamic instability/shock and possible infection (UTI) admission creatinine 6.3mg/dl and associated hyperkalemia s/p medical management for elevated K+ follow trend of K+ follow-up on outpatient serological testing evaluation to date noted: urine electrolytes prerenal urine eosinophils negative CT abd/pelvis without obstruction renal ultrasound normal CPK mildly elevated (but not enough to affect kidney function) 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 follow trend of repeat labs and UOP (2) Stage 3b chronic kidney disease: Code(s): N18.32 - Chronic kidney disease, stage 3b Status: Chronic Assessment and Plan: normal renal function about a year ago (early November 2022) worsened to 2.3 - 2.4mg/dl in March 2023 etiology suspected to be ATN for infection/osteomyelitis + vancomycin toxicity leveled off to 1.5 - 1.9mg/dl from June - September 2023 suspect left overs from DOLLY in March 2023 in conjunction with HTN, DM, vascular disease and age-related change (3) Septic shock: Code(s): A41.9 - Sepsis, unspecified organism; R65.21 - Severe sepsis with septic shock Status: Acute Assessment and Plan: resolved/resolving severe/significant hypotension on presentation 80 - 90s systolic on admission/presentation noted drop to 60 - 70s systolic (on 12/17/23) refractory to IVF resuscitation (no improvement in BP despite 5L IVFs) central line placed and initiated on vasopressor therapy weaned off levophed follow trend of hemodynamics follow culture data - blood/urine cultures negative to date completed 5 day course of antibiotics (4) Bradycardia: Code(s): R00.1 - Bradycardia, unspecified Status: Acute Assessment and Plan: stable if not improving presumably due to to hyperkalemia and septic shock EKG - bradycardia, with RBBB, 1st degree AV block troponins negative Echo results noted (5) Metabolic acidosis: Code(s): E87.20 - Acidosis, unspecified Status: Acute Assessment and Plan: likely due to DOLLY/ARF lactic acid normal follow trend of CO2 levels on oral sodium bicarbonate to compensate (6) UTI (urinary tract infection): Code(s): N39.0 - Urinary tract infection, site not specified Status: Acute Assessment and Plan: admission UA suggestive of infection urine culture results negative completed course of antibiotics (7) Diabetes: Code(s): E11.9 - Type 2 diabetes mellitus without complications Status: Acute Assessment and Plan: follow accu-cheks glycemic control per hospitalist Will continue to follow. Subjective Date/time seen: 12/22/23 10:11 Interval history: Follow-up for acute kidney injury/acute renal failure on chronic kidney disease. Transferred out of ICU yesterday afternoon; stable hemodynamics noted on midodrine therapy (off vasopressors and stress dose steroids); slow improvement in creatinine and potassium with stable urine output but BUN continues to rise/remain elevated; no apparent distress noted. Exam Narrative: General: elderly but WD/WN female in NAD Heart: normal S1 and S2; no rub Lungs: clear to auscultation Abdomen: soft, nontender, nondistended, + bowel sounds Extremities: no cyanosis or clubbing; no edema Skin: chronic skin changes noted Objective Data Vital Signs Vital Signs: Vital Signs Temp Pulse Resp BP Pulse Ox O2 Del Method 12/22/23 06:00 96.9 F L 62 18 114/57 L 97 12/22/23 04:02 53 L 12/22/23 00:02 52 L
--- NOTE | 2023-12-22 10:11 | P.PNNP_ITS ---
Progress Note: A&P Assessment and Plan (1) DOLLY (acute kidney injury): Code(s): N17.9 - Acute kidney failure, unspecified Status: Acute Assessment and Plan: * slow improvement noted * presumably related to hemodynamic instability/shock and possible infection (UTI) * admission creatinine 6.3mg/dl and associated hyperkalemia * s/p medical management for elevated K+ * follow trend of K+ * follow-up on outpatient serological testing * evaluation to date noted: * urine electrolytes prerenal * urine eosinophils negative * CT abd/pelvis without obstruction * renal ultrasound normal * CPK mildly elevated (but not enough to affect kidney function) * remains at risk for [employer] INTEGRATION [employer]IST/dialysis given severity of insult * however, the need would be more for clearance of uremic toxins given elevated BUN * azotemia maybe related more to steroid use... * follow trend of repeat labs and UOP (2) Stage 3b chronic kidney disease: Code(s): N18.32 - Chronic kidney disease, stage 3b Status: Chronic Assessment and Plan: * normal renal function about a year ago (early November 2022) * worsened to 2.3 - 2.4mg/dl in March 2023 * etiology suspected to be ATN for infection/osteomyelitis + vancomycin toxicity * leveled off to 1.5 - 1.9mg/dl from June - September 2023 * suspect left overs from DOLLY in March 2023 in conjunction with HTN, DM, vascular disease and age-related change (3) Septic shock: Code(s): A41.9 - Sepsis, unspecified organism; R65.21 - Severe sepsis with septic shock Status: Acute Assessment and Plan: * resolved/resolving * severe/significant hypotension on presentation * 80 - 90s systolic on admission/presentation * noted drop to 60 - 70s systolic (on 12/17/23) * refractory to IVF resuscitation (no improvement in BP despite 5L IVFs) * central line placed and initiated on vasopressor therapy * weaned off levophed * follow trend of hemodynamics * follow culture data - blood/urine cultures negative to date * completed 5 day course of antibiotics (4) Bradycardia: Code(s): R00.1 - Bradycardia, unspecified Status: Acute Assessment and Plan: * stable if not improving * presumably due to to hyperkalemia and septic shock * EKG - bradycardia, with RBBB, 1st degree AV block * troponins negative * Echo results noted (5) Metabolic acidosis: Code(s): E87.20 - Acidosis, unspecified Status: Acute Assessment and Plan: * likely due to DOLLY/ARF * lactic acid normal * follow trend of CO2 levels * on oral sodium bicarbonate to compensate (6) UTI (urinary tract infection): Code(s): N39.0 - Urinary tract infection, site not specified Status: Acute Assessment and Plan: * admission UA suggestive of infection * urine culture results negative * completed course of antibiotics (7) Diabetes: Code(s): E11.9 - Type 2 diabetes mellitus without complications Status: Acute Assessment and Plan: * follow accu-cheks * glycemic control per hospitalist Will continue to follow. Subjective Date/time seen: 12/22/23 10:11 Interval history: Follow-up for acute kidney injury/acute renal failure on chronic kidney disease. Transferred out of ICU yesterday afternoon; stable hemodynamics noted on midodrine therapy (off vasopressors and stress dose steroids); slow improvement in creatinine and potassium with stable urine output but BUN continues to rise/remain elevated; no apparent distr
[2023-12-22 11:37] LABS: Glucose Point of Care 174 mg/dl (65-105)
[2023-12-22 13:29] LABS: Hepatitis B Core Ab Total Nonreactive (Nonreactive)
[2023-12-22] MEDS: LACTATED RINGERS 500 ML IV CONT (14:18)
--- NOTE | 2023-12-22 14:41 | PM.CNCAR ---
Assessment and Plan Assessment and plan (1) Bradycardia: Code(s): R00.1 - Bradycardia, unspecified Status: Acute Plan This is an 78-year-old lady who has hyperdynamic left ventricular function and bifascicular block. She was admitted to the hospital last week with the worsening renal failure which appears to at least have stabilized since admission last week. Been taken off of ARIN-inhibitor and beta-ayush therapy which she previously was on for hypertension and is now taking midodrine. Those maneuvers she is at times tachycardic but she is not having any significant arrhythmias nor is she having any significant pauses that are problematic or symptomatic. While she is in the hospital I would recommend gradually trying to wean her down or off of midodrine and place her back on some metoprolol. As far as her cardiac rhythm is concerned I do not see any arrhythmias or pauses the require further attention. She certainly does not qualify for a pacemaker devices she is not significantly bradycardic she is not having any symptoms of bradycardia and she has do not resuscitate orders on her chart. I will see her in the future if the need arises otherwise Cardiology will sign off Terrell Castillo MD [facility] History of Present Illness History of Present Illness Consult date/time: 12/22/23 14:41 Reason For Visit: Acute Renal Failure, Hyperkalemia Narrative: This is a 78-year-old woman I am asked to see at the request of the hospitalist because of concern regarding tachy/Go the patient is unknown to me prior to this consultation her chart was reviewed and she was seen in consultation. Hospitalized last week on 12/17/2023 at the request of her homemaker companion because of worsening of her renal insufficiency and hyperkalemia. She had a very high BUN and creatinine of over 6 with hyperkalemia that was admitted for further evaluation of this. According to the records this lady who normally is hypertensive was significantly hypotensive was placed in the ICU and placed on pressor support for a couple of days. She was then placed and midodrine and moved to the floor yesterday. During this hospitalization she has been on telemetry the whole time and her rhythm normal sinus rhythm/sinus bradycardia at times sinus tachycardia. This morning she was more tachycardic and she also had an EKG that showed some atrial ectopic activity but no other arrhythmias beyond that. For her hypertension she normally takes 100 mg daily of metoprolol but presumably because of the hypotension that has not been strict restarted a during this hospital stay. Her primary care physician is Dr. Liu. The patient states he has never expressed concern about her cardiac status. Her homemaker companion is Dr Garcia. Her electrocardiogram shows sinus rhythm with right bundle branch block with left anterior superior him. This is unchanged in comparison to previous tracings in her chart. She did have an echocardiogram done last week which she was admitted which demonstrated a hyperdynamic appearing left ventricle with no valvular dysfunction. The patient's creatinine remains over 5 with a BUN of over 100. There do not appear to be any immediate plants [place] hemodialysis. She does have do not resuscitate on her chart Review of Systems Constitutional: Constitutional: Reports weakness Eyes: Eyes: Reports no additional eye complaints ENT: Reports system reviewed and no additional complaints, except as documented Cardiovascular: Cardiovascular: Reports no additional cardiovascular complaints Respiratory: Respiratory: Reports no additional respiratory complaints Gastrointestinal: Gastrointestinal: Reports nausea Musculoskeletal: Musculoskeletal: Reports back pain Integumentary/Breasts: Skin/Breast: Reports system reviewed and no additional complaints, except as docu Neurologic: Reports system reviewed and no additional complaints, except as documented Endocrine: End
[2023-12-22 16:47] LABS: Glucose Point of Care 236 mg/dl (65-105)
--- NOTE | 2023-12-22 17:04 | PM.IMPN ---
Progress Note: A&P Assessment and Plan (1) Septic shock: Code(s): A41.9 - Sepsis, unspecified organism; R65.21 - Severe sepsis with septic shock Status: Acute Assessment and Plan: Patient with hypotension, refractory to 4 L IV fluids, initially patient was admitted to the IMU, her SBP on 12/17/2023 was in the 40s to 60s, additional 1 L IV fluid was started, patient was brought to the ICU and I emergently placed a central line in the right femoral vein and started her on Levophed -off Levophed since afternoon of 12/18 -continue meropenem and vancomycin (12/17) for total of 5 days -lactic acid is normal -status post albumin -12/17: Blood cultures negative x2 so far -12/17: Urine cultures no growth 12/16/2023 CT scan of the abdomen and pelvis without contrast Moderate right pleural effusion. Hepatomegaly. Likely duodenitis and jejunal enteritis. Presumed reactive distention/fluid at the gallbladder. Cholecystitis is not excluded. Interval enlargement of the left lower abdominal/pelvic hernia containing multiple loops of nonobstructed large and small bowel, as well as the normal appendix. Small volume ascites. (2) Bradycardia: Code(s): R00.1 - Bradycardia, unspecified Status: Acute Assessment and Plan: Likely related to hyperkalemia, septic shock, ACS, ischemic heart disease -troponins negative x1 -EKG bradycardia, with RBBB, 1st degree AV block -12/17/23 echocardiogram Summary ? 1. Complete two-dimensional, color flow and Doppler transthoracic echocardiogram is performed. ? 2. Normal left ventricular size with mild concentric hypertrophy.? Good contractility of all segments.? Ejection fraction 65-70%.? Grade 2 diastolic dysfunction is present. ? 3. Left atrial chamber dimension is moderately enlarged. ? 4. No significant valve disease. ? 5. Dilated inferior vena cava with <50% collapse upon inspiration consistent with elevated right atrial pressure.? RVSP could not be calculated on this study.. ? 6. Rhythm indeterminate. Per Cardiology: 78-year-old lady who has hyperdynamic left ventricular function and bifascicular block.? She was admitted to the hospital last week with the worsening renal failure which appears to at least have stabilized since admission last week.? Been taken off of ARIN-inhibitor and beta-ayush therapy which she previously was on for hypertension and is now taking midodrine.? Those maneuvers she is at times tachycardic but she is not having any significant arrhythmias nor is she having any significant pauses that are problematic or symptomatic.? While she is in the hospital I would recommend gradually trying to wean her down or off of midodrine and place her back on some metoprolol.? As far as her cardiac rhythm is concerned I do not see any arrhythmias or pauses the require further attention.? She certainly does not qualify for a pacemaker devices she is not significantly bradycardic she is not having any symptoms of bradycardia and she has do not resuscitate orders on her chart.? I will see her in the future if the need arises otherwise Cardiology will sign off (3) UTI (urinary tract infection): Code(s): N39.0 - Urinary tract infection, site not specified Status: Acute Assessment and Plan: UA reflective of UTI, continue antibiotics as above -urine cultures negative (4) Acute on chronic renal failure: Code(s): N17.9 - Acute kidney failure, unspecified; N18.9 - Chronic kidney disease, unspecified Status: Acute Assessment and Plan: Patient has history of chronic kidney disease stage 3, follows with as outpatient -baseline creatinine has been 1.5-2.4 -patient presented with a creatinine of 6.30 -patient had been adequately resuscitated with 5 L IV fluids -currently on Levophed -CK level was normal, no urine eosinophils were seen -12/17 renal ultrasound: Normal size kidneys, no hydronephrosis -renal electrolytes reflective of prerenal p
[2023-12-22] MEDS: INSULIN ASPART (*BKC) 100 UNITS/ML SUB-Q ×2 (17:14→21:26)
[2023-12-22 21:24] LABS: Glucose Point of Care 263 mg/dl (65-105)
[2023-12-23] VITALS (8 sets, daily range): BP systolic 122–130; BP diastolic 38–58; PULSE 67–119; RESP 14–18; TEMP 35.8–36.1; O2SAT 99–100
[2023-12-23] MEDS: MIDODRINE HCL 10 MG TABLET PO ×2 (05:21→20:38)
[2023-12-23 07:45] LABS: Glucose Point of Care 94 mg/dl (65-105)
[2023-12-23 07:46] LABS: Basophils Percent Auto 0.4 % (0.2-1.2); Eosinophils Absolute Auto 0.1 K/mm3 (0-0.3); Eosinophils Percent Auto 1.4 % (0-4.4); Hematocrit 31.4 % (37.0-47.0); Hemoglobin 10.2 g/dL (12.0-15.0); Immature Granulocyte Absolute 0.25 K/mm3 (0.00-0.031); Immature Granulocyte Percent A 2.7 % (0-0.5); Lymphocytes Percent Auto 12.8 % (18.3-44.2); Mean Corpuscular HGB Conc 32.5 g/dl (32-36); Mean Corpuscular Hemoglobin 29.6 pg (26-34); Mean Platelet Volume 10.4 fl (7.4-10.4); Monocytes Absolute Auto 1.3 K/mm3 (0.1-0.6); Monocytes Percent Auto 13.8 % (2.6-8.5); Neutrophils Absolute Auto 6.5 K/mm3 (1.3-6.7); Neutrophils Percent Auto 68.9 % (45.5-73.1); Platelet Count Result 229 k/mm3 (150-375); Red Blood Count 3.45 M/mm3 (4.2-5.4); Red Cell Distribution Width 20.9 % (11.5-14.5); White Blood Count 9.4 K/mm3 (4.5-10.0)
[2023-12-23 07:58] LABS: Alanine Aminotransferase 12 U/L (6-35); Albumin Level 2.9 g/dL (3.5-5.1); Alkaline Phosphatase 40 U/L (38-126); Anion Gap 11 mmol/L (8-16); Aspartate Amino Transferase 19 U/L (14-36); Bilirubin,Total 0.4 mg/dL (0.2-1.3); Calcium 8.3 mg/dL (8.4-10.2); Carbon Dioxide 18 mmol/L (22-30); Chloride 102 mmol/L (98-107); Estimated CRCL calculation 9 ml/min; Estimated Glomerular Filt Rate 10; Glucose 99 mg/dL (65-110); Magnesium 2.3 mg/dL (1.6-2.3); Phosphorus 5.9 mg/dL (2.5-4.5); Potassium 4.8 mmol/L (3.4-5.0); Sodium 131 mmol/L (137-145)
[2023-12-23] MEDS: CHOLECALCIFEROL 1,000 UNITS TABLET 5000 UNITS PO (09:14)
[2023-12-23] MEDS: CALCIUM CARBONATE (OSCAL) 500 MG TABLET PO (09:15)
[2023-12-23] MEDS: APIXABAN 5 MG TABLET PO ×2 (09:15→20:38)
[2023-12-23] MEDS: SODIUM BICARBONATE TAB 650 MG TABLET PO ×2 (09:15→18:14)
[2023-12-23 09:39] LABS: Blood Urea Nitrogen 142 mg/dL (7-17)
--- NOTE | 2023-12-23 10:15 | PM.PNNEP ---
Progress Note: A&P Assessment and Plan (1) DOLLY (acute kidney injury): Code(s): N17.9 - Acute kidney failure, unspecified Status: Acute Assessment and Plan: slow improvement noted presumably related to hemodynamic instability/shock and possible infection (UTI) admission creatinine 6.3mg/dl and associated hyperkalemia s/p medical management for elevated K+ follow trend of K+ follow-up on outpatient serological testing evaluation to date noted: urine electrolytes prerenal urine eosinophils negative CT abd/pelvis without obstruction renal ultrasound normal CPK mildly elevated (but not enough to affect kidney function) remains at risk for [employer]/dialysis given severity of insult however, the need would be more for clearance of uremic toxins given elevated BUN azotemia maybe related more to steroid use... follow trend of repeat labs and UOP (2) Stage 3b chronic kidney disease: Code(s): N18.32 - Chronic kidney disease, stage 3b Status: Chronic Assessment and Plan: normal renal function about a year ago (early November 2022) worsened to 2.3 - 2.4mg/dl in March 2023 etiology suspected to be ATN for infection/osteomyelitis + vancomycin toxicity leveled off to 1.5 - 1.9mg/dl from June - September 2023 suspect left overs from DOLLY in March 2023 in conjunction with HTN, DM, vascular disease and age-related change (3) Septic shock: Code(s): A41.9 - Sepsis, unspecified organism; R65.21 - Severe sepsis with septic shock Status: Acute Assessment and Plan: resolved/resolving severe/significant hypotension on presentation 80 - 90s systolic on admission/presentation noted drop to 60 - 70s systolic (on 12/17/23) refractory to IVF resuscitation (no improvement in BP despite 5L IVFs) central line placed and initiated on vasopressor therapy weaned off levophed follow trend of hemodynamics follow culture data - blood/urine cultures negative to date completed 5 day course of antibiotics (4) Bradycardia: Code(s): R00.1 - Bradycardia, unspecified Status: Acute Assessment and Plan: stable if not improving presumably due to to hyperkalemia and septic shock EKG - bradycardia, with RBBB, 1st degree AV block troponins negative Echo results noted (5) Metabolic acidosis: Code(s): E87.20 - Acidosis, unspecified Status: Acute Assessment and Plan: likely due to DOLLY/ARF lactic acid normal follow trend of CO2 levels on oral sodium bicarbonate to compensate (6) UTI (urinary tract infection): Code(s): N39.0 - Urinary tract infection, site not specified Status: Acute Assessment and Plan: admission UA suggestive of infection urine culture results negative completed course of antibiotics (7) Diabetes: Code(s): E11.9 - Type 2 diabetes mellitus without complications Status: Acute Assessment and Plan: follow accu-cheks glycemic control per hospitalist Will continue to follow. Subjective Date/time seen: 12/23/23 10:15 Interval history: Follow-up for acute kidney injury/acute renal failure on chronic kidney disease. Creatinine continues to improve but BUN continues to rise; reasonable urine output noted; no apparent distress noted; stable hemodynamics present with use of midodrine therapy. Exam Narrative: General: elderly but WD/WN female in NAD Heart: normal S1 and S2; no rub Lungs: clear to auscultation Abdomen: soft, nontender, nondistended, + bowel sounds Extremities: no cyanosis or clubbing; no edema Skin: chronic skin changes Objective Data Vital Signs Vital Signs: Vital Signs Temp Pulse Resp BP Pulse Ox O2 Del Method 12/23/23 08:00 67 18 99 Room Air 12/23/23 08:00 67 12/23/23 04:13 96.8 F L 67 18 130/58 L 99 12/23/23 04:00 73 12/23/23 00:00 119 H 12/22/23 20:00 69 12/22/23 21:32
--- NOTE | 2023-12-23 10:15 | P.PNNP_ITS ---
Progress Note: A&P Assessment and Plan (1) DOLLY (acute kidney injury): Code(s): N17.9 - Acute kidney failure, unspecified Status: Acute Assessment and Plan: * slow improvement noted * presumably related to hemodynamic instability/shock and possible infection (UTI) * admission creatinine 6.3mg/dl and associated hyperkalemia * s/p medical management for elevated K+ * follow trend of K+ * follow-up on outpatient serological testing * evaluation to date noted: * urine electrolytes prerenal * urine eosinophils negative * CT abd/pelvis without obstruction * renal ultrasound normal * CPK mildly elevated (but not enough to affect kidney function) * remains at risk for [employer]/dialysis given severity of insult * however, the need would be more for clearance of uremic toxins given elevated BUN * azotemia maybe related more to steroid use... * follow trend of repeat labs and UOP (2) Stage 3b chronic kidney disease: Code(s): N18.32 - Chronic kidney disease, stage 3b Status: Chronic Assessment and Plan: * normal renal function about a year ago (early November 2022) * worsened to 2.3 - 2.4mg/dl in March 2023 * etiology suspected to be ATN for infection/osteomyelitis + vancomycin toxicity * leveled off to 1.5 - 1.9mg/dl from June - September 2023 * suspect left overs from DOLLY in March 2023 in conjunction with HTN, DM, vascular disease and age-related change (3) Septic shock: Code(s): A41.9 - Sepsis, unspecified organism; R65.21 - Severe sepsis with septic shock Status: Acute Assessment and Plan: * resolved/resolving * severe/significant hypotension on presentation * 80 - 90s systolic on admission/presentation * noted drop to 60 - 70s systolic (on 12/17/23) * refractory to IVF resuscitation (no improvement in BP despite 5L IVFs) * central line placed and initiated on vasopressor therapy * weaned off levophed * follow trend of hemodynamics * follow culture data - blood/urine cultures negative to date * completed 5 day course of antibiotics (4) Bradycardia: Code(s): R00.1 - Bradycardia, unspecified Status: Acute Assessment and Plan: * stable if not improving * presumably due to to hyperkalemia and septic shock * EKG - bradycardia, with RBBB, 1st degree AV block * troponins negative * Echo results noted (5) Metabolic acidosis: Code(s): E87.20 - Acidosis, unspecified Status: Acute Assessment and Plan: * likely due to DOLLY/ARF * lactic acid normal * follow trend of CO2 levels * on oral sodium bicarbonate to compensate (6) UTI (urinary tract infection): Code(s): N39.0 - Urinary tract infection, site not specified Status: Acute Assessment and Plan: * admission UA suggestive of infection * urine culture results negative * completed course of antibiotics (7) Diabetes: Code(s): E11.9 - Type 2 diabetes mellitus without complications Status: Acute Assessment and Plan: * follow accu-cheks * glycemic control per hospitalist Will continue to follow. Subjective Date/time seen: 12/23/23 10:15 Interval history: Follow-up for acute kidney injury/acute renal failure on chronic kidney disease. Creatinine continues to improve but BUN continues to rise; reasonable urine output noted; no apparent distress noted; stable hemodynamics present with use of midodrine therapy. Exam Narrative: General: elderly but WD/WN Caucasia
[2023-12-23 11:14] LABS: Glucose Point of Care 149 mg/dl (65-105)
[2023-12-23 16:34] LABS: Glucose Point of Care 125 mg/dl (65-105)
[2023-12-23] MEDS: INSULIN ASPART (*BKC) 100 UNITS/ML SUB-Q (20:42)
[2023-12-23 20:52] LABS: Glucose Point of Care 205 mg/dl (65-105)
[2023-12-24] VITALS (9 sets, daily range): BP systolic 96–142; BP diastolic 42–45; PULSE 62–100; RESP 12–18; TEMP 36.1–36.2; O2SAT 97–100
[2023-12-24] MEDS: MIDODRINE HCL 10 MG TABLET PO ×2 (05:26→13:54)
[2023-12-24 06:10] LABS: Basophils Percent Auto 0.4 % (0.2-1.2); Eosinophils Absolute Auto 0.2 K/mm3 (0-0.3); Eosinophils Percent Auto 2.4 % (0-4.4); Hematocrit 29.6 % (37.0-47.0); Hemoglobin 9.7 g/dL (12.0-15.0); Immature Granulocyte Absolute 0.22 K/mm3 (0.00-0.031); Immature Granulocyte Percent A 3.2 % (0-0.5); Lymphocytes Absolute Auto 0.76 K/mm3 (0.9-3.2); Lymphocytes Percent Auto 10.9 % (18.3-44.2); Mean Corpuscular HGB Conc 32.8 g/dl (32-36); Mean Corpuscular Hemoglobin 29.6 pg (26-34); Mean Corpuscular Volume 90.2 fl (80-100); Mean Platelet Volume 9.7 fl (7.4-10.4); Monocytes Percent Auto 13.9 % (2.6-8.5); Neutrophils Absolute Auto 4.8 K/mm3 (1.3-6.7); Neutrophils Percent Auto 69.2 % (45.5-73.1); Platelet Count Result 207 k/mm3 (150-375); Red Blood Count 3.28 M/mm3 (4.2-5.4); Red Cell Distribution Width 21.2 % (11.5-14.5)
[2023-12-24 06:29] LABS: Alanine Aminotransferase 11 U/L (6-35); Albumin Level 2.8 g/dL (3.5-5.1); Alkaline Phosphatase 43 U/L (38-126); Anion Gap 10 mmol/L (8-16); Aspartate Amino Transferase 23 U/L (14-36); Bilirubin,Total 0.4 mg/dL (0.2-1.3); Calcium 8.2 mg/dL (8.4-10.2); Carbon Dioxide 20 mmol/L (22-30); Chloride 102 mmol/L (98-107); Estimated CRCL calculation 11 ml/min; Estimated Glomerular Filt Rate 11; Glucose 96 mg/dL (65-110); Magnesium 2.1 mg/dL (1.6-2.3); Phosphorus 5.6 mg/dL (2.5-4.5); Potassium 5.2 mmol/L (3.4-5.0); Sodium 132 mmol/L (137-145)
[2023-12-24 06:56] LABS: Blood Urea Nitrogen 139 mg/dL (7-17)
[2023-12-24 07:22] LABS: Glucose Point of Care 104 mg/dl (65-105)
[2023-12-24] MEDS: CHOLECALCIFEROL 1,000 UNITS TABLET 5000 UNITS PO (08:21)
[2023-12-24] MEDS: APIXABAN 5 MG TABLET PO ×2 (08:22→20:42)
[2023-12-24] MEDS: CALCIUM CARBONATE (OSCAL) 500 MG TABLET PO (08:22)
[2023-12-24] MEDS: SODIUM BICARBONATE TAB 650 MG TABLET PO ×2 (08:22→17:05)
--- NOTE | 2023-12-24 10:41 | PCNWS ---
Weekly nutritional screen. Patient is tolerating current diet with adequate intake. Intakes 0-85%, per patient she is eating as much as she ever eats. Glucerna BID is ordered for additional 220 kcal and 10 g protein each with some recorded intakes. No weight loss reported. No nutritional needs at this time.
[2023-12-24 11:22] LABS: Glucose Point of Care 153 mg/dl (65-105)
--- NOTE | 2023-12-24 13:08 | PM.PNNEP ---
Progress Note: A&P Assessment and Plan (1) DOLLY (acute kidney injury): Code(s): N17.9 - Acute kidney failure, unspecified Status: Acute Assessment and Plan: slow improvement noted presumably related to hemodynamic instability/shock and possible infection (UTI) admission creatinine 6.3mg/dl and associated hyperkalemia s/p medical management for elevated K+ follow trend of K+ evaluation to date noted: urine electrolytes prerenal urine eosinophils negative CT abd/pelvis without obstruction renal ultrasound normal CPK mildly elevated (but not enough to affect kidney function) outpatient serological testing negative to date remains at risk for [employer]CHITECT/dialysis given severity of insult however, the need would be more for clearance of uremic toxins given elevated BUN azotemia maybe related more to steroid use (which has since been discontinued follow trend of repeat labs and UOP (2) Stage 3b chronic kidney disease: Code(s): N18.32 - Chronic kidney disease, stage 3b Status: Chronic Assessment and Plan: normal renal function about a year ago (early November 2022) worsened to 2.3 - 2.4mg/dl in March 2023 etiology suspected to be ATN for infection/osteomyelitis + vancomycin toxicity leveled off to 1.5 - 1.9mg/dl from June - September 2023 suspect left overs from DOLLY in March 2023 in conjunction with HTN, DM, vascular disease and age-related change (3) Septic shock: Code(s): A41.9 - Sepsis, unspecified organism; R65.21 - Severe sepsis with septic shock Status: Acute Assessment and Plan: resolved/resolving severe/significant hypotension on presentation 80 - 90s systolic on admission/presentation noted drop to 60 - 70s systolic (on 12/17/23) refractory to IVF resuscitation (no improvement in BP despite 5L IVFs) central line placed and initiated on vasopressor therapy weaned off levophed follow trend of hemodynamics follow culture data - blood/urine cultures negative to date completed 5 day course of antibiotics (4) Bradycardia: Code(s): R00.1 - Bradycardia, unspecified Status: Acute Assessment and Plan: stable if not improving presumably due to to hyperkalemia and septic shock EKG - bradycardia, with RBBB, 1st degree AV block troponins negative Echo results noted (5) Metabolic acidosis: Code(s): E87.20 - Acidosis, unspecified Status: Acute Assessment and Plan: likely due to DOLLY/ARF lactic acid normal follow trend of CO2 levels on oral sodium bicarbonate to compensate (6) UTI (urinary tract infection): Code(s): N39.0 - Urinary tract infection, site not specified Status: Acute Assessment and Plan: admission UA suggestive of infection urine culture results negative completed course of antibiotics (7) Diabetes: Code(s): E11.9 - Type 2 diabetes mellitus without complications Status: Acute Assessment and Plan: follow accu-cheks glycemic control per hospitalist If BUN and creatinine continues to improve, not opposed to discharge from renal perspective with close outpatient follow-up and repeat labs to ensure kidney function continues to improve. Will continue to follow. Subjective Date/time seen: 12/24/23 13:08 Interval history: Follow-up for acute kidney injury/acute renal failure on chronic kidney disease. Good urine output noted with some improvement in BUN today along with ongoing improvement in creatinine; no apparent distress noted; no issues/events overnight or earlier this morning. Exam Narrative: General: elderly but WD/WN female in NAD Heart: normal S1 and S2; no rub Lungs: clear to auscultation Abdomen: soft, nontender, nondistended, + bowel sounds Extremities: no cyanosis or clubbing; no edema Skin: chronic skin changes noted Objective Data Vital Signs Vital Signs: Vital Signs Temp Pulse Resp
--- NOTE | 2023-12-24 13:08 | P.PNNP_ITS ---
Progress Note: A&P Assessment and Plan (1) DOLLY (acute kidney injury): Code(s): N17.9 - Acute kidney failure, unspecified Status: Acute Assessment and Plan: * slow improvement noted * presumably related to hemodynamic instability/shock and possible infection (UTI) * admission creatinine 6.3mg/dl and associated hyperkalemia * s/p medical management for elevated K+ * follow trend of K+ * evaluation to date noted: * urine electrolytes prerenal * urine eosinophils negative * CT abd/pelvis without obstruction * renal ultrasound normal * CPK mildly elevated (but not enough to affect kidney function) * outpatient serological testing negative to date * 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 given severity of insult * however, the need would be more for clearance of uremic toxins given elevated BUN * azotemia maybe related more to steroid use (which has since been discontinued * follow trend of repeat labs and UOP (2) Stage 3b chronic kidney disease: Code(s): N18.32 - Chronic kidney disease, stage 3b Status: Chronic Assessment and Plan: * normal renal function about a year ago (early November 2022) * worsened to 2.3 - 2.4mg/dl in March 2023 * etiology suspected to be ATN for infection/osteomyelitis + vancomycin toxicity * leveled off to 1.5 - 1.9mg/dl from June - September 2023 * suspect left overs from DOLLY in March 2023 in conjunction with HTN, DM, vascular disease and age-related change (3) Septic shock: Code(s): A41.9 - Sepsis, unspecified organism; R65.21 - Severe sepsis with septic shock Status: Acute Assessment and Plan: * resolved/resolving * severe/significant hypotension on presentation * 80 - 90s systolic on admission/presentation * noted drop to 60 - 70s systolic (on 12/17/23) * refractory to IVF resuscitation (no improvement in BP despite 5L IVFs) * central line placed and initiated on vasopressor therapy * weaned off levophed * follow trend of hemodynamics * follow culture data - blood/urine cultures negative to date * completed 5 day course of antibiotics (4) Bradycardia: Code(s): R00.1 - Bradycardia, unspecified Status: Acute Assessment and Plan: * stable if not improving * presumably due to to hyperkalemia and septic shock * EKG - bradycardia, with RBBB, 1st degree AV block * troponins negative * Echo results noted (5) Metabolic acidosis: Code(s): E87.20 - Acidosis, unspecified Status: Acute Assessment and Plan: * likely due to DOLLY/ARF * lactic acid normal * follow trend of CO2 levels * on oral sodium bicarbonate to compensate (6) UTI (urinary tract infection): Code(s): N39.0 - Urinary tract infection, site not specified Status: Acute Assessment and Plan: * admission UA suggestive of infection * urine culture results negative * completed course of antibiotics (7) Diabetes: Code(s): E11.9 - Type 2 diabetes mellitus without complications Status: Acute Assessment and Plan: * follow accu-cheks * glycemic control per hospitalist If BUN and creatinine continues to improve, not opposed to discharge from renal perspective with close outpatient follow-up and repeat labs to ensure kidney function continues to improve. Will continue to follow. Subjective Date/time seen: 12/24/23 13:08 Interval history: Follow-up for acute kidney injury/acute renal failure on chronic kidney disease. Good urine output noted
[2023-12-24 16:15] LABS: Glucose Point of Care 113 mg/dl (65-105)
[2023-12-24 22:02] LABS: Glucose Point of Care 161 mg/dl (65-105)
[2023-12-25] VITALS: PULSE 68
[2023-12-25 04:00] VITALS: PULSE 71
[2023-12-25 04:10] VITALS: BP 136/60; PULSE 113; RESP 16; TEMP 36.4; O2SAT 97
[2023-12-25] MEDS: MIDODRINE HCL 10 MG TABLET PO ×2 (05:18→13:31)
[2023-12-25 06:03] LABS: Basophils Percent Auto 0.2 % (0.2-1.2); Eosinophils Absolute Auto 0.1 K/mm3 (0-0.3); Eosinophils Percent Auto 2.1 % (0-4.4); Hematocrit 27.5 % (37.0-47.0); Immature Granulocyte Absolute 0.12 K/mm3 (0.00-0.031); Lymphocytes Absolute Auto 0.73 K/mm3 (0.9-3.2); Lymphocytes Percent Auto 11.9 % (18.3-44.2); Mean Corpuscular HGB Conc 32.7 g/dl (32-36); Mean Corpuscular Hemoglobin 29.5 pg (26-34); Mean Corpuscular Volume 90.2 fl (80-100); Mean Platelet Volume 10.2 fl (7.4-10.4); Monocytes Absolute Auto 0.9 K/mm3 (0.1-0.6); Monocytes Percent Auto 13.9 % (2.6-8.5); Neutrophils Absolute Auto 4.3 K/mm3 (1.3-6.7); Neutrophils Percent Auto 69.9 % (45.5-73.1); Platelet Count Result 202 k/mm3 (150-375); Red Blood Count 3.05 M/mm3 (4.2-5.4); Red Cell Distribution Width 20.8 % (11.5-14.5); White Blood Count 6.1 K/mm3 (4.5-10.0)
[2023-12-25 06:50] LABS: Alanine Aminotransferase 12 U/L (6-35); Albumin Level 2.8 g/dL (3.5-5.1); Alkaline Phosphatase 43 U/L (38-126); Anion Gap 9 mmol/L (8-16); Aspartate Amino Transferase 24 U/L (14-36); Bilirubin,Total 0.5 mg/dL (0.2-1.3); Calcium 8.2 mg/dL (8.4-10.2); Carbon Dioxide 20 mmol/L (22-30); Chloride 104 mmol/L (98-107); Estimated CRCL calculation 11 ml/min; Estimated Glomerular Filt Rate 13; Glucose 112 mg/dL (65-110); Magnesium 2.1 mg/dL (1.6-2.3); Phosphorus 5.1 mg/dL (2.5-4.5); Potassium 4.9 mmol/L (3.4-5.0); Sodium 133 mmol/L (137-145)
[2023-12-25 07:17] LABS: Blood Urea Nitrogen 126 mg/dL (7-17)
[2023-12-25 08:00] VITALS: PULSE 78
[2023-12-25 08:05] LABS: Glucose Point of Care 110 mg/dl (65-105)
[2023-12-25] MEDS: TOLNAFTATE 1% POWDER 45 GM BTL 1 APPLIC TOPICAL (09:00)
[2023-12-25] MEDS: APIXABAN 5 MG TABLET PO (09:00)
[2023-12-25] MEDS: CHOLECALCIFEROL 1,000 UNITS TABLET 5000 UNITS PO (09:00)
[2023-12-25] MEDS: SODIUM BICARBONATE TAB 650 MG TABLET PO (09:00)
[2023-12-25] MEDS: CALCIUM CARBONATE (OSCAL) 500 MG TABLET PO (09:00)
[2023-12-25 11:21] LABS: Glucose Point of Care 130 mg/dl (65-105)
[2023-12-25 12:00] VITALS: PULSE 94
--- NOTE | 2023-12-25 12:35 | PM.PNNEP ---
Progress Note: A&P Assessment and Plan (1) DOLLY (acute kidney injury): Code(s): N17.9 - Acute kidney failure, unspecified Status: Acute Assessment and Plan: slow improvement noted presumably related to hemodynamic instability/shock and possible infection (UTI) admission creatinine 6.3mg/dl and associated hyperkalemia s/p medical management for elevated K+ follow trend of K+ evaluation to date noted: urine electrolytes prerenal urine eosinophils negative CT abd/pelvis without obstruction renal ultrasound normal CPK mildly elevated (but not enough to affect kidney function) outpatient serological testing negative to date was at risk for [employer]/dialysis given severity of insult (but need less likely now) however, the need would be more for clearance of uremic toxins given elevated BUN azotemia maybe related more to steroid use (which has since been discontinued) follow trend of repeat labs and UOP (2) Stage 3b chronic kidney disease: Code(s): N18.32 - Chronic kidney disease, stage 3b Status: Chronic Assessment and Plan: normal renal function about a year ago (early November 2022) worsened to 2.3 - 2.4mg/dl in March 2023 etiology suspected to be ATN for infection/osteomyelitis + vancomycin toxicity leveled off to 1.5 - 1.9mg/dl from June - September 2023 suspect left overs from DOLLY in March 2023 in conjunction with HTN, DM, vascular disease and age-related change (3) Septic shock: Code(s): A41.9 - Sepsis, unspecified organism; R65.21 - Severe sepsis with septic shock Status: Acute Assessment and Plan: resolved/resolving severe/significant hypotension on presentation 80 - 90s systolic on admission/presentation noted drop to 60 - 70s systolic (on 12/17/23) refractory to IVF resuscitation (no improvement in BP despite 5L IVFs) central line placed and initiated on vasopressor therapy weaned off levophed follow trend of hemodynamics blood/urine cultures negative to date completed 5 day course of antibiotics wean midodrine therapy (4) Bradycardia: Code(s): R00.1 - Bradycardia, unspecified Status: Acute Assessment and Plan: stable if not improving presumably due to to hyperkalemia and septic shock EKG - bradycardia, with RBBB, 1st degree AV block troponins negative Echo results noted (5) Metabolic acidosis: Code(s): E87.20 - Acidosis, unspecified Status: Acute Assessment and Plan: likely due to DOLLY/ARF lactic acid normal follow trend of CO2 levels on oral sodium bicarbonate to compensate (6) UTI (urinary tract infection): Code(s): N39.0 - Urinary tract infection, site not specified Status: Acute Assessment and Plan: admission UA suggestive of infection urine culture results negative completed course of antibiotics (7) Diabetes: Code(s): E11.9 - Type 2 diabetes mellitus without complications Status: Acute Assessment and Plan: follow accu-cheks glycemic control per hospitalist Since BUN and creatinine continue to improve, not opposed to discharge from renal perspective with close outpatient follow-up and repeat labs to ensure kidney function continues to improve. Will continue to follow. Subjective Date/time seen: 12/25/23 12:35 Interval history: Follow-up for acute kidney injury/acute renal failure on chronic kidney disease. Renal function (BUN and creatinine) continue to improve with supportive therapy in association with reasonable urine output; no apparent distress voiced at the time of my visit; no issues/events overnight or earlier this monring; asking me about discharge; feels okay. Exam Narrative: General: elderly but WD/WN female in NAD Heart: normal S1 and S2; no rub Lungs: clear to auscultation Abdomen: soft, nontender, nondistended, + bowel sounds Extremities: no cyanosis or clubbing; no edema S
--- NOTE | 2023-12-25 12:35 | P.PNNP_ITS ---
Progress Note: A&P Assessment and Plan (1) DOLLY (acute kidney injury): Code(s): N17.9 - Acute kidney failure, unspecified Status: Acute Assessment and Plan: * slow improvement noted * presumably related to hemodynamic instability/shock and possible infection (UTI) * admission creatinine 6.3mg/dl and associated hyperkalemia * s/p medical management for elevated K+ * follow trend of K+ * evaluation to date noted: * urine electrolytes prerenal * urine eosinophils negative * CT abd/pelvis without obstruction * renal ultrasound normal * CPK mildly elevated (but not enough to affect kidney function) * outpatient serological testing negative to date * 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 given severity of insult (but need less likely now) * however, the need would be more for clearance of uremic toxins given elevated BUN * azotemia maybe related more to steroid use (which has since been discontinued) * follow trend of repeat labs and UOP (2) Stage 3b chronic kidney disease: Code(s): N18.32 - Chronic kidney disease, stage 3b Status: Chronic Assessment and Plan: * normal renal function about a year ago (early November 2022) * worsened to 2.3 - 2.4mg/dl in March 2023 * etiology suspected to be ATN for infection/osteomyelitis + vancomycin toxicity * leveled off to 1.5 - 1.9mg/dl from June - September 2023 * suspect left overs from DOLLY in March 2023 in conjunction with HTN, DM, vascular disease and age-related change (3) Septic shock: Code(s): A41.9 - Sepsis, unspecified organism; R65.21 - Severe sepsis with septic shock Status: Acute Assessment and Plan: * resolved/resolving * severe/significant hypotension on presentation * 80 - 90s systolic on admission/presentation * noted drop to 60 - 70s systolic (on 12/17/23) * refractory to IVF resuscitation (no improvement in BP despite 5L IVFs) * central line placed and initiated on vasopressor therapy * weaned off levophed * follow trend of hemodynamics * blood/urine cultures negative to date * completed 5 day course of antibiotics * wean midodrine therapy (4) Bradycardia: Code(s): R00.1 - Bradycardia, unspecified Status: Acute Assessment and Plan: * stable if not improving * presumably due to to hyperkalemia and septic shock * EKG - bradycardia, with RBBB, 1st degree AV block * troponins negative * Echo results noted (5) Metabolic acidosis: Code(s): E87.20 - Acidosis, unspecified Status: Acute Assessment and Plan: * likely due to DOLLY/ARF * lactic acid normal * follow trend of CO2 levels * on oral sodium bicarbonate to compensate (6) UTI (urinary tract infection): Code(s): N39.0 - Urinary tract infection, site not specified Status: Acute Assessment and Plan: * admission UA suggestive of infection * urine culture results negative * completed course of antibiotics (7) Diabetes: Code(s): E11.9 - Type 2 diabetes mellitus without complications Status: Acute Assessment and Plan: * follow accu-cheks * glycemic control per hospitalist Since BUN and creatinine continue to improve, not opposed to discharge from renal perspective with close outpatient follow-up and repeat labs to ensure kidney function continues to improve. Will continue to follow. Subjective Date/time seen: 12/25/23 12:35 Interval history: Follow-up for acute kidney injury/acute renal failure on chronic kidney dis
--- NOTE | 2023-12-25 13:03 | PM.DS ---
DS: Admitting Diagnosis Discharge Date 12/25/23 Admitting Diagnosis Acute and principal conditions 1. Sepsis with shock 2. UTI 3. Acute renal insufficiency with CKD3 4. Bradycardia 5. Physical deconditioning 6. Hyperkalemia 7. Hypotension DS: Discharge Diagnosis Discharge Diagnosis (1) Septic shock: Code(s): A41.9 - Sepsis, unspecified organism; R65.21 - Severe sepsis with septic shock Status: Acute Assessment and Plan: Patient with hypotension, refractory to 4 L IV fluids, initially patient was admitted to the IMU, her SBP on 12/17/2023 was in the 40s to 60s, additional 1 L IV fluid was started, patient was brought to the ICU and I emergently placed a central line in the right femoral vein and started her on Levophed -off Levophed since afternoon of 12/18 -continue meropenem and vancomycin (12/17) for total of 5 days -lactic acid is normal -status post albumin -12/17: Blood cultures negative x2 so far -12/17: Urine cultures no growth 12/16/2023 CT scan of the abdomen and pelvis without contrast Moderate right pleural effusion. Hepatomegaly. Likely duodenitis and jejunal enteritis. Presumed reactive distention/fluid at the gallbladder. Cholecystitis is not excluded. Interval enlargement of the left lower abdominal/pelvic hernia containing multiple loops of nonobstructed large and small bowel, as well as the normal appendix. Small volume ascites. (2) Bradycardia: Code(s): R00.1 - Bradycardia, unspecified Status: Acute Assessment and Plan: Likely related to hyperkalemia, septic shock, ACS, ischemic heart disease -troponins negative x1 -EKG bradycardia, with RBBB, 1st degree AV block -12/17/23 echocardiogram Summary ? 1. Complete two-dimensional, color flow and Doppler transthoracic echocardiogram is performed. ? 2. Normal left ventricular size with mild concentric hypertrophy.? Good contractility of all segments.? Ejection fraction 65-70%.? Grade 2 diastolic dysfunction is present. ? 3. Left atrial chamber dimension is moderately enlarged. ? 4. No significant valve disease. ? 5. Dilated inferior vena cava with <50% collapse upon inspiration consistent with elevated right atrial pressure.? RVSP could not be calculated on this study.. ? 6. Rhythm indeterminate. Per Cardiology: 78-year-old lady who has hyperdynamic left ventricular function and bifascicular block.? She was admitted to the hospital last week with the worsening renal failure which appears to at least have stabilized since admission last week.? Been taken off of ARIN-inhibitor and beta-ayush therapy which she previously was on for hypertension and is now taking midodrine.? Those maneuvers she is at times tachycardic but she is not having any significant arrhythmias nor is she having any significant pauses that are problematic or symptomatic.? While she is in the hospital I would recommend gradually trying to wean her down or off of midodrine and place her back on some metoprolol.? As far as her cardiac rhythm is concerned I do not see any arrhythmias or pauses the require further attention.? She certainly does not qualify for a pacemaker devices she is not significantly bradycardic she is not having any symptoms of bradycardia and she has do not resuscitate orders on her chart.? I will see her in the future if the need arises otherwise Cardiology will sign off (3) UTI (urinary tract infection): Code(s): N39.0 - Urinary tract infection, site not specified Status: Acute Assessment and Plan: UA reflective of UTI, continue antibiotics as above -urine cultures negative (4) Acute on chronic renal failure: Code(s): N17.9 - Acute kidney failure, unspecified; N18.9 - Chronic kidney disease, unspecified Status: Acute Assessment and Plan: Patient has history of chronic kidney disease stage 3, follows with as outpatient -baseline creatinine has been 1.5-2.4 -patient presented with a creatinine of
[2023-12-25 14:00] VITALS: BP 118/43; PULSE 99; RESP 16; TEMP 36.2; O2SAT 98
[2023-12-25 16:45] LABS: Glucose Point of Care 108 mg/dl (65-105)
--- NOTE | 2023-12-25 17:20 | PC.NURSE ---
Patient missing her clothes and shoes. ER and ICU called no belongings there. 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
== END 2023-12-25 17:20 | disposition home health service (06) | DRG 871 ==
LOC: ANHED 12-17 02:12 → ANHIMU 12-17 02:54 → ANHICU 12-17 10:47 → ANH3MEDSUR 12-21 12:27
PROVIDERS: Internal Medicine; Internal Medicine Nephrology; Admitting Provider Internal Medicine; Emergency Provider Emergency Medicine; Visit Provider Internal Medicine
DX: A41.9 Sepsis, unspecified organism (principal); R65.21 Severe sepsis with septic shock; N17.9 Acute kidney failure, unspecified; N39.0 Urinary tract infection, site not specified; E27.40 Unspecified adrenocortical insufficiency; I12.9 Hypertensive chronic kidney disease with stage 1 through stage 4 chronic kidney disease, or unspecified chronic kidney disease; N18.32 Chronic kidney disease, stage 3b; E11.22 Type 2 diabetes mellitus with diabetic chronic kidney disease; E87.5 Hyperkalemia; I70.90 Unspecified atherosclerosis; E78.5 Hyperlipidemia, unspecified; T68.XXXA Hypothermia, initial encounter; Z20.822 Contact with and (suspected) exposure to COVID-19; Z79.01 Long term (current) use of anticoagulants; Z23 Encounter for immunization; Z86.718 Personal history of other venous thrombosis and embolism
CPT/HCPCS: 36415; 71045; 74176; 76775; 80048; 80053; 80069; 80202; 81001; 82550; 82570; 82948; 83520; 83605; 83735; 83970; 84100; 84155; 84156; 84165; 84166; 84300; 84443; 84484; 84540; 85025; 85610; 85730; 85999; 86036; 86038; 86160; 86225; 86704; 86706; 87040; 87086; 87340; 87637; 87641; 90471; 90694; 93005; 93306; 96361; 96374; 96375; 97110; 97116; 97161; 97165; 97530; 97535; 99285; A9270; C1751; G0008; J0612; J1720; J1815; J1939; J2185; J3370; J7030; J7040; J7120; P9047

== ENCOUNTER 2024-02-12 13:41 | Inpatient (IN) | payer MEDICARE, SELFPAY ==
--- NOTE | ~2024-02-12 | XR_ITS ---
XR chest 1V portable DATE: 02/12/2024 15:44 INDICATION: Bilateral lower extremity swelling TECHNIQUE: Portable upright AP views on February 12, 2024 at 1534 hours COMPARISON: December 19, 2023 portable AP chest FINDINGS: Moderate right and small left pleural effusions. There is infiltrate or atelectasis in the lower lung zones, primarily on the right. Cardiomegaly. And mild pulmonary vascular congestion. Aortic arch calcification. Osteopenia. Degenerative spurring of the thoracic spine. IMPRESSION: Cardiomegaly, mild pulmonary vascular congestion, bilateral pleural effusions, right grea ter than left, suggesting congestive heart failure Bilateral lower lung infiltrate or atelectasis, right greater than left Reviewed, dictated and finalized at location B. IMPRESSION: Cardiomegaly, mild pulmonary vascular congestion, bilateral pleural effusions, right greater than left, suggesting congestive heart failure Bilateral lower lung infiltrate or atelectasis, right greater than left
--- NOTE | ~2024-02-12 | US_ITS ---
EXAMINATION: US venous doppler LE RT DATE: 02/12/2024 15:25 INDICATION: Right lower limb swelling. TECHNIQUE: Grayscale ultrasound images without and with compression and Doppler ultrasound images of the right lower extremity veins were obtained. COMPARISON: Ultrasound 11/11/2022 FINDINGS: The visualized portions of right common femoral vein, profunda (deep) femoral vein, femoral vein, pop liteal vein, and greater saphenous vein outflow are patent. There is 2.5 seconds reflux in the poplit eal vein. The calf veins are not well visualized. Subcutaneous edema is noted. IMPRESSION: 1. No deep venous thrombosis. Reviewed, dictated and finalized at location A.
[2024-02-12 13:43] VITALS: BP 114/45; PULSE 79; RESP 20; TEMP 36.1; O2SAT 100
--- NOTE | 2024-02-12 14:33 | ED_ITS ---
HPI - Extremity Problem General Chief complaint: Extremity Problem,Nontraumatic <KAREN Mishra Last Filed: 02/12/24 18:27> Stated complaint: right leg swelling <KAREN Mishra Last Filed: 02/12/24 18:27> Time Seen by Provider: 02/12/24 14:33 <KAREN Mishra Last Filed: 02/12/24 18:27> Source: patient and family <KAREN Mishra Last Filed: 02/12/24 18:27> Mode of arrival: ambulatory <KAREN Mishra Last Filed: 02/12/24 18:27> Limitations: no limitations <KAREN Mishra Last Filed: 02/12/24 18:27> History of Present Illness HPI Narrative: Patient is an 78 y/o female who presents to the ED with c/o RLE swelling. Daughter at bedside assisted in providing patient's information. She reports patient was recently admitted to the hospital for acute renal failure, was discharged to a senior living facility for a period of time. She has been home since 02/03. Is getting set up for home health care. Has been dealing with a wound to her right foot plantar surface, seen Dr. Cobian for this. Healing well. Over the last few days, daughter has noticed increased swelling, redness, warmth in patient's RLE. Patient c/o pain to her R lateral thigh. She does have hx of intermittent BLE edema and hx of DVT. She is supposed to be on lasix 20mg and eliquis 5mg bid, though daughter reports she is unsure if patient has been taking her normal medications as directed since returning home. Daughter denies hx of CHF. Patient denies fevers, drainage from wound, chest pain, shortness breath, cough, cold sx's. <KAREN Mishra Last Filed: 02/12/24 18:27> Related Data Home medications: Home Medications Medication Instructions Recorded Confirmed fenofibrate nanocrystallized 145 145 mg PO DAILY 09/15/20 02/12/24 mg tablet calcium 600 mg capsule 600 mg PO DAILY 06/14/21 02/12/24 cholecalciferol (vitamin D3) 125 125 mcg PO DAILY 06/14/21 02/12/24 mcg (5,000 unit) capsule cyanocobalamin (vitamin B-12) 1,000 mcg IM MONTHLY 11/11/22 02/12/24 1,000 mcg/mL injection solution dapagliflozin propanediol 10 mg 10 mg PO DAILY 12/17/23 02/12/24 tablet (Farxiga) metoprolol tartrate 25 mg tablet 12.5 mg PO BID 01/07/24 02/12/24 <Patricia London PA-C - Last Filed: 02/12/24 18:27> Allergies/Adverse reactions: Allergies Allergy/AdvReac Type Severity Reaction Status Date / Time Penicillins Allergy Mild Hives / Verified 02/12/24 13:49 Red Face alendronate sodium AdvReac Intermediate Diarrhea Verified 02/12/24 13:49 [From Fosamax] codeine AdvReac Mild Vomiting Verified 02/12/24 13:49 prochlorperazine AdvReac Mild Muscle Verified 02/12/24 13:49 Spasms clarithromycin [From Biaxin] AdvReac Nausea and Verified 02/12/24 13:49 Vomiting clindamycin AdvReac Diarrhea Verified 02/12/24 13:49 <Patricia London PA-C - Last Filed: 02/12/24 18:27> Review of Systems Review of Systems: CONSTITUTIONAL: Denies fever, chills, or sweats. CARDIOVASCULAR: See HPI RESPIRATORY: Denies cough or dyspnea. SKIN: See HPI MUSCULOSKELETAL: See HPI NEUROLOGIC: Denies headache, dizziness, numbness, or weakness. <Patricia London PA-C - Last Filed: 02/12/24 18:27> All systems reviewed & are unremarkable except as noted in HPI and below <Patricia London PA-C - Last Filed: 02/12/24 18:27> PMFSH Past Medical History Medical History: Medical History Arterial occlusive disease CKD (chronic kidney disease) stage 3, GFR 30-59 ml/min Diabetes DVT (deep venous thrombosis) Dyslipidemia Foot ulcer Hypertension Kidney stone Obesity <Patricia London PA-C - Last Filed: 02/12/24 18:27> Surgical History Surgical History: Surgical History History of hysterectomy S/P tonsillectomy and adenoidectomy Status post repair of ventral hernia 1997; mesh broke, she required revision 2000 <Patricia London PA-C - Last Filed: 02/12/24 18:27> Social History Social History: Social History Social History: the patient is and lives home alone. She only has 1 daughter. 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 She does not use any alcohol marijuana illicit drugs. - code status full code. Smoking status: Never smoker Alcohol intake: never Substance use: never Substance use type: does not use Do You Feel Safe in your Home?: Yes Lack of Transportation: No Lack of Food: Never True Current Housing: I Have Housing Concerned About Future Housing: No Difficulty Paying Gas/Electric Bills: No Difficulty Paying for Meds: No Currently Unemployed: No Education: High School Diploma/GED Difficulty w/ Childcare or Family Care: No Living arrangements: with family Gender identity (if verbalized by the patient): Female Spiritual care concerns: No <Patricia London PA-C - Last Filed: 02/12/24 18:27> Exam Narrative: GENERAL: Chronically ill appearing, non-toxic, in no acute distress. HEAD: Normocephalic, atraumatic. RESPIRATORY: Airway patent, respirations nonlabored. Clear to auscultation bilaterally, no rales, rhonchi, wheezing. CARDIOVASCULAR: Regular rate and rhythm without murmurs, rubs, or gallops. Pedal pulses intact. MUSCULOSKELETAL: Moves all extremities. No gross deformities. Nonpitting edema noted to bilateral lower legs, worse throughout R leg, extending up to proximal thigh. Diffuse redness and mild warmth to RLE with tenderness to palpation throughout R lateral distal thigh. Small circular superficial ulcer to plantar surface of R foot, healing well, no drainage, granulation tissue present, plump pink edges. SKIN: Warm, dry, normal color. NEURO: A&O X3. Speech clear. Cranial nerves II-XII grossly intact. No ataxic movements. PSYCHIATRIC: Appropriate mood and affect. Normal interaction. <Patricia London PA-C - Last Filed: 02/12/24 18:27> Course PENSION AGENT/PA Physician Supervision This visit was performed by both a physician and an APC. I performed all aspects of the MDM as documented. <Richardson Liu MD - Last Filed: 02/12/24 19:33> Vital Signs Vital signs: Vital Signs Temperature 97.0 F L 02/12/24 13:43 Pulse Rate 79 02/12/24 13:43 Respiratory Rate 20 02/12/24 13:43 Blood Pressure 114/45 L 02/12/24 13:43 Pulse Oximetry 100 02/12/24 13:43 Oxygen Delivery Room Air 02/12/24 13:43 Temperature 97.1 F L 02/12/24 18:45 Pulse Rate 56 L 02/12/24 18:45 Respiratory Rate 15 02/12/24 18:45 Blood Pressure 134/48 L 02/12/24 18:45 Pulse Oximetry 100 02/12/24 18:45 Oxygen Delivery Room Air 02/12/24 13:43 <Patricia London PA-C - Last Filed: 02/12/24 18:27> Vital Signs Temperature 97.0 F L 02/12/24 13:43 Pulse Rate 79 02/12/24 13:43 Respiratory Rate 20 02/12/24 13:43 Blood Pressure 114/45 L 02/12/24 13:43 Pulse Oximetry 100 02/12/24 13:43 Oxygen Delivery Room Air 02/12/24 13:43 Temperature 97.1 F L 02/12/24 18:45 Pulse Rate 56 L 02/12/24 18:45 Respiratory Rate 15 02/12/24 18:45 Blood Pressure 134/48 L 02/12/24 18:45 Pulse Oximetry 100 02/12/24 18:45 Oxygen Delivery Room Air 02/12/24 13:43 <Richardson Liu MD - Last Filed: 02/12/24 19:33> MDM - Extremity (Nontraumatic) MDM Narrative Medical decision making narrative: Patient presented to ED with several day history of worsening/asymmetric swelling to right lower extremity. History of DVT and intermittent lower extremity edema, daughter concerned for unintentional noncompliance with medication regimen since recent hospitalization. DDx includes cellulitis, dvt, lymphedema, chf exacerbation. Basic laboratory studies showing white blood cell count of 15, new from recent admission. Chronic anemia, hemoglobin today 9.3. Stable compared to previous records. CMP with hypokalemia at 2.6. Oral and IV replacement ordered. Magnesium borderline, IV replacement ordered. Creatinine today 1.7, consistent with patient's original baseline. Inflammatory markers elevated. BNP moderately elevated to 2300. Patient denies previous hx of CHF, though recent ECHO in records shows Grade 2 diastolic dysfunction, LV EF 65-70%. She is denying any cp or sob. CXR was obtained and does show evidence of pulmonary vascular congestion, pulmonary edema, bilateral lower lung infiltrates. Patient denies any cough or fevers either. Venous Doppler ultrasound negative for DVT. Feel patient could benefit from diuresis. Will need cautious diuresis with d elicate kidney function. Given leukocytosis and acute redness and warmth to right lower extremity, will also cover for cellulitis with IV antibiotics. Will admit for further evaluation as well as continued electrolyte management. IV cefazolin started in the ED for cellulitis. Discussed case with Sharyn Carrasco NP hospitalist, accepted patient for admission. Recommended to add on levaquin to cover for possible PNA given recent hospitalization. Patient & family in agreement with plan and need for admission. All questions answered. <Patricia London PA-C - Last Filed: 02/12/24 18:27> Differential Diagnosis Differential diagnosis: Likely gout, cellulitis, superficial thrombophlebitis, lower extremity edema and deep vein thrombosis of lower extremity <KAREN Mishra Last Filed: 02/12/24 18:27> Medical Records Attestation: I reviewed the patient's medical records. <KAREN Mishra Last Filed: 02/12/24 18:27> Lab Data Attestation: I reviewed the patient's lab results. <KAREN Mishra Last Filed: 02/12/24 18:27> Result diagrams: 02/12/24 14:32 02/12/24 14:32 <Patricia London PA-C - Last Filed: 02/12/24 18:27> Labs: Lab Results 02/12/24 02/12/24 Range/Units 14:32 14:58 WBC 15.0 H (4.5-10.0) K/mm3 RBC 3.16 L (4.2-5.4) M/mm3 Hgb 9.3 L (12.0-15.0) g/dL Hct 29.4 L (37.0-47.0) % MCV 93.0 (80-100) fl MCH 29.4 (26-34) pg MCHC 31.6 L (32-36) g/dl RDW 14.6 H (11.5-14.5) % Plt Count 311 D (150-375) k/mm3 MPV 11.0 H (7.4-10.4) fl Immature Gran % (Auto) 1.4 H (0-0.5) % Neut % (Auto) 92.3 H (45.5-73.1) % Lymph % (Auto) 1.7 L (18.3-44.2) % Marion % (Auto) 4.4 (2.6-8.5) % Eos % (Auto) 0.1 (0-4.4) % Baso % (Auto) 0.1 L (0.2-1.2) % Lymph # (Auto) 0.25 L (0.9-3.2) K/mm3 Marion # (Auto) 0.7 H (0.1-0.6) K/mm3 Eos # (Auto) 0.0 (0-0.3) K/mm3 Baso # (Auto) 0.0 (0.0-0.1) K/mm3 Abs Immat Gran (auto) 0.21 H (0.00-0.031) K/mm3 Absolute Neuts (auto) 13.8 H (1.3-6.7) K/mm3 Absolute Nucleated RBC 0.000 (0.0-0.012) K/mm3 Nucleated RBC % 0.0 (0.0-0.2) % ESR 110 H (0-20) mm/hr PT 15.5 H (11.1-14.7) Seconds INR 1.2 APTT 34.6 (22.3-36.8) Seconds Sodium 136 L (137-145) mmol/L Potassium 2.6 L* (3.4-5.0) mmol/L Chloride 103 (98-107) mmol/L Carbon Dioxide 24 (22-30) mmol/L Anion Gap 9 (4-12) mmol/L BUN 39 H D (7-17) mg/dL Creatinine 1.70 H (0.7-1.0) mg/dL Estim Creat Clear Calc Not Reportable Estimated GFR 29 L (59 - ) Glucose 196 H (65-110) mg/dL Calcium 9.0 (8.4-10.2) mg/dL Magnesium 1.7 (1.6-2.3) mg/dL C-Reactive Protein 32.6 H (<1.0) mg/dL NT-Pro-B Natriuret Pep 2300 H (19.9-100) pg/mL <Patricia London PA-C - Last Filed: 02/12/24 18:27> Lab Results 02/12/24 02/12/24 Range/Units 14:32 14:58 WBC 15.0 H (4.5-10.0) K/mm3 RBC 3.16 L (4.2-5.4) M/mm3 Hgb 9.3 L (12.0-15.0) g/dL Hct 29.4 L (37.0-47.0) % MCV 93.0 (80-100) fl MCH 29.4 (26-34) pg MCHC 31.6 L (32-36) g/dl RDW 14.6 H (11.5-14.5) % Plt Count 311 D (150-375) k/mm3 MPV 11.0 H (7.4-10.4) fl Immature Gran % (Auto) 1.4 H (0-0.5) % Neut % (Auto) 92.3 H (45.5-73.1) % Lymph % (Auto) 1.7 L (18.3-44.2) % Marion % (Auto) 4.4 (2.6-8.5) % Eos % (Auto) 0.1 (0-4.4) % Baso % (Auto) 0.1 L (0.2-1.2) % Lymph # (Auto) 0.25 L (0.9-3.2) K/mm3 Marion # (Auto) 0.7 H (0.1-0.6) K/mm3 Eos # (Auto) 0.0 (0-0.3) K/mm3 Baso # (Auto) 0.0 (0.0-0.1) K/mm3 Abs Immat Gran (auto) 0.21 H (0.00-0.031) K/mm3 Absolute Neuts (auto) 13.8 H (1.3-6.7) K/mm3 Absolute Nucleated RBC 0.000 (0.0-0.012) K/mm3 Nucleated RBC % 0.0 (0.0-0.2) % ESR 110 H (0-20) mm/hr PT 15.5 H (11.1-14.7) Seconds INR 1.2 APTT 34.6 (22.3-36.8) Seconds Sodium 136 L (137-145) mmol/L Potassium 2.6 L* (3.4-5.0) mmol/L Chloride 103 (98-107) mmol/L Carbon Dioxide 24 (22-30) mmol/L Anion Gap 9 (4-12) mmol/L BUN 39 H D (7-17) mg/dL Creatinine 1.70 H (0.7-1.0) mg/dL Estim Creat Clear Calc Not Reportable Estimated GFR 29 L (59 - ) Glucose 196 H (65-110) mg/dL Calcium 9.0 (8.4-10.2) mg/dL Magnesium 1.7 (1.6-2.3) mg/dL C-Reactive Protein 32.6 H (<1.0) mg/dL NT-Pro-B Natriuret Pep 2300 H (19.9-100) pg/mL <Richardson Liu MD - Last Filed: 02/12/24 19:33> Imaging Data Attestation: I personally reviewed and interpreted this imaging study as follows: <Patricia London PA-C - Last Filed: 02/12/24 18:27> Radiologist's impression: ITS Impressions Venous Doppler Study 02/12/24 15:29 IMPRESSION: 1. No deep venous thrombosis. Chest X-Ray 02/12/24 15:45 IMPRESSION: Cardiomegaly, mild pulmonary vascular congestion, bilateral pleural effusions, right greater than left, suggesting congestive heart failure Bilateral lower lung infiltrate or atelectasis, right greater than left <KAREN Mishra Last Filed: 02/12/24 18:27> Discharge Plan Discharge Clinical Impression: Cellulitis of right lower extremity, Hypokalemia, Pain and swelling of right lower extremity Acute exacerbation of CHF (congestive heart failure) Qualifiers: Heart failure type: diastolic Qualified Code(s): I50.33 - Acute on chronic diastolic (congestive) heart failure Pneumonia Qualifiers: Pneumonia type: due to unspecified organism Laterality: bilateral Lung location: lower lobe of lung Qualified Code(s): J18.9 - Pneumonia, unspecified organism <KAREN Mishra Last Filed: 02/12/24 18:27> Patient Disposition: Still a Patient <KAREN Mishra Last Filed: 02/12/24 18:27> Condition: Stable <KAREN Mishra Last Filed: 02/12/24 18:27>
[2024-02-12 14:40] LABS: Basophils Percent Auto 0.1 % (0.2-1.2); Eosinophils Percent Auto 0.1 % (0-4.4); Hematocrit 29.4 % (37.0-47.0); Hemoglobin 9.3 g/dL (12.0-15.0); Immature Granulocyte Absolute 0.21 K/mm3 (0.00-0.031); Immature Granulocyte Percent A 1.4 % (0-0.5); Lymphocytes Absolute Auto 0.25 K/mm3 (0.9-3.2); Lymphocytes Percent Auto 1.7 % (18.3-44.2); Mean Corpuscular HGB Conc 31.6 g/dl (32-36); Mean Corpuscular Hemoglobin 29.4 pg (26-34); Monocytes Absolute Auto 0.7 K/mm3 (0.1-0.6); Monocytes Percent Auto 4.4 % (2.6-8.5); Neutrophils Absolute Auto 13.8 K/mm3 (1.3-6.7); Neutrophils Percent Auto 92.3 % (45.5-73.1); Platelet Count Result 311 k/mm3 (150-375); Red Blood Count 3.16 M/mm3 (4.2-5.4); Red Cell Distribution Width 14.6 % (11.5-14.5)
[2024-02-12 14:49] LABS: INR 1.2; Prothrombin Time 15.5 Seconds (11.1-14.7)
[2024-02-12 14:50] LABS: Partial Thromboplastin Time 34.6 Seconds (22.3-36.8)
[2024-02-12 14:54] LABS: Anion Gap 9 mmol/L (4-12); Blood Urea Nitrogen 39 mg/dL (7-17); Carbon Dioxide 24 mmol/L (22-30); Chloride 103 mmol/L (98-107); Estimated Glomerular Filt Rate 29; Glucose 196 mg/dL (65-110); Potassium 2.6 mmol/L (3.4-5.0); Sodium 136 mmol/L (137-145)
[2024-02-12] MEDS: POTASSIUM CHLORIDE 20 MEQ ER TABLET 40 MEQ PO (15:23)
[2024-02-12 15:27] LABS: NT Pro B Type Natriuretic Pept 2300 pg/mL (19.9-100)
[2024-02-12] MEDS: POTASSIUM CHLORIDE INJ 40 MEQ in SODIUM CHLORIDE 0.9% IV 500 ML 130 MEQ IVPB (15:52)
[2024-02-12 15:53] VITALS: BP 141/57; PULSE 57; RESP 16; O2SAT 100
[2024-02-12 16:13] LABS: Magnesium 1.7 mg/dL (1.6-2.3)
[2024-02-12 16:27] LABS: Erythrocyte Sedimentation Rate 110 mm/hr (0-20)
[2024-02-12] MEDS: ceFAZolin 1 GM/NS 50 ML 1 GM/50 ML BAG IVPB (17:13)
[2024-02-12] MEDS: FUROSEMIDE INJ 40 MG/4 ML VIAL IV PUSH ×2 (17:13→20:50)
[2024-02-12] MEDS: MAGNESIUM SULF 2 GM/WATER 50ML 2 GM/50 ML BAG IVPB (18:00)
[2024-02-12 18:01] VITALS: BP 157/57; PULSE 57; RESP 18; O2SAT 100
[2024-02-12 18:45] VITALS: BP 134/48; PULSE 56; RESP 15; TEMP 36.2; O2SAT 100
[2024-02-12 19:02] LABS: CRP 32.6 mg/dL (<1.0)
--- NOTE | 2024-02-12 19:39 | P.HP_ITS ---
H&P: HPI History of Present Illness Date/Time: 02/12/24 19:39 Chief Complaint: Leg swelling Narrative: Patient is a 78-year-old with history of diabetes, obesity, peripheral artery disease, foot ulcers, DOLLY with ejection fraction of 65% admitted with lower extremity cellulitis and edema. She patient was recently hospitalized in ICU under septic shock patient was started on 2 L of fluid at that time also was s tarted on Levophed patient was weaned off was started on antibiotics meropenem and vancomycin patient's blood cultures were negative and urine culture showed no growth at that time. Patient appears comfortable right now denies any fever no chills does complain of some redness and pain in the right lower extremity. Chest x-ray shows cardiomegaly with bilateral pleural effusion right greater than left and bilateral lung infiltrate. Review of Systems Review of Systems: No fevers chills nausea vomiting. No double vision no blurry vision. No difficulty hearing or sinus complaints. No chest pain shortness of breath fever palpitation dizziness with lower extremity swelling right more than left with open wound No coughing wheezing chills. No nausea constipation diarrhea abdominal pain reflux. No urgency frequency of urination. No hematuria. No anxiety depression difficulty sleeping. No bleeding gums enlarged glands. No muscle ache back pain joint stiffness. No loss of strength numbness headache tremor or loss of memory. [facility] Past Medical History Medical History Arterial occlusive disease CKD (chronic kidney disease) stage 3, GFR 30-59 ml/min Diabetes DVT (deep venous thrombosis) Dyslipidemia Foot ulcer Hypertension Kidney stone Obesity Surgical History Surgical History History of hysterectomy S/P tonsillectomy and adenoidectomy Status post repair of ventral hernia 1997; mesh broke, she required revision 2000 Social History Social History Social History: the patient is and lives home alone. She only has 1 daughter. 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 She does not use any alcohol marijuana illicit drugs. - code status full code. Smoking status: Never smoker Alcohol intake: never Substance use: never Substance use type: does not use Do You Feel Safe in your Home?: Yes Lack of Transportation: No Lack of Food: Never True Current Housing: I Have Housing Concerned About Future Housing: No Difficulty Paying Gas/Electric Bills: No Difficulty Paying for Meds: No Currently Unemployed: No Education: High School Diploma/GED Difficulty w/ Childcare or Family Care: No Living arrangements: with family Gender identity (if verbalized by the patient): Female Spiritual care concerns: No Meds Home Medications and Allergies Home Medications Medication Instructions Recorded Confirmed Type fenofibrate nanocrystallized 145 145 mg PO DAILY 09/15/20 02/12/24 History mg tablet calcium 600 mg capsule 600 mg PO DAILY 06/14/21 02/12/24 History cholecalciferol (vitamin D3) 125 125 mcg PO DAILY 06/14/21 02/12/24 History mcg (5,000 unit) capsule cyanocobalamin (vitamin B-12) 1,000 mcg IM MONTHLY 11/11/22 02/12/24 History 1,000 mcg/mL injection solution apixaban 5 mg tablet (Eliquis) 5 mg PO Q12HR 24 days #48 tabs 11/14/22 02/12/24 Rx dapagliflozin propanediol 10 mg 10 mg PO DAILY 12/17/23 02/12/24 History tablet (Farxiga) metoprolol tartrate 25 mg tablet 12.5 mg PO BID 01/07/24 02/12/24 History Allergies Allergy/AdvReac Type Severity Reaction Status Date / Time Penicillins Allergy Mild Hives / Verified 02/12/24 13:49 Red Face alendronate sodium AdvReac Intermediate Diarrhea Verified 02/12/24 13:49 [From Fosamax] codeine AdvReac Mild Vomiting Verified 02/12/24 13:49 prochlorperazine AdvReac Mild Muscle Verified 02/12/24 13:49 Spasms clarithromycin [From Biaxin] AdvReac Nausea and Verified 02/12/24 13:49 Vomiting clindamycin AdvReac Diarrhea Verified 02/12/24 13:49 Vital Signs Vital Signs - 24 hr 02/12/24 13:43 02/12/24 15:53 02/12/24 18:01 Temperature 36.1 C L Pulse Rate 79 57 L 57 L Respiratory Rate 20 16 18 Blood Pressure 114/45 L 141/57 H 157/57 H Pulse Oximetry 100 100 100 Oxygen Delivery Room Air 02/12/24 18:45 Temperature 36.2 C L Pulse Rate 56 L Respiratory Rate 15 Blood Pressure 134/48 L Pulse Oximetry 100 Oxygen Delivery Exam Narrative: GENERAL: Well appearing, no acute distress. HEAD: Normocephalic, atraumatic. NECK: Supple. No adenopathy, no masses. RESPIRATORY: respirations nonlabored. , no rales, wheezing. CARDIOVASCULAR: Regular rate and rhythm without murmurs, . Peripheral pulses 2+ and equal bilater ally. Diffuse redness and mild warmth to RLE with tenderness to palpation throughout R lateral distal thigh. Small circular superficial ulcer to plantar surface of R foot, healing well, no drainage, granulation tissue present, plump pink edges. ABDOMINAL: Soft, nontender, nondistended, no hepatosplenomegaly. Normoactive BS. MUSCULOSKELETAL: no Epigastric and no hypochondrial tenderness SKIN: Warm, dry, NEURO: A&O X3. Moves all extremities H&P: Results Labs Labs: Short CBC 02/12/24 Range/Units 14:32 WBC 15.0 H (4.5-10.0) K/mm3 Hgb 9.3 L (12.0-15.0) g/dL Hct 29.4 L (37.0-47.0) % Plt Count 311 D (150-375) k/mm3 BMP 02/12/24 14:32 Sodium 136 L Potassium 2.6 L* Chloride 103 Carbon Dioxide 24 BUN 39 H D Creatinine 1.70 H Glucose 196 H Calcium 9.0 Assessment and Plan Assessment and plan (1) Cellulitis of right lower extremity: Code(s): L03.115 - Cellulitis of right lower limb Status: Acute (2) Acute exacerbation of CHF (congestive heart failure): Qualifiers: Heart failure type: diastolic Qualified Code(s): I50.33 - Acute on chronic diastolic (congestive) heart failure Code(s): I50.9 - Heart failure, unspecified Status: Acute (3) Hypokalemia: Code(s): E87.6 - Hypokalemia Status: Acute (4) Stage 3b chronic kidney disease: Code(s): N18.32 - Chronic kidney disease, stage 3b Status: Chronic (5) Diabetes mellitus with chronic kidney disease: Qualifiers: Chronic kidney disease stage: stage 3 (moderate) Chronic kidney disease stage 3 subtype: stage 3a (GFR 45-59) Diabetes mellitus bed bug exterminator insulin use: without bed bug exterminator use Diabetes mellitus type: type 2 Qualified Code(s): E11.22 - Type 2 diabetes mellitus with diabetic chronic kidney disease; N18.31 - Chronic kidney disease, stage 3a Code(s): E11.22 - Type 2 diabetes mellitus with diabetic chronic kidney disease Status: Acute Plan CELLULITIES Blood cultures, culture of the aspirate or skin biopsy. Imaging is necessary Antibiotic regimen targeting patient's risk factors Monitor for sepsis and septic shock Monitor IV hydration IV antibiotics Levaquin oxacillin Monitor vital signs and oxygen saturation Recommend duration of antimicrobial therapy is 5-7 days Diabetes with nephropathy HBA1c ( goal <7.0%) , Renal functions, Liver panel every 3 months Monitor vitamin B12 levels Routine glucose monitoring. Watch for Hypoglycemia. BMI goal < 25 Yearly eye exam and foot exam Exercise, Diet ( low salt- low carb) Weight loss Routinely check for urine microalbuminuria Starting sliding scale will start mealtime insulin for better wound healing ANEMIA Iron supplement if needed Check for chronic renal failure CRF And gentle hydration. Avoid nephrotoxic drugs. Creatinine 1.7. Potassium 2.6 Monitor antihypertensive drugs Avoid NSAIDs. Routine CMP monitor GFR. Monitor electrolytes potassium levels. Dose antibiotics depending on creatinine clearance Routine follow-up with PCP and cloth napping supervisor recommended Heart failure with preserved ejection fraction. EKG Chest x-ray reviewed Lipid panel, TSH,liver function test, reviewed TTE EF 60% Daily weights Already on SGLT2 inhibitors Antiplatelet & Statin therapy Loop diuretics as indicate Patient educated about titrating diuretics at home based on weight blood pressure and symptoms. Optimize blood pressure < 130/80 Fall risk assessment Pneumonia and flu vaccine advised History of obesity monitor for sleep apnea. History of peripheral artery disease currently on [employer] Quality VTE Prophylaxis VTE prophylaxis: pharmacologic ordered [facility] H&P [facility] H&P [facility] H&P: [id number] Initial Admit Mod
[2024-02-12 20:00] VITALS: PULSE 63
[2024-02-12 20:35] LABS: Basophils Absolute Auto 0.1 K/mm3 (0.0-0.1); Basophils Percent Auto 0.3 % (0.2-1.2); Eosinophils Percent Auto 0.1 % (0-4.4); Hematocrit 29.8 % (37.0-47.0); Hemoglobin 9.3 g/dL (12.0-15.0); Immature Granulocyte Absolute 0.14 K/mm3 (0.00-0.031); Immature Granulocyte Percent A 0.9 % (0-0.5); Lymphocytes Absolute Auto 0.33 K/mm3 (0.9-3.2); Lymphocytes Percent Auto 2.2 % (18.3-44.2); Mean Corpuscular HGB Conc 31.2 g/dl (32-36); Mean Corpuscular Hemoglobin 29.2 pg (26-34); Mean Corpuscular Volume 93.7 fl (80-100); Mean Platelet Volume 11.2 fl (7.4-10.4); Monocytes Absolute Auto 0.7 K/mm3 (0.1-0.6); Monocytes Percent Auto 4.8 % (2.6-8.5); Neutrophils Absolute Auto 13.9 K/mm3 (1.3-6.7); Neutrophils Percent Auto 91.7 % (45.5-73.1); Platelet Count Result 324 k/mm3 (150-375); Red Blood Count 3.18 M/mm3 (4.2-5.4); Red Cell Distribution Width 14.8 % (11.5-14.5); White Blood Count 15.1 K/mm3 (4.5-10.0)
[2024-02-12 20:39] VITALS: BP 133/44; PULSE 65; RESP 16; TEMP 36.2; O2SAT 100
[2024-02-12] MEDS: APIXABAN 5 MG TABLET PO (20:49)
[2024-02-12] MEDS: METOPROLOL TARTRATE 12.5 MG TABLET PO (20:49)
[2024-02-12 20:51] LABS: Anisocytosis 1+; Platelet Estimate Slightly Increased (Adequate); Poikilocytosis 1+
[2024-02-12 20:52] LABS: Ovalocytes 1+; Schistocytes None Seen
[2024-02-12 22:41] LABS: Anion Gap 7 mmol/L (4-12); Blood Urea Nitrogen 37 mg/dL (7-17); Carbon Dioxide 25 mmol/L (22-30); Chloride 105 mmol/L (98-107); Estimated Glomerular Filt Rate 31; Glucose 181 mg/dL (65-110); Magnesium 2.2 mg/dL (1.6-2.3); Potassium 2.9 mmol/L (3.4-5.0); Sodium 137 mmol/L (137-145)
[2024-02-13] VITALS (12 sets, daily range): BP systolic 113–134; BP diastolic 43–49; PULSE 48–73; RESP 14–16; TEMP 36.4–36.9; O2SAT 97–100; BMI 27.5
[2024-02-13] MEDS: ceFAZolin 500 MG in DEXTROSE 5% IN WATER 50 ML 100 MG IVPB ×2 (05:22→17:23)
[2024-02-13 07:47] LABS: Anion Gap 6 mmol/L (4-12); Blood Urea Nitrogen 37 mg/dL (7-17); Calcium 8.5 mg/dL (8.4-10.2); Carbon Dioxide 26 mmol/L (22-30); Chloride 103 mmol/L (98-107); Estimated CRCL calculation 27 ml/min; Estimated Glomerular Filt Rate 31; Glucose 114 mg/dL (65-110); Sodium 135 mmol/L (137-145)
[2024-02-13 09:22] LABS: Glucose Point of Care 152 mg/dl (65-105)
[2024-02-13] MEDS: POTASSIUM CHLORIDE 20 MEQ PACKET (FOR LIQUID) PO (09:36)
[2024-02-13] MEDS: FENOFIBRATE NANOCRYSTALLIZED 145 MG TABLET PO (09:36)
[2024-02-13] MEDS: APIXABAN 5 MG TABLET PO ×2 (09:36→20:32)
[2024-02-13] MEDS: METOPROLOL TARTRATE 12.5 MG TABLET PO ×2 (09:36→20:32)
[2024-02-13] MEDS: EMPAGLIFLOZIN 25 MG TABLET PO (09:36)
[2024-02-13] MEDS: FUROSEMIDE INJ 40 MG/4 ML VIAL IV PUSH ×2 (09:36→20:32)
[2024-02-13 11:42] LABS: Glucose Point of Care 131 mg/dl (65-105)
--- NOTE | 2024-02-13 15:08 | P.PNIM_ITS ---
Progress Note: A&P Assessment and Plan (1) Cellulitis of right lower extremity: Code(s): L03.115 - Cellulitis of right lower limb Status: Acute Assessment and Plan: * Open wound to the right plantar surface of foot with increased swelling, redness, warmth, pain. * White blood cell count 15.1 on admission * Venous Doppler negative for DVT * Patient started on Ancef and Levaquin * Blood cultures obtained and are pending (2) Acute exacerbation of CHF (congestive heart failure): Qualifiers: Heart failure type: diastolic Qualified Code(s): I50.33 - Acute on chronic diastolic (congestive) heart failure Code(s): I50.9 - Heart failure, unspecified Status: Acute Assessment and Plan: * Chest x-ray showing mild pulmonary vascular congestion, bilateral pleural effusion right greater than the left, bilateral lower lung infiltrate right greater than the left * Patient given 40 of Lasix in the ED * Will obtain EKG today (3) Hypokalemia: Code(s): E87.6 - Hypokalemia Status: Acute Assessment and Plan: * Potassium was 2.9 initially * 40 mEq of potassium was given in the ED * Potassium today 3.0 * Will give another 40 mEq of potassium now * Continue to trend (4) Stage 3b chronic kidney disease: Code(s): N18.32 - Chronic kidney disease, stage 3b Status: Chronic Assessment and Plan: * BUN 37, creatinine 1.6, EGFR 31 * Appears to be her baseline * Continue to trend (5) Diabetes mellitus with chronic kidney disease: Qualifiers: Chronic kidney disease stage: stage 3 (moderate) Chronic kidney disease stage 3 subtype: stage 3a (GFR 45-59) 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: without mcfp use Diabetes mellitus type: type 2 Qualified Code(s): E11.22 - Type 2 diabetes mellitus with diabetic chronic kidney disease; N18.31 - Chronic kidney disease, stage 3a Code(s): E11.22 - Type 2 diabetes mellitus with diabetic chronic kidney disease Status: Acute Assessment and Plan: * Blood sugars ranging 114-181 * Last hemoglobin A1c on 09/10/2023 was 5.3 * Accu-Cheks AC and HS * Sliding scale insulin ordered * Hypoglycemic protocol in place Time Spent With Patient Time with patient: 25 - 35 minutes Subjective Date/time seen: 02/13/24 15:09 Interval history: 02/13/24: Patient is a 78-year-old with history of diabetes, obesity, peripheral artery disease, foot ulcers, DOLLY with ejection fraction of 65% admitted with lower extremity cellulitis and edema.? She patient was recently hospitalized in ICU under septic shock patient was started on 2 L of fluid at that time also was started on Levophed patient was weaned off was started on antibiotics meropenem and vancomycin patient's blood cultures were negative and urine culture showed no growth at that time.? Patient appears comfortable right now denies any fever no chills does complain of some redness and pain in the right lower extremity.? Chest x-ray shows cardiomegaly with bilateral pleural effusion right greater than left and bilateral lung infiltrate. 02/13/24: Examination today patient is alert and oriented x3, lying in the bed. She denies any fever, chills, nausea, vomiting, diarrhea, chest pain, shortness of breath or abdominal pain. labs today shown a sodium level 135, potassium of 3.0, creatinine 1.6, EGFR 31. Will continue with IV antibiotics for now. Review of Systems Review of Systems: All systems reviewed & are unremarkable except as noted in HPI and below Constitutional: Constitutional: Reports as per HPI and Reports no additional constitutional complaints Eyes: Eyes: Reports as per HPI and Reports no additional eye complaints ENT: Reports system reviewed and no additional complaints, except as documented and Reports as per HPI Cardiovascular: Cardiovascular: Reports as per HPI and Reports no additional cardiovascular complaints Respiratory: Respiratory: Reports as per HPI and Reports no additional respiratory complaints Gastrointestinal: Gastrointestinal: Reports as per HPI and Reports no additional gastrointestinal complaints Genitourinary: Genitourinary: Reports no additional female genitourinary complaints and Reports as per HPI Musculoskeletal: Musculoskeletal: Reports no additional musculoskeletal complaints and Reports as per HPI Integumentary/Breasts: Skin/Breast: Reports system reviewed and no additional complaints, except as docu and Reports as per HPI Neurologic: Reports system reviewed and no additional complaints, except as documented and Reports as per HPI Psychiatric: Psychiatric: Reports no additional psychiatric complaints and Reports as per HPI Exam Narrative: General: In no acute distress, well nourished Head: atraumatic, no encephalopathy Eyes: EOMI, PERRLA, sclera clear ENT: moist mucous membranes, nasal passages clear Neck: supple, no JVD, no adenopathy, trachea midline Cardiac: Normal S1 and S2. No murmur, gallops or friction rubs, peripheral pulses intact. Respiratory: Lungs clear to auscultation, no adventitious lung sounds, currently on room air Gastrointestinal: soft, non-distended, non-tender, normoactive bowel sounds. : voiding without difficulty. Extremities: moves all extremities well, no edema, good ROM, strength 5/5 Skin: RLE swelling warmth, redness noted Neuro: Alert and oriented x3, cranial nerves intact, no neuro deficits. Psych: normal mood, normal affect, interactive Objective Data Vital Signs Vital Signs: Vital Signs - 24 hr 02/12/24 15:53 02/12/24 18:01 02/12/24 18:45 Temperature 97.1 F L Pulse Rate 57 L 57 L 56 L Respiratory Rate 16 18 15 Blood Pressure 141/57 H 157/57 H 134/48 L Pulse Oximetry 100 100 100 02/12/24 20:39 02/12/24 20:00 02/13/24 00:00 Temperature 97.2 F L Pulse Rate 65 63 48 L Respiratory Rate 16 Blood Pressure 133/44 L Pulse Oximetry 100 02/13/24 05:14 02/13/24 04:00 02/13/24 09:36 Temperature 97.5 F L Pulse Rate 56 L 59 L 61 Respiratory Rate 16 Blood Pressure 134/49 L Pulse Oximetry 100 02/13/24 08:02 02/13/24 13:46 02/13/24 12:03 Temperature 97.5 F L Pulse Rate 67 60 63 Respiratory Rate 16 Blood Pressure 118/48 L Pulse Oximetry 100 Intake/Output Intake/Output: Intake & Output 02/10/24 02/11/24 02/12/24 02/13/24 23:59 23:59 23:59 23:59 Intake Total 50 770 Balance 50 770 Meds/Results Medications: Active Medications Generic Name Dose Route Start Last Admin Trade Name Freq PRN Reason Stop Dose Admin Acetaminophen 650 mg 02/12/24 19:36 Acetaminophen 325 Mg Tablet PO Q4H PRN Mild Pain (1-3) or Fever Apixaban 5 mg 02/12/24 21:00 02/13/24 09:36 Apixaban 5 Mg Tablet PO 5 mg Q12HR RAFAELA Administration Empagliflozin 25 mg 02/13/24 09:00 02/13/24 09:36 Empagliflozin 25 Mg Tablet PO 25 mg DAILY RAFAELA Administration Fenofibrate 145 mg 02/13/24 09:00 02/13/24 09:36 Fenofibrate Nanocrystallized 145 Mg Tablet PO 145 mg DAILY RAFAELA Administration Furosemide 40 mg 02/12/24 21:00 02/13/24 09:36 Furosemide Inj 40 Mg/4 Ml Vial IV PUSH 40 mg Q12HR RAFAELA Administration Levofloxacin/Dextrose 750 mg in 150 mls @ 100 mls/hr 02/14/24 21:00 Levaquin 750 Mg/D5w 150 Ml IVPB Q48H RAFAELA Cefazolin Sodium 500 mg/ 50 mls @ 100 mls/hr 02/13/24 06:00 02/13/24 05:52 Dextrose IVPB Infused Q12H RAFAELA Infusion Insulin Aspart 5 units 02/13/24 08:00 02/13/24 13:17 Insulin Aspart (*Bkc) 100 Units/Ml SUB-Q Not Given TIDWM RAFAELA Metoprolol Tartrate 12.5 mg 02/12/24 21:00 02/13/24 09:36 Metoprolol Tartrate 12.5 Mg Tablet PO 12.5 mg Q12HR RAFAELA Administration Ondansetron HCl 4 mg 02/12/24 19:36 Ondansetron Inj 4 Mg/2 Ml Vial IV PUSH Q6H PRN Nausea And Vomiting Potassium Chloride 20 meq 02/13/24 09:00 02/13/24 09:36 Potassium Chloride 20 Meq Packet (For Liquid) PO 20 meq BID RAFAELA Administration Radiology Results: ITS Impressions Venous Doppler Study 02/12/24 15:29 IMPRESSION: 1. No deep venous thrombosis. Chest X-Ray 02/12/24 15:45 IMPRESSION: Cardiomegaly, mild pulmonary vascular congestion, bilateral pleural effusions, right greater than left, suggesting congestive heart failure Bilateral lower lung infiltrate or atelectasis, right greater than left Labs Labs: Laboratory Results - last 24 hr 02/12/24 02/12/24 02/12/24 14:32 14:58 19:37 WBC 15.1 H RBC 3.18 L Hgb 9.3 L Hct 29.8 L MCV 93.7 MCH 29.2 MCHC 31.2 L RDW 14.8 H Plt Count 324 MPV 11.2 H Immature Gran % (Auto) 0.9 H Neut % (Auto) 91.7 H Lymph % (Auto) 2.2 L [place] % (Auto) 4.8 Eos % (Auto) 0.1 Baso % (Auto) 0.3 Lymph # (Auto) 0.33 L [place] # (Auto) 0.7 H Eos # (Auto) 0.0 Baso # (Auto) 0.1 Abs Immat Gran (auto) 0.14 H Absolute Neuts (auto) 13.9 H Absolute Nucleated RBC 0.000 Nucleated RBC % 0.0 Platelet Estimate Slightly increased Poikilocytosis 1+ Anisocytosis 1+ Ovalocytes 1+ Schistocytes None seen ESR 110 H Sodium Potassium Chloride Carbon Dioxide Anion Gap BUN Creatinine Estim Creat Clear Calc Estimated GFR Glucose POC Capillary Glucose Calcium Magnesium 1.7 C-Reactive Protein 32.6 H NT-Pro-B Natriuret Pep 2300 H 02/12/24 02/13/24 02/13/24 22:23 06:56 09:07 WBC RBC Hgb Hct MCV MCH MCHC RDW Plt Count MPV Immature Gran % (Auto) Neut % (Auto) Lymph % (Auto) [place] % (Auto) Eos % (Auto) Baso % (Auto) Lymph # (Auto) [place] # (Auto) Eos # (Auto) Baso # (Auto) Abs Immat Gran (auto) Absolute Neuts (auto) Absolute Nucleated RBC Nucleated RBC % Platelet Estimate Poikilocytosis Anisocytosis Ovalocytes Schistocytes ESR Sodium 137 135 L Potassium 2.9 L 3.0 L Chloride 105 103 Carbon Dioxide 25 26 Anion Gap 7 6 BUN 37 H 37 H Creatinine 1.60 H 1.60 H Estim Creat Clear Calc Not Reportable 27 Estimated GFR 31 L 31 L Glucose 181 H 114 H POC Capillary Glucose 152 H Calcium 9.0 8.5 Magnesium 2.2 C-Reactive Protein NT-Pro-B Natriuret Pep 02/13/24 11:40 WBC RBC Hgb Hct MCV MCH MCHC RDW Plt Count MPV Immature Gran % (Auto) Neut % (Auto) Lymph % (Auto) [place] % (Auto) Eos % (Auto) Baso % (Auto) Lymph # (Auto) [place] # (Auto) Eos # (Auto) Baso # (Auto) Abs Immat Gran (auto) Absolute Neuts (auto) Absolute Nucleated RBC Nucleated RBC % Platelet Estimate Poikilocytosis Anisocytosis Ovalocytes Schistocytes ESR Sodium Potassium Chloride Carbon Dioxide Anion Gap BUN Creatinine Estim Creat Clear Calc Estimated GFR Glucose POC Capillary Glucose 131 H Calcium Magnesium C-Reactive Protein NT-Pro-B Natriuret Pep Quality VTE Prophylaxis VTE prophylaxis: pharmacologic ordered
--- NOTE | 2024-02-13 16:40 | ECG_ITS ---
Measurements Intervals [place] Rate: 67 P: 33 OK: 197 QRS: -57 QRSD: 162 T: 66 QT: 450 QTc: 476 Interpretive Statements SINUS RHYTHM RIGHT BUNDLE BRANCH BLOCK [120+ ms QRS DURATION, UPRIGHT V1, 40+ ms S IN I/aVL/V4/V5/V6] LEFT ANTERIOR FASCICULAR BLOCK [QRS AXIS <= -45, QR IN I, RS IN II] COMPARED TO ECG 12/22/2023 10:12:38 NO SIGNIFICANT CHANGES Electronically Signed On 02-14-2024 13:22:10 CDT by Nitesh Coronel M.D.
[2024-02-13 16:48] LABS: Glucose Point of Care 106 mg/dl (65-105)
[2024-02-13] MEDS: POTASSIUM CHLORIDE 20 MEQ ER TABLET 40 MEQ PO (17:22)
[2024-02-14] VITALS (9 sets, daily range): BP systolic 114–117; BP diastolic 45–53; PULSE 61–87; RESP 16; TEMP 36.2–36.5; O2SAT 97–100
[2024-02-14 04:34] LABS: Glucose Point of Care 162 mg/dl (65-105)
[2024-02-14] MEDS: ceFAZolin 500 MG in DEXTROSE 5% IN WATER 50 ML 100 MG IVPB ×2 (05:12→17:35)
[2024-02-14 07:55] LABS: Glucose Point of Care 108 mg/dl (65-105)
[2024-02-14] MEDS: FENOFIBRATE NANOCRYSTALLIZED 145 MG TABLET PO (09:50)
[2024-02-14] MEDS: APIXABAN 5 MG TABLET PO ×2 (09:50→21:24)
[2024-02-14] MEDS: EMPAGLIFLOZIN 25 MG TABLET PO (09:50)
[2024-02-14 10:16] LABS: Basophils Percent Auto 0.1 % (0.2-1.2); Eosinophils Absolute Auto 0.1 K/mm3 (0-0.3); Eosinophils Percent Auto 0.7 % (0-4.4); Hematocrit 26.2 % (37.0-47.0); Hemoglobin 8.4 g/dL (12.0-15.0); Immature Granulocyte Absolute 0.12 K/mm3 (0.00-0.031); Immature Granulocyte Percent A 1.3 % (0-0.5); Lymphocytes Absolute Auto 0.76 K/mm3 (0.9-3.2); Lymphocytes Percent Auto 7.9 % (18.3-44.2); Mean Corpuscular HGB Conc 32.1 g/dl (32-36); Mean Corpuscular Hemoglobin 29.1 pg (26-34); Mean Corpuscular Volume 90.7 fl (80-100); Mean Platelet Volume 10.3 fl (7.4-10.4); Monocytes Absolute Auto 0.7 K/mm3 (0.1-0.6); Monocytes Percent Auto 6.9 % (2.6-8.5); Neutrophils Percent Auto 83.1 % (45.5-73.1); Platelet Count Result 387 k/mm3 (150-375); Red Blood Count 2.89 M/mm3 (4.2-5.4); Red Cell Distribution Width 14.9 % (11.5-14.5); White Blood Count 9.6 K/mm3 (4.5-10.0)
[2024-02-14 10:28] LABS: Alanine Aminotransferase 12 U/L (6-35); Alkaline Phosphatase 69 U/L (38-126); Anion Gap 3 mmol/L (4-12); Aspartate Amino Transferase 27 U/L (14-36); Bilirubin,Total 1.3 mg/dL (0.2-1.3); Blood Urea Nitrogen 40 mg/dL (7-17); Calcium 8.6 mg/dL (8.4-10.2); Carbon Dioxide 35 mmol/L (22-30); Chloride 96 mmol/L (98-107); Estimated CRCL calculation 28 ml/min; Estimated Glomerular Filt Rate 33; Glucose 141 mg/dL (65-110); Magnesium 1.9 mg/dL (1.6-2.3); Potassium 3.8 mmol/L (3.4-5.0); Sodium 134 mmol/L (137-145)
[2024-02-14 11:42] LABS: Glucose Point of Care 120 mg/dl (65-105)
--- NOTE | 2024-02-14 13:16 | P.PNIM_ITS ---
Progress Note: A&P Assessment and Plan (1) Cellulitis of right lower extremity: Code(s): L03.115 - Cellulitis of right lower limb Status: Acute Assessment and Plan: 02/13/24 * Open wound to the right plantar surface of foot with increased swelling, redness, warmth, pain. * White blood cell count 15.1 on admission * Venous Doppler negative for DVT * Patient started on Ancef and Levaquin * Blood cultures obtained and are pending 02/14/24: * Blood culture showing no growth to date on preliminary read * White blood cell count down to 9.6 * Continue Ancef and Levaquin (2) Acute exacerbation of CHF (congestive heart failure): Qualifiers: Heart failure type: diastolic Qualified Code(s): I50.33 - Acute on chronic diastolic (congestive) heart failure Code(s): I50.9 - Heart failure, unspecified Status: Acute Assessment and Plan: 02/13/24 * Chest x-ray showing mild pulmonary vascular congestion, bilateral pleural effusion right greater than the left, bilateral lower lung infiltrate right greater than the left * Patient given 40 of Lasix in the ED * Will obtain EKG today 02/14/24: * EKG showing right bundle branch block, left anterior fascicular block, no significant changes per cardiology reading * Continue with current treatment plan (3) Hypokalemia: Code(s): E87.6 - Hypokalemia Status: Acute Assessment and Plan: 02/13/24 * Potassium was 2.9 initially * 40 mEq of potassium was given in the ED * Potassium today 3.0 * Will give another 40 mEq of potassium now * Continue to trend 02/14/24: * Potassium is 3.8 * No further replacement needed * Continue to trend (4) Stage 3b chronic kidney disease: Code(s): N18.32 - Chronic kidney disease, stage 3b Status: Chronic Assessment and Plan: 02/13/24 * BUN 37, creatinine 1.6, EGFR 31 * Appears to be her baseline * Continue to trend 02/14/24: * Creatinine 1.5 (5) Diabetes mellitus with chronic kidney disease: Qualifiers: Chronic kidney disease stage: stage 3 (moderate) Chronic kidney disease stage 3 subtype: stage 3a (GFR 45-59) 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 use: without chcf use Diabetes mellitus type: type 2 Qualified Code(s): E11.22 - Type 2 diabetes mellitus with diabetic chronic kidney disease; N18.31 - Chronic kidney disease, stage 3a Code(s): E11.22 - Type 2 diabetes mellitus with diabetic chronic kidney disease Status: Acute Assessment and Plan: 02/13/24 * Blood sugars ranging 114-181 * Last hemoglobin A1c on 09/10/2023 was 5.3 * Accu-Cheks AC and HS * Sliding scale insulin ordered * Hypoglycemic protocol in place 02/14/24: * No change to current treatment plan she Time Spent With Patient Time with patient: 25 - 35 minutes Subjective Date/time seen: 02/14/24 13:16 Interval history: 02/12/24: Patient is a 78-year-old with history of diabetes, obesity, peripheral artery disease, foot ulcers, DOLLY with ejection fraction of 65% admitted with lower extremity cellulitis and edema.? She patient was recently hospitalized in ICU under septic shock patient was started on 2 L of fluid at that time also was started on Levophed patient was weaned off was started on antibiotics meropenem and vancomycin patient's blood cultures were negative and urine culture showed no growth at that time.? Patient appears comfortable right now denies any fever no chills does complain of some redness and pain in the right lower extremity.? Chest x-ray shows cardiomegaly with bilateral pleural effusion right greater than left and bilateral lung infiltrate. 02/13/24: Examination today patient is alert and oriented x3, lying in the bed. She denies any fever, chills, nausea, vomiting, diarrhea, chest pain, shortness of breath or abdominal pain. labs today shown a sodium level 135, potassium of 3.0, creatinine 1.6, EGFR 31. Will continue with IV antibiotics for now. 02/14/24: Patient denies any new complaints today. Labs today show hemoglobin of 8.4, sodium 134, chloride 96, creatinine 1.5. EKG reviewed from yesterday showing right bundle block and left anterior fascicular, no significant changes cardiology interpretation. Continue with IV antibiotics for now. Review of Systems Review of Systems: All systems reviewed & are unremarkable except as noted in HPI and below Constitutional: Constitutional: Reports as per HPI and Reports no additional constitutional complaints Eyes: Eyes: Reports as per HPI and Reports no additional eye complaints ENT: Reports system reviewed and no additional complaints, except as documented and Reports as per HPI Cardiovascular: Cardiovascular: Reports as per HPI and Reports no additional cardiovascular complaints Respiratory: Respiratory: Reports as per HPI and Reports no additional respiratory complaints Gastrointestinal: Gastrointestinal: Reports as per HPI and Reports no additional gastrointestinal complaints Genitourinary: Genitourinary: Reports no additional female genitourinary complaints and Reports as per HPI Musculoskeletal: Musculoskeletal: Reports no additional musculoskeletal complaints and Reports as per HPI Integumentary/Breasts: Skin/Breast: Reports system reviewed and no additional complaints, except as docu and Reports as per HPI Neurologic: Reports system reviewed and no additional complaints, except as documented and Reports as per HPI Psychiatric: Psychiatric: Reports no additional psychiatric complaints and Reports as per HPI Exam Narrative: General: In no acute distress, well nourished Head: atraumatic, no encephalopathy Eyes: EOMI, PERRLA, sclera clear ENT: moist mucous membranes, nasal passages clear Neck: supple, no JVD, no adenopathy, trachea midline Cardiac: Normal S1 and S2. No murmur, gallops or friction rubs, peripheral pulses intact. Respiratory: Lungs clear to auscultation, no adventitious lung sounds, currently on room air Gastrointestinal: soft, non-distended, non-tender, normoactive bowel sounds. : voiding without difficulty. Extremities: moves all extremities well, no edema, good ROM, strength 5/5 Skin: RLE swelling warmth, redness noted Neuro: Alert and oriented x3, cranial nerves intact, no neuro deficits. Psych: normal mood, normal affect, interactive Objective Data Vital Signs Vital Signs: Vital Signs - 24 hr 02/13/24 13:46 02/13/24 16:02 02/13/24 20:32 Temperature 97.5 F L Pulse Rate 60 62 73 Respiratory Rate 16 Blood Pressure 118/48 L Pulse Oximetry 100 Oxygen Delivery 02/13/24 21:51 02/13/24 20:00 02/14/24 00:00 Temperature 98.5 F Pulse Rate 73 73 65 Respiratory Rate 14 Blood Pressure 113/43 L Pulse Oximetry 97 Oxygen Delivery 02/14/24 04:00 02/13/24 21:06 02/14/24 06:00 Temperature 97.7 F Pulse Rate 61 72 Respiratory Rate 16 Blood Pressure 114/45 L Pulse Oximetry 97 97 Oxygen Delivery Room Air 02/14/24 11:15 Temperature Pulse Rate 73 Respiratory Rate Blood Pressure Pulse Oximetry Oxygen Delivery Intake/Output Intake/Output: Intake & Output 02/11/24 02/12/24 02/13/24 02/14/24 23:59 23:59 23:59 23:59 Intake Total 50 2160 290 Output Total 1600 Balance 50 560 290 Meds/Results Medications: Active Medications Generic Name Dose Route Start Last Admin Trade Name Freq PRN Reason Stop Dose Admin Acetaminophen 650 mg 02/12/24 19:36 Acetaminophen 325 Mg Tablet PO Q4H PRN Mild Pain (1-3) or Fever Apixaban 5 mg 02/12/24 21:00 02/14/24 09:50 Apixaban 5 Mg Tablet PO 5 mg Q12HR RAFAELA Administration Dextrose 12.5 gm 02/13/24 15:19 Dextrose 50% 25 Gm/50 Ml Syringe IV PUSH PRN PRN Hypoglycemia Protocol Empagliflozin 25 mg 02/13/24 09:00 02/14/24 09:50 Empagliflozin 25 Mg Tablet PO 25 mg DAILY RAFAELA Administration Fenofibrate 145 mg 02/13/24 09:00 02/14/24 09:50 Fenofibrate Nanocrystallized 145 Mg Tablet PO 145 mg DAILY RAFAELA Administration Furosemide 40 mg 02/12/24 21:00 02/14/24 11:15 Furosemide Inj 40 Mg/4 Ml Vial IV PUSH Not Given Q12HR RAFAELA Glucagon 1 mg 02/13/24 15:19 Glucagon For Inj 1 Mg Vial IM PRN PRN Hypoglycemia Protocol Glucose 15 gm 02/13/24 15:19 Glucose Oral Gel 15 Gm Of Glucse In 37.5 Gm Tube PO PRN PRN Hypoglycemia Protocol Levofloxacin/Dextrose 750 mg in 150 mls @ 100 mls/hr 02/14/24 21:00 Levaquin 750 Mg/D5w 150 Ml IVPB Q48H RAFAELA Cefazolin Sodium 500 mg/ 50 mls @ 100 mls/hr 02/13/24 06:00 02/14/24 05:42 Dextrose IVPB Infused Q12H RAFAELA Infusion Dextrose 1,000 mls @ 100 mls/hr 02/13/24 15:19 Dextrose 5% 1,000 Ml IVPB PRN PRN Hypoglycemia Protocol Insulin Aspart 2 - 5 units 02/13/24 17:00 02/14/24 12:11 Insulin Aspart (*Bkc) 100 Units/Ml SUB-Q Not Given TIDWM RAFAELA Protocol Insulin Aspart 1 - 2 units 02/13/24 21:00 02/13/24 20:34 Insulin Aspart (*Bkc) 100 Units/Ml SUB-Q Not Given HS [facility] Protocol Metoprolol Tartrate 12.5 mg 02/12/24 21:00 02/14/24 11:15 Metoprolol Tartrate 12.5 Mg Tablet PO Not Given Q12HR [facility] Ondansetron HCl 4 mg 02/12/24 19:36 Ondansetron Inj 4 Mg/2 Ml Vial IV PUSH Q6H PRN Nausea And Vomiting Radiology Results: ITS Impressions Venous Doppler Study 02/12/24 15:29 IMPRESSION: 1. No deep venous thrombosis. Chest X-Ray 02/12/24 15:45 IMPRESSION: Cardiomegaly, mild pulmonary vascular congestion, bilateral pleural effusions, right greater than left, suggesting congestive heart failure Bilateral lower lung infiltrate or atelectasis, right greater than left Labs Labs: Laboratory Results - last 24 hr 02/13/24 02/13/24 02/14/24 16:45 19:54 07:51 WBC RBC Hgb Hct MCV MCH MCHC RDW Plt Count MPV Immature Gran % (Auto) Neut % (Auto) Lymph % (Auto) [place] % (Auto) Eos % (Auto) Baso % (Auto) Lymph # (Auto) [place] # (Auto) Eos # (Auto) Baso # (Auto) Abs Immat Gran (auto) Absolute Neuts (auto) Absolute Nucleated RBC Nucleated RBC % Sodium Potassium Chloride Carbon Dioxide Anion Gap BUN Creatinine Estim Creat Clear Calc Estimated GFR Glucose POC Capillary Glucose 106 H 162 H 108 H Calcium Magnesium Total Bilirubin AST ALT Alkaline Phosphatase Total Protein Albumin 02/14/24 02/14/24 09:46 11:15 WBC 9.6 RBC 2.89 L Hgb 8.4 L Hct 26.2 L MCV 90.7 MCH 29.1 MCHC 32.1 RDW 14.9 H Plt Count 387 H MPV 10.3 Immature Gran % (Auto) 1.3 H Neut % (Auto) 83.1 H Lymph % (Auto) 7.9 L [place] % (Auto) 6.9 Eos % (Auto) 0.7 Baso % (Auto) 0.1 L Lymph # (Auto) 0.76 L [place] # (Auto) 0.7 H Eos # (Auto) 0.1 Baso # (Auto) 0.0 Abs Immat Gran (auto) 0.12 H Absolute Neuts (auto) 8.0 H Absolute Nucleated RBC 0.000 Nucleated RBC % 0.0 Sodium 134 L Potassium 3.8 Chloride 96 L Carbon Dioxide 35 H Anion Gap 3 L BUN 40 H Creatinine 1.50 H Estim Creat Clear Calc 28 Estimated GFR 33 L Glucose 141 H POC Capillary Glucose 120 H Calcium 8.6 Magnesium 1.9 Total Bilirubin 1.3 AST 27 ALT 12 Alkaline Phosphatase 69 Total Protein 6.0 L Albumin 3.0 L Quality VTE Prophylaxis VTE prophylaxis: pharmacologic ordered
--- NOTE | 2024-02-14 16:07 | PC.NURSE ---
Patient's daughter brought in home medication list [id number] 02/14/24; medications added to 'home medications' list in Clinical Data @ 1606 02/14/24.
--- NOTE | 2024-02-14 16:32 | PC.NURSE ---
Patient refusing to turn this shift per PCT. Patient stated I don't want to, I'm to lazy when asked by her daughter why she wouldn't turn herself off of her back. Patient education regarding importance of turning to prevent pressure sores on bony prominences. Patient agreed to turn after discussion.
[2024-02-14 17:39] LABS: Glucose Point of Care 111 mg/dl (65-105)
[2024-02-14] MEDS: METOPROLOL TARTRATE 12.5 MG TABLET PO (21:23)
[2024-02-14] MEDS: FUROSEMIDE INJ 40 MG/4 ML VIAL IV PUSH (21:24)
[2024-02-14] MEDS: levoFLOXacin 750 MG/D5W 150 ML 750 MG/150 ML BAG 100 MG IVPB (21:25)
[2024-02-14 21:49] LABS: Glucose Point of Care 180 mg/dl (65-105)
[2024-02-15] VITALS (9 sets, daily range): BP systolic 103–119; BP diastolic 40–52; PULSE 65–89; RESP 16–18; TEMP 36.3–36.5; O2SAT 98–100
[2024-02-15] MEDS: ceFAZolin 500 MG in DEXTROSE 5% IN WATER 50 ML 100 MG IVPB ×2 (05:32→18:20)
[2024-02-15 06:15] LABS: Basophils Percent Auto 0.2 % (0.2-1.2); Eosinophils Absolute Auto 0.1 K/mm3 (0-0.3); Hematocrit 26.7 % (37.0-47.0); Hemoglobin 8.3 g/dL (12.0-15.0); Immature Granulocyte Absolute 0.34 K/mm3 (0.00-0.031); Immature Granulocyte Percent A 3.6 % (0-0.5); Lymphocytes Absolute Auto 0.79 K/mm3 (0.9-3.2); Lymphocytes Percent Auto 8.4 % (18.3-44.2); Mean Corpuscular HGB Conc 31.1 g/dl (32-36); Mean Corpuscular Hemoglobin 28.7 pg (26-34); Mean Corpuscular Volume 92.4 fl (80-100); Mean Platelet Volume 10.2 fl (7.4-10.4); Monocytes Absolute Auto 0.8 K/mm3 (0.1-0.6); Monocytes Percent Auto 8.5 % (2.6-8.5); Neutrophils Absolute Auto 7.4 K/mm3 (1.3-6.7); Neutrophils Percent Auto 78.3 % (45.5-73.1); Platelet Count Result 372 k/mm3 (150-375); Red Blood Count 2.89 M/mm3 (4.2-5.4); Red Cell Distribution Width 14.7 % (11.5-14.5); White Blood Count 9.4 K/mm3 (4.5-10.0)
[2024-02-15 06:27] LABS: Alanine Aminotransferase 9 U/L (6-35); Albumin Level 2.6 g/dL (3.5-5.1); Alkaline Phosphatase 70 U/L (38-126); Aspartate Amino Transferase 26 U/L (14-36); Bilirubin,Total 0.9 mg/dL (0.2-1.3); Blood Urea Nitrogen 38 mg/dL (7-17); Calcium 8.2 mg/dL (8.4-10.2); Carbon Dioxide > 40 mmol/L (22-30); Chloride 93 mmol/L (98-107); Estimated CRCL calculation 27 ml/min; Estimated Glomerular Filt Rate 31; Glucose 112 mg/dL (65-110); Magnesium 1.8 mg/dL (1.6-2.3); Potassium 3.3 mmol/L (3.4-5.0); Sodium 133 mmol/L (137-145)
[2024-02-15] MEDS: EMPAGLIFLOZIN 25 MG TABLET PO (09:42)
[2024-02-15] MEDS: FENOFIBRATE NANOCRYSTALLIZED 145 MG TABLET PO (09:42)
[2024-02-15] MEDS: APIXABAN 5 MG TABLET PO ×2 (09:42→20:28)
[2024-02-15 12:54] LABS: Glucose Point of Care 108 mg/dl (65-105)
[2024-02-15 12:54] LABS: Glucose Point of Care 114 mg/dl (65-105)
--- NOTE | 2024-02-15 15:22 | P.PNIM_ITS ---
Progress Note: A&P Assessment and Plan (1) Cellulitis of right lower extremity: Code(s): L03.115 - Cellulitis of right lower limb Status: Acute Assessment and Plan: 02/13/24 * Open wound to the right plantar surface of foot with increased swelling, redness, warmth, pain. * White blood cell count 15.1 on admission * Venous Doppler negative for DVT * Patient started on Ancef and Levaquin * Blood cultures obtained and are pending 02/14/24: * Blood culture showing no growth to date on preliminary read * White blood cell count down to 9.6 * Continue Ancef and Levaquin 02/15/24: * Continue with current treatment plan * Blood cultures showing no growth on preliminary read (2) Acute exacerbation of CHF (congestive heart failure): Qualifiers: Heart failure type: diastolic Qualified Code(s): I50.33 - Acute on chronic diastolic (congestive) heart failure Code(s): I50.9 - Heart failure, unspecified Status: Acute Assessment and Plan: 02/13/24 * Chest x-ray showing mild pulmonary vascular congestion, bilateral pleural effusion right greater than the left, bilateral lower lung infiltrate right greater than the left * Patient given 40 of Lasix in the ED * Will obtain EKG today 02/14/24: * EKG showing right bundle branch block, left anterior fascicular block, no significant changes per cardiology reading * Continue with current treatment plan 02/15/24: * No change to current treatment plan (3) Hypokalemia: Code(s): E87.6 - Hypokalemia Status: Acute Assessment and Plan: 02/13/24 * Potassium was 2.9 initially * 40 mEq of potassium was given in the ED * Potassium today 3.0 * Will give another 40 mEq of potassium now * Continue to trend 02/14/24: * Potassium is 3.8 * No further replacement needed * Continue to trend 02/15/24: * Potassium level 3.3 * Patient was given 40 mEq of potassium * Continue to trend (4) Stage 3b chronic kidney disease: Code(s): N18.32 - Chronic kidney disease, stage 3b Status: Chronic Assessment and Plan: 02/13/24 * BUN 37, creatinine 1.6, EGFR 31 * Appears to be her baseline * Continue to trend 02/14/24: * Creatinine 1.5 02/14/24: * Creatinine 1.6 * Continue trend (5) Diabetes mellitus with chronic kidney disease: Qualifiers: Diabetes mellitus type: type 2 Diabetes mellitus senior care insulin use: without oil heaterman use Chronic kidney disease stage: stage 3 (moderate) Chronic kidney disease stage 3 subtype: stage 3a (GFR 45-59) Qualified Code(s): E11.22 - Type 2 diabetes mellitus with diabetic chronic kidney disease; N18.31 - Chronic kidney disease, stage 3a Code(s): E11.22 - Type 2 diabetes mellitus with diabetic chronic kidney disease Status: Acute Assessment and Plan: 02/13/24 * Blood sugars ranging 114-181 * Last hemoglobin A1c on 09/10/2023 was 5.3 * Accu-Cheks AC and HS * Sliding scale insulin ordered * Hypoglycemic protocol in place 02/14/24: * No change to current treatment plan she Time Spent With Patient Time with patient: 25 - 35 minutes Subjective Date/time seen: 02/15/24 15:23 Interval history: 02/12/24: Patient is a 78-year-old with history of diabetes, obesity, peripheral artery disease, foot ulcers, DOLLY with ejection fraction of 65% admitted with lower extremity cellulitis and edema.? She patient was recently hospitalized in ICU under septic shock patient was started on 2 L of fluid at that time also was started on Levophed patient was weaned off was started on antibiotics meropenem and vancomycin patient's blood cultures were negative and urine culture showed no growth at that time.? Patient appears comfortable right now denies any fever no chills does complain of some redness and pain in the right lower extremity.? Chest x-ray shows cardiomegaly with bilateral pleural effusion right greater than left and bilateral lung infiltrate. 02/13/24: Examination today patient is alert and oriented x3, lying in the bed. She denies any fever, chills, nausea, vomiting, diarrhea, chest pain, shortness of breath or abdominal pain. labs today shown a sodium level 135, potassium of 3.0, creatinine 1.6, EGFR 31. Will continue with IV antibiotics for now. 02/14/24: Patient denies any new complaints today. Labs today show hemoglobin of 8.4, sodium 134, chloride 96, creatinine 1.5. EKG reviewed from yesterday showing right bundle block and left anterior fascicular, no significant changes cardiology interpretation. Continue with IV antibiotics for now. 02/15/24: Patient denies any new complaints today she was reported to still low blood pressures 113/44. Nursing held the Lasix and metoprolol again today. Labs today showed hemoglobin of 8.3, sodium 133, potassium 3.3, chloride 93, creatinine 1.6 Review of Systems Review of Systems: All systems reviewed & are unremarkable except as noted in HPI and below Constitutional: Constitutional: Reports as per HPI and Reports no additional constitutional complaints Eyes: Eyes: Reports as per HPI and Reports no additional eye complaints ENT: Reports system reviewed and no additional complaints, except as documented and Reports as per HPI Cardiovascular: Cardiovascular: Reports as per HPI and Reports no additional cardiovascular complaints Respiratory: Respiratory: Reports as per HPI and Reports no additional respir atory complaints Gastrointestinal: Gastrointestinal: Reports as per HPI and Reports no additional gastrointestinal complaints Genitourinary: Genitourinary: Reports no additional female genitourinary complaints and Reports as per HPI Musculoskeletal: Musculoskeletal: Reports no additional musculoskeletal complaints and Reports as per HPI Integumentary/Breasts: Skin/Breast: Reports system reviewed and no additional complaints, except as docu and Reports as per HPI Neurologic: Reports system reviewed and no additional complaints, except as documented and Reports as per HPI Psychiatric: Psychiatric: Reports no additional psychiatric complaints and Reports as per HPI Exam Narrative: General: In no acute distress, well nourished Head: atraumatic, no encephalopathy Eyes: EOMI, PERRLA, sclera clear ENT: moist mucous membranes, nasal passages clear Neck: supple, no JVD, no adenopathy, trachea midline Cardiac: Normal S1 and S2. No murmur, gallops or friction rubs, peripheral pulses intact. Respiratory: Lungs clear to auscultation, no adventitious lung sounds, currently on room air Gastrointestinal: soft, non-distended, non-tender, normoactive bowel sounds. : voiding without difficulty. Extremities: moves all extremities well, no edema, good ROM, strength 5/5 Skin: RLE swelling warmth, redness noted Neuro: Alert and oriented x3, cranial nerves intact, no neuro deficits. Psych: normal mood, normal affect, interactive Objective Data Vital Signs Vital Signs: Vital Signs - 24 hr 02/14/24 16:01 02/14/24 21:23 02/15/24 00:00 Temperature 97.6 F Pulse Rate 73 78 79 Respiratory Rate 16 Blood Pressure 115/52 L Pulse Oximetry 98 Oxygen Delivery 02/15/24 00:00 02/15/24 05:26 02/15/24 04:00 Temperature 97.7 F Pulse Rate 68 70 65 Respiratory Rate 16 Blood Pressure 119/46 L Pulse Oximetry 99 Oxygen Delivery 02/15/24 09:40 02/15/24 13:50 Temperature 97.5 F L Pulse Rate 78 Respiratory Rate 18 Blood Pressure 113/44 L Pulse Oximetry 100 Oxygen Delivery Room Air Intake/Output Intake/Output: Intake & Output 02/12/24 02/13/24 02/14/24 02/15/24 23:59 23:59 23:59 23:59 Intake Total 50 2160 1180 975 Output Total 1600 1500 Balance 50 560 1180 -525 Meds/Results Medications: Active Medications Generic Name Dose Route Start Last Admin Trade Name Freq PRN Reason Stop Dose Admin Acetaminophen 650 mg 02/12/24 19:36 Acetaminophen 325 Mg Tablet PO Q4H PRN Mild Pain (1-3) or Fever Apixaban 5 mg 02/12/24 21:00 02/15/24 09:42 Apixaban 5 Mg Tablet PO 5 mg Q12HR RAFAELA Administration Dextrose 12.5 gm 02/13/24 15:19 Dextrose 50% 25 Gm/50 Ml Syringe IV PUSH PRN PRN Hypoglycemia Protocol Empagliflozin 25 mg 02/13/24 09:00 02/15/24 09:42 Empagliflozin 25 Mg Tablet PO 25 mg DAILY RAFAELA Administration Fenofibrate 145 mg 02/13/24 09:00 02/15/24 09:42 Fenofibrate Nanocrystallized 145 Mg Tablet PO 145 mg DAILY RAFAELA Administration Furosemide 40 mg 02/12/24 21:00 02/15/24 11:50 Furosemide Inj 40 Mg/4 Ml Vial IV PUSH Not Given Q12HR RAFAELA Glucagon 1 mg 02/13/24 15:19 Glucagon For Inj 1 Mg Vial IM PRN PRN Hypoglycemia Protocol Glucose 15 gm 02/13/24 15:19 Glucose Oral Gel 15 Gm Of Glucse In 37.5 Gm Tube PO PRN PRN Hypoglycemia Protocol Levofloxacin/Dextrose 750 mg in 150 mls @ 100 mls/hr 02/14/24 21:00 02/14/24 21:25 Levaquin 750 Mg/D5w 150 Ml IVPB 100 mls/hr Q48H RAFAELA Administration Cefazolin Sodium 500 mg/ 50 mls @ 100 mls/hr 02/13/24 06:00 02/15/24 05:32 Dextrose IVPB 100 mls/hr Q12H RAFAELA Administration Dextrose 1,000 mls @ 100 mls/hr 02/13/24 15:19 Dextrose 5% 1,000 Ml IVPB PRN PRN Hypoglycemia Protocol Insulin Aspart 2 - 5 units 02/13/24 17:00 02/15/24 12:29 Insulin Aspart (*Bkc) 100 Units/Ml SUB-Q Not Given TIDWM [facility] Protocol Insulin Aspart 1 - 2 units 02/13/24 21:00 02/14/24 21:25 Insulin Aspart (*Bkc) 100 Units/Ml SUB-Q Not Given HS [facility] Protocol Metoprolol Tartrate 12.5 mg 02/12/24 21:00 02/15/24 11:50 Metoprolol Tartrate 12.5 Mg Tablet PO Not Given Q12HR [facility] Ondansetron HCl 4 mg 02/12/24 19:36 Ondansetron Inj 4 Mg/2 Ml Vial IV PUSH Q6H PRN Nausea And Vomiting Radiology Results: ITS Impressions Venous Doppler Study 02/12/24 15:29 IMPRESSION: 1. No deep venous thrombosis. Chest X-Ray 02/12/24 15:45 IMPRESSION: Cardiomegaly, mild pulmonary vascular congestion, bilateral pleural effusions, right greater than left, suggesting congestive heart failure Bilateral lower lung infiltrate or atelectasis, right greater than left Labs Labs: Laboratory Results - last 24 hr 02/14/24 02/14/24 02/15/24 16:40 20:36 05:49 WBC 9.4 RBC 2.89 L Hgb 8.3 L Hct 26.7 L MCV 92.4 MCH 28.7 MCHC 31.1 L RDW 14.7 H Plt Count 372 MPV 10.2 Immature Gran % (Auto) 3.6 H Neut % (Auto) 78.3 H Lymph % (Auto) 8.4 L [place] % (Auto) 8.5 Eos % (Auto) 1.0 Baso % (Auto) 0.2 Lymph # (Auto) 0.79 L [place] # (Auto) 0.8 H Eos # (Auto) 0.1 Baso # (Auto) 0.0 Abs Immat Gran (auto) 0.34 H Absolute Neuts (auto) 7.4 H Absolute Nucleated RBC 0.000 Nucleated RBC % 0.0 Sodium 133 L Potassium 3.3 L Chloride 93 L Carbon Dioxide > 40 H Anion Gap BUN 38 H Creatinine 1.60 H Estim Creat Clear Calc 27 Estimated GFR 31 L Glucose 112 H POC Capillary Glucose 111 H 180 H Calcium 8.2 L Magnesium 1.8 Total Bilirubin 0.9 AST 26 ALT 9 Alkaline Phosphatase 70 Total Protein 6.0 L Albumin 2.6 L 02/15/24 02/15/24 07:51 11:11 WBC RBC Hgb Hct MCV MCH MCHC RDW Plt Count MPV Immature Gran % (Auto) Neut % (Auto) Lymph % (Auto) [place] % (Auto) Eos % (Auto) Baso % (Auto) Lymph # (Auto) [place] # (Auto) Eos # (Auto) Baso # (Auto) Abs Immat Gran (auto) Absolute Neuts (auto) Absolute Nucleated RBC Nucleated RBC % Sodium Potassium Chloride Carbon Dioxide Anion Gap BUN Creatinine Estim Creat Clear Calc Estimated GFR Glucose POC Capillary Glucose 108 H 114 H Calcium Magnesium Total Bilirubin AST ALT Alkaline Phosphatase Total Protein Albumin Quality VTE Prophylaxis VTE prophylaxis: pharmacologic ordered
[2024-02-15 16:48] LABS: Glucose Point of Care 112 mg/dl (65-105)
[2024-02-15] MEDS: POTASSIUM CHLORIDE 20 MEQ ER TABLET 40 MEQ PO (18:19)
[2024-02-15 19:40] LABS: Glucose Point of Care 194 mg/dl (65-105)
[2024-02-15] MEDS: ACETAMINOPHEN 325 MG TABLET 650 MG PO (20:27)
[2024-02-15] MEDS: SIMVASTATIN 20 MG TABLET PO (20:28)
[2024-02-16] VITALS (8 sets, daily range): BP systolic 107–108; BP diastolic 36–45; PULSE 69–91; RESP 16–18; TEMP 36.3–37.2; O2SAT 99–100
[2024-02-16] MEDS: ceFAZolin 500 MG in DEXTROSE 5% IN WATER 50 ML 100 MG IVPB (06:04)
[2024-02-16 06:41] LABS: Basophils Percent Auto 0.3 % (0.2-1.2); Eosinophils Absolute Auto 0.1 K/mm3 (0-0.3); Eosinophils Percent Auto 1.2 % (0-4.4); Hemoglobin 7.7 g/dL (12.0-15.0); Immature Granulocyte Absolute 0.38 K/mm3 (0.00-0.031); Immature Granulocyte Percent A 5.5 % (0-0.5); Lymphocytes Absolute Auto 0.64 K/mm3 (0.9-3.2); Lymphocytes Percent Auto 9.2 % (18.3-44.2); Mean Corpuscular HGB Conc 30.8 g/dl (32-36); Mean Corpuscular Hemoglobin 28.6 pg (26-34); Mean Corpuscular Volume 92.9 fl (80-100); Mean Platelet Volume 9.7 fl (7.4-10.4); Monocytes Absolute Auto 0.7 K/mm3 (0.1-0.6); Monocytes Percent Auto 9.7 % (2.6-8.5); Neutrophils Absolute Auto 5.1 K/mm3 (1.3-6.7); Neutrophils Percent Auto 74.1 % (45.5-73.1); Platelet Count Result 334 k/mm3 (150-375); Red Blood Count 2.69 M/mm3 (4.2-5.4); Red Cell Distribution Width 14.6 % (11.5-14.5); White Blood Count 6.9 K/mm3 (4.5-10.0)
[2024-02-16 06:47] LABS: Alanine Aminotransferase 7 U/L (6-35); Albumin Level 2.8 g/dL (3.5-5.1); Alkaline Phosphatase 60 U/L (38-126); Anion Gap 3 mmol/L (4-12); Aspartate Amino Transferase 18 U/L (14-36); Bilirubin,Total 0.8 mg/dL (0.2-1.3); Blood Urea Nitrogen 40 mg/dL (7-17); Calcium 8.3 mg/dL (8.4-10.2); Carbon Dioxide 35 mmol/L (22-30); Chloride 95 mmol/L (98-107); Estimated CRCL calculation 23 ml/min; Estimated Glomerular Filt Rate 25; Glucose 111 mg/dL (65-110); Magnesium 1.9 mg/dL (1.6-2.3); Potassium 3.8 mmol/L (3.4-5.0); Sodium 133 mmol/L (137-145)
[2024-02-16 07:31] LABS: Glucose Point of Care 103 mg/dl (65-105)
[2024-02-16] MEDS: CHOLECALCIFEROL 1,000 UNITS TABLET 5000 UNITS PO (09:01)
[2024-02-16] MEDS: APIXABAN 5 MG TABLET PO (09:01)
[2024-02-16] MEDS: EMPAGLIFLOZIN 25 MG TABLET PO (09:01)
[2024-02-16] MEDS: CALCIUM CARBONATE (OSCAL) 500 MG TABLET PO (09:01)
[2024-02-16] MEDS: FENOFIBRATE NANOCRYSTALLIZED 145 MG TABLET PO (09:01)
[2024-02-16] MEDS: METOPROLOL SUCCINATE EXT REL 12.5 MG TABCR PO (10:27)
[2024-02-16 11:33] LABS: Glucose Point of Care 113 mg/dl (65-105)
[2024-02-16] MEDS: SODIUM CHLORIDE 0.9% IV 500 ML IV CONT (14:13)
--- NOTE | 2024-02-16 14:28 | PM.DS ---
DS: Admitting Diagnosis Discharge Date 02/16/24 Admitting Diagnosis Cellulitis of the right lower extremity Acute exacerbation of CHF Hypokalemia Stage IIIB chronic kidney disease Diabetes mellitus with chronic kidney disease DS: Discharge Diagnosis Discharge Diagnosis (1) Cellulitis of right lower extremity: Code(s): L03.115 - Cellulitis of right lower limb Status: Acute (2) Acute exacerbation of CHF (congestive heart failure): Qualifiers: Heart failure type: diastolic Qualified Code(s): I50.33 - Acute on chronic diastolic (congestive) heart failure Code(s): I50.9 - Heart failure, unspecified Status: Acute (3) Hypokalemia: Code(s): E87.6 - Hypokalemia Status: Acute (4) Stage 3b chronic kidney disease: Code(s): N18.32 - Chronic kidney disease, stage 3b Status: Chronic (5) Diabetes mellitus with chronic kidney disease: Qualifiers: Diabetes mellitus type: type 2 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: without senior care use Chronic kidney disease stage: stage 3 (moderate) Chronic kidney disease stage 3 subtype: stage 3a (GFR 45-59) Qualified Code(s): E11.22 - Type 2 diabetes mellitus with diabetic chronic kidney disease; N18.31 - Chronic kidney disease, stage 3a Code(s): E11.22 - Type 2 diabetes mellitus with diabetic chronic kidney disease Status: Acute DS: Summary Hospital Course Reason for hospitalization: Cellulitis of the right lower extremity Acute exacerbation of CHF Hypokalemia Stage IIIB chronic kidney disease Diabetes mellitus with chronic kidney disease Hospital Course: 02/12/24: Patient is a 78-year-old with history of diabetes, obesity, peripheral artery disease, foot ulcers, DOLLY with ejection fraction of 65% admitted with lower extremity cellulitis and edema.? She patient was recently hospitalized in ICU under septic shock patient was started on 2 L of fluid at that time also was started on Levophed patient was weaned off was started on antibiotics meropenem and vancomycin patient's blood cultures were negative and urine culture showed no growth at that time.? Patient appears comfortable right now denies any fever no chills does complain of some redness and pain in the right lower extremity.? Chest x-ray shows cardiomegaly with bilateral pleural effusion right greater than left and bilateral lung infiltrate. 02/13/24: Examination today patient is alert and oriented x3, lying in the bed. She denies any fever, chills, nausea, vomiting, diarrhea, chest pain, shortness of breath or abdominal pain. labs today shown a sodium level 135, potassium of 3.0, creatinine 1.6, EGFR 31.? Will continue with IV antibiotics for now.? 02/14/24: Patient denies any new complaints today.? Labs today show hemoglobin of 8.4, sodium 134, chloride 96, creatinine 1.5.? EKG reviewed from yesterday showing right bundle block and left anterior fascicular, no significant changes cardiology interpretation.? Continue with IV antibiotics for now. 02/15/24: Patient denies any new complaints today she was reported to still low blood pressures 113/44.? Nursing held the Lasix and metoprolol again today.? Labs today showed hemoglobin of 8.3, sodium 133, potassium 3.3, chloride 93, creatinine 1.6 02/16/24: Patient denies any new complaints today. Blood pressure is stable. We will give 500 ml NS as she still remains lower than her usual. We will continue to hold her blood pressure medications. Labs today showed hemoglobin of 7.7, sodium 133, chloride 95 creatinine 1.9. She is stable for discharge at this time. She will need to follow up with her primary care physician 1 week for blood pressure check and to restart some of her blood pressure medications. Final diagnosis: Cellulitis of right lower extremity Status at Discharge Cognitive/behavioral status at discharge: Alert oriented x4 Functional status at discharge: independent ambulation Overall status at discharge: patient is progressing back to baseline Time Spent with Patient Time attestation: Total time spent providing and/or coordinating discharge services: Time spent: Greater than 30 minutes Exam Narrative: General: In no acute distress, well nourished Head: atraumatic, no encephalopathy Eyes: EOMI, PERRLA, sclera clear ENT: moist mucous membranes, nasal passages clear Neck: supple, no JVD, no adenopathy, trachea midline Cardiac: Normal S1 and S2. No murmur, gallops or friction rubs, peripheral pulses intact. Respiratory: Lungs clear to auscultation, no adventitious lung sounds, currently on room air Gastrointestinal: soft, non-distended, non-tender, normoactive bowel sounds. : voiding without difficulty. Extremities: moves all extremities well, no edema, good ROM, strength 5/5 Skin: RLE swelling warmth, redness noted Neuro: Alert and oriented x3, cranial nerves intact, no neuro deficits. Psych: normal mood, normal affect, interactive DS: Data Data Completed and Pending Completed studies during hospitalization: Chest x-ray Venous Doppler Pending studies at discharge: Blood cultures Labs on day of discharge: Labs from last 24 hours 02/16/24 02/16/24 02/16/24 11:30 07:24 06:10 WBC 6.9 RBC 2.69 L Hgb 7.7 L Hct 25.0 L MCV 92.9 MCH 28.6 MCHC 30.8 L RDW 14.6 H Plt Count 334 MPV 9.7 Immature Gran % (Auto) 5.5 H Neut % (Auto) 74.1 H Lymph % (Auto) 9.2 L [place] % (Auto) 9.7 H Eos % (Auto) 1.2 Baso % (Auto) 0.3 Lymph # (Auto) 0.64 L [place] # (Auto) 0.7 H Eos # (Auto) 0.1 Baso # (Auto) 0.0 Abs Immat Gran (auto) 0.38 H Absolute Neuts (auto) 5.1 Absolute Nucleated RBC 0.000 Nucleated RBC % 0.0 Sodium 133 L Potassium 3.8 Chloride 95 L Carbon Dioxide 35 H Anion Gap 3 L BUN 40 H Creatinine 1.90 H Estim Creat Clear Calc 23 Estimated GFR 25 L Glucose 111 H POC Capillary Glucose 113 H 103 Calcium 8.3 L Magnesium 1.9 Total Bilirubin 0.8 AST 18 ALT 7 Alkaline Phosphatase 60 Total Protein 6.0 L Albumin 2.8 L 02/15/24 02/15/24 19:36 16:46 WBC RBC Hgb Hct MCV MCH MCHC RDW Plt Count MPV Immature Gran % (Auto) Neut % (Auto) Lymph % (Auto) [place] % (Auto) Eos % (Auto) Baso % (Auto) Lymph # (Auto) [place] # (Auto) Eos # (Auto) Baso # (Auto) Abs Immat Gran (auto) Absolute Neuts (auto) Absolute Nucleated RBC Nucleated RBC % Sodium Potassium Chloride Carbon Dioxide Anion Gap BUN Creatinine Estim Creat Clear Calc Estimated GFR Glucose POC Capillary Glucose 194 H 112 H Calcium Magnesium Total Bilirubin AST ALT Alkaline Phosphatase Total Protein Albumin Preliminary micro results at discharge 02/12/24 22:23 Blood Culture - Preliminary Blood Procedures/Treatments: None Discharge Plan Discharge Attending physician on discharge: Aristeo Mcgregor Consulting providers: Patricia London Discharging Clinician: Kamini Farias Anticipated Discharge Date/Time: 02/16/24 12:43 Patient Disposition: Home Health Service Activity: as tolerated Diet: as tolerated Discharge Instructions: Finish all of your antibiotic as prescribed Follow up with PCP in 1 week Hold your blood pressure medications for now as your blood pressure has been running lower than usual. Keep a record of your blood pressures over the next week and take them to your PCP. Your PCP can make adjustments to your medications at that time. Per Care Coordination Patient is current with [facility] for RN, PT, OT. Please resume HH services at discharge. [phone] RN please fax completed discharge instructions to [phone] Patient Instructions: Antibiotic Form, Levofloxacin (By mouth), Cellulitis (GEN) Patient Language: Fijian Stand Alone Forms: General Discharge Information Follow-up/Referrals: Sandor Dye MD [Primary Care Provider] - 1 Week Discharge Medications: New levofloxacin 750 mg tablet 750 mg PO Q48H Qty: 2 0RF Rx Instructions: DOSE TO START TONIGHT Continued calcium 600 mg Capsule 600 mg PO DAILY cholecalciferol (vitamin D3) 125 mcg (5,000 unit) Capsule 125 mcg PO DAILY cyanocobalamin (vitamin B-12) 1,000 mcg/mL solution 1,000 mcg IM MONTHLY Rx Instructions: Patient stated she takes injection monthly on the first Friday of the month. Eliquis 5 mg Tablet 5 mg PO Q12HR 24 Days Qty: 48 2RF dapagliflozin propanediol [Farxiga] 10 mg tablet 10 mg PO DAILY metformin 500 mg Tablet 500 mg PO BID Rx Instructions: 3 tablets with breakfast, 2 tablets with dinner. simvastatin 20 mg Tablet 20 mg PO HS Januvia 100 mg Tablet 100 mg PO DAILY fenofibrate nanocrystallized 145 mg tablet 145 mg PO DAILY Held metoprolol tartrate 25 mg tablet 12.5 mg PO BID Hold Instructions: Resume on 03/10/24. HOLD THIS MEDICATION UNTIL YOUR DOCTOR TELLS YOU THAT IT IS SAFE TO RESUME. YOU HAVE HAD LOWER BLOOD PRESSURE THIS ADMISSION. verapamil 300 mg Capsule, [address] 300 mg PO HS Hold Instructions: Resume on 03/10/24. HOLD THIS MEDICATION UNTIL YOUR DOCTOR SAYS IT IS SAFE TO RESTART. YOU HAD LOWER BLOOD PRESSURES THAN NORMAL WHILE INPATIENT. lisinopril 40 mg Tablet 40 mg PO DAILY Hold Instructions: Resume on 03/10/24. HOLD THIS MEDICATION UNTIL YOUR DOCTOR SAYS THAT IT IS SAFE TO RESUME. YOU HAD LOWER BLOOD PRESSURES THAN NORMAL WHILE INPATIENT. metoprolol succinate 100 mg Tablet Extended Release 24 Hr 100 mg PO DAILY Hold Instructions: Resume on 03/10/24. HOLD THIS MEDICATION UNTIL YOUR DOCTOR TELLS YOU IT IS SAFE TO RESTART. YOUR BLOOD PRESSURE HAS BEEN RUNNING LOWER THAN NORMAL. Date of admission: 02/13/24 15:51 Primary Care Provider: Sandor Dye Admitting Provider: Briana Schroeder Attending physician on admission: Briana Schroeder Condition: Improved Quality VTE Prophylaxis VTE prophylaxis: pharmacologic ordered
[2024-02-16 16:51] LABS: Glucose Point of Care 128 mg/dl (65-105)
--- NOTE | 2024-02-17 11:27 | P.CDI_ITS ---
Unknown if there is a cause effect relationship with diabetes and cellulites. CDI Query Clarification Request Documentation in the medical record indicates that this patient has been admitted with or diagnosed as having Cellulitis. Additional information noted in the medical record: (1) Cellulitis of right lower extremity: ?Code(s): L03.115 - Cellulitis of right lower limb ?Status:?Acute ?Assessment and Plan: 02/13/24 * Open wound to the right plantar surface of foot with increased swelling, redness, warmth, pain. * White blood cell count 15.1 on admission * Venous Doppler negative for DVT * Patient started on Ancef and Levaquin * Blood cultures obtained and are pending (5) Diabetes mellitus with chronic kidney disease: ?Qualifiers: ?Diabetes mellitus type:?type 2??Diabetes mellitus group home insulin use:?without group home use??Chronic kidney disease stage:?stage 3 (moderate)?? Chronic kidney disease stage 3 subtype:?stage 3a (GFR 45-59)? Qualified Code(s):?E11.22 - Type 2 diabetes mellitus with diabetic chronic kidney disease; N18.31 - Chronic kidney disease, stage 3a ?Code(s): E11.22 - Type 2 diabetes mellitus with diabetic chronic kidney disease ?Status:?Acute ?Assessment and Plan: 02/13/24 * Blood sugars ranging 114-181 * Last hemoglobin A1c on 09/10/2023 was 5.3 * Accu-Cheks AC and HS * Sliding scale insulin ordered * Hypoglycemic protocol in place Please clarify if there is a cause and effect relationship between cellulitis and diabetes mellitus: * There is a cause and effect relationship between cellulitis and diabetes mellitus. * There is not a cause and effect relationship between cellulitis and diabetes mellitus. * Unknown if there is cause and effect relationship between cellulitis and diabetes mellitus.
--- NOTE | 2024-02-17 11:27 | WPDCDIQUERY2 ---
CDI Query Clarification Request Documentation in the medical record indicates that this patient has been admitted with or diagnosed as having Cellulitis. Additional information noted in the medical record: (1) Cellulitis of right lower extremity: ?Code(s): L03.115 - Cellulitis of right lower limb ?Status:?Acute ?Assessment and Plan: 02/13/24 Open wound to the right plantar surface of foot with increased swelling, redness, warmth, pain. 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 Qualified Code(s):?E11.22 - Type 2 diabetes mellitus with diabetic chronic kidney disease; N18.31 - Chronic kidney disease, stage 3a ?Code(s): E11.22 - Type 2 diabetes mellitus with diabetic chronic kidney disease ?Status:?Acute ?Assessment and Plan: 02/13/24 Blood sugars ranging 114-181 Last hemoglobin A1c on 09/10/2023 was 5.3 Accu-Cheks AC and HS Sliding scale insulin ordered Hypoglycemic protocol in place Please clarify if there is a cause and effect relationship between cellulitis and diabetes mellitus: There is a cause and effect relationship between cellulitis and diabetes mellitus. There is not a cause and effect relationship between cellulitis and diabetes mellitus. Unknown if there is cause and effect relationship between cellulitis and diabetes mellitus.
--- NOTE | 2024-02-19 14:23 | PC.NURSE ---
Blood cx are negative
== END 2024-02-16 17:20 | DRG 602 ==
LOC: ANHED 14:44 → ANH3MEDSUR 18:20
PROVIDERS: Emergency Medicine; Internal Medicine; Student in an Organized Health Care Education/Training Program; Admitting Provider Hospitalist; Emergency Provider Physician Assistant; PCP Family Medicine; Visit Provider Nurse Practitioner Acute Care
DX: L03.115 Cellulitis of right lower limb (principal); I50.33 Acute on chronic diastolic (congestive) heart failure; E11.22 Type 2 diabetes mellitus with diabetic chronic kidney disease; I12.9 Hypertensive chronic kidney disease with stage 1 through stage 4 chronic kidney disease, or unspecified chronic kidney disease; N18.32 Chronic kidney disease, stage 3b; E87.6 Hypokalemia; I73.9 Peripheral vascular disease, unspecified; D64.9 Anemia, unspecified
CPT/HCPCS: 36415; 71045; 80048; 80053; 82948; 83735; 83880; 85025; 85610; 85652; 85730; 86140; 87040; 93005; 93971; 96365; 96366; 96375; 96376; 99285; A9270; G0378; J0690; J1940; J1956; J3475; J3480; J7040

== ENCOUNTER 2024-05-04 11:55 | Outpatient (CLI) | payer MEDICARE, SELFPAY ==
[2024-05-04 13:15] LABS: Albumin Level 4.2 g/dL (3.5-5.1); Anion Gap 7 mmol/L (4-12); Blood Urea Nitrogen 41 mg/dL (7-17); Calcium 9.2 mg/dL (8.4-10.2); Carbon Dioxide 25 mmol/L (22-30); Chloride 107 mmol/L (98-107); Estimated Glomerular Filt Rate 27; Glucose 110 mg/dL (65-110); Phosphorus 3.5 mg/dL (2.5-4.5); Sodium 139 mmol/L (137-145)
[2024-05-04 17:04] LABS: Creatinine Urine 55.5 mg/dL; Total Protein Urine Random 14 mg/dL; Ur Ttl Prot Creatinine Ratio 0.25 mg/mg (0-0.20)
== END 2024-05-04 11:56 | disposition home or self-care (01) ==
LOC: ANHLAB 11:56
PROVIDERS: PCP Family Medicine; Visit Provider Internal Medicine Nephrology
DX: N17.9 Acute kidney failure, unspecified (principal); N18.32 Chronic kidney disease, stage 3b
CPT/HCPCS: 36415; 80069; 82570; 84156

== ENCOUNTER 2024-06-11 09:53 | Outpatient (CLI) | payer MEDICARE, SELFPAY ==
[2024-06-11 13:00] LABS: Basophils Percent Auto 0.2 % (0.2-1.2); Eosinophils Absolute Auto 0.1 K/mm3 (0-0.3); Eosinophils Percent Auto 2.7 % (0-4.4); Hematocrit 31.7 % (37.0-47.0); Hemoglobin 9.8 g/dL (12.0-15.0); Immature Granulocyte Absolute 0.01 K/mm3 (0.00-0.031); Immature Granulocyte Percent A 0.2 % (0-0.5); Lymphocytes Absolute Auto 1.17 K/mm3 (0.9-3.2); Lymphocytes Percent Auto 24.1 % (18.3-44.2); Mean Corpuscular HGB Conc 30.9 g/dl (32-36); Mean Corpuscular Hemoglobin 25.8 pg (26-34); Mean Corpuscular Volume 83.4 fl (80-100); Mean Platelet Volume 11.3 fl (7.4-10.4); Monocytes Absolute Auto 0.5 K/mm3 (0.1-0.6); Monocytes Percent Auto 9.3 % (2.6-8.5); Neutrophils Absolute Auto 3.1 K/mm3 (1.3-6.7); Neutrophils Percent Auto 63.5 % (45.5-73.1); Platelet Count Result 222 k/mm3 (150-375); Red Cell Distribution Width 16.9 % (11.5-14.5); White Blood Count 4.9 K/mm3 (4.5-10.0)
[2024-06-11 13:41] LABS: Alanine Aminotransferase 11 U/L (6-35); Albumin Level 3.9 g/dL (3.5-5.1); Alkaline Phosphatase 68 U/L (38-126); Anion Gap 9 mmol/L (4-12); Aspartate Amino Transferase 31 U/L (14-36); Blood Urea Nitrogen 33 mg/dL (7-17); Calcium 9.3 mg/dL (8.4-10.2); Carbon Dioxide 25 mmol/L (22-30); Chloride 102 mmol/L (98-107); Cholesterol 132 mg/dL (0-200); Estimated Glomerular Filt Rate 29; Glucose 106 mg/dL (65-110); HDL Direct 46 mg/dL; Potassium 4.1 mmol/L (3.4-5.0); Sodium 136 mmol/L (137-145); Triglycerides 81 mg/dL (<150)
[2024-06-11 13:45] LABS: Anion Gap 10 mmol/L (4-12); Blood Urea Nitrogen 33 mg/dL (7-17); Calcium 9.2 mg/dL (8.4-10.2); Carbon Dioxide 25 mmol/L (22-30); Chloride 102 mmol/L (98-107); Estimated Glomerular Filt Rate 29; Glucose 106 mg/dL (65-110); Phosphorus 3.7 mg/dL (2.5-4.5); Potassium 4.1 mmol/L (3.4-5.0); Sodium 137 mmol/L (137-145)
[2024-06-11 14:09] LABS: LDL Cholesterol Direct 61 mg/dL
[2024-06-11 14:30] LABS: Hemoglobin A1C 5.8 % (<5.7)
[2024-06-11 22:19] LABS: Vitamin D 25 Hydroxy 46.4 ng/mL
== END 2024-06-11 09:54 | disposition home or self-care (01) ==
PROVIDERS: Internal Medicine Nephrology; PCP Family Medicine
DX: E11.22 Type 2 diabetes mellitus with diabetic chronic kidney disease (principal); I12.9 Hypertensive chronic kidney disease with stage 1 through stage 4 chronic kidney disease, or unspecified chronic kidney disease; N18.4 Chronic kidney disease, stage 4 (severe); N25.81 Secondary hyperparathyroidism of renal origin; E55.9 Vitamin D deficiency, unspecified; E78.5 Hyperlipidemia, unspecified
CPT/HCPCS: 36415; 80053; 80061; 80069; 82306; 83036; 85025

== ENCOUNTER 2024-12-16 09:17 | Outpatient (CLI) | payer MEDICARE, SELFPAY ==
--- OUTSIDE RECORDS SUMMARY | 2024-12-16 09:30 | XMS_ITS | Referral Summary ---
Author Organization [facility] Address [address] [place] [address] Care Team Providers Care Tenter Frame Back Tender Name Role Phone Sandor Dye MD Primary Care Provider [phone] Allergies Active Allergy Reactions Criticality Noted Date Comments Clarithromycin Nausea only Low 01/01/2023 Clindamycin Diarrhea Low 01/01/2023 Codeine Nausea only Low 01/01/2023 Prochlorperazine Other (See comments) Low Muscle spasms Penicillins Hives Medium 01/01/2023 Medications Eliquis 5 mg tablet 023 Active fenofibrate nanocrystallized (TRICOR) 145 mg tablet 022 Active cyanocobalamin (Vitamin B-12) 1,000 mcg/mL injection INJECT 1ML INTRAMUSCULARLY ONCE A MONTH 023 Active OneTouch Ultra Test strip USE TO CHECK BLOOD SUGARS ONCE A DAY 023 Active midodrine (PROAMATINE) 10 mg tablet Take 1 tablet (10 mg total) by mouth every 8 (eight) hours 024 Active sodium bicarbonate 650 mg tablet Take 1 tablet (650 mg total) by mouth 2 (two) times a day 024 Active calcium carbonate (TUMS) 1,250 mg (500 mg elemental) chewable tablet Take 1 tablet (1,250 mg total) by mouth daily Active magnesium citrate solution Take 30 mL by mouth once Active insulin lispro (HumaLOG, ADMELOG) 100 unit/mL vial for injection Inject under the skin 3 (three) times a day before meals Active magnesium hydroxide (MILK OF MAGNESIA) suspension 400 mg/5 mL Active dulaglutide (TRULICITY) 1.5 mg/0.5 mL pen injector Inject 0.5 mL (1.5 mg total) under the skin daily Active cholecalciferol (Vitamin D3) 5,000 unit tablet Active metoprolol tartrate (LOPRESSOR) 25 mg immediate release tablet Take 0.5 tablets (12.5 mg total) by mouth 2 (two) times a day Active Active Problems Problem Noted Date Diagnosed Date Venous insufficiency of both lower extremities 0 01/24/2023 Assessment & Plan (01/24/2023 2:41 PM CDT): Impression: Patient has a history of a left popliteal and posterior tibial vein DVT and was placed on Eliquis. Venous reflux performed and reveals significant reflux to bilateral great saphenous femoral junction. Plan: No surgical intervention at this time as patient has further evaluation for concerns of underlining bone infection to right 1st toe. Recommend patient to continue utilizing compression stockings and leg elevation for edema control. Localized edema 01/01/2023 Primary hypertension 01/01/2023 Assessment & Plan (01/24/2023 2:36 PM CDT): Impression: Chronic stable hypertension. Plan: Continue lisinopril 40 mg and metoprolol 100 mg. Mixed hyperlipidemia 01/01/2023 Assessment & Plan (01/24/2023 2:36 PM CDT): Impression: Chronic stable hyperlipidemia. Plan: Continue Tricor 145 mg. Type 2 diabetes mellitus wit h foot ulcer, without long-term current use of insulin 01/01/2023 Assessment & Plan (01/24/2023 2:33 PM CDT): Impression: Diabetes mellitus with good glucose control. Plan: Continue metformin 500 mg and Januvia 100 mg. Assessment & Plan (01/01/2023 1:13 PM MANAGER MULTIMEDIA): Impression: Chronic diabetes mellitus. Plan: Continue metformin 500 mg and Januvia 100 mg Ulcer of toe of right foot, with fat layer expos ed 01/01/2023 Assessment & Plan (02/27/2023 12:12 PM CDT): Diabetic right 1st toe ulceration present since October 2022. MRI completed 02/20/2023 which does show positive for osteomyelitis. Ulceration remained stable. Previous arterial Doppler shows bilateral triphasic waveforms. Discussed the patient with Dr. Hankins. Plan: Continue current wound care therapy and offloading as much as possible. Follow-up with her hvac field service technician. Patient has adequate blood flow to heal any wounds including a toe amputation. Assessment & Plan (01/24/2023 2:35 PM CDT): Impression: Neurotrophic ulceration to the right 1st toe is stable in size. Right 1st toe continues to be erythematous. Able to probe bone on exam. Plan: Continue dressing changes as recommended by Podiatry. Recommend patient to undergo MRI of the right foot for further evaluation of underlying bone infection and return in 4 weeks to review results. Assessment & Plan (01/01/2023 1:07 PM MANAGER MULTIMEDIA): Impression: Right 1st toe is erythematous with an open ulceration. Able to probe bone on exam. Distal pulses are palpable to right lower extremity. Plan: We will have patient follow-up in 1-2 weeks for re-evaluation with an arterial Doppler of bilateral lower extremities. Continue wound care as recommended by Podiatry. Ulcer of toe of left foot, with fat layer expose d 01/01/2023 Assessment & Plan (02/27/2023 12:13 PM CDT): Neurotrophic ulceration to the left plantar foot at the 1st metatarsal since October of 2022. This is stable. Continue current wound care therapy and offloading as much as possible. Recent arterial Dopplers shows bilateral triphasic waveforms distally. She has adequate blood flow to heal wounds to the feet. Continue follow-up with Podiatry. Assessment & Plan (01/24/2023 2:34 PM CDT): Impression: Neurotrophic ulceration to the left metatarsal is stable. No concern for infection. Bilateral lower extremity ABIs reveals triphasic waveforms with normal ABIs. Plan: Continue dressing changes as recommended by Podiatry. Assessment & Plan (01/01/2023 1:07 PM MANAGER MULTIMEDIA): Impression: Clean pink open ulceration to the plantar surface of the right metatarsal. No concern for infection. Left lower extremity is warm, well perfused. Plan: Continue dressing changes as recommended by Podiatry. We will have patient follow-up in 1-2 weeks with an arterial Doppler. Acute deep vein thrombosis ( DVT) of popliteal vein of left lower extremity 01/01/2023 Assessment & Plan (02/27/2023 12:16 PM CDT): History of DVT to the left popliteal vein. Recommend continue compression therapy such as compression stockings or Satya wraps. Also frequent elevation of the lower extremities to keep swelling under control. Assessment & Plan (01/01/2023 1:12 PM MANAGER MULTIMEDIA): Impression: Patient has confirmed left popliteal and posterior tibial vein DVT seen on venous duplex at an outside facility. Patient was placed on Eliquis. Patient also has a right calf superficial vein thrombosis. Patient has moderate edema to bilateral lower extremities. Plan: Continue Eliquis. Recommend compression therapy and leg elevation for edema control. Social History Tobacco Use Types Packs/Day Years Used Date Smoking Tobacco: Never Passive Smoke Exposure: Past Smokeless Tobacco: Never Tobacco Cessation:Counseling Given: Not Answered Personal Safety Answer Date Recorded Getting School Help Needed Not on file 12/25 Comments No Sex and Gender Information Value Date Recorded Sex Assigned at Not on file Legal Sex Female 8:42 PM MANAGER MULTIMEDIA Gender Identity Not on file Sexual Orientation Not on file Last Filed Vital Signs Vital Sign Reading Time Taken Comments Blood Pressure 122/58 01/09/2024 11:11 AM MANAGER MULTIMEDIA Pulse 58 01/09/2024 11:11 AM MANAGER MULTIMEDIA Temperature - - Respiratory Rate - - Oxygen Saturation 99% 01/09/2024 11:11 AM MANAGER MULTIMEDIA Inhaled Oxygen Concentration - - Weight 78 kg (172 lb) 01/09/2024 11:11 AM MANAGER MULTIMEDIA Height 167.6 cm (5' 6 ) 01/09/2024 11:11 AM MANAGER MULTIMEDIA Body Mass Index 27.76 01/09/2024 11:11 AM MANAGER MULTIMEDIA Plan of Treatment Not on file Insurance MEDICARE [facility] MEDICARE [facility] Care Teams Tenter Frame Back Tender Relationship Specialty Start Date End Date Sandor Dye MD PCP - General Family Medicine 12/25/22
--- OUTSIDE RECORDS SUMMARY | 2024-12-16 09:30 | XMS_ITS | Clinical Summary ---
Author Organization [facility] Address [address] [place] [address] Care Team Providers Care Health Assistant Name Role Phone Sandor Dye MD Primary Care Provider [phone] Allergies Active Allergy Reactions Criticality Noted Date [...] mg. Assessment & Plan (01/01/2023 1:13 PM CLUB CAR ATTENDANT): Impression: Chronic diabetes mellitus. Plan: Continue metformin [...] as much as possible. Follow-up with her overcaster. Patient has adequate blood flow to heal [...] results. Assessment & Plan (01/01/2023 1:07 PM CLUB CAR ATTENDANT): Impression: Right 1st toe is erythematous with [...] Podiatry. Assessment & Plan (01/01/2023 1:07 PM CLUB CAR ATTENDANT): Impression: Clean pink open ulceration to the [...] control. Assessment & Plan (01/01/2023 1:12 PM CLUB CAR ATTENDANT): Impression: Patient has confirmed left popliteal and posterior tibial vein DVT seen on venous duplex at an outside facility. Patient was placed on Eliquis. Patient also has a right calf superficial vein thrombosis. Patient has moderate edema to bilateral lower extremities. Plan: Continue Eliquis. Recommend compression therapy and leg elevation for edema control. Surgical History Surgery Date Site/Laterality Comments HYSTERECTOMY 11/10/1984 - 11/09/1985 ABDOMINAL HERNIA REPAIR Social History Tobacco Use Types Packs/Day Years Used Date Smoking Tobacco: Never Passive Smoke Exposure: Past Smokeless Tobacco: Never Tobacco Cessation:Counseling Given: Not Answered Personal Safety Answer Date Recorded Getting School Help Needed Not on file 12/25 Comments No Sex and Gender Information Value Date Recorded Sex Assigned at Not on file Legal Sex Female 8:42 PM CLUB CAR ATTENDANT Gender Identity Not on file Sexual Orientation Not on file Obstetrics History Last Filed Vital Signs Vital Sign Reading Time Taken Comments Blood Pressure 122/58 01/09/2024 11:11 AM CLUB CAR ATTENDANT Pulse 58 01/09/2024 11:11 AM CLUB CAR ATTENDANT Temperature - - Respiratory Rate - - Oxygen Saturation 99% 01/09/2024 11:11 AM CLUB CAR ATTENDANT Inhaled Oxygen Concentration - - Weight 78 kg (172 lb) 01/09/2024 11:11 AM CLUB CAR ATTENDANT Height 167.6 cm (5' 6 ) 01/09/2024 11:11 AM CLUB CAR ATTENDANT Body Mass Index 27.76 01/09/2024 11:11 AM CLUB CAR ATTENDANT Plan of Treatment Health Maintenance Due Date Last Done Comments Albumin Creatinine Ratio, Urine 1943 Depression Screening 1943 Fall Risk Assessment 1943 Hemoglobin A1C 1943 Osteoporosis Screening-Bone Density Scan 1943 eGFR 1943 Dilated Eye Exam 1943 Foot Exam 1943 DTaP/Tdap/Td Vaccine (1 - Tdap) 1954 Hepatitis B Screening 1961 Zoster Vaccine (1 of 2) 1993 Well Visit 65+ 2008 Lipid Panel 05/29/2023 05/29/2022 Covid-19 Vaccine (4 - 2023-2 5 season) 2024 07/19/2022, 02/07/2021, 01/17/2021 Influenza Vaccine (#1) 2024 , 08/17/2020, 12/09/2017, Additional history exists Pneumococcal vaccine 65+ Completed 12/09/2017, 09/10 Insurance MEDICARE [facility] MEDICARE [facility] Care Teams Health Assistant Relationship Specialty Start Date End Date Sandor Dye MD PCP - General Family Medicine 12/25/22
--- OUTSIDE RECORDS SUMMARY | 2024-12-16 09:30 | XMS_ITS | Clinical Summary ---
Author Organization [facility] Address [address] [place] [address] Phone Care Team Providers Care Tail End Rider Name Role Phone Sandor Dye MD Primary Care Provider + [phone] Allergies Active Allergy Reactions Criticality Noted Date Comments Clarithromycin Nausea and Vomiting Low 01/01/2023 Clindamycin Diarrhea Low 01/01/2023 Codeine Nausea and Vomiting Low 01/01/2023 Penicillins Hives High 01/01/2023 Prochlorperazine Other (See Comments) Low Muscle spasms Medications apixaban 5 mg tablet 12/30/2022 Active fenofibrate nanocrystallized (TRICOR) 145 mg tablet 11/05/2022 Active lisinopriL (PRINIVIL) 40 mg tablet 10/16/2022 Active metoprolol succinate (TOPROL XL) 100 mg Extended Release 24 hour tablet 12/31/2022 Active metFORMIN (GLUCOPHAGE) 500 mg tablet 09/27/2022 Activ e hydroCHLOROthiazide 50 mg tablet 11/05/2022 Active Social History Tobacco Use Types Packs/Day Years Used Date Smoking Tobacco: Never Assessed Comments Unknown Sex and Gender Information Value Date Recorded Sex Assigned at Not on file Legal Sex Female 12:07 PM CDT Gender Identity Not on file Sexual Orientation Not on file Last Filed Vital Signs Vital Sign Reading Time Taken Comments Blood Pressure 110/53 03/20/2023 6:09 PM CDT Pulse 65 03/20/2023 1:48 PM CDT Temperature 36.7 C (98 F) 03/20/2023 6:09 PM CDT Respiratory Rate 16 03/20/2023 6:09 PM CDT Oxygen Saturation 98% 03/20/2023 6:09 PM CDT Inhaled Oxygen Concentration - - Weight 84.4 kg (186 lb) 03/20/2023 6:09 PM CDT Height 167.6 cm (5' 6 ) 03/20/2023 6:09 PM CDT Body Mass Index 30.02 03/20/2023 6:09 PM CDT Plan of Treatment Health Maintenance Due Date Last Done Comments DIABETES ANNUAL FOOT EXAM 1961 DIABETES ANNUAL RETINAL EXAM 1961 DIABETES MICROALBUMIN ANNUAL SCREEN 1961 LDL CHOLESTEROL ANNUAL 1961 DTAP/TDAP/TD VACCINES (1 - Tdap) 1962 PNEUMOCOCCAL VACCINE 65+ YEARS (1 of 2 - PCV) 08/01/19 62 ZOSTER VACCINE (1 of 2) 1993 OSTEOPOROSIS SCREENING 2008 RSV VACCINE (60+ or ) (1 - 1-dose 75+ series) 2018 DIABETES HBA1C Q 6 MONTHS 11/29/2022 05/29/2022 INFLUENZA VACCINE (#1) 2024 Insurance MEDICARE PART A AND B [facility] [id number] Care Teams Tail End Rider Relationship Specialty Start Date End Date Sandor Dye MD [address] [place] [address] PCP - General Family Practice 03/20/23
--- OUTSIDE RECORDS SUMMARY | 2024-12-16 09:30 | XMS_ITS | Continuity of Care Document ---
Author Organization [facility] Address [address] [place] [address] Phone Care Team Providers Care Dairy Bacteriologist Name Role Phone [facility] Unavailable Unavail able Procedures Procedure Date SV Poly Carb Sph +/- 7.12 To +/- 20 D [facility] Svcs Frames Purchases Frames Deluxe Polycarb Lens Per Lens Post-op Follow-up Visit Refraction Post-op Follow-up Visit Post-op Follow-up Visit Remove Cataract, Insert Lens PreOp Assessment Performed Eye Exam & Treatment [facility] Advance Directives Directive Yes / No Effective Date File Name No Information Encounters Encounter Description Practice Location Reason(s) For Visit Diagnoses Date Provider Providers Copied on Encounter [facility], [address], [place], [place], [id number], [place] tel:[phone] [facility] No Information 0 [facility]. [address] [facility], [address], [place], [place], [id number], [place]. tel:[phone] Referring Provider: Vikas jang, [facility] [address], [place], [address]. tel:[phone] [facility], [address], [place], [place], [id number], [place] tel:[phone] [facility] No Information Jun-2 0-201 0 Eldridge OD Ed. [address], [place], [place], [facility] [place] [facility] [place]. tel:[phone] [facility], [address], [place], [place], [id number], [place] tel:[phone] [facility] No Information May-3 0-201 0 Krishnasamy Vikas. [address] [facility] [address], [place], [place], [facility] [place] [facility] [place]. tel:[phone] [facility], [address] [place] [address] [address], [place], [place], [id number], [place] tel:[phone] [facility] No Information May-2 3-201 0 Krishnasamy Vikas. [address] [place] [address] [address], [facility] [place] [facility] [place]. tel:[phone] [facility], [address], [place], [place], [id number], [place] tel:[phone] NovReplaced by [facility] No Information May-2 2-201 0 Krishnasamy Vikas. [facility] [address], [place], [place], [facility] [place] [facility] [place]. tel:[phone] [facility], [address], [place], [place], [id number], [place] tel:[phone] [facility] No Information Moe-0 9-201 0 Krishnasamy Vikas. [address] [place] [address] [address], [place], [facility] [place] [facility] [place]. tel:[phone] Referring Provider: Vikas jang, [address] [facility] [address], [place], [facility] [place] [facility] [place]. tel:[phone] Family History Family Member Type Diagnosis Age At Onset No Information Payers Payer name Insurance type Covered constitution party ID Cristino leavitt(s) AARP Medicare Supp CI [id number] Social History Type Description Quantity Date Captured Comments Sex Female Smoking Status No Information Chief Complaint And Reason For Visit No Information Reason For Referral Reason For Referral No Information History Of Present Illness Encounter Date Complaint History Of Prese nt Illness No Information Functional Status Date Functional Assessmen t No Information Instructions Date Instruction Additional Infor mation No Information Assessments Type Assessment Date No Information Patient Care Teams Name Effective Dates (start - stop) Status Members No Information
--- OUTSIDE RECORDS SUMMARY | 2024-12-16 09:30 | XMS_ITS | Clinical Summary ---
Author Organization [facility] Address [address] [place] [address] Care Team Providers Care Bobbin Painter Name Role Phone Sandor Dye MD Primary Care Provider Social History Tobacco Use Types Packs/Day Years Used Date Smoking Tobacco: Never Assessed Comments Unknown Sex and Gender Information Value Date Recorded Sex Assigned at Not on file Legal Sex Female 12:16 PM REHABILITATION COORDINATOR Gender Identity Not on file Sexual Orientation Not on file Plan of Treatment Health Maintenance Due Date Last Done Comments DTaP, Tdap and Td Vaccines ( 1 - Tdap) 1962 Zoster Vaccines (1 of 2) 1993 Annual Medicare Wellness Visit 2008 Dexa Scan (General) 2008 Pneumococcal Vaccine: 65+ Ye ars (1 of 1 - PCV) 2008 RSV Immunization or 60+ Years (1 - 1-dose 75+ series) 2018 COVID-19 Vaccine ( - 2023-2 5 season) 2024 Influenza Adult (#1) 2024 Meningococcal B Vaccine Aged Out No l onger eligible based on patient's age to complete this topic Meningococcal Vaccine Aged Out No kendall dwight eligible based on patient's age to complete this topic RSV Immunizations Under 20 Months Aged Out No longer eligible based on patient's age to complete this topic Insurance MEDICARE [employer] Care Teams Bobbin Painter Relationship Specialty Start Date End Date Sandor Dye MD [address] [place] [id number] PCP - General FAMILY PRACTICE 12/28/21
[2024-12-16 14:43] LABS: Alanine Aminotransferase 14 U/L (6-35); Albumin Level 3.9 g/dL (3.5-5.1); Alkaline Phosphatase 69 U/L (38-126); Anion Gap 9 mmol/L (4-12); Aspartate Amino Transferase 26 U/L (14-36); Bilirubin,Total 1.1 mg/dL (0.2-1.3); Blood Urea Nitrogen 43 mg/dL (7-17); Calcium 9.3 mg/dL (8.4-10.2); Carbon Dioxide 26 mmol/L (22-30); Chloride 105 mmol/L (98-107); Estimated Glomerular Filt Rate 32; Glucose 118 mg/dL (65-110); Potassium 4.4 mmol/L (3.4-5.0); Sodium 140 mmol/L (137-145)
[2024-12-16 14:55] LABS: Basophils Percent Auto 0.2 % (0.2-1.2); Eosinophils Absolute Auto 0.2 K/mm3 (0-0.3); Eosinophils Percent Auto 3.9 % (0-4.4); Hematocrit 38.3 % (37.0-47.0); Immature Granulocyte Absolute 0.03 K/mm3 (0.00-0.031); Immature Granulocyte Percent A 0.6 % (0-0.5); Lymphocytes Absolute Auto 1.17 K/mm3 (0.9-3.2); Lymphocytes Percent Auto 23.7 % (18.3-44.2); Mean Corpuscular HGB Conc 31.3 g/dl (32-36); Mean Corpuscular Hemoglobin 27.9 pg (26-34); Mean Corpuscular Volume 89.1 fl (80-100); Mean Platelet Volume 11.9 fl (7.4-10.4); Monocytes Absolute Auto 0.5 K/mm3 (0.1-0.6); Monocytes Percent Auto 9.7 % (2.6-8.5); Neutrophils Absolute Auto 3.1 K/mm3 (1.3-6.7); Neutrophils Percent Auto 61.9 % (45.5-73.1); Platelet Count Result 227 k/mm3 (150-375); Red Cell Distribution Width 15.1 % (11.5-14.5); White Blood Count 4.9 K/mm3 (4.5-10.0)
[2024-12-16 18:15] LABS: Hemoglobin A1C 5.7 % (<5.7)
== END 2024-12-16 09:18 | disposition home or self-care (01) ==
LOC: ANHGOSHLAB 09:20
PROVIDERS: PCP Family Medicine; Visit Provider Family Medicine
DX: D64.9 Anemia, unspecified (principal); E11.9 Type 2 diabetes mellitus without complications; N18.4 Chronic kidney disease, stage 4 (severe)
CPT/HCPCS: 36415; 80053; 83036; 85025

== ENCOUNTER 2025-02-08 13:47 | Outpatient (CLI) | payer MEDICARE, SELFPAY ==
--- OUTSIDE RECORDS SUMMARY | 2025-02-08 15:02 | XMS_ITS | Clinical Summary ---
Author Organization [facility] Address [address] [place] [address] Phone Care Team Providers Care Assistant Child Care Teacher Name Role Phone Sandor Dye MD Primary Care Provider + [phone] Allergies Active Allergy Reactions Criticality Noted Date [...] VACCINES (1 - Tdap) 1962 PNEUMOCOCCAL VACCINE 50+ YEARS (1 of 2 - PCV) 08/01/19 62 ZOSTER VACCINE (1 of 2) 1993 OSTEOPOROSIS SCREENING 2008 RSV VACCINE (60+ or ) (1 - 1-dose 75+ series) 2018 DIABETES HBA1C Q 6 MONTHS 11/29/2022 05/29/2022 INFLUENZA VACCINE (#1) 2024 Insurance MEDICARE PART A AND B [facility] [id number] Care Teams Assistant Child Care Teacher Relationship Specialty Start Date End Date Sandor Dye MD [address] [place] [address] PCP - General Family Practice 03/20/23
--- OUTSIDE RECORDS SUMMARY | 2025-02-08 15:02 | XMS_ITS | Clinical Summary ---
Author Organization [facility] Address [address] [place] [address] Care Team Providers Care Direct Sales Representative Name Role Phone Sandor Dye MD Primary Care Provider [phone] Allergies Active Allergy Reactions Criticality Noted Date [...] mg. Assessment & Plan (01/01/2023 1:13 PM EMERGENCY MANAGEMENT CONSULTANT): Impression: Chronic diabetes mellitus. Plan: Continue metformin [...] as much as possible. Follow-up with her resist coater developer. Patient has adequate blood flow to heal [...] results. Assessment & Plan (01/01/2023 1:07 PM EMERGENCY MANAGEMENT CONSULTANT): Impression: Right 1st toe is erythematous with [...] Podiatry. Assessment & Plan (01/01/2023 1:07 PM EMERGENCY MANAGEMENT CONSULTANT): Impression: Clean pink open ulceration to the [...] control. Assessment & Plan (01/01/2023 1:12 PM EMERGENCY MANAGEMENT CONSULTANT): Impression: Patient has confirmed left popliteal and [...] on file Legal Sex Female 8:42 PM EMERGENCY MANAGEMENT CONSULTANT Gender Identity Not on file Sexual Orientation Not on file Obstetrics History Last Filed Vital Signs Vital Sign Reading Time Taken Comments Blood Pressure 122/58 01/09/2024 11:11 AM EMERGENCY MANAGEMENT CONSULTANT Pulse 58 01/09/2024 11:11 AM EMERGENCY MANAGEMENT CONSULTANT Temperature - - Respiratory Rate - - Oxygen Saturation 99% 01/09/2024 11:11 AM EMERGENCY MANAGEMENT CONSULTANT Inhaled Oxygen Concentration - - Weight 78 kg (172 lb) 01/09/2024 11:11 AM EMERGENCY MANAGEMENT CONSULTANT Height 167.6 cm (5' 6 ) 01/09/2024 11:11 AM EMERGENCY MANAGEMENT CONSULTANT Body Mass Index 27.76 01/09/2024 11:11 AM EMERGENCY MANAGEMENT CONSULTANT Plan of Treatment Health Maintenance Due Date [...] vaccine 65+ Completed 12/09/2017, 09/10 Insurance MEDICARE [facility] [place] [address] [facility] Care Teams Direct Sales Representative Relationship Specialty Start Date End Date Sandor Dye MD PCP - General Family Medicine 12/25/22
--- OUTSIDE RECORDS SUMMARY | 2025-02-08 15:02 | XMS_ITS | Referral Summary ---
Author Organization [facility] Address [address] [place] [address] Care Team Providers Care Hunter Trapper Name Role Phone Sandor Dye MD Primary Care Provider [phone] Allergies Active Allergy Reactions Criticality Noted Date [...] mg. Assessment & Plan (01/01/2023 1:13 PM MEDICAL EDUCATION MANAGER): Impression: Chronic diabetes mellitus. Plan: Continue metformin [...] as much as possible. Follow-up with her track template maker. Patient has adequate blood flow to heal [...] results. Assessment & Plan (01/01/2023 1:07 PM MEDICAL EDUCATION MANAGER): Impression: Right 1st toe is erythematous with [...] Podiatry. Assessment & Plan (01/01/2023 1:07 PM MEDICAL EDUCATION MANAGER): Impression: Clean pink open ulceration to the [...] control. Assessment & Plan (01/01/2023 1:12 PM MEDICAL EDUCATION MANAGER): Impression: Patient has confirmed left popliteal and [...] on file Legal Sex Female 8:42 PM MEDICAL EDUCATION MANAGER Gender Identity Not on file Sexual Orientation Not on file Last Filed Vital Signs Vital Sign Reading Time Taken Comments Blood Pressure 122/58 01/09/2024 11:11 AM MEDICAL EDUCATION MANAGER Pulse 58 01/09/2024 11:11 AM MEDICAL EDUCATION MANAGER Temperature - - Respiratory Rate - - Oxygen Saturation 99% 01/09/2024 11:11 AM MEDICAL EDUCATION MANAGER Inhaled Oxygen Concentration - - Weight 78 kg (172 lb) 01/09/2024 11:11 AM MEDICAL EDUCATION MANAGER Height 167.6 cm (5' 6 ) 01/09/2024 11:11 AM MEDICAL EDUCATION MANAGER Body Mass Index 27.76 01/09/2024 11:11 AM MEDICAL EDUCATION MANAGER Plan of Treatment Not on file Insurance MEDICARE [facility] MEDICARE [facility] Care Teams Hunter Trapper Relationship Specialty Start Date End Date Sandor Dye MD PCP - General Family Medicine 12/25/22
--- OUTSIDE RECORDS SUMMARY | 2025-02-08 15:02 | XMS_ITS | Clinical Summary ---
Author Organization [facility] Address [address] [place] [address] Care Team Providers Care Roofing Apprentice Name Role Phone Sandor Dye MD Primary Care Provider Social History Tobacco Use Types Packs/Day Years Used Date Smoking Tobacco: Never Assessed Comments Unknown Sex and Gender Information Value Date Recorded Sex Assigned at Not on file Legal Sex Female 12:16 PM ROUGH RICE GRADER Gender Identity Not on file Sexual Orientation [...] Vaccine ( - 2023-2 5 season) 2024 Meningococcal B Vaccine Aged Out No l onger eligible based on patient's age to complete this topic Meningococcal Vaccine Aged Out No kendall dwight eligible based on patient's age to complete this topic RSV Immunizations Under 20 Months Aged Out No longer eligible based on patient's age to complete this topic Insurance MEDICARE [employer] Care Teams Roofing Apprentice Relationship Specialty Start Date End Date Sandor Dye MD [address] [place] [id number] PCP - General FAMILY PRACTICE 12/28/21
[2025-02-08 20:08] LABS: Albumin Level 4.4 g/dL (3.5-5.1); Anion Gap 11 mmol/L (4-12); Blood Urea Nitrogen 46 mg/dL (7-17); Calcium 9.4 mg/dL (8.4-10.2); Carbon Dioxide 29 mmol/L (22-30); Chloride 101 mmol/L (98-107); Estimated Glomerular Filt Rate 23; Glucose 125 mg/dL (65-110); Potassium 4.1 mmol/L (3.4-5.0); Sodium 141 mmol/L (137-145)
[2025-02-08 20:31] LABS: Creatinine Urine 70.8 mg/dL; Total Protein Urine Random 17 mg/dL; Ur Ttl Prot Creatinine Ratio 0.24 mg/mg (0-0.20)
== END 2025-02-08 13:48 | disposition home or self-care (01) ==
LOC: ANHGOSHLAB 13:48
PROVIDERS: PCP Family Medicine; Visit Provider Internal Medicine Nephrology
DX: E11.22 Type 2 diabetes mellitus with diabetic chronic kidney disease (principal); I12.9 Hypertensive chronic kidney disease with stage 1 through stage 4 chronic kidney disease, or unspecified chronic kidney disease; N18.32 Chronic kidney disease, stage 3b
CPT/HCPCS: 36415; 80069; 82570; 84156

== ENCOUNTER 2025-06-07 15:28 | Outpatient (CLI) | payer MEDICARE, SELFPAY ==
--- OUTSIDE RECORDS SUMMARY | 2025-06-07 15:32 | XMS_ITS | Clinical Summary ---
Author Organization [facility] Address [address] [place] [address] Phone Care Team Providers Care Supervisory Cbp Officer Name Role Phone Sandor Dye MD Primary Care Provider + [phone] Allergies Active Allergy Reactions Criticality Noted Date [...] 6:09 PM CDT Height 167.6 cm (5' 6) 03/20/2023 6:09 PM CDT Body Mass Index [...] 6 MONTHS 11/29/2022 05/29/2022 INFLUENZA VACCINE (#1) 2025 Insurance MEDICARE PART A AND B [facility] [id number] [place] [address] Care Teams Supervisory Cbp Officer Relationship Specialty Start Date End Date Sandor Dye MD [address] [place] [address] PCP - General Family Practice 03/20/23
--- OUTSIDE RECORDS SUMMARY | 2025-06-07 15:32 | XMS_ITS | Referral Summary ---
Author Organization [facility] Address [address] [place] [address] Care Team Providers Care Assistant Operations Manager Name Role Phone Sandor Dye MD Primary Care Provider [phone] Allergies Active Allergy Reactions Criticality Noted Date [...] mg. Assessment & Plan (01/01/2023 1:13 PM CREWMAN ARMOURED PERSONNEL CARRIER M113): Impression: Chronic diabetes mellitus. Plan: Continue metformin [...] as much as possible. Follow-up with her hogshead dumper. Patient has adequate blood flow to heal [...] results. Assessment & Plan (01/01/2023 1:07 PM CREWMAN ARMOURED PERSONNEL CARRIER M113): Impression: Right 1st toe is erythematous with [...] Podiatry. Assessment & Plan (01/01/2023 1:07 PM CREWMAN ARMOURED PERSONNEL CARRIER M113): Impression: Clean pink open ulceration to the [...] control. Assessment & Plan (01/01/2023 1:12 PM CREWMAN ARMOURED PERSONNEL CARRIER M113): Impression: Patient has confirmed left popliteal and [...] on file Legal Sex Female 8:42 PM CREWMAN ARMOURED PERSONNEL CARRIER M113 Gender Identity Not on file Sexual Orientation Not on file Last Filed Vital Signs Vital Sign Reading Time Taken Comments Blood Pressure 122/58 01/09/2024 11:11 AM CREWMAN ARMOURED PERSONNEL CARRIER M113 Pulse 58 01/09/2024 11:11 AM CREWMAN ARMOURED PERSONNEL CARRIER M113 Temperature - - Respiratory Rate - - Oxygen Saturation 99% 01/09/2024 11:11 AM CREWMAN ARMOURED PERSONNEL CARRIER M113 Inhaled Oxygen Concentration - - Weight 78 kg (172 lb) 01/09/2024 11:11 AM CREWMAN ARMOURED PERSONNEL CARRIER M113 Height 167.6 cm (5' 6) 01/09/2024 11:11 AM CREWMAN ARMOURED PERSONNEL CARRIER M113 Body Mass Index 27.76 01/09/2024 11:11 AM CREWMAN ARMOURED PERSONNEL CARRIER M113 Plan of Treatment Not on file Insurance MEDICARE [facility] MEDICARE [facility] Care Teams Assistant Operations Manager Relationship Specialty Start Date End Date Sandor Dye MD PCP - General Family Medicine 12/25/22
--- OUTSIDE RECORDS SUMMARY | 2025-06-07 15:32 | XMS_ITS | Clinical Summary ---
Author Organization [facility] Address [address] [place] [address] Care Team Providers Care Spray Gun Repairer Helper Name Role Phone Sandor Dye MD Primary Care Provider [phone] Allergies Active Allergy Reactions Criticality Noted Date [...] mg. Assessment & Plan (01/01/2023 1:13 PM DRAFT ROLLER PICKER): Impression: Chronic diabetes mellitus. Plan: Continue metformin [...] as much as possible. Follow-up with her meal packer. Patient has adequate blood flow to heal [...] results. Assessment & Plan (01/01/2023 1:07 PM DRAFT ROLLER PICKER): Impression: Right 1st toe is erythematous with [...] Podiatry. Assessment & Plan (01/01/2023 1:07 PM DRAFT ROLLER PICKER): Impression: Clean pink open ulceration to the [...] control. Assessment & Plan (01/01/2023 1:12 PM DRAFT ROLLER PICKER): Impression: Patient has confirmed left popliteal and [...] on file Legal Sex Female 8:42 PM DRAFT ROLLER PICKER Gender Identity Not on file Sexual Orientation Not on file Obstetrics History Last Filed Vital Signs Vital Sign Reading Time Taken Comments Blood Pressure 122/58 01/09/2024 11:11 AM DRAFT ROLLER PICKER Pulse 58 01/09/2024 11:11 AM DRAFT ROLLER PICKER Temperature - - Respiratory Rate - - Oxygen Saturation 99% 01/09/2024 11:11 AM DRAFT ROLLER PICKER Inhaled Oxygen Concentration - - Weight 78 kg (172 lb) 01/09/2024 11:11 AM DRAFT ROLLER PICKER Height 167.6 cm (5' 6) 01/09/2024 11:11 AM DRAFT ROLLER PICKER Body Mass Index 27.76 01/09/2024 11:11 AM DRAFT ROLLER PICKER Plan of Treatment Health Maintenance Due Date [...] 2024 07/19/2022, 02/07/2021, 01/17/2021 Influenza Vaccine (#1) 2025 , 08/17/2020, 12/09/2017, Additional history exists Pneumococcal vaccine 65+ Completed 12/09/2017, 09/10 Insurance MEDICARE [facility] MEDICARE [facility] Address: [facility] [address] [place] [address] [facility] Care Teams Spray Gun Repairer Helper Relationship Specialty Start Date End Date Sandor Dye MD PCP - General Family Medicine 12/25/22
--- OUTSIDE RECORDS SUMMARY | 2025-06-07 15:32 | XMS_ITS | Clinical Summary ---
Author Organization [facility] Address [address] [place] [address] Care Team Providers Care Fire Protection Inspector Name Role Phone Sandor yDe MD Primary Care Provider Social History Tobacco Use Types Packs/Day Years Used Date Smoking Tobacco: Never Assessed Comments Unknown Sex and Gender Information Value Date Recorded Sex Assigned at Not on file Legal Sex Female 12:16 PM SCIENTIFIC DIVER Gender Identity Not on file Sexual Orientation Not on file Plan of Treatment Health Maintenance Due Date Last Done Comments DTaP, Tdap and Td Vaccines ( 1 - Tdap) 1962 Pneumococcal Vaccine: 50+ Ye ars (1 of 1 - PCV) 1993 Zoster Vaccines (1 of 2) 1993 Annual Medicare Wellness Visit 2008 Dexa Scan (General) 2008 RSV Immunization or 60+ Years (1 [...] this topic Insurance MEDICARE [employer] Care Teams Fire Protection Inspector Relationship Specialty Start Date End Date Sandor Dye MD [address] [place] [phone] PCP - General FAMILY PRACTICE 12/28/21
[2025-06-07 19:09] LABS: Total Protein Urine Random 9 mg/dL; Ur Ttl Prot Creatinine Ratio 0.13 mg/mg (0-0.20)
[2025-06-07 19:37] LABS: Albumin Level 4.2 g/dL (3.5-5.1); Anion Gap 7 mmol/L (4-12); Blood Urea Nitrogen 32 mg/dL (7-17); Calcium 9.7 mg/dL (8.4-10.2); Carbon Dioxide 24 mmol/L (22-30); Chloride 104 mmol/L (98-107); Estimated Glomerular Filt Rate 29; Glucose 99 mg/dL (65-110); Potassium 4.3 mmol/L (3.4-5.0); Sodium 135 mmol/L (137-145)
[2025-06-07 19:51] LABS: Parathyroid Intact 56.9 pg/mL (14.5-75.2)
== END 2025-06-07 15:29 | disposition home or self-care (01) ==
LOC: ANHGOSHLAB 15:30
PROVIDERS: PCP Family Medicine; Visit Provider Internal Medicine Nephrology
DX: E11.22 Type 2 diabetes mellitus with diabetic chronic kidney disease (principal); I12.9 Hypertensive chronic kidney disease with stage 1 through stage 4 chronic kidney disease, or unspecified chronic kidney disease; N18.4 Chronic kidney disease, stage 4 (severe); N25.81 Secondary hyperparathyroidism of renal origin; E55.9 Vitamin D deficiency, unspecified
CPT/HCPCS: 36415; 80069; 82306; 82570; 83970; 84156

== ENCOUNTER 2025-09-26 08:06 | Inpatient (IN) | payer MEDICARE, SELFPAY ==
[2025-09-26] VITALS (27 sets, daily range): BP systolic 152–182; BP diastolic 52–103; PULSE 56–80; RESP 10–21; TEMP 36.2–36.4; O2SAT 97–100; BMI 31.8; BMI 32.4
--- NOTE | ~2025-09-26 | XR_ITS ---
EXAMINATION: XR chest 1V portable DATE: 09/26/2025 13:08 INDICATION: Leg edema TECHNIQUE: A single frontal view of the chest was obtained. COMPARISON: February 12, 2024 FINDINGS: Small right base effusion. The left lung base appears clear. Upper lung ruth also clear. Heart size normal. No pneumothorax or subphrenic free air seen. IMPRESSION: 1. Small right base effusion. Reviewed, dictated and finalized at location A. OGEOLOGY PROFESSOR
--- NOTE | 2025-09-26 12:22 | ECG_ITS ---
Test Date: 2025-09-26 12:45:50 Measurements Intervals [place] Rate: 59 P: 12 MN: 211 QRS: -70 QRSD: 151 T: 71 QT: 484 QTc: 481 Interpretive Statements SINUS BRADYCARDIA WITH FIRST DEGREE AV BLOCK LEFT AXIS DEVIATION [QRS AXIS < -30] RIGHT BUNDLE BRANCH BLOCK [120+ ms QRS DURATION, UPRIGHT V1, 40+ ms S IN I/aVL/V4/V5/V6] MODERATE VOLTAGE CRITERIA FOR LVH, CONSIDER NORMAL VARIANT [MEETS CRITERIA IN ONE OF: R(aVL), S(V1), R(V5), R(V5/V6)+S(V1)] No previous ECG available for comparison Electronically Signed On 09-26-2025 12:49:04 CONCRETE FINISHER APPRENTICE by Kyaw Berry M.D.
--- NOTE | 2025-09-26 12:22 | ED.GENADULT ---
HPI - General Adult General Chief complaint: Skin/Abscess/Foreign Body Stated complaint: BL leg reddness Time Seen by Provider: 09/26/25 12:07 Source: patient Mode of arrival: ambulatory Limitations: no limitations History of Present Illness HPI narrative: 80 years old white female came from home by private car with her daughter complaining of swelling of the lower legs and and redness discoloration is started 5 days ago. She denies any fever, chills, nausea, vomiting, , chest pain, shortness of breath. History of diabetes hypertension hyperlipidemia, not on any anti-platelet or anticoagulant medication Related Data Home Medications ?Medication ?Instructions ?Recorded ?Confirmed ?Last Taken ?Type fenofibrate nanocrystallized 145 145 mg PO DAILY 09/15/20 06/14/25 03/06/22 History mg tablet calcium 600 mg capsule 600 mg PO DAILY 06/14/21 06/14/25 03/06/22 History cholecalciferol (vitamin D3) 125 125 mcg PO DAILY 06/14/21 06/14/25 12/06/22 08:30 History mcg (5,000 unit) capsule cyanocobalamin (vitamin B-12) 1,000 mcg IM MONTHLY 11/11/22 06/14/25 02/09/24 09:00 History 1,000 mcg/mL injection solution dapagliflozin propanediol 10 mg 10 mg PO DAILY 12/17/23 06/14/25 Unknown History tablet (Farxiga) metoprolol tartrate 25 mg tablet 12.5 mg PO BID 01/07/24 02/15/25 Unknown History Held on 02/16/24. Instructions: Resume on 03/10/24. HOLD THIS MEDICATION UNTIL YOUR DOCTOR TELLS YOU THAT IT IS SAFE TO RESUME. YOU HAVE HAD LOWER BLOOD PRESSURE THIS ADMISSION. lisinopril 40 mg tablet 40 mg PO DAILY 02/14/24 06/14/25 Unknown History Held on 02/16/24. Instructions: Resume on 03/10/24. HOLD THIS MEDICATION UNTIL YOUR DOCTOR SAYS THAT IT IS SAFE TO RESUME. YOU HAD LOWER BLOOD PRESSURES THAN NORMAL WHILE INPATIENT. metoprolol succinate 100 mg 100 mg PO DAILY 02/14/24 02/15/25 Unknown History tablet,extended release 24 hr Held on 02/16/24. Instructions: Resume on 03/10/24. HOLD THIS MEDICATION UNTIL YOUR DOCTOR TELLS YOU IT IS SAFE TO RESTART. YOUR BLOOD PRESSURE HAS BEEN RUNNING LOWER THAN NORMAL. simvastatin 20 mg tablet 20 mg PO HS 02/14/24 06/14/25 Unknown History verapamil 300 mg capsule 24hr 300 mg PO HS 02/14/24 02/15/[address],ext.release Held on 02/16/24. Instructions: Resume on 03/10/24. HOLD THIS MEDICATION UNTIL YOUR DOCTOR SAYS IT IS SAFE TO RESTART. YOU HAD LOWER BLOOD PRESSURES THAN NORMAL WHILE INPATIENT. furosemide 20 mg tablet 20 mg PO DAILY 02/15/25 06/14/25 Unknown History metformin 500 mg tablet 500 mg PO DIRECTED 02/15/25 06/14/25 Unknown History Allergies Allergy/AdvReac Type Severity Reaction Status Date / Time Penicillins Allergy Mild Hives / Verified 09/26/25 08:15 Red Face alendronate sodium (From AdvReac Intermediate Diarrhea Verified 09/26/25 08:15 Fosamax) codeine AdvReac Mild Vomiting Verified 09/26/25 08:15 prochlorperazine AdvReac Mild Muscle Verified 09/26/25 08:15 Spasms clarithromycin (From Biaxin) AdvReac Nausea and Verified 09/26/25 08:15 Vomiting clindamycin AdvReac Diarrhea Verified 09/26/25 08:15 Review of Systems Review of Systems: All systems reviewed & are unremarkable except as noted in HPI and below PMFSH Past Medical History Medical History CKD (chronic kidney disease) stage 3, GFR 30-59 ml/min Arterial occlusive disease DVT (deep venous thrombosis) Foot ulcer Diabetes Obesity Dyslipidemia Hypertension Kidney stone Surgical History Surgical History S/P tonsillectomy and adenoidectomy Status post repair of ventral hernia 1997; mesh broke, she required revision 2000 History of hysterectomy Social History Social History Social History: the patient is and lives home alone. She only has 1 daughter. 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 She does not use any alcohol marijuana illicit drugs. - code status full code. Smoking status: Never smoker Alcohol intake: never Substance use: never Substance use type: does not use Do You Feel Safe in your Home?: Yes Lack of Transportation: No Lack of Food: Never True Current Housing: I Have Housing Concerned About Future Housing: No Difficulty Paying Gas/Electric Bills: No Difficulty Paying for Meds: No Currently Unemployed: No Education: High School Diploma/GED Difficulty w/ Childcare or Family Care: No Living arrangements: with family Gender identity (if verbalized by the patient): Female Spiritual care concerns: No Exam Narrative: General appearance: Well-developed, well-nourished Skin: Normal color lower extremity exam showing extensive erythema bilaterally mainly on the right side, warm to touch, no discharge, 1+ edema bilaterally Head: Normocephalic, nontraumatic Eyes: Clear conjunctiva ENT: Oropharynx normal, ears normal, nose normal Neck: Supple, nontender Chest and respiratory: Airway patent, no respiratory distress, no accessory muscle use Heart: Regular rate/rhythm Abdomen: Soft, nontender, no organomegaly, quiet bowel sounds Vascular: Normal peripheral pulses, normal capillary refill. Musculoskeletal: Normal range of motion, nontender back Neurologic: Alert and oriented ?3, FACILITIES PLANT ENGINEER is normal as tested, no gross motor deficit Course Vital Signs Vital signs: Vital Signs Temperature 36.2 C L 09/26/25 08:11 Pulse Rate 67 09/26/25 08:11 Respiratory Rate 20 09/26/25 08:11 Blood Pressure 161/65 H 09/26/25 08:11 Pulse Oximetry 100 09/26/25 08:11 Oxygen Delivery Room Air 09/26/25 08:11 Temperature 36.2 C L 09/26/25 08:11 Pulse Rate 80 09/26/25 11:11 Respiratory Rate 19 09/26/25 11:11 Blood Pressure 169/57 H 09/26/25 11:11 Pulse Oximetry 97 09/26/25 11:11 Oxygen Delivery Room Air 09/26/25 11:[address] [facility] Narrative Medical decision making narrative: Patient came as a swelling and redness of the lower legs started 5 days ago Vital signs showing blood pressure 161/65 otherwise within normal limit Physical examination showing 1+ edema lower extremity bilaterally with extensive erythema bilaterally mainly on the right side Differential diagnosis include chronic stasis dermatitis, cellulitis, leg edema, less likely deep vein thrombosis Blood workup today includes CBC, CMP, troponin, pro BMP showed insignificant abnormality Urinalysis positive for infection Chest x-ray showed small right base effusion EKG showed an sinus bradycardia at 59 beats per minute with first-degree heart block Differential Diagnosis Differential Diagnosis: As above Vital Signs Vital Signs: Vital Signs Temperature 36.2 C L 09/26/25 08:11 Pulse Rate 67 09/26/25 08:11 Respiratory Rate 20 09/26/25 08:11 Blood Pressure 161/65 H 09/26/25 08:11 Pulse Oximetry 100 09/26/25 08:11 Oxygen Delivery Room Air 09/26/25 08:11 Temperature 36.2 C L 09/26/25 08:11 Pulse Rate 80 09/26/25 11:11 Respiratory Rate 19 09/26/25 11:11 Blood Pressure 169/57 H 09/26/25 11:11 Pulse Oximetry 97 09/26/25 11:11 Oxygen Delivery Room Air 09/26/25 11:11 Lab Data 09/26/25 12:39 09/26/25 12:39 Labs: Lab Results 09/26/25 09/26/25 Range/Units 12:39 12:52 WBC 5.3 (4.5-10.0) K/mm3 RBC 4.66 (4.2-5.4) M/mm3 Hgb 13.3 (12.0-15.0) g/dL Hct 41.2 (37.0-47.0) % MCV 88.4 (80-100) fl MCH 28.5 (26-34) pg MCHC 32.3 (32-36) g/dl RDW 14.7 H (11.5-14.5) % Plt Count 208 (150-375) k/mm3 MPV 11.6 H (7.4-10.4) fl Immature Gran % (Auto) 0.2 (0-0.5) % Neut % (Auto) 67.0 (45.5-73.1) % Lymph % (Auto) 20.5 (18.3-44.2) % [place] % (Auto) 8.9 H (2.6-8.5) % Eos % (Auto) 3.2 (0-4.4) % Baso % (Auto) 0.2 (0.2-1.2) % Lymph # (Auto) 1.09 (0.9-3.2) K/mm3 [place] # (Auto) 0.5 (0.1-0.6) K/mm3 Eos # (Auto) 0.2 (0-0.3) K/mm3 Baso # (Auto) 0.0 (0.0-0.1) K/mm3 Abs Immat Gran (auto) 0.01 (0.00-0.031) K/mm3 Absolute Neuts (auto) 3.6 (1.3-6.7) K/mm3 Absolute Nucleated RBC 0.000 (0.0-0.012) K/mm3 Nucleated RBC % 0.0 (0.0-0.2) % PT 14.4 (11.1-14.7) Seconds INR 1.1 APTT 32.7 (22.3-36.8) Seconds Sodium 141 (137-145) mmol/L Potassium 3.4 (3.4-5.0) mmol/L Chloride 105 (98-107) mmol/L Carbon Dioxide 25 (22-30) mmol/L Anion Gap 11 (4-12) mmol/L BUN 31 H (7-17) mg/dL Creatinine 1.35 H (0.7-1.0) mg/dL Estim Creat Clear Calc 33 ml/min Estimated GFR 38 L (59 - ) Glucose 123 H (65-110) mg/dL Calcium 9.2 (8.4-10.2) mg/dL Total Bilirubin 1.5 H (0.2-1.3) mg/dL AST 23 (14-36) U/L ALT 11 (6-35) U/L Alkaline Phosphatase 79 (38-126) U/L Troponin I < 0.012 (0.000-0.034) ng/mL NT-Pro-B Natriuret Pep 190 H (19.9-100) pg/mL Total Protein 7.3 (6.3-8.2) g/dL Albumin 4.3 (3.5-5.1) g/dL Urine Color Yellow (Yellow) Urine Appearance Cloudy H (Clear) Urine pH 5.0 (5.0-9.0) Ur Specific [place] 1.022 (1.001-1.035) Urine Protein Trace (Negative) mg/dL Urine Glucose (UA) 3+ H (Negative) mg/dL Urine Ketones Trace H (Negative) mg/dL Ur Blood (Man) 1+ H (Negative) Urine Nitrate Positive H (Negative) Urine Bilirubin Negative (Negative) Urine Urobilinogen 0.2 (<2.0) mg/dL Leukocyte Esterase Rfl 1+ H (Negative) KODY/UL Urine RBC 3-5 H (0-2) /hpf Urine WBC 21-50 H (0-3) /hpf Ur Squamous Epith Cells Occasional (Few) /hpf Urine Bacteria 4+ H /hpf Urine Casts 0-2 Imaging Data Radiologist's impression: Impressions Chest X-Ray 09/26/25 13:17 IMPRESSION: 1. Small right base effusion. ECG Data EKG #1: Attestation: I personally reviewed and interpreted this ECG as follows: ECG completion date: 09/26/25 Interpretation: Sinus bradycardia at 59 beats per minute, first-degree heart block, left axis deviation, moderate voltage criteria for LVH consider normal variant, no previous EKG available for comparison Critical Care Time Critical Care Time Critical Care Time: No Discharge Plan Discharge Clinical Impression: Cellulitis, Urinary tract infection in female Patient Disposition: Still a Patient Condition: Stable Additional Instructions: Admit to hospitalist Patient Language: Luxembourgish Prescriptions: No Action metoprolol tartrate 25 mg tablet 12.5 mg PO BID furosemide 20 mg tablet 20 mg PO DAILY calcium 600 mg Capsule 600 mg PO DAILY cholecalciferol (vitamin D3) 125 mcg (5,000 unit) Capsule 125 mcg PO DAILY cyanocobalamin (vitamin B-12) 1,000 mcg/mL solution 1,000 mcg IM MONTHLY Rx Instructions: Patient stated she takes injection monthly on the first Friday of the month. Eliquis 5 mg Tablet 5 mg PO Q12HR 24 Days Qty: 48 2RF dapagliflozin propanediol [Farxiga] 10 mg tablet 10 mg PO DAILY verapamil 300 mg Capsule, [address] 300 mg PO HS simvastatin 20 mg Tablet 20 mg PO HS lisinopril 40 mg Tablet 40 mg PO DAILY metoprolol succinate 100 mg Tablet Extended Release 24 Hr 100 mg PO DAILY metformin 500 mg tablet 500 mg PO DIRECTED Rx Instructions: 3 tablets with breakfast, 2 tablets with dinner. fenofibrate nanocrystallized 145 mg tablet 145 mg PO DAILY Follow-up/Referrals: Sandor Dye MD [Primary Care Provider, Family Practice]
[2025-09-26 12:46] LABS: Hematocrit 41.2 % (37.0-47.0); Hemoglobin 13.3 g/dL (12.0-15.0); Immature Granulocyte Percent A 0.2 % (0-0.5); Lymphocytes Absolute Auto 1.09 K/mm3 (0.9-3.2); Mean Corpuscular HGB Conc 32.3 g/dl (32-36); Mean Corpuscular Hemoglobin 28.5 pg (26-34); Mean Corpuscular Volume 88.4 fl (80-100); Nucleated Red Blood Cells Absolute Auto 0.000 K/mm3 (0.0-0.012); Nucleated Red Blood Cells Perc 0.0 % (0.0-0.2); Platelet Count Result 208 k/mm3 (150-375); Red Blood Count 4.66 M/mm3 (4.2-5.4); White Blood Count 5.3 K/mm3 (4.5-10.0)
[2025-09-26 13:01] LABS: Alanine Aminotransferase 11 U/L (6-35); Albumin Level 4.3 g/dL (3.5-5.1); Alkaline Phosphatase 79 U/L (38-126); Anion Gap 11 mmol/L (4-12); Aspartate Amino Transferase 23 U/L (14-36); Bilirubin,Total 1.5 mg/dL (0.2-1.3); Blood Urea Nitrogen 31 mg/dL (7-17); Calcium 9.2 mg/dL (8.4-10.2); Carbon Dioxide 25 mmol/L (22-30); Chloride 105 mmol/L (98-107); Estimated CRCL calculation 33 ml/min; Estimated Glomerular Filt Rate 38; Glucose 123 mg/dL (65-110); Potassium 3.4 mmol/L (3.4-5.0); Sodium 141 mmol/L (137-145); Total Protein 7.3 g/dL (6.3-8.2)
[2025-09-26 13:01] LABS: Add Urine Microscopic? YES; Appearance Urine Cloudy (Clear); Glucose Urine UA 3+ mg/dL (Negative); Leukocyte Esterase Ur 1+ LEU/UL (Negative); Nitrate Urine Positive (Negative); Non Pathogenic Casts 0-2; Specific Grav Ur 1.022 (1.001-1.035)
[2025-09-26 13:05] LABS: INR 1.1; Prothrombin Time 14.4 Seconds (11.1-14.7)
[2025-09-26 13:07] LABS: Partial Thromboplastin Time 32.7 Seconds (22.3-36.8)
[2025-09-26 13:11] LABS: NT Pro B Type Natriuretic Pept 190 pg/mL (19.9-100); Troponin I < 0.012 ng/mL (0.000-0.034)
[2025-09-26] MEDS: CEFEPIME 1 GM in SODIUM CHLORIDE 0.9% IV 50 ML 100 ML IVPB (14:17)
[2025-09-26] MEDS: VANCOMYCIN 1,500 MG/NS 500 ML 1,500 MG/500 ML BAG 250 MG IVPB (14:59)
--- NOTE | 2025-09-26 15:28 | WPCEDHO ---
ED Hand Off Checklist All vitals saved:yes IV Site documented:yes All med administrations documented:yes Triage Note Triage Note Pt states she has bilat lower leg 09/26/25 11:11 swelling and redness for past 5- 6 days. Denies fever or chills. Hx NIDDM and kidney issues. States hasn't been taking her HCTZ for ''awhile. agree with triage note Allergies Penicillins Allergy (Mild, Verified 09/26/25 08:15) Hives / Red Face alendronate sodium (From Fosamax) Adverse Reaction (Intermediate, Verified 09/26/25 08:15) Diarrhea codeine Adverse Reaction (Mild, Verified 09/26/25 08:15) Vomiting prochlorperazine Adverse Reaction (Mild, Verified 09/26/25 08:15) Muscle Spasms clarithromycin (From Biaxin) Adverse Reaction (Verified 09/26/25 08:15) Nausea and Vomiting clindamycin Adverse Reaction (Verified 09/26/25 08:15) Diarrhea Active Medications including assessments/comments Vancomycin HCl (Vancomycin 1,500 Mg/Ns 500 Ml) 1,500 mg in 500 mls @ 250 mls/hr IVPB ONCE ONE Stop: 09/26/25 16:07 Last Admin: 09/26/25 14:59 Dose: 250 mls/hr Documented By: ANT Infusion/Titration Document 09/26/25 14:59 ANT (Rec: 09/26/25 14:59 ANT [id number]) Intake IV Site Peripheral Access Left Antecubital Container Volume 500 Waste Amount 0 Dosing Infusion Rate 250 Increase/Decrease Started Elapsed Time Elapsed Time ( 0m minutes) Administered/Completed Medications Discontinued Medications Cefepime HCl 1 gm/ Sodium (Chloride) 50 mls @ 100 mls/hr IVPB ONCE ONE Stop: 09/26/25 14:34 Last Infusion: 09/26/25 14:55 Dose: Infused Documented By: Admin: 09/26/25 14:17 Dose: 100 mls/hr Documented By: [place] Interventions/Assessments IV / Saline Lock, Insert Start: 09/26/25 08:06 Freq: Status: Active Protocol: Document 09/26/25 11:25 ANT (Rec: 09/26/25 11:26 ANT [id number]) IV Assessment Peripheral Access Left Antecubital IV Catheter Access Initiated IV Insertion Date 09/26/25 IV Insertion Time 11:26 Catheter Gauge 20 Ultrasound Used for No Placement IV Site Assessment WNL IV Care and WNL Maintenance Last Vital Signs Temperature 97.2 F L 09/26/25 08:11 Pulse Rate 60 09/26/25 15:00 Respiratory Rate 18 09/26/25 15:00 Pulse Oximetry 100 09/26/25 15:00 Blood Pressure 164/58 H 09/26/25 15:00 Blood Pressure Mean 93 09/26/25 15:00 Blood Pressure Position Sitting 09/26/25 08:11 Oxygen Delivery Room Air 09/26/25 11:11 Weight 89.7 kg 09/26/25 11:11 Last Result - Abnormals Only RDW 14.7 % (11.5-14.5) H 09/26/25 12:39 MPV 11.6 fl (7.4-10.4) H 09/26/25 12:39 [place] % (Auto) 8.9 % (2.6-8.5) H 09/26/25 12:39 BUN 31 mg/dL (7-17) H 09/26/25 12:39 Creatinine 1.35 mg/dL (0.7-1.0) H 09/26/25 12:39 Estimated GFR 38 (59-) L 09/26/25 12:39 Glucose 123 mg/dL (65-110) H 09/26/25 12:39 Total Bilirubin 1.5 mg/dL (0.2-1.3) H 09/26/25 12:39 NT-Pro-B Natriuret Pep 190 pg/mL (19.9-100) H 09/26/25 12:39 Urine Appearance Cloudy (Clear) H 09/26/25 12:52 Urine Glucose (UA) 3+ mg/dL (Negative) H 09/26/25 12:52 Urine Ketones Trace mg/dL (Negative) H 09/26/25 12:52 Ur Blood (Man) 1+ (Negative) H 09/26/25 12:52 Urine Nitrate Positive (Negative) H 09/26/25 12:52 Leukocyte Esterase Rfl 1+ KODY/UL (Negative) H 09/26/25 12:52 Urine RBC 3-5 /hpf (0-2) H 09/26/25 12:52 Urine WBC 21-50 /hpf (0-3) H 09/26/25 12:52 Urine Bacteria 4+ /hpf H 09/26/25 12:52 Most Recent Suicide Severity Rating Suicide Severity Rating NO RISK INDICATED 09/26/25 11:11
--- NOTE | 2025-09-26 15:33 | PM.IMHP ---
H&P: HPI History of Present Illness Date/Time: 09/26/25 15:33 Chief Complaint: Lower extremity edema Narrative: 80-year-old female with a past medical history of CKD, dm 2, hyperlipidemia, venous insufficiency, DVT, diabetic ulcer, CHF, PAD presents to the ED from home on 09/26/2025 with complaints of bilateral lower extremity edema. Patient states the increased edema started 7 days ago with increased redness to her right lower leg. Patient states she has been more edematous before but ?never like this.? Patient denies any fevers or chills, nausea or vomiting, chest pain, shortness a breath. Patient states she is compliant with her medications. She is and lives alone with a daughter nearby. Patient has been hospitalized in the past with lower extremity cellulitis and edema. Initial vital signs 161/65, HR 67, respirations 20, afebrile and 100% on room air Labs revealed no leukocytosis, BUN 31, creatinine 1.35, GFR 38, glucose 123, total bilirubin 1.5. Troponin negative. BNP 190. UA with 3+ glucose, trace ketones, 1+ blood, nitrate positive, 1+ leukocyte Estrace, 3-5 RBC, 21-50 WBC, 4+ bacteria. ECG reads sinus bradycardia with first-degree AV block, left axis deviation, right bundle branch block Chest x-ray with small right base effusion Review of Systems Review of Systems: All systems reviewed & are unremarkable except as noted in HPI and below PMFSH Past Medical History Medical History CKD (chronic kidney disease) stage 3, GFR 30-59 ml/min Arterial occlusive disease DVT (deep venous thrombosis) Foot ulcer Diabetes Obesity Dyslipidemia Hypertension Kidney stone Surgical History Surgical History S/P tonsillectomy and adenoidectomy Status post repair of ventral hernia 1997; mesh broke, she required revision 2000 History of hysterectomy Social History Social History Social History: the patient is and lives home alone. She only has 1 daughter. 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 She does not use any alcohol marijuana illicit drugs. - code status full code. Smoking status: Never smoker Alcohol intake: never Substance use: never Substance use type: does not use Do You Feel Safe in your Home?: Yes Lack of Transportation: No Lack of Food: Never True Current Housing: I Have Housing Concerned About Future Housing: No Difficulty Paying Gas/Electric Bills: No Difficulty Paying for Meds: No Currently Unemployed: No Education: High School Diploma/GED Difficulty w/ Childcare or Family Care: No Living arrangements: with family Gender identity (if verbalized by the patient): Female Spiritual care concerns: No Meds Home Medications and Allergies Home Medications ?Medication ?Instructions ?Recorded ?Confirmed ?Type fenofibrate nanocrystallized 145 145 mg PO DAILY 09/15/20 09/26/25 History mg tablet calcium 600 mg capsule 600 mg PO DAILY 06/14/21 09/26/25 History cholecalciferol (vitamin D3) 125 125 mcg PO DAILY 06/14/21 09/26/25 History mcg (5,000 unit) capsule cyanocobalamin (vitamin B-12) 1,000 mcg IM MONTHLY 11/11/22 09/26/25 History 1,000 mcg/mL injection solution apixaban 5 mg tablet (Eliquis) 5 mg PO Q12HR 24 days #48 tabs 11/14/22 09/26/25 Rx dapagliflozin propanediol 10 mg 10 mg PO DAILY 12/17/23 09/26/25 History tablet (Farxiga) metoprolol tartrate 25 mg tablet 12.5 mg PO BID 01/07/24 09/26/25 History Held on 02/16/24. Instructions: Resume on 03/10/24. HOLD THIS MEDICATION UNTIL YOUR DOCTOR TELLS YOU THAT IT IS SAFE TO RESUME. YOU HAVE HAD LOWER BLOOD PRESSURE THIS ADMISSION. lisinopril 40 mg tablet 40 mg PO DAILY 02/14/24 09/26/25 History metoprolol succinate 100 mg 100 mg PO DAILY 02/14/24 09/26/25 History tablet,extended release 24 hr simvastatin 20 mg tablet 20 mg PO HS 02/14/24 09/26/25 History verapamil 300 mg capsule 24hr 300 mg PO HS 02/14/24 09/26/[address],ext.release Held on 09/26/25. Instructions: Patient daughter said patient is not taking metformin 500 mg tablet 500 mg PO DIRECTED 02/15/25 09/26/25 History furosemide 20 mg tablet (Lasix) 20 mg PO DAILY 09/26/25 09/26/25 History Allergies Allergy/AdvReac Type Severity Reaction Status Date / Time Penicillins Allergy Mild Hives / Verified 09/26/25 16:00 Red Face alendronate sodium (From AdvReac Intermediate Diarrhea Verified 09/26/25 16:00 Fosamax) codeine AdvReac Mild Vomiting Verified 09/26/25 16:00 prochlorperazine AdvReac Mild Muscle Verified 09/26/25 16:00 Spasms clarithromycin (From Biaxin) AdvReac Nausea and Verified 09/26/25 16:00 Vomiting clindamycin AdvReac Diarrhea Verified 09/26/25 16:00 Vital Signs Vital Signs - 24 hr 09/26/25 08:11 09/26/25 11:11 09/26/25 11:13 Temperature 97.2 F L Pulse Rate 67 80 73 Respiratory Rate 20 19 21 H Blood Pressure 161/65 H 169/57 H Pulse Oximetry 100 97 Oxygen Delivery Room Air Room Air 09/26/25 11:15 09/26/25 11:16 09/26/25 11:17 Temperature Pulse Rate 65 77 67 Respiratory Rate 18 12 14 Blood Pressure 169/57 H 171/63 H Pulse Oximetry 100 99 100 Oxygen Delivery 09/26/25 11:30 09/26/25 11:32 09/26/25 11:45 Temperature Pulse Rate 61 67 60 Respiratory Rate 13 17 13 Blood Pressure 182/74 H Pulse Oximetry 100 100 100 Oxygen Delivery 09/26/25 11:47 09/26/25 12:00 09/26/25 12:02 Temperature Pulse Rate 57 L 58 L 60 Respiratory Rate 17 13 15 Blood Pressure 165/62 H 169/68 H Pulse Oximetry 100 100 100 Oxygen Delivery 09/26/25 12:15 09/26/25 12:17 09/26/25 12:30 Temperature Pulse Rate 58 L 59 L 56 L Respiratory Rate 15 10 L 20 Blood Pressure 157/67 H Pulse Oximetry 100 100 100 Oxygen Delivery 09/26/25 12:32 09/26/25 12:45 09/26/25 12:47 Temperature Pulse Rate 56 L 58 L Respiratory Rate 14 16 Blood Pressure 154/103 H 171/61 H Pulse Oximetry 100 100 Oxygen Delivery 09/26/25 13:00 11/17/25 13:02 09/26/25 13:15 Temperature Pulse Rate Respiratory Rate Blood Pressure 152/62 H Pulse Oximetry 100 100 100 Oxygen Delivery 09/26/25 13:30 09/26/25 13:45 09/26/25 14:00 Temperature Pulse Rate Respiratory Rate Blood Pressure Pulse Oximetry 100 100 100 Oxygen Delivery 09/26/25 15:00 Temperature Pulse Rate 60 Respiratory Rate 18 Blood Pressure 164/58 H Pulse Oximetry 100 Oxygen Delivery Exam Narrative: GENERAL: non-toxic appearing, in no acute distress. HEAD: Normocephalic, atraumatic. EYES: PERRLA. Conjunctivae clear. NOSE: Normal no drainage. THROAT: Pharynx clear, no exudate. NECK: Trachea midline. No adenopathy, no masses. RESPIRATORY: Airway patent, respirations nonlabored. CTA. CARDIOVASCULAR: Regular rate and rhythm BREASTS: Defer GASTROINTESTINAL: Abdomen is soft and nontender. No organomegaly. Bowel sounds normal in all quadrants. GENITOURINARY: Defer MUSCULOSKELETAL: Moves all extremities. SKIN: Warm, dry.Bilateral lower extremity edema 3+ up to knees. Erythema bilaterally but greater on the right. Warm to touch but nontender. No weeping. Right lower extremity skin is shiny NEURO: A&O X4. Speech clear PSYCHIATRIC: Normal interaction H&P: Results Labs Labs: Short CBC 09/26/25 Range/Units 12:39 WBC 5.3 (4.5-10.0) K/mm3 Hgb 13.3 (12.0-15.0) g/dL Hct 41.2 (37.0-47.0) % Plt Count 208 (150-375) k/mm3 [facility] 09/26/25 12:39 Sodium 141 Potassium 3.4 Chloride 105 Carbon Dioxide 25 BUN 31 H Creatinine 1.35 H Glucose 123 H Calcium 9.2 Cardiac Enzymes 09/26/25 Range/Units 12:39 Troponin I < 0.012 (0.000-0.034) ng/mL Liver Function 09/26/25 Range/Units 12:39 Total Bilirubin 1.5 H (0.2-1.3) mg/dL AST 23 (14-36) U/L ALT 11 (6-35) U/L Alkaline Phosphatase 79 (38-126) U/L Albumin 4.3 (3.5-5.1) g/dL Urine 09/26/25 Range/Units 12:52 Urine Color Yellow (Yellow) Urine Appearance Cloudy H (Clear) Urine pH 5.0 (5.0-9.0) Ur Specific [place] 1.022 (1.001-1.035) Urine Protein Trace (Negative) mg/dL Urine Glucose (UA) 3+ H (Negative) mg/dL Assessment and Plan Assessment and plan (1) Cellulitis of right lower extremity: Code(s): L03.115 - Cellulitis of right lower limb Status: Acute Assessment and Plan: Patient with history of cellulitis in her lower extremities presents with 7 day history of increasing edema to bilateral lower extremities and increasing erythema, mostly on the right. The patient states it is nontender. Warm to touch. No weeping or ulcerations. -cefepime and metronidazole started on 09/26 -encourage elevating extremities (2) UTI (urinary tract infection): Qualifiers: Urinary tract infection type: site unspecified Hematuria presence: without hematuria Qualified Code(s): N39.0 - Urinary tract infection, site not specified Code(s): N39.0 - Urinary tract infection, site not specified Status: Acute Assessment and Plan: Asymptomatic UTI. - UA with 3+ glucose, trace ketones, 1+ blood, nitrate positive, 1+ leukocyte Estrace, 3-5 RBC, 21-50 WBC, 4+ bacteria. - UC pending - no previous urine micro to review - started on cefepime and metronidazole on 09/26 to cover UTI and cellulitis (3) CKD (chronic kidney disease) stage 3, GFR 30-59 ml/min: Qualifiers: Chronic kidney disease stage 3 subtype: stage 3b (GFR 30-44) Qualified Code(s): N18.32 - Chronic kidney disease, stage 3b Code(s): N18.30 - Chronic kidney disease, stage 3 unspecified Status: Chronic Assessment and Plan: Creatinine 1.35 on admit which is improved from past readings. -trend renal function -continue follow-up with Nephrology outpatient (4) Diabetes: Qualifiers: Diabetes mellitus type: type 2 Diabetes mellitus long term care administrator insulin use: without long term care administrator use Diabetes mellitus complication status: with kidney complications Diabetes mellitus complication detail: with chronic kidney disease Chronic kidney disease stage: stage 3 (moderate) Chronic kidney disease stage 3 subtype: stage 3b (GFR 30-44) Qualified Code(s): E11.22 - Type 2 diabetes mellitus with diabetic chronic kidney disease; N18.32 - Chronic kidney disease, stage 3b Code(s): E11.9 - Type 2 diabetes mellitus without complications Status: Chronic Assessment and Plan: - hypoglycemia protocol - POC blood glucose ACHS - home medication: For seizure - correct regimen ordered: Low-dose sliding scale - A1C 5.7 in December 2024 (5) Hypertension: Qualifiers: Hypertension type: primary hypertension Qualified Code(s): I10 - Essential (primary) hypertension Code(s): I10 - Essential (primary) hypertension Status: Chronic Assessment and Plan: Patient hypertensive on admit at 161/65. Had not taken home medication today. -continue metoprolol, lisinopril Quality VTE Prophylaxis VTE prophylaxis: pharmacologic ordered Hospitalist MIPS Advance Care Plan I have confirmed that the patient's Advanced Care Plan is present, code status is documented, or surrogate decision maker is listed in patient medical record.: Yes Medication Reconciliation I have utilized all available resources to obtain, update and review the patients current medications (includes all prescriptions, OTC, herbals, cannabis, and nutritional supplements).: Yes
[2025-09-26] MEDS: metroNIDAZOLE 500 MG/ISO 100ML 500 MG/100 ML BAG 100 MG IVPB (17:54)
[2025-09-26] MEDS: APIXABAN 5 MG TABLET PO (21:38)
[2025-09-26] MEDS: VERAPAMIL HCL 120 MG ER TABLET PO (21:38)
[2025-09-26] MEDS: SIMVASTATIN 20 MG TABLET PO (21:39)
[2025-09-26] MEDS: VERAPAMIL HCL 180 MG ER TABLET PO (21:43)
[2025-09-27] MEDS: CEFEPIME 1 GM in SODIUM CHLORIDE 0.9% IV 50 ML 100 ML IVPB ×2 (02:19→14:17)
[2025-09-27] MEDS: metroNIDAZOLE 500 MG/ISO 100ML 500 MG/100 ML BAG 100 MG IVPB ×3 (02:19→17:57)
[2025-09-27 04:57] VITALS: BP 143/51; PULSE 58; RESP 14; TEMP 36.2; O2SAT 97
[2025-09-27 06:23] LABS: Hematocrit 34.9 % (37.0-47.0); Hemoglobin 11.3 g/dL (12.0-15.0); Immature Granulocyte Percent A 0.4 % (0-0.5); Lymphocytes Absolute Auto 0.72 K/mm3 (0.9-3.2); Mean Corpuscular HGB Conc 32.4 g/dl (32-36); Mean Corpuscular Hemoglobin 28.8 pg (26-34); Mean Corpuscular Volume 88.8 fl (80-100); Nucleated Red Blood Cells Absolute Auto 0.000 K/mm3 (0.0-0.012); Nucleated Red Blood Cells Perc 0.0 % (0.0-0.2); Platelet Count Result 160 k/mm3 (150-375); Red Blood Count 3.93 M/mm3 (4.2-5.4); White Blood Count 4.6 K/mm3 (4.5-10.0)
[2025-09-27 06:51] LABS: Anion Gap 5 mmol/L (4-12); Blood Urea Nitrogen 24 mg/dL (7-17); Calcium 8.4 mg/dL (8.4-10.2); Carbon Dioxide 24 mmol/L (22-30); Chloride 109 mmol/L (98-107); Estimated CRCL calculation 41 ml/min; Estimated Glomerular Filt Rate 49; Glucose 137 mg/dL (65-110); Potassium 3.3 mmol/L (3.4-5.0); Sodium 138 mmol/L (137-145)
--- NOTE | 2025-09-27 07:52 | P.PNIM_ITS ---
Progress Note: A&P Assessment and Plan (1) Cellulitis of right lower extremity: Code(s): L03.115 - Cellulitis of right lower limb Status: Acute Assessment and Plan: Patient with history of cellulitis in her lower extremities presents with 7 day history of increasing edema to bilateral lower extremities and increasing erythema, mostly on the right. The patient states it is nontender. Warm to touch. No weeping or ulcerations. -cefepime, Vanc, metronidazole started on 09/26 -encourage elevating extremities -no point tenderness or induration, and erythema is diffuse. Patient on Eliquis with unknown reason even though DVT in history, she denies DVT hx. No concerns at this time will obtain duplex ultrasound if needed. (2) UTI (urinary tract infection): Qualifiers: Hematuria presence: without hematuria Urinary tract infection type: site unspecified Qualified Code(s): N39.0 - Urinary tract infection, site not specified Code(s): N39.0 - Urinary tract infection, site not specified Status: Acute Assessment and Plan: Asymptomatic UTI. - UA with 3+ glucose, trace ketones, 1+ blood, nitrate positive, 1+ leukocyte Estrace, 3-5 RBC, 21-50 WBC, 4+ bacteria. - UC pending - no previous urine micro to review - started on cefepime,vanc, and metronidazole on 09/26 to cover UTI and cellulitis (3) CKD (chronic kidney disease) stage 3, GFR 30-59 ml/min: Qualifiers: Chronic kidney disease stage 3 subtype: stage 3b (GFR 30-44) Qualified Code(s): N18.32 - Chronic kidney disease, stage 3b Code(s): N18.30 - Chronic kidney disease, stage 3 unspecified Status: Chronic Assessment and Plan: Creatinine 1.35 on admit which is improved from past readings. 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 use: without alf use Diabetes mellitus type: type 2 Qualified Code(s): E11.22 - Type 2 diabetes mellitus with diabetic chronic kidney disease; N18.32 - Chronic kidney disease, stage 3b Code(s): E11.9 - Type 2 diabetes mellitus without complications Status: Chronic Assessment and Plan: - hypoglycemia protocol - POC blood glucose ACHS - home medication: For seizure - correct regimen ordered: Low-dose sliding scale - A1C 5.7 in December 2024 (5) Hypertension: Qualifiers: Hypertension type: primary hypertension Qualified Code(s): I10 - Essential (primary) hypertension Code(s): I10 - Essential (primary) hypertension Status: Chronic Assessment and Plan: Patient hypertensive on admit at 161/65. Had not taken home medication today. -continue metoprolol, lisinopril -Pt 138/65 today Plan Cellulitis and UTI tx IV abx Time Spent With Patient Time: 40 Subjective Date/time seen: 09/27/25 1350 Interval history: Pt ambulating in room with walker upon my arrival. Pt with continued redness and swelling in her bilateral lower extremities. Patient denies urinary symptoms, fevers, shortness of breath, chest pain, or any other symptoms including any specific leg pain or point tenderness. Review of Systems Review of Systems: All systems reviewed & are unremarkable except as noted in HPI and below Exam Narrative: GENERAL: non-toxic appearing, in no acute distress. Elderly. Ambulating in room. HEAD: Normocephalic, atraumatic. EYES: PERRLA. Conjunctivae clear. NOSE: Normal no drainage. THROAT: Pharynx clear, no exudate. NECK: Trachea midline. No adenopathy, no masses. RESPIRATORY: Airway patent, respirations nonlabored. CTA. CARDIOVASCULAR: Regular rate and rhythm BREASTS: Defer GASTROINTESTINAL: Abdomen is soft and nontender. No organomegaly. Bowel sounds normal in all quadrants. GENITOURINARY: Defer MUSCULOSKELETAL: Moves all extremities. SKIN: Warm, dry. Bilateral lower extremity edema 3+ up to knees, R>L. Erythema bilaterally but greater on the right. Warm to touch but nontender. No weeping. Right lower extremity skin is shiny. No point tenderness or induration. NEURO: A&O X4. Speech clear PSYCHIATRIC: Normal interaction Objective Data Vital Signs Vital Signs: Vital Signs - 24 hr 09/26/25 08:11 09/26/25 11:11 09/26/25 11:13 Temperature 97.2 F L Pulse Rate 67 80 73 Respiratory Rate 20 19 21 H Blood Pressure 161/65 H 169/57 H Pulse Oximetry 100 97 Oxygen Delivery Room Air Room Air 09/26/25 11:15 09/26/25 11:16 09/26/25 11:17 Temperature Pulse Rate 65 77 67 Respiratory Rate 18 12 14 Blood Pressure 169/57 H 171/63 H Pulse Oximetry 100 99 100 Oxygen Delivery 09/26/25 11:30 09/26/25 11:32 09/26/25 11:45 Temperature Pulse Rate 61 67 60 Respiratory Rate 13 17 13 Blood Pressure 182/74 H Pulse Oximetry 100 100 100 Oxygen Delivery 09/26/25 11:47 09/26/25 12:00 09/26/25 12:02 Temperature Pulse Rate 57 L 58 L 60 Respiratory Rate 17 13 15 Blood Pressure 165/62 H 169/68 H Pulse Oximetry 100 100 100 Oxygen Delivery 09/26/25 12:15 09/26/25 12:17 09/26/25 12:30 Temperature Pulse Rate 58 L 59 L 56 L Respiratory Rate 15 10 L 20 Blood Pressure 157/67 H Pulse Oximetry 100 100 100 Oxygen Delivery 09/26/25 12:32 09/26/25 12:45 09/26/25 12:47 Temperature Pulse Rate 56 L 58 L Respiratory Rate 14 16 Blood Pressure 154/103 H 171/61 H Pulse Oximetry 100 100 Oxygen Delivery 09/26/25 13:00 09/26/25 13:02 09/26/25 13:15 Temperature Pulse Rate Respiratory Rate Blood Pressure 152/62 H Pulse Oximetry 100 100 100 Oxygen Delivery 09/26/25 13:30 09/26/25 13:45 09/26/25 14:00 Temperature Pulse Rate Respiratory Rate Blood Pressure Pulse Oximetry 100 100 100 Oxygen Delivery 09/26/25 15:00 09/26/25 16:00 09/26/25 16:00 Temperature 97.6 F Pulse Rate 60 63 Respiratory Rate 18 16 Blood Pressure 164/58 H 171/65 H Pulse Oximetry 100 100 Oxygen Delivery Room Air 09/26/25 19:59 09/26/25 20:00 09/27/25 04:57 Temperature 97.2 F L 97.2 F L Pulse Rate 58 L 58 L Respiratory Rate 16 14 Blood Pressure 175/52 H 143/51 H Pulse Oximetry 99 97 Oxygen Delivery Room Air Intake/Output Intake/Output: Intake & Output 09/24/25 09/25/25 09/26/25 09/27/25 23:59 23:59 23:59 23:59 Intake Total 890 Balance 890 Meds/Results Medications: Active Medications Generic Name Dose Route Start Last Admin Trade Name Freq PRN Reason Stop Dose Admin Acetaminophen 650 mg 09/26/25 14:02 Acetaminophen 325 Mg Tablet PO Q4H PRN Mild Pain (1-3) or Fever Apixaban 5 mg 09/26/25 21:00 09/26/25 21:38 Apixaban 5 Mg Tablet PO 5 mg Q12HR RAFAELA Administration Calcium Carbonate 500 mg 09/27/25 09:00 Calcium Carbonate (Oscal) 500 Mg Tablet PO QAM RAFAELA Dextrose 12.5 gm 09/26/25 14:05 Dextrose 50% 25 Gm/50 Ml Syringe IV PUSH PRN PRN Hypoglycemia Protocol Fenofibrate 145 mg 09/27/25 09:00 Fenofibrate 145 Mg Tablet PO DAILY RAFAELA Furosemide 20 mg 09/27/25 09:00 Furosemide 20 Mg Tablet PO DAILY RAFAELA Glucagon 1 mg 09/26/25 14:05 Glucagon For Inj 1 Mg Vial IM PRN PRN Hypoglycemia Protocol Glucose 15 gm 09/26/25 14:05 Glucose Oral Gel 15 Gm Of Glucse In 37.5 Gm Tube PO PRN PRN Hypoglycemia Protocol Cefepime HCl 1 gm/ Sodium 50 mls @ 100 mls/hr 09/27/25 02:00 09/27/25 02:19 Chloride IVPB 100 mls/hr Q12H RAFAELA Administration Dextrose 1,000 mls @ 100 mls/hr 09/26/25 14:05 Dextrose 5% 1,000 Ml IVPB PRN PRN Hypoglycemia Protocol Metronidazole 500 mg in 100 mls @ 100 mls/hr 09/26/25 18:00 09/27/25 02:19 Flagyl 500 Mg/Iso Soln 100 Ml IVPB 100 mls/hr Q8H RAFAELA Administration Vancomycin HCl 1,500 mg in 500 mls @ 250 mls/hr 09/27/25 15:00 Vancomycin 1,500 Mg/Ns 500 Ml IVPB Q24H RAFAELA Insulin Aspart 2 - 5 units 09/26/25 17:00 09/26/25 17:17 Insulin Aspart (*Bkc) 100 Units/Ml SUB-Q Not Given TIDWM RAFAELA Protocol Lisinopril 40 mg 09/27/25 09:00 Lisinopril 20 Mg Tablet PO DAILY [facility] Metoprolol Succinate 100 mg 09/27/25 09:00 Metoprolol Succinate Ext Rel 100 Mg Tabcr PO DAILY RAFAELA Simvastatin 20 mg 09/26/25 21:00 09/26/25 21:39 Simvastatin 20 Mg Tablet PO 20 mg HS RAFAELA Administration Verapamil HCl 180 mg 09/26/25 21:00 09/26/25 21:43 Verapamil Hcl 180 Mg Er Tablet PO 180 mg HS RAFAELA Administration Verapamil HCl 120 mg 09/26/25 21:00 09/26/25 21:38 Verapamil Hcl 120 Mg Er Tablet PO 120 mg HS RAFAELA Administration Vitamin D 125 mcg 09/27/25 09:00 Cholecalciferol (Vitamin D3) 125 Mcg (5,000 Units) Tablet PO DAILY [facility] Radiology Results: ITS Impressions Chest X-Ray 09/26/25 13:17 IMPRESSION: 1. Small right base effusion. Labs Labs: Laboratory Results - last 24 hr 09/26/25 09/26/25 09/26/25 12:39 12:52 15:21 WBC 5.3 RBC 4.66 Hgb 13.3 Hct 41.2 MCV 88.4 MCH 28.5 MCHC 32.3 RDW 14.7 H Plt Count 208 MPV 11.6 H Immature Gran % (Auto) 0.2 Neut % (Auto) 67.0 Lymph % (Auto) 20.5 [place] % (Auto) 8.9 H Eos % (Auto) 3.2 Baso % (Auto) 0.2 Lymph # (Auto) 1.09 [place] # (Auto) 0.5 Eos # (Auto) 0.2 Baso # (Auto) 0.0 Abs Immat Gran (auto) 0.01 Absolute Neuts (auto) 3.6 Absolute Nucleated RBC 0.000 Nucleated RBC % 0.0 PT 14.4 INR 1.1 APTT 32.7 Sodium 141 Potassium 3.4 Chloride 105 Carbon Dioxide 25 Anion Gap 11 BUN 31 H Creatinine 1.35 H Estim Creat Clear Calc 33 Estimated GFR 38 L Glucose 123 H POC Capillary Glucose 104 Calcium 9.2 Total Bilirubin 1.5 H AST 23 ALT 11 Alkaline Phosphatase 79 Troponin I < 0.012 NT-Pro-B Natriuret Pep 190 H Total Protein 7.3 Albumin 4.3 Urine Color Yellow Urine Appearance Cloudy H Urine pH 5.0 Ur Specific [place] 1.022 Urine Protein Trace Urine Glucose (UA) 3+ H Urine Ketones Trace H Ur Blood (Man) 1+ H Urine Nitrate Positive H Urine Bilirubin Negative Urine Urobilinogen 0.2 Leukocyte Esterase Rfl 1+ H Urine RBC 3-5 H Urine WBC 21-50 H Ur Squamous Epith Cells Occasional Urine Bacteria 4+ H Urine Casts 0-2 09/26/25 09/26/25 09/27/25 16:23 19:56 05:48 WBC 4.6 RBC 3.93 L Hgb 11.3 L Hct 34.9 L MCV 88.8 MCH 28.8 MCHC 32.4 RDW 14.4 Plt Count 160 MPV 11.4 H Immature Gran % (Auto) 0.4 Neut % (Auto) 71.2 Lymph % (Auto) 15.6 L [place] % (Auto) 8.7 H Eos % (Auto) 3.9 Baso % (Auto) 0.2 Lymph # (Auto) 0.72 L [place] # (Auto) 0.4 Eos # (Auto) 0.2 Baso # (Auto) 0.0 Abs Immat Gran (auto) 0.02 Absolute Neuts (auto) 3.3 Absolute Nucleated RBC 0.000 Nucleated RBC % 0.0 PT INR APTT Sodium 138 Potassium 3.3 L Chloride 109 H Carbon Dioxide 24 Anion Gap 5 BUN 24 H Creatinine 1.07 H Estim Creat Clear Calc 41 Estimated GFR 49 L Glucose 137 H POC Capillary Glucose 135 H 127 H Calcium 8.4 Total Bilirubin AST ALT Alkaline Phosphatase Troponin I NT-Pro-B Natriuret Pep Total Protein Albumin Urine Color Urine Appearance Urine pH Ur Specific [place] Urine Protein Urine Glucose (UA) Urine Ketones Ur Blood (Man) Urine Nitrate Urine Bilirubin Urine Urobilinogen Leukocyte Esterase Rfl Urine RBC Urine WBC Ur Squamous Epith Cells Urine Bacteria Urine Casts 09/27/25 07:21 WBC RBC Hgb Hct MCV MCH MCHC RDW Plt Count MPV Immature Gran % (Auto) Neut % (Auto) Lymph % (Auto) [place] % (Auto) Eos % (Auto) Baso % (Auto) Lymph # (Auto) [place] # (Auto) Eos # (Auto) Baso # (Auto) Abs Immat Gran (auto) Absolute Neuts (auto) Absolute Nucleated RBC Nucleated RBC % PT INR APTT Sodium Potassium Chloride Carbon Dioxide Anion Gap BUN Creatinine Estim Creat Clear Calc Estimated GFR Glucose POC Capillary Glucose 121 H Calcium Total Bilirubin AST ALT Alkaline Phosphatase Troponin I NT-Pro-B Natriuret Pep Total Protein Albumin Urine Color Urine Appearance Urine pH Ur Specific [place] Urine Protein Urine Glucose (UA) Urine Ketones Ur Blood (Man) Urine Nitrate Urine Bilirubin Urine Urobilinogen Leukocyte Esterase Rfl Urine RBC Urine WBC Ur Squamous Epith Cells Urine Bacteria Urine Casts Quality VTE Prophylaxis VTE prophylaxis: pharmacologic ordered (home eliquis 5mg q12h)
[2025-09-27] MEDS: CALCIUM CARBONATE (OSCAL) 500 MG TABLET PO (09:03)
[2025-09-27] MEDS: APIXABAN 5 MG TABLET PO ×2 (09:03→20:12)
[2025-09-27] MEDS: FUROSEMIDE 20 MG TABLET PO (09:03)
[2025-09-27] MEDS: CHOLECALCIFEROL (VITAMIN D3) 125 MCG (5,000 UNITS) TABLET PO (09:03)
[2025-09-27] MEDS: FENOFIBRATE 145 MG TABLET PO (09:03)
[2025-09-27] MEDS: METOPROLOL SUCCINATE EXT REL 100 MG TABCR PO (09:03)
[2025-09-27 14:00] VITALS: BP 138/65; PULSE 64; RESP 16; TEMP 36.2; O2SAT 98
[2025-09-27] MEDS: VANCOMYCIN 1,500 MG/NS 500 ML 1,500 MG/500 ML BAG 250 MG IVPB (14:54)
[2025-09-27 19:44] VITALS: BP 148/54; PULSE 66; RESP 18; TEMP 36.1; O2SAT 100
[2025-09-27] MEDS: SIMVASTATIN 20 MG TABLET PO (20:11)
[2025-09-27] MEDS: VERAPAMIL HCL 120 MG ER TABLET PO (20:11)
[2025-09-27] MEDS: VERAPAMIL HCL 180 MG ER TABLET PO (20:11)
[2025-09-27 22:01] VITALS: O2SAT 99
[2025-09-28] MEDS: metroNIDAZOLE 500 MG/ISO 100ML 500 MG/100 ML BAG 100 MG IVPB ×3 (01:00→17:05)
[2025-09-28] MEDS: CEFEPIME 1 GM in SODIUM CHLORIDE 0.9% IV 50 ML 100 ML IVPB ×2 (01:00→13:01)
[2025-09-28 04:16] VITALS: BP 137/49; PULSE 61; RESP 16; TEMP 36.2; O2SAT 96
[2025-09-28 06:38] LABS: Hematocrit 39.4 % (37.0-47.0); Hemoglobin 12.9 g/dL (12.0-15.0); Immature Granulocyte Percent A 0.5 % (0-0.5); Lymphocytes Absolute Auto 0.88 K/mm3 (0.9-3.2); Mean Corpuscular HGB Conc 32.7 g/dl (32-36); Mean Corpuscular Hemoglobin 28.7 pg (26-34); Mean Corpuscular Volume 87.8 fl (80-100); Nucleated Red Blood Cells Absolute Auto 0.000 K/mm3 (0.0-0.012); Nucleated Red Blood Cells Perc 0.0 % (0.0-0.2); Platelet Count Result 171 k/mm3 (150-375); Red Blood Count 4.49 M/mm3 (4.2-5.4); White Blood Count 5.8 K/mm3 (4.5-10.0)
[2025-09-28 06:59] LABS: Alanine Aminotransferase 13 U/L (6-35); Albumin Level 3.9 g/dL (3.5-5.1); Alkaline Phosphatase 73 U/L (38-126); Anion Gap 9 mmol/L (4-12); Aspartate Amino Transferase 22 U/L (14-36); Bilirubin,Total 1.8 mg/dL (0.2-1.3); Blood Urea Nitrogen 22 mg/dL (7-17); Calcium 8.8 mg/dL (8.4-10.2); Carbon Dioxide 22 mmol/L (22-30); Chloride 106 mmol/L (98-107); Estimated CRCL calculation 36 ml/min; Estimated Glomerular Filt Rate 43; Glucose 121 mg/dL (65-110); Potassium 3.6 mmol/L (3.4-5.0); Sodium 137 mmol/L (137-145); Total Protein 6.7 g/dL (6.3-8.2)
--- NOTE | 2025-09-28 07:57 | P.CDI_ITS ---
CDI Query Clarification Request The record notes that the patient has a history of diabetes mellitus and is cu rrently being treated for cellulitis. For accurate documentation and coding, can you please clarify whether the patient?s cellulitis is: 1.? Cellulitis due to/associated with diabetes mellitus 2.? Cellulitis not related to diabetes mellitus 3.? Clinically undetermined 4.? Other, please specify Assessment and Plan (1) Cellulitis of right lower extremity: Code(s): L03.115 - Cellulitis of right lower limb Status: Acute Assessment and Plan: Patient with history of cellulitis in her lower extremities presents with 7 day history of increasing edema to bilateral lower extremities and increasing erythema, mostly on the right. The patient states it is nontender. Warm to touch. No weeping or ulcerations. -cefepime, Vanc, metronidazole started on 09/26 -encourage elevating extremities -no point tenderness or induration, and erythema is diffuse. Patient on Eliquis with unknown reason even though DVT in history, she denies DVT hx. No concerns at this time will obtain duplex ultrasound if needed. (2) UTI (urinary tract infection): Qualifiers: Hematuria presence: without hematuria Urinary tract infection type: site unspecified Qualified Code(s): N39.0 - Urinary tract infection, site not specified Code(s): N39.0 - Urinary tract infection, site not specified Status: Acute Assessment and Plan: Asymptomatic UTI. - UA with 3+ glucose, trace ketones, 1+ blood, nitrate positive, 1+ leukocyte Estrace, 3-5 RBC, 21-50 WBC, 4+ bacteria. - UC pending - no previous urine micro to review - started on cefepime,vanc, and metronidazole on 09/26 to cover UTI and cellulitis (3) CKD (chronic kidney disease) stage 3, GFR 30-59 ml/min: Qualifiers: Chronic kidney disease stage 3 subtype: stage 3b (GFR 30-44) Qualified Code(s): N18.32 - Chronic kidney disease, stage 3b Code(s): N18.30 - Chronic kidney disease, stage 3 unspecified Status: Chronic Assessment and Plan: Creatinine 1.35 on admit which is improved from past readings. -trend renal function -continue follow-up with Nephrology outpatient (4) Diabetes: Qualifiers: Chronic kidney disease stage: stage 3 (moderate) Chronic kidney disease stage 3 subtype: stage 3b (GFR 30-44) Diabetes mellitus complication detail: with chronic kidney disease Diabetes mellitus complication status: with kidney complications Diabetes mellitus termite exterminator helper insulin use: without termite exterminator helper use Diabetes mellitus type: type 2 Qualified Code(s): E11.22 - Type 2 diabetes mellitus with diabetic chronic kidney disease; N18.32 - Chronic kidney disease, stage 3b Code(s): E11.9 - Type 2 diabetes mellitus without complications Status: Chronic Assessment and Plan: - hypoglycemia protocol - POC blood glucose ACHS - home medication: For seizure - correct regimen ordered: Low-dose sliding scale - A1C 5.7 in December 2024 (5) Hypertension: Qualifiers: Hypertension type: primary hypertension Qualified Code(s): I10 - Essential (primary) hypertension Code(s): I10 - Essential (primary) hypertension Status: Chronic Assessment and Plan: Patient hypertensive on admit at 161/65. Had not taken home medication today. -continue metoprolol, lisinopril -Pt 138/65 today <Lexus Florez RN - Last Filed: 09/28/25 07:58> Clarified Diagnosis Clarified Diagnosis: Clinically undetermined <Tania Beltran MD - Last Filed: 09/28/25 12:15>
[2025-09-28] MEDS: FENOFIBRATE 145 MG TABLET PO (09:04)
[2025-09-28 09:05] VITALS: PULSE 70
[2025-09-28] MEDS: CHOLECALCIFEROL (VITAMIN D3) 125 MCG (5,000 UNITS) TABLET PO (09:05)
[2025-09-28] MEDS: METOPROLOL SUCCINATE EXT REL 100 MG TABCR PO (09:05)
[2025-09-28] MEDS: FUROSEMIDE 20 MG TABLET PO (09:05)
[2025-09-28] MEDS: CALCIUM CARBONATE (OSCAL) 500 MG TABLET PO (09:05)
[2025-09-28] MEDS: APIXABAN 5 MG TABLET PO ×2 (09:05→20:24)
[2025-09-28 09:09] VITALS: BP 165/64
--- NOTE | 2025-09-28 12:06 | P.PNIM_ITS ---
Progress Note: A&P Assessment and Plan (1) Hypertension: Qualifiers: Hypertension type: primary hypertension Qualified Code(s): I10 - Essential (primary) hypertension Code(s): I10 - Essential (primary) hypertension Status: Chronic (2) Cellulitis in diabetic foot: Code(s): E11.628 - Type 2 diabetes mellitus with other skin complications; L03.119 - Cellulitis of unspecified part of limb Status: Acute (3) CKD (chronic kidney disease) stage 3, GFR 30-59 ml/min: Qualifiers: Chronic kidney disease stage 3 subtype: stage 3b (GFR 30-44) Qualified Code(s): N18.32 - Chronic kidney disease, stage 3b Code(s): N18.30 - Chronic kidney disease, stage 3 unspecified Status: Chronic Plan 80-year-old female with a past medical history of CKD, dm 2, hyperlipidemia, venous insufficiency, DVT, diabetic ulcer, CHF, PAD presented to the ED from home on 09/26/2025 with complaints of bilateral lower extremity edema. 1. Cellulitis of right lower extremity: Improving Continue with cefepime, vancomycin, Flagyl Continue with Lasix Elevate extremities whenever possible 2. possible UTI: Await urine culture Continue with cefepime 3. History of DVT in the past: Continue with Eliquis 4. Diabetes mellitus: Blood glucose checked t.i.d. a.c. and HS Continue with sliding scale insulin Adjust dose as needed 5. CKD stage IIIB: Stable kidney function Avoid nephrotoxins Recheck BMP in a.m. 6. History of hypertension: Continue with verapamil, lisinopril 7. Code status: Full 8. Disposition: Pending improvement Time Spent With Patient Time: 38 minutes Subjective Date/time seen: 09/28/25 12:06 Interval history: Feeling better No acute events overnight Review of Systems Review of Systems: All systems reviewed & are unremarkable except as noted in HPI and below Exam Narrative: GENERAL: No acute distress HEAD: Normocephalic, atraumatic. EYES: PERRLA. NECK: Supple RESPIRATORY bilateral clear to auscultation CARDIOVASCULAR: Regular rate and rhythm GASTROINTESTINAL: Soft, nontender, bowel sounds present SKIN: Warm, dry. Bilateral lower extremity edema 3+ up to knees, R>L. Erythema bilaterally but greater on the right. Warm to touch but nontender. NEURO: A&O X4. PSYCHIATRIC: No abnormality detected Objective Data Vital Signs Vital Signs: Vital Signs - 24 hr 09/27/25 14:00 09/27/25 19:44 09/27/25 20:00 Temperature 97.2 F L 97.0 F L Pulse Rate 64 66 Respiratory Rate 16 18 Blood Pressure 138/65 148/54 H Pulse Oximetry 98 100 Oxygen Delivery Room Air 09/27/25 22:01 09/28/25 04:16 09/28/25 09:05 Temperature 97.2 F L Pulse Rate 61 70 Respiratory Rate 16 Blood Pressure 137/49 L Pulse Oximetry 99 96 Oxygen Delivery Room Air 09/28/25 09:09 Temperature Pulse Rate Respiratory Rate Blood Pressure 165/64 H Pulse Oximetry Oxygen Delivery Intake/Output Intake/Output: Intake & Output 09/25/25 09/26/25 09/27/25 09/28/25 23:59 23:59 23:59 23:59 Intake Total 890 1120 468 Balance 890 1120 468 Meds/Results Medications: Active Medications Generic Name Dose Route Start Last Admin Trade Name Freq PRN Reason Stop Dose Admin Acetaminophen 650 mg 09/26/25 14:02 Acetaminophen 325 Mg Tablet PO Q4H PRN Mild Pain (1-3) or Fever Apixaban 5 mg 09/26/25 21:00 09/28/25 09:05 Apixaban 5 Mg Tablet PO 5 mg Q12HR RAFAELA Administration Calcium Carbonate 500 mg 09/27/25 09:00 09/28/25 09:05 Calcium Carbonate (Oscal) 500 Mg Tablet PO 500 mg QAM RAFAELA Administration Dextrose 12.5 gm 09/26/25 14:05 Dextrose 50% 25 Gm/50 Ml Syringe IV PUSH PRN PRN Hypoglycemia Protocol Fenofibrate 145 mg 09/27/25 09:00 09/28/25 09:04 Fenofibrate 145 Mg Tablet PO 145 mg DAILY RAFAELA Administration Furosemide 20 mg 09/27/25 09:00 09/28/25 09:05 Furosemide 20 Mg Tablet PO 20 mg DAILY RAFAELA Administration Glucagon 1 mg 09/26/25 14:05 Glucagon For Inj 1 Mg Vial IM PRN PRN Hypoglycemia Protocol Glucose 15 gm 09/26/25 14:05 Glucose Oral Gel 15 Gm Of Glucse In 37.5 Gm Tube PO PRN PRN Hypoglycemia Protocol Cefepime HCl 1 gm/ Sodium 50 mls @ 100 mls/hr 09/27/25 02:00 09/28/25 01:30 Chloride IVPB Infused Q12H RAFAELA Infusion Dextrose 1,000 mls @ 100 mls/hr 09/26/25 14:05 Dextrose 5% 1,000 Ml IVPB PRN PRN Hypoglycemia Protocol Metronidazole 500 mg in 100 mls @ 100 mls/hr 09/26/25 18:00 09/28/25 09:05 Flagyl 500 Mg/Iso Soln 100 Ml IVPB 100 mls/hr Q8H RAFAELA Administration Vancomycin HCl 1,500 mg in 500 mls @ 250 mls/hr 09/27/25 15:00 09/27/25 14:54 Vancomycin 1,500 Mg/Ns 500 Ml IVPB 250 mls/hr Q24H RAFAELA Administration Insulin Aspart 2 - 5 units 09/26/25 17:00 09/28/25 11:41 Insulin Aspart (*Bkc) 100 Units/Ml SUB-Q Not Given TIDWM RAFAELA Protocol Lisinopril 40 mg 09/27/25 09:00 09/28/25 09:04 Lisinopril 20 Mg Tablet PO 40 mg DAILY RAFAELA Administration Metoprolol Succinate 100 mg 09/27/25 09:00 09/28/25 09:05 Metoprolol Succinate Ext Rel 100 Mg Tabcr PO 100 mg DAILY RAFAELA Administration Simvastatin 20 mg 09/26/25 21:00 09/27/25 20:11 Simvastatin 20 Mg Tablet PO 20 mg HS RAFAELA Administration Verapamil HCl 180 mg 09/26/25 21:00 09/27/25 20:11 Verapamil Hcl 180 Mg Er Tablet PO 180 mg HS RAFAELA Administration Verapamil HCl 120 mg 09/26/25 21:00 09/27/25 20:11 Verapamil Hcl 120 Mg Er Tablet PO 120 mg HS RAFAELA Administration Vitamin D 125 mcg 09/27/25 09:00 09/28/25 09:05 Cholecalciferol (Vitamin D3) 125 Mcg (5,000 Units) Tablet PO 125 mcg DAILY RAFAELA Administration Radiology Results: ITS Impressions Chest X-Ray 09/26/25 13:17 IMPRESSION: 1. Small right base effusion. Labs Labs: Laboratory Results - last 24 hr 09/27/25 09/27/25 09/28/25 16:31 19:36 06:15 WBC 5.8 RBC 4.49 Hgb 12.9 Hct 39.4 MCV 87.8 MCH 28.7 MCHC 32.7 RDW 14.4 Plt Count 171 MPV 11.0 H Immature Gran % (Auto) 0.5 Neut % (Auto) 69.9 Lymph % (Auto) 15.3 L Dupage % (Auto) 10.1 H Eos % (Auto) 4.0 Baso % (Auto) 0.2 Lymph # (Auto) 0.88 L Dup[place] # (Auto) 0.6 Eos # (Auto) 0.2 Baso # (Auto) 0.0 Abs Immat Gran (auto) 0.03 Absolute Neuts (auto) 4.0 Absolute Nucleated RBC 0.000 Nucleated RBC % 0.0 Sodium 137 Potassium 3.6 Chloride 106 Carbon Dioxide 22 Anion Gap 9 BUN 22 H Creatinine 1.20 H Estim Creat Clear Calc 36 Estimated GFR 43 L Glucose 121 H POC Capillary Glucose 118 H 150 H Calcium 8.8 Total Bilirubin 1.8 H AST 22 ALT 13 Alkaline Phosphatase 73 Total Protein 6.7 Albumin 3.9 09/28/25 09/28/25 07:25 11:27 WBC RBC Hgb Hct MCV MCH MCHC RDW Plt Count MPV Immature Gran % (Auto) Neut % (Auto) Lymph % (Auto) Dup[place] % (Auto) Eos % (Auto) Baso % (Auto) Lymph # (Auto) [place] # (Auto) Eos # (Auto) Baso # (Auto) Abs Immat Gran (auto) Absolute Neuts (auto) Absolute Nucleated RBC Nucleated RBC % Sodium Potassium Chloride Carbon Dioxide Anion Gap BUN Creatinine Estim Creat Clear Calc Estimated GFR Glucose POC Capillary Glucose 127 H 113 H Calcium Total Bilirubin AST ALT Alkaline Phosphatase Total Protein Albumin Quality VTE Prophylaxis VTE prophylaxis: pharmacologic ordered
[2025-09-28] MEDS: VANCOMYCIN 1,500 MG/NS 500 ML 1,500 MG/500 ML BAG 250 MG IVPB (13:59)
[2025-09-28 14:00] VITALS: BP 170/68; PULSE 62; RESP 14; TEMP 36.1; O2SAT 99
[2025-09-28 20:12] VITALS: BP 144/56; PULSE 62; RESP 17; TEMP 36.5; O2SAT 95
[2025-09-28] MEDS: SIMVASTATIN 20 MG TABLET PO (20:24)
[2025-09-28] MEDS: VERAPAMIL HCL 180 MG ER TABLET PO (20:24)
[2025-09-28] MEDS: VERAPAMIL HCL 120 MG ER TABLET PO (20:24)
--- NOTE | 2025-09-29 | ECHO_ITS ---
Patient Info Name: Katie Peguero Age: 80 years : 1945 Gender: Female Ht: 66 in Wt: 197 lbs BSA: 2.07 m2 HR: 60 bpm BP: 117 / 58 mmHg Technical Quality: Good Exam Date: 09/29/2025 1:47 PM Patient Status: I Admit Date: 09/27/2025 Exam Type: CA echo doppler color flow Complete two-dimensional, color flow and Doppler transthoracic echocardiogram is performed. Staff Referring Physician: Derrick Leahy MD Hris Specialist: Ellen Flores Attending Provider: Aristeo Mcgregor Summary 1. Complete two-dimensional, color flow and Doppler transthoracic echocardiogram is performed. 2. Left ventricular chamber dimension is normal. 3. Left ventricular systolic function is normal, estimated at 65-70. 4. There is mild concentric increased left ventricular wall thickness. 5. The left ventricular diastolic function is grade I diastolic dysfunction. 6. E/e' 10 is mildly elevated. 7. There is mild aortic valve sclerosis. Left Ventricle E/e' 10 is mildly elevated. Left ventricular chamber dimension is normal. Left ventricular systolic function is normal, estimated at 65-70. There is mild concentric increased left ventricular wall thickness. The left ventricular diastolic function is grade I diastolic dysfunction. Right Ventricle Right ventricular chamber dimension is normal. Right ventricular systolic function is normal and with normal TAPSE 2.2 cm. Left Atria Left atrial chamber dimension is normal. Right Atria Right atrial chamber dimension is normal. Aortic Valve The aortic valve is trileaflet. There is mild aortic valve sclerosis. There is no aortic valve stenosis. There is no aortic valve regurgitation. Pulmonic Valve There is no pulmonic regurgitation. Mitral Valve There is no mitral valve stenosis. There is no mitral valve regurgitation. Tricuspid Valve There is no tricuspid valve regurgitation. Pericardium/Pleural There is no pericardial effusion. Inferior Vena Cava Normal inferior vena cava with >50% collapse upon inspiration consistent with normal right atrial pressure, 5 mmHg. Aorta The aortic root size at the sinus of Valsalva is normal. Left Ventricular Outflow Tract Name Value Normal LVOT 2D LVOT Diameter 2.0 cm LVOT Doppler LVOT Peak Velocity 136 cm/s LVOT Peak Gradient 7 mmHg LVOT Mean Gradient 4 mmHg LVOT VTI 31 cm LVOT Stroke Volume 97 ml LVOT CO 5.8 l/min LVOT CI 2.8 l/min/m2 Pulmonic Valve Name Value Normal RVOT Doppler RVOT Peak Velocity 83 cm/s RVOT Peak Gradient 3 mmHg PV Doppler PV Peak Velocity 103 cm/s PV Peak Gradient 4 mmHg Mitral Valve Name Value Normal MV Diastolic Function MV E Peak Velocity 74 cm/s MV A Peak Velocity 120 cm/s MV E/A 0.6 MV Decel Time (PW) 346 ms MV Annular TDI MV E/e' (Septal) 11.1 MV E/e' (Lateral) 10.8 MV E/e' (Average) 11.0 Tricuspid Valve Name Value Normal Estimated PAP/RSVP RA Pressure 5 mmHg <=5 Aortic Valve Name Value Normal AV Doppler AV Peak Velocity 167 cm/s AV Peak Gradient 11 mmHg AV Area (Cont Eq Samuel) 2.6 cm2 AV DI (Samuel) 0.81 AV Regurgitation 2D LVOT Area 3.2 cm2 Ventricles Name Value Normal LV Dimensions 2D/MM IVS Diastolic Thickness (2D) 1.1 cm 0.6-1.0 LVID Diastole (2D) 5.1 cm 3.8-5.2 LVIW Diastolic Thickness (2D) 1.3 cm 0.6-0.9 LVID Systole (2D) 3.1 cm 2.2-3.5 LVOT Diameter 2.0 cm LV Mass (2D Cubed) 241.34 g 67.00-162.00 LV Mass Index (2D Cubed) 117 g/m2 43-95 Relative Wall Thickness (2D) 0.51 <=0.42 LV Fractional Shortening/Ejection Fraction 2D/MM LV Fractional Shortening (2D) 39 % 27-45 LV EF (2D Teichholz) 69 % LV Diastolic Volume (4C MOD) 96 ml LV EF (4C MOD) 66 % LV Diastolic Volume (2C MOD) 88 ml LV EF (2C MOD) 64 % LV Diastolic Volume (BP MOD) 92 ml 46-106 LV Diastolic Volume Index (BP MOD) 44 ml/m2 29-61 LV Systolic Volume (BP MOD) 33 ml 14-42 LV Systolic Volume Index (BP MOD) 16 ml/m2 8-24 LV EF (BP MOD) 64 % 54-74 LV Diastolic Length (4C) 7.5 cm LV Systolic Length (4C) 6.2 cm LV Stroke Volume (4C MOD) 63 ml Atria Name Value Normal LA Dimensions LA Volume (4C A-L) 34 ml LA Volume (BP A-L) 33 ml RA Dimensions RA Systolic Major [place] Length (4C) 6.0 cm 2.2-2.8 RA Area (4C) 15.6 cm2 <=18.0 Report Signatures
--- NOTE | 2025-09-29 03:07 | PC.NURSE ---
At approx. 0225 went into pt's room to administer pt's IV antibiotic. When entering pt's room pt asked for me to check on IV to make sure it was not infected. From visual inspection only the tip of the IV had dried blood, but dressing and needle looked to be intact. I was about to use a saline flush to check IV's patency but then pt stated she did not want that. Explained to pt that she had said she wanted me to check that the IV was not infected and I had to check the IV to make sure I can administer the antibiotics scheduled. Pt stated that she did not want that, she just wanted to leave because she has an appointment tomorrow and her family/friends were coming to pick her up. Asked pt orientation questions, pt able to state year, name, , and current president, but when asked about current location pt keeps stating she is at a home. Intermittently she would be able to state she is in [facility] but then again would say she is at home. Attempted one more time to administer IV antibiotics while talking with pt, and pt stated she did not want that. Explained to pt her diagnosis and the importance of receiving antibiotics for cellulitis. Pt stated It's my right to refuse. Told pt that I would come back. Told charge operator, Irma Trujillo, of the situation and asked if okay to non-administer antibiotics at this time because pt is refusing and pt is stating she is leaving soon and family/friends have been notified. Did explain to charge operator that pt has been getting more confused throughout the night. instructor bridge, said she would talk to pt and help administer antibiotics. When attempting to administer antibiotic pt began to get angry and becoming aggressive, stating she did not want any treatment from here, it is my right and grabbing and scratching both nurses hands and leaving a skin tear on her own right hand in an attempt to pull out IV. Blood from new skin tear cleaned up and covered with gauze. Pt left alone with bed alarm on and call light within in reach. At 0254 called hospitalist, Renetta Mcclure, and told her about the above events. Asked provider if it's okay if antibiotics are non-administered at this time. Provider asked me if the cellulitis looked like it was improving, and if pt would be able to take oral antibiotics. Told provider that cellulitis did look a little better than the beginning of shift and that she did previously take oral medication well at the beginning of shift. Provider said to give pt some time to see if she would cooperate to IV antibiotics and that she will come up to see pt. At approx. 0340 Renetta came up to see pt. Renetta explained diagnosis and care plan to pt as well as consequences if she were to leave AMA. Pt still refusing care from here and stating she is in [place]. Pt requesting for daughter or neighbor to be called so she can leave now. Renetta said would call daughter.
--- NOTE | 2025-09-29 04:03 | P.PNCROSS_ITS ---
Event Note Event Note Event Note: The patient is awake and she is orientated to person however thinks that she is in her home. Several of the staff have explained to her that she is at [facility]. The patient stated that she wants out of the hospital at once and wants no further treatment. The patient became combative with the nurse who tried to connect IV antibiotics . I explained to her that she has cellulitis and she allowed me to assess her lower extremities. I offered to change her to p.o. medication and she stated that she has already been treated with p.o. medication and does not want any IV medication. Patient refused all treatment and wants to go home. I discussed signing out AMA. The patient stated that she would do that however, she does not have a ride at this time. She did give me her daughter Merary's number and it was the correct number. According to her her contact list said [phone] is the appropriate number for her daughter Merary. I attempted to call her daughter's phone bed did not receive an answer. I did leave a voice message for came to call me back. It would be helpful if her daughter Merary came to the hospital to talk to her. The patient still denies being in the hospital. She is aware of her condition and she is aware of who her primary care doctor is. She is also aware what day of the week it is. However she continues to be confused about where she is. At this point she is refusing all treatment. She becomes combative if any the staff attempts to connect her IV antibiotics. ADDENDUM HER DAUGHTER MERARY DID RETURN THE PHONE CALL AND STATED THAT SHE WOULD NOT BE ABLE TO COME UP TO THE HOSPITAL AT THIS TIME. MELISSA FEELS THAT COMING TO SEE HER MOTHER WOULD MAKE THE PATIENT FEEL WORSE. MELISSA STATED THAT THE PATIENT DID THIS BACK IN 2022 AND HAD TO BE SEDATED. SHE ALSO STATED THAT THE PATIENT HAD TO BE RESTRAINED BACK IN 2022. MELISSA STATED THIS IS HOW THE PATIENT GETS WHEN SHE IS IN THE HOSPITAL. I SPOKE WITH THE PATIENT AND I OFFERED HER HYDROXYZINE AND TYLENOL TO HELP HER REST. THE PATIENT IS REFUSING ALL CARE. The patient became combative with staff again and she was given [id number]
[2025-09-29] MEDS: OLANZapine 5 MG, WATER, STERILE FOR INJECTION 2.1 ML IM (06:00)
[2025-09-29 06:43] VITALS: BP 117/58; PULSE 84; RESP 16; TEMP 37.1; O2SAT 98
[2025-09-29 07:22] LABS: Hematocrit 42.2 % (37.0-47.0); Hemoglobin 13.7 g/dL (12.0-15.0); Immature Granulocyte Percent A 0.5 % (0-0.5); Lymphocytes Absolute Auto 0.63 K/mm3 (0.9-3.2); Mean Corpuscular HGB Conc 32.5 g/dl (32-36); Mean Corpuscular Hemoglobin 28.5 pg (26-34); Mean Corpuscular Volume 87.9 fl (80-100); Nucleated Red Blood Cells Absolute Auto 0.000 K/mm3 (0.0-0.012); Nucleated Red Blood Cells Perc 0.0 % (0.0-0.2); Platelet Count Result 200 k/mm3 (150-375); Red Blood Count 4.80 M/mm3 (4.2-5.4); White Blood Count 6.5 K/mm3 (4.5-10.0)
[2025-09-29 07:38] LABS: Alanine Aminotransferase 13 U/L (6-35); Albumin Level 4.0 g/dL (3.5-5.1); Alkaline Phosphatase 69 U/L (38-126); Anion Gap 10 mmol/L (4-12); Aspartate Amino Transferase 27 U/L (14-36); Bilirubin,Total 1.5 mg/dL (0.2-1.3); Blood Urea Nitrogen 18 mg/dL (7-17); Calcium 9.1 mg/dL (8.4-10.2); Carbon Dioxide 24 mmol/L (22-30); Chloride 105 mmol/L (98-107); Estimated CRCL calculation 38 ml/min; Estimated Glomerular Filt Rate 45; Glucose 161 mg/dL (65-110); Potassium 3.7 mmol/L (3.4-5.0); Sodium 139 mmol/L (137-145); Total Protein 6.8 g/dL (6.3-8.2)
[2025-09-29 09:51] VITALS: PULSE 76
[2025-09-29] MEDS: APIXABAN 5 MG TABLET PO ×2 (09:51→20:57)
[2025-09-29] MEDS: CHOLECALCIFEROL (VITAMIN D3) 125 MCG (5,000 UNITS) TABLET PO (09:51)
[2025-09-29] MEDS: METOPROLOL SUCCINATE EXT REL 100 MG TABCR PO (09:51)
[2025-09-29] MEDS: FUROSEMIDE 20 MG TABLET PO (09:51)
[2025-09-29] MEDS: CALCIUM CARBONATE (OSCAL) 500 MG TABLET PO (09:51)
[2025-09-29] MEDS: FENOFIBRATE 145 MG TABLET PO (09:51)
[2025-09-29] MEDS: metroNIDAZOLE 500 MG/ISO 100ML 500 MG/100 ML BAG 100 MG IVPB (09:52)
--- NOTE | 2025-09-29 12:02 | P.PNIM_ITS ---
Progress Note: A&P Assessment and Plan (1) Hypertension: Qualifiers: Hypertension type: primary hypertension Qualified Code(s): I10 - Essential (primary) hypertension Code(s): I10 - Essential (primary) hypertension Status: Chronic (2) Cellulitis in diabetic foot: Code(s): E11.628 - Type 2 diabetes mellitus with other skin complications; L03.119 - Cellulitis of unspecified part of limb Status: Acute (3) CKD (chronic kidney disease) stage 3, GFR 30-59 ml/min: Qualifiers: Chronic kidney disease stage 3 subtype: stage 3b (GFR 30-44) Qualified Code(s): N18.32 - Chronic kidney disease, stage 3b Code(s): N18.30 - Chronic kidney disease, stage 3 unspecified Status: Chronic Plan 80-year-old female with a past medical history of CKD, dm 2, hyperlipidemia, venous insufficiency, DVT, diabetic ulcer, CHF, PAD presented to the ED from home on 09/26/2025 with complaints of bilateral lower extremity edema. 1. Cellulitis of right lower extremity: Improving Vancomycin alone. Follow vanco level. Continue with Lasix Will order echo Elevate extremities whenever possible 2. possible UTI: Await urine culture Asymptomatic 3. History of DVT in the past: Continue with Eliquis 4. Diabetes mellitus: Blood glucose checked t.i.d. a.c. and HS Continue with sliding scale insulin Adjust dose as needed 5. CKD stage IIIB: Stable kidney function Avoid nephrotoxins Recheck BMP in a.m. 6. History of hypertension: Continue with verapamil, lisinopril 7. Code status: Full 8. Disposition: Pending improvement Subjective Date/time seen: 09/29/25 12:02 Interval history: 80-year-old female with a past medical history of CKD, dm 2, hyperlipidemia, venous insufficiency, DVT, diabetic ulcer, CHF, PAD presented to the ED from home on 09/26/2025 with complaints of bilateral lower extremity edema. 09/29/25 Patient was seen examined bedside. She is feeling better. Her legs improving. Reviewed her echo in 2023 which showed grade 2 diastolic dysfunction. Continue with Lasix. Recommended to keep legs elevated. Asked her nursing to apply compression stockings. Will switch antibiotics to vancomycin alone. Follow vancomycin level Review of Systems Review of Systems: All systems reviewed & are unremarkable except as noted in HPI and below Exam Narrative: GENERAL: No acute distress HEAD: Normocephalic, atraumatic. EYES: PERRLA. NECK: Supple RESPIRATORY bilateral clear to auscultation CARDIOVASCULAR: Regular rate and rhythm GASTROINTESTINAL: Soft, nontender, bowel sounds present SKIN: Warm, dry. Bilateral lower extremity edema 3+ up to knees, R>L. Erythema bilaterally but greater on the right. Warm to touch but nontender. NEURO: A&O X4. PSYCHIATRIC: No abnormality detected Objective Data Vital Signs Vital Signs: Vital Signs - 24 hr 09/28/25 14:00 09/28/25 20:12 09/28/25 20:12 Temperature 96.9 F L 97.7 F Pulse Rate 62 62 Respiratory Rate 14 17 Blood Pressure 170/68 H 144/56 H Pulse Oximetry 99 95 Oxygen Delivery Room Air 09/29/25 06:43 09/29/25 08:00 09/29/25 09:51 Temperature 98.7 F Pulse Rate 84 76 Respiratory Rate 16 Blood Pressure 117/58 L Pulse Oximetry 98 Oxygen Delivery Room Air Intake/Output Intake/Output: Intake & Output 09/26/25 09/27/25 09/28/25 09/29/25 23:59 23:59 23:59 23:59 Intake Total 890 1620 899 580 Balance 890 1620 899 580 Meds/Results Medications: Active Medications Generic Name Dose Route Start Last Admin Trade Name Freq PRN Reason Stop Dose Admin Acetaminophen 650 mg 09/26/25 14:02 Acetaminophen 325 Mg Tablet PO Q4H PRN Mild Pain (1-3) or Fever Apixaban 5 mg 09/26/25 21:00 09/29/25 09:51 Apixaban 5 Mg Tablet PO 5 mg Q12HR RAFAELA Administration Calcium Carbonate 500 mg 09/27/25 09:00 09/29/25 09:51 Calcium Carbonate (Oscal) 500 Mg Tablet PO 500 mg QAM RAFAELA Administration Dextrose 12.5 gm 09/26/25 14:05 Dextrose 50% 25 Gm/50 Ml Syringe IV PUSH PRN PRN Hypoglycemia Protocol Fenofibrate 145 mg 09/27/25 09:00 09/29/25 09:51 Fenofibrate 145 Mg Tablet PO 145 mg DAILY RAFAELA Administration Furosemide 20 mg 09/27/25 09:00 09/29/25 09:51 Furosemide 20 Mg Tablet PO 20 mg DAILY RAFAELA Administration Glucagon 1 mg 09/26/25 14:05 Glucagon For Inj 1 Mg Vial IM PRN PRN Hypoglycemia Protocol Glucose 15 gm 09/26/25 14:05 Glucose Oral Gel 15 Gm Of Glucse In 37.5 Gm Tube PO PRN PRN Hypoglycemia Protocol Cefepime HCl 1 gm/ Sodium 50 mls @ 100 mls/hr 09/27/25 02:00 09/29/25 06:52 Chloride IVPB Not Given Q12H RAFAELA Dextrose 1,000 mls @ 100 mls/hr 09/26/25 14:05 Dextrose 5% 1,000 Ml IVPB PRN PRN Hypoglycemia Protocol Metronidazole 500 mg in 100 mls @ 100 mls/hr 09/26/25 18:00 09/29/25 10:52 Flagyl 500 Mg/Iso Soln 100 Ml IVPB Infused Q8H RAFAELA Infusion Vancomycin HCl 1,500 mg in 500 mls @ 250 mls/hr 09/27/25 15:00 09/28/25 13:59 Vancomycin 1,500 Mg/Ns 500 Ml IVPB 250 mls/hr Q24H RAFAELA Administration Insulin Aspart 2 - 5 units 09/26/25 17:00 09/29/25 08:00 Insulin Aspart (*Bkc) 100 Units/Ml SUB-Q Not Given TIDWM RAFAELA Protocol Lisinopril 40 mg 09/27/25 09:00 09/29/25 09:51 Lisinopril 20 Mg Tablet PO 40 mg DAILY RAFAELA Administration Metoprolol Succinate 100 mg 09/27/25 09:00 09/29/25 09:51 Metoprolol Succinate Ext Rel 100 Mg Tabcr PO 100 mg DAILY RAFAELA Administration Simvastatin 20 mg 09/26/25 21:00 09/28/25 20:24 Simvastatin 20 Mg Tablet PO 20 mg HS RAFAELA Administration Verapamil HCl 180 mg 09/26/25 21:00 09/28/25 20:24 Verapamil Hcl 180 Mg Er Tablet PO 180 mg HS RAFAELA Administration Verapamil HCl 120 mg 09/26/25 21:00 09/28/25 20:24 Verapamil Hcl 120 Mg Er Tablet PO 120 mg HS RAFAELA Administration Vitamin D 125 mcg 09/27/25 09:00 09/29/25 09:51 Cholecalciferol (Vitamin D3) 125 Mcg (5,000 Units) Tablet PO 125 mcg DAILY RAFAELA Administration Radiology Results: ITS Impressions Chest X-Ray 09/26/25 13:17 IMPRESSION: 1. Small right base effusion. Labs Labs: Laboratory Results - last 24 hr 09/28/25 09/28/25 09/29/25 16:36 20:15 06:42 WBC 6.5 RBC 4.80 Hgb 13.7 Hct 42.2 MCV 87.9 MCH 28.5 MCHC 32.5 RDW 14.4 Plt Count 200 MPV 11.7 H Immature Gran % (Auto) 0.5 Neut % (Auto) 78.7 H Lymph % (Auto) 9.7 L [place] % (Auto) 8.3 Eos % (Auto) 2.6 Baso % (Auto) 0.2 Lymph # (Auto) 0.63 L [place] # (Auto) 0.5 Eos # (Auto) 0.2 Baso # (Auto) 0.0 Abs Immat Gran (auto) 0.03 Absolute Neuts (auto) 5.1 Absolute Nucleated RBC 0.000 Nucleated RBC % 0.0 Sodium 139 Potassium 3.7 Chloride 105 Carbon Dioxide 24 Anion Gap 10 BUN 18 H Creatinine 1.16 H Estim Creat Clear Calc 38 Estimated GFR 45 L Glucose 161 H POC Capillary Glucose 113 H 188 H Calcium 9.1 Total Bilirubin 1.5 H AST 27 ALT 13 Alkaline Phosphatase 69 Total Protein 6.8 Albumin 4.0 09/29/25 07:53 WBC RBC Hgb Hct MCV MCH MCHC RDW Plt Count MPV Immature Gran % (Auto) Neut % (Auto) Lymph % (Auto) [place] % (Auto) Eos % (Auto) Baso % (Auto) Lymph # (Auto) [place] # (Auto) Eos # (Auto) Baso # (Auto) Abs Immat Gran (auto) Absolute Neuts (auto) Absolute Nucleated RBC Nucleated RBC % Sodium Potassium Chloride Carbon Dioxide Anion Gap BUN Creatinine Estim Creat Clear Calc Estimated GFR Glucose POC Capillary Glucose 150 H Calcium Total Bilirubin AST ALT Alkaline Phosphatase Total Protein Albumin Quality VTE Prophylaxis VTE prophylaxis: pharmacologic ordered
[2025-09-29] MEDS: FUROSEMIDE INJ 40 MG/4 ML VIAL IV PUSH (12:35)
[2025-09-29 14:00] VITALS: BP 123/52; PULSE 60; RESP 18; O2SAT 100
[2025-09-29] MEDS: VANCOMYCIN 1,500 MG/NS 500 ML 1,500 MG/500 ML BAG 250 MG IVPB (16:28)
[2025-09-29 19:47] VITALS: PULSE 62; RESP 16; TEMP 37; O2SAT 97
[2025-09-29 20:21] VITALS: BP 124/52
[2025-09-29] MEDS: SIMVASTATIN 20 MG TABLET PO (20:56)
[2025-09-30 06:42] LABS: Hematocrit 36.9 % (37.0-47.0); Hemoglobin 11.9 g/dL (12.0-15.0); Immature Granulocyte Percent A 0.4 % (0-0.5); Lymphocytes Absolute Auto 0.84 K/mm3 (0.9-3.2); Mean Corpuscular HGB Conc 32.2 g/dl (32-36); Mean Corpuscular Hemoglobin 28.4 pg (26-34); Mean Corpuscular Volume 88.1 fl (80-100); Nucleated Red Blood Cells Absolute Auto 0.000 K/mm3 (0.0-0.012); Nucleated Red Blood Cells Perc 0.0 % (0.0-0.2); Platelet Count Result 160 k/mm3 (150-375); Red Blood Count 4.19 M/mm3 (4.2-5.4); White Blood Count 4.9 K/mm3 (4.5-10.0)
[2025-09-30 06:50] VITALS: BP 142/64; PULSE 59; RESP 17; TEMP 37; O2SAT 99
[2025-09-30 07:12] LABS: Alanine Aminotransferase 12 U/L (6-35); Albumin Level 3.1 g/dL (3.5-5.1); Alkaline Phosphatase 58 U/L (38-126); Anion Gap 4 mmol/L (4-12); Aspartate Amino Transferase 22 U/L (14-36); Bilirubin,Total 0.8 mg/dL (0.2-1.3); Blood Urea Nitrogen 21 mg/dL (7-17); Calcium 8.4 mg/dL (8.4-10.2); Carbon Dioxide 28 mmol/L (22-30); Chloride 106 mmol/L (98-107); Estimated CRCL calculation 34 ml/min; Estimated Glomerular Filt Rate 40; Glucose 121 mg/dL (65-110); Potassium 3.2 mmol/L (3.4-5.0); Sodium 138 mmol/L (137-145); Total Protein 5.7 g/dL (6.3-8.2)
[2025-09-30] MEDS: APIXABAN 5 MG TABLET PO (08:36)
[2025-09-30] MEDS: FUROSEMIDE 20 MG TABLET PO (08:36)
[2025-09-30] MEDS: CALCIUM CARBONATE (OSCAL) 500 MG TABLET PO (08:36)
[2025-09-30 08:37] VITALS: PULSE 68
[2025-09-30] MEDS: METOPROLOL SUCCINATE EXT REL 100 MG TABCR PO (08:37)
[2025-09-30] MEDS: CHOLECALCIFEROL (VITAMIN D3) 125 MCG (5,000 UNITS) TABLET PO (08:38)
[2025-09-30] MEDS: FENOFIBRATE 145 MG TABLET PO (08:38)
[2025-09-30] MEDS: POTASSIUM CHLORIDE 20 MEQ ER TABLET PO (08:38)
--- NOTE | 2025-09-30 12:14 | PM.DS ---
DS: Admitting Diagnosis Discharge Date 09/30/2025 Admitting Diagnosis Lower extremity cellulitis DS: Discharge Diagnosis Discharge Diagnosis (1) Hypertension: Qualifiers: Hypertension type: primary hypertension Qualified Code(s): I10 - Essential (primary) hypertension Code(s): I10 - Essential (primary) hypertension Status: Chronic (2) Cellulitis in diabetic foot: Code(s): E11.628 - Type 2 diabetes mellitus with other skin complications; L03.119 - Cellulitis of unspecified part of limb Status: Acute (3) CKD (chronic kidney disease) stage 3, GFR 30-59 ml/min: Qualifiers: Chronic kidney disease stage 3 subtype: stage 3b (GFR 30-44) Qualified Code(s): N18.32 - Chronic kidney disease, stage 3b Code(s): N18.30 - Chronic kidney disease, stage 3 unspecified Status: Chronic Plan 80-year-old female with a past medical history of CKD, dm 2, hyperlipidemia, venous insufficiency, DVT, diabetic ulcer, CHF, PAD presented to the ED from home on 09/26/2025 with complaints of bilateral lower extremity edema. 1. Cellulitis of right lower extremity: Improving Vancomycin alone. Follow vanco level. Continue with Lasix Will order echo Elevate extremities whenever possible 2. possible UTI: Await urine culture Asymptomatic 3. History of DVT in the past: Continue with Eliquis 4. Diabetes mellitus: Blood glucose checked t.i.d. a.c. and HS Continue with sliding scale insulin Adjust dose as needed 5. CKD stage IIIB: Stable kidney function Avoid nephrotoxins Recheck BMP in a.m. 6. History of hypertension: Continue with verapamil, lisinopril 7. Code status: Full 8. Disposition: Pending improvement DS: Summary Hospital Course Reason for hospitalization: Lower extremity swelling Hospital Course: Per HPI: 80-year-old female with a past medical history of CKD, dm 2, hyperlipidemia, venous insufficiency, DVT, diabetic ulcer, CHF, PAD presents to the ED from home on 09/26/2025 with complaints of bilateral lower extremity edema. Patient states the increased edema started 7 days ago with increased redness to her right lower leg. Patient states she has been more edematous before but ?never like this.? Patient denies any fevers or chills, nausea or vomiting, chest pain, shortness a breath. Patient states she is compliant with her medications. She is and lives alone with a daughter nearby. Patient has been hospitalized in the past with lower extremity cellulitis and edema. Initial vital signs 161/65, HR 67, respirations 20, afebrile and 100% on room air Labs revealed no leukocytosis, BUN 31, creatinine 1.35, GFR 38, glucose 123, total bilirubin 1.5. Troponin negative. BNP 190. UA with 3+ glucose, trace ketones, 1+ blood, nitrate positive, 1+ leukocyte Estrace, 3-5 RBC, 21-50 WBC, 4+ bacteria. ECG reads sinus bradycardia with first-degree AV block, left axis deviation, right bundle branch block Chest x-ray with small right base effusion Hospital course: Patient has a history of cellulitis in the lower extremities. She was started on cefepime, vancomycin and metronidazole on 09/26 encouraged to keep her extremities elevated. No point tenderness or induration of either lower extremity but erythema was diffuse. UA concerning for urinary tract infection, urine culture was ordered and showed growth of Klebsiella oxytocia with acuña susceptibility. Will prescribe levofloxacin for discharge given patient has allergies. Echocardiogram was ordered for continued lower extremity bilateral edema. Echocardiogram showed EF of 65-70%, mild concentric increased left ventricular wall thickness, grade 1 diastolic dysfunction, E/e' 10. Cross cover event note was created on 09/29, patient was awake and oriented to person, however she was unaware of where she was. She EKG combative when the nurse tried to connect IV antibiotics and stated that she was already treated with p.o. medications and did not want any IV medications at all. She stated that she wanted to leave and the option to leave AMA was discussed, however she would not have a ride and her daughter was contacted, who stated that the patient gets like this when she is in hospital, and that something similar to this happened in 2022 the patient had to be sedated. On exam on 09/30, however the patient was A&O x4 and was very pleasant. She is otherwise hemodynamically stable with improving cellulitis and is able to intake p.o. medications. She will be discharged home at this time as she refuses home with home health therapy or SNF. She will be discharged on linezolid in levofloxacin for her cellulitis seen urinary tract infection, respectively. Plan for discharge at this time. Time Spent with Patient Time attestation: Total time spent providing and/or coordinating discharge services: 35 Exam Narrative: GENERAL: No acute distress HEAD: Normocephalic, atraumatic. EYES: PERRLA. NECK: Supple RESPIRATORY bilateral clear to auscultation CARDIOVASCULAR: Regular rate and rhythm GASTROINTESTINAL: Soft, nontender, bowel sounds present SKIN: Warm, dry. Bilateral lower extremity edema 1+ up to knees, R>L. Erythema bilaterally, improved. Slight warmth to touch but nontender. NEURO: A&O X4. PSYCHIATRIC: No abnormality detected DS: Data Data Completed and Pending Labs on day of discharge: Labs from last 24 hours 09/30/25 09/30/25 09/29/25 07:22 06:24 19:52 WBC 4.9 RBC 4.19 L Hgb 11.9 L Hct 36.9 L MCV 88.1 MCH 28.4 MCHC 32.2 RDW 14.6 H Plt Count 160 MPV 11.0 H Immature Gran % (Auto) 0.4 Neut % (Auto) 63.0 Lymph % (Auto) 17.2 L [place] % (Auto) 13.1 H Eos % (Auto) 6.1 H Baso % (Auto) 0.2 Lymph # (Auto) 0.84 L [place] # (Auto) 0.6 Eos # (Auto) 0.3 Baso # (Auto) 0.0 Abs Immat Gran (auto) 0.02 Absolute Neuts (auto) 3.1 Absolute Nucleated RBC 0.000 Nucleated RBC % 0.0 Sodium 138 Potassium 3.2 L Chloride 106 Carbon Dioxide 28 Anion Gap 4 BUN 21 H Creatinine 1.28 H Estim Creat Clear Calc 34 Estimated GFR 40 L Glucose 121 H POC Capillary Glucose 161 H 214 H Calcium 8.4 Total Bilirubin 0.8 AST 22 ALT 12 Alkaline Phosphatase 58 Total Protein 5.7 L Albumin 3.1 L Vancomycin Trough 09/29/25 09/29/25 16:37 14:06 WBC RBC Hgb Hct MCV MCH MCHC RDW Plt Count MPV Immature Gran % (Auto) Neut % (Auto) Lymph % (Auto) [place] % (Auto) Eos % (Auto) Baso % (Auto) Lymph # (Auto) [place] # (Auto) Eos # (Auto) Baso # (Auto) Abs Immat Gran (auto) Absolute Neuts (auto) Absolute Nucleated RBC Nucleated RBC % Sodium Potassium Chloride Carbon Dioxide Anion Gap BUN Creatinine Estim Creat Clear Calc Estimated GFR Glucose POC Capillary Glucose 117 H Calcium Total Bilirubin AST ALT Alkaline Phosphatase Total Protein Albumin Vancomycin Trough 14.5 Discharge Plan Discharge Attending physician on discharge: Sadiq Granger Consulting providers: Renetta Andrews; Rosa Capps; Javi Mock Discharging Clinician: Javi Mock Anticipated Discharge Date/Time: 09/30/25 12:10 Patient Disposition: Home Activity: as tolerated Diet: regular Discharge Instructions: Discharge disposition: Home Take medications as prescribed. You will be prescribed Linezolid to take for an additional 10 days. You will also be prescribed Levofloxacin for your urinary tract infection. Monitor blood pressures Take caution while standing, rising, or moving Change positions slowly taking a break between each position change If you standing feel dizzy sit back down and take a break Encouraged to continue with yearly vaccinations Return to the emergency department if you develop sudden shortness of breath, chest pain, nausea, vomiting, upset stomach or intractable diarrhea Return to the emergency department if you develop fever greater than 101.5 Follow-up with the primary care physician within 1-2 weeks Thank you for [facility] for your healthcare needs Patient Instructions: Antibiotic Form, Apixaban (By mouth) Patient Language: Citizen Of [place] Stand Alone Forms: General Discharge Information Follow-up/Referrals: Sandor Dye MD [Primary Care Provider, Family Practice] Discharge Medications: New linezolid 600 mg tablet 600 mg PO Q12H Qty: 20 0RF levofloxacin 250 mg tablet 250 mg PO DAILY Qty: 5 0RF Continued metoprolol tartrate 25 mg tablet 12.5 mg PO BID cholecalciferol (vitamin D3) 125 mcg (5,000 unit) Capsule 125 mcg PO DAILY cyanocobalamin (vitamin B-12) 1,000 mcg/mL solution 1,000 mcg IM MONTHLY Rx Instructions: Patient stated she takes injection monthly on the first Friday of the month. Eliquis 5 mg Tablet 5 mg PO Q12HR 24 Days Qty: 48 2RF dapagliflozin propanediol [Farxiga] 10 mg tablet 10 mg PO DAILY simvastatin 20 mg Tablet 20 mg PO HS lisinopril 40 mg Tablet 40 mg PO DAILY metoprolol succinate 100 mg Tablet Extended Release 24 Hr 100 mg PO DAILY metformin 500 mg tablet 500 mg PO DIRECTED Rx Instructions: 3 tablets with breakfast, 2 tablets with dinner. furosemide [Lasix] 20 mg tablet 20 mg PO DAILY fenofibrate nanocrystallized 145 mg tablet 145 mg PO DAILY Discontinued calcium 600 mg Capsule 600 mg PO DAILY verapamil 300 mg Capsule, [address] 300 mg PO HS Date of admission: 09/27/25 09:16 Primary Care Provider: Sandor Dye Admitting Provider: Aristeo Mcgregor Attending physician on admission: Aristeo Mcgregor Condition: Stable Quality VTE Prophylaxis VTE prophylaxis: pharmacologic ordered
== END 2025-09-30 15:25 | disposition home or self-care (01) | DRG 603 ==
LOC: ANHED 13:56 → ANH3MEDSUR 14:28
PROVIDERS: Nurse Practitioner Adult Health; Admitting Provider Internal Medicine; Emergency Provider Emergency Medicine; PCP Family Medicine; Visit Provider Physician Assistant
DX: L03.115 Cellulitis of right lower limb (principal); N39.0 Urinary tract infection, site not specified; I13.0 Hypertensive heart and chronic kidney disease with heart failure and stage 1 through stage 4 chronic kidney disease, or unspecified chronic kidney disease; Z16.24 Resistance to multiple antibiotics; I50.30 Unspecified diastolic (congestive) heart failure; E11.22 Type 2 diabetes mellitus with diabetic chronic kidney disease; N18.32 Chronic kidney disease, stage 3b; R45.1 Restlessness and agitation; I87.2 Venous insufficiency (chronic) (peripheral); I73.9 Peripheral vascular disease, unspecified; E66.9 Obesity, unspecified; Z79.84 Long term (current) use of oral hypoglycemic drugs; Z79.01 Long term (current) use of anticoagulants; Z86.718 Personal history of other venous thrombosis and embolism; Z68.31 Body mass index [BMI] 31.0-31.9, adult
CPT/HCPCS: 36415; 71045; 80048; 80053; 80202; 81001; 82948; 83880; 84484; 85025; 85610; 85730; 87086; 87186; 93005; 93306; 96365; 96366; 99285; A9270; G0378; J0692; J1836; J1938; J2359; J3373

== ENCOUNTER 2025-10-04 15:16 | Emergency (ER) | payer MEDICARE, SELFPAY ==
[2025-10-04] VITALS (14 sets, daily range): BP systolic 115–166; BP diastolic 47–67; PULSE 52–62; RESP 14–20; TEMP 36.2; O2SAT 95–100
--- NOTE | 2025-10-04 15:41 | ED.NAVMDI ---
HPI - Nausea/Vomiting/Diarrhea General Chief complaint: Nausea/Vomiting/Diarrhea <Uzma Hayes PA-C - Last Filed: 10/06/25 17:08> Stated complaint: DIARRHEA ?REACTION TO MED <Uzma Hayes PA-C - Last Filed: 10/06/25 17:08> Time Seen by Provider: 10/04/25 15:41 <Uzma Hayes PA-C - Last Filed: 10/06/25 17:08> Focused HPI: This is a 80 year old female that present to the ER for diarrhea. Reports she was recently started on antibiotics for cellulitis. GENERAL: Well-appearing, well-nourished, and in no acute distress. HEAD: Normocephalic, atraumatic. CHEST: Clear to auscultation. ?No respiratory distress. HEART: Regular rate and rhythm.? NEURO: ?Alert and oriented x3. Patient screened in triage and initial orders placed.? ?Additional care and disposition to be based upon?diagnostic testing and treatment. <Uzma Hayes PA-C - Last Filed: 10/06/25 17:08> History of Present Illness HPI Narrative: I agree with the above HPI. <Radha Ch APRN - Last Filed: 10/04/25 22:14> Related Data Home medications: Home Medications ?Medication ?Instructions ?Recorded ?Confirmed ?Last Taken ?Type fenofibrate nanocrystallized 145 145 mg PO DAILY 09/15/20 09/26/25 09/25/25 History mg tablet cholecalciferol (vitamin D3) 125 125 mcg PO DAILY 06/14/21 09/26/25 09/25/25 History mcg (5,000 unit) capsule cyanocobalamin (vitamin B-12) 1,000 mcg IM MONTHLY 11/11/22 09/26/25 09/10/25 History 1,000 mcg/mL injection solution dapagliflozin propanediol 10 mg 10 mg PO DAILY 12/17/23 09/26/25 09/25/25 History tablet (Farxiga) metoprolol tartrate 25 mg tablet 12.5 mg PO BID 01/07/24 09/26/25 Unknown History lisinopril 40 mg tablet 40 mg PO DAILY 02/14/24 09/26/25 09/25/25 History metoprolol succinate 100 mg 100 mg PO DAILY 02/14/24 09/26/25 09/25/25 History tablet,extended release 24 hr simvastatin 20 mg tablet 20 mg PO HS 02/14/24 09/26/25 09/25/25 History metformin 500 mg tablet 500 mg PO DIRECTED 02/15/25 09/26/25 09/25/25 History furosemide 20 mg tablet (Lasix) 20 mg PO DAILY 09/26/25 09/26/25 09/25/25 History <Uzma Hayes PA-C - Last Filed: 10/06/25 17:08> Allergies/Adverse reactions: Allergies Allergy/AdvReac Type Severity Reaction Status Date / Time Penicillins Allergy Mild Hives / Verified 10/04/25 15:17 Red Face alendronate sodium (From AdvReac Intermediate Diarrhea Verified 10/04/25 15:17 Fosamax) codeine AdvReac Mild Vomiting Verified 10/04/25 15:17 prochlorperazine AdvReac Mild Muscle Verified 10/04/25 15:17 Spasms clarithromycin (From Biaxin) AdvReac Nausea and Verified 10/04/25 15:17 Vomiting clindamycin AdvReac Diarrhea Verified 10/04/25 15:17 <Uzma Hayes PA-C - Last Filed: 10/06/25 17:08> Review of Systems Review of Systems: All systems reviewed & are unremarkable except as noted in HPI and below <Radha Ch APRN - Last Filed: 10/04/25 22:14> [facility] Past Medical History Medical History: Medical History CKD (chronic kidney disease) stage 3, GFR 30-59 ml/min Arterial occlusive disease DVT (deep venous thrombosis) Foot ulcer Diabetes Obesity Dyslipidemia Hypertension Kidney stone <Uzma Hayes PA-C - Last Filed: 10/06/25 17:08> Surgical History Surgical History: Surgical History S/P tonsillectomy and adenoidectomy Status post repair of ventral hernia 1997; mesh broke, she required revision 2000 History of hysterectomy <Uzma Hayes PA-C - Last Filed: 10/06/25 17:08> Social History Social History: Social History Social History: the patient is and lives home alone. She only has 1 daughter. 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 She does not use any alcohol marijuana illicit drugs. - code status full code. Smoking status: Never smoker Alcohol intake: never Substance use: never Substance use type: does not use Lack of Transportation: No Lack of Food: Never True Current Housing: I Have Housing Concerned About Future Housing: No Difficulty Paying Gas/Electric Bills: No Difficulty Paying for Meds: No Currently Unemployed: No Education: High School Diploma/GED Difficulty w/ Childcare or Family Care: No Living arrangements: with family Gender identity (if verbalized by the patient): Female Spiritual care concerns: No <Uzma Hayes PA-C - Last Filed: 10/06/25 17:08> Exam Narrative: GENERAL: Well appearing, well-nourished, non-toxic, in no acute distress. HEAD: Normocephalic, atraumatic. NECK: Supple. No adenopathy, no masses. RESPIRATORY: Airway patent, respirations nonlabored. Clear to auscultation bilaterally, no rales, rhonchi, wheezing. CARDIOVASCULAR: Regular rate and rhythm without murmurs, rubs, or gallops. Peripheral pulses 2+ and equal bilaterally. ABDOMINAL: Soft, nontender, nondistended, no hepatosplenomegaly. Normoactive BS. MUSCULOSKELETAL: Moves all extremities. Strength/ROM intact without gross deformities. SKIN: Warm, dry, normal color. No rashes. Lower extremity mild redness and swelling NEURO: A&O X3. Speech clear. Cranial nerves II-XII intact. No ataxic movements. PSYCHIATRIC: Appropriate mood and affect. Normal interaction. <Radha Ch APRN - Last Filed: 10/04/25 22:14> Course Vital Signs Vital signs: Vital Signs Temperature 97.2 F L 10/04/25 15:21 Pulse Rate 61 10/04/25 15:21 Respiratory Rate 20 10/04/25 15:21 Blood Pressure 143/47 H 10/04/25 15:21 Pulse Oximetry 100 10/04/25 15:21 Oxygen Delivery Room Air 10/04/25 15:21 Temperature 97.2 F L 10/04/25 15:21 Pulse Rate 62 10/04/25 22:47 Respiratory Rate 14 10/04/25 22:47 Blood Pressure 158/63 H 10/04/25 22:47 Pulse Oximetry 100 10/04/25 22:47 Oxygen Delivery Room Air 10/04/25 15:21 <Uzma Hayes PA-C - Last Filed: 10/06/25 17:08> Vital Signs Temperature 97.2 F L 10/04/25 15:21 Pulse Rate 61 10/04/25 15:21 Respiratory Rate 20 10/04/25 15:21 Blood Pressure 143/47 H 10/04/25 15:21 Pulse Oximetry 100 10/04/25 15:21 Oxygen Delivery Room Air 10/04/25 15:21 Temperature 97.2 F L 10/04/25 15:21 Pulse Rate 62 10/04/25 22:47 Respiratory Rate 14 10/04/25 22:47 Blood Pressure 158/63 H 10/04/25 22:47 Pulse Oximetry 100 10/04/25 22:47 Oxygen Delivery Room Air 10/04/25 15:21 <Radha Ch APRN - Last Filed: 10/04/25 22:14> MDM - Nausea/Vomiting/Diarrhea MDM Narrative Medical decision making narrative: This is a 80 year old female that present to the ER for diarrhea. Reports she was recently started on antibiotics for cellulitis. Upon time reexamination patient's daughter reports patient is here because she got the shits from antibiotics. Patient was placed on linezolid and levofloxacin time of discharge to treat her urinary tract infection and cellulitis. She denies any abdominal pain, incontinence, recent fevers, ongoing urinary symptoms, or back pain. Patient is unsure whether not she can provide a stool sample here in the ER. Labs Ordered: CBC, CMP, UA, C diff, lipase Imaging Ordered: None necessary Medications Ordered: Ceftriaxone IM, Normal Saline IV bolus Results: Patient's CBC indicates no acute abnormalities. Her CMP indicates a sodium of 136, BUN of 30, creatinine of 1.76, GFR 28. Patient's urinalysis indicates 3+ glucose, 3+ blood, 2+ leukocytes, 21-50 rbcs, 11-20 wbcs Diagnosis: urinary tract infection, diarrhea, mild dehydration Patient Education/Shared MDM: Results of lab work and imaging shared with patient and her daughter. Antibiotic coverage discussed with Dr. Mccain, ER attending, who advised pt's abx be changed Keflex PO after she receives Ceftriaxone IM here in the ER. She has been unable to provide a stool sample here in the ER, so she will not be treated for c. diff at this time. She continues to deny any symptoms while in the ER. Pt's blood work results are similar to previous results at this facility. Patient strongly advised to maintain hydration status upon discharge and follow-up with her PCP as soon as possible. She will be discharged home with a prescription for Keflex. Strict return precautions provided. Patient verbalized understanding and is in agreement with plan. Vital signs stable at time of discharge. All questions answered. <Radha Ch APRN - Last Filed: 10/04/25 22:14> Differential Diagnosis Differential diagnosis: Likely gastroenteritis, clostridium difficile infection, dehydration and other (urinary tract infection) <Radha Ch APRN - Last Filed: 10/04/25 22:14> Lab Data Attestation: I reviewed the patient's lab results. <Radha Ch APRN - Last Filed: 10/04/25 22:14> Result diagrams: 10/04/25 15:56 10/04/25 15:56 <Uzma Hayes PA-C - Last Filed: 10/06/25 17:08> Labs: Lab Results 10/04/25 Range/Units 15:56 WBC 7.0 (4.5-10.0) K/mm3 RBC 4.53 (4.2-5.4) M/mm3 Hgb 12.9 (12.0-15.0) g/dL Hct 40.1 (37.0-47.0) % MCV 88.5 (80-100) fl MCH 28.5 (26-34) pg MCHC 32.2 (32-36) g/dl RDW 14.5 (11.5-14.5) % Plt Count 223 (150-375) k/mm3 MPV 11.1 H (7.4-10.4) fl Immature Gran % (Auto) 0.3 (0-0.5) % Neut % (Auto) 76.9 H (45.5-73.1) % Lymph % (Auto) 12.2 L (18.3-44.2) % Wilkes % (Auto) 6.9 (2.6-8.5) % Eos % (Auto) 3.6 (0-4.4) % Baso % (Auto) 0.1 L (0.2-1.2) % Lymph # (Auto) 0.85 L (0.9-3.2) K/mm3 Wilkes # (Auto) 0.5 (0.1-0.6) K/mm3 Eos # (Auto) 0.3 (0-0.3) K/mm3 Baso # (Auto) 0.0 (0.0-0.1) K/mm3 Abs Immat Gran (auto) 0.02 (0.00-0.031) K/mm3 Absolute Neuts (auto) 5.4 (1.3-6.7) K/mm3 Absolute Nucleated RBC 0.000 (0.0-0.012) K/mm3 Nucleated RBC % 0.0 (0.0-0.2) % Sodium 136 L (137-145) mmol/L Potassium 3.7 (3.4-5.0) mmol/L Chloride 104 (98-107) mmol/L Carbon Dioxide 26 (22-30) mmol/L Anion Gap 6 (4-12) mmol/L BUN 30 H (7-17) mg/dL Creatinine 1.76 H (0.7-1.0) mg/dL Estim Creat Clear Calc 25 ml/min Estimated GFR 28 L (59 - ) Glucose 109 (65-110) mg/dL Calcium 9.1 (8.4-10.2) mg/dL Total Bilirubin 0.6 (0.2-1.3) mg/dL AST 23 (14-36) U/L ALT 15 (6-35) U/L Alkaline Phosphatase 66 (38-126) U/L Total Protein 7.1 (6.3-8.2) g/dL Albumin 4.0 (3.5-5.1) g/dL Lipase 36 (23-300) U/L Urine Color Yellow (Yellow) Urine Appearance Clear (Clear) Urine pH 5.0 (5.0-9.0) Ur Specific Olin 1.012 (1.001-1.035) Urine Protein Negative (Negative) mg/dL Urine Glucose (UA) 3+ H (Negative) mg/dL Urine Ketones Negative (Negative) mg/dL Ur Blood (Man) 3+ H (Negative) Urine Nitrate Negative (Negative) Urine Bilirubin Negative (Negative) Urine Urobilinogen 0.2 (<2.0) mg/dL Add Ur Microanalysis Reviewed Leukocyte Esterase Rfl 2+ H (Negative) KODY/UL Urine RBC 21-50 H (0-2) /hpf Urine WBC 11-20 H (0-3) /hpf Ur Squamous Epith Cells Few (Few) /hpf Urine Bacteria None seen /hpf Urine Casts 0-2 <zUma Hayes PA-C - Last Filed: 10/06/25 17:08> Lab Results 10/04/25 Range/Units 15:56 WBC 7.0 (4.5-10.0) K/mm3 RBC 4.53 (4.2-5.4) M/mm3 Hgb 12.9 (12.0-15.0) g/dL Hct 40.1 (37.0-47.0) % MCV 88.5 (80-100) fl MCH 28.5 (26-34) pg MCHC 32.2 (32-36) g/dl RDW 14.5 (11.5-14.5) % Plt Count 223 (150-375) k/mm3 MPV 11.1 H (7.4-10.4) fl Immature Gran % (Auto) 0.3 (0-0.5) % Neut % (Auto) 76.9 H (45.5-73.1) % Lymph % (Auto) 12.2 L (18.3-44.2) % Wilkes % (Auto) 6.9 (2.6-8.5) % Eos % (Auto) 3.6 (0-4.4) % Baso % (Auto) 0.1 L (0.2-1.2) % Lymph # (Auto) 0.85 L (0.9-3.2) K/mm3 Wilkes # (Auto) 0.5 (0.1-0.6) K/mm3 Eos # (Auto) 0.3 (0-0.3) K/mm3 Baso # (Auto) 0.0 (0.0-0.1) K/mm3 Abs Immat Gran (auto) 0.02 (0.00-0.031) K/mm3 Absolute Neuts (auto) 5.4 (1.3-6.7) K/mm3 Absolute Nucleated RBC 0.000 (0.0-0.012) K/mm3 Nucleated RBC % 0.0 (0.0-0.2) % Sodium 136 L (137-145) mmol/L Potassium 3.7 (3.4-5.0) mmol/L Chloride 104 (98-107) mmol/L Carbon Dioxide 26 (22-30) mmol/L Anion Gap 6 (4-12) mmol/L BUN 30 H (7-17) mg/dL Creatinine 1.76 H (0.7-1.0) mg/dL Estim Creat Clear Calc 25 ml/min Estimated GFR 28 L (59 - ) Glucose 109 (65-110) mg/dL Calcium 9.1 (8.4-10.2) mg/dL Total Bilirubin 0.6 (0.2-1.3) mg/dL AST 23 (14-36) U/L ALT 15 (6-35) U/L Alkaline Phosphatase 66 (38-126) U/L Total Protein 7.1 (6.3-8.2) g/dL Albumin 4.0 (3.5-5.1) g/dL Lipase 36 (23-300) U/L Urine Color Yellow (Yellow) Urine Appearance Clear (Clear) Urine pH 5.0 (5.0-9.0) Ur Specific Olin 1.012 (1.001-1.035) Urine Protein Negative (Negative) mg/dL Urine Glucose (UA) 3+ H (Negative) mg/dL Urine Ketones Negative (Negative) mg/dL Ur Blood (Man) 3+ H (Negative) Urine Nitrate Negative (Negative) Urine Bilirubin Negative (Negative) Urine Urobilinogen 0.2 (<2.0) mg/dL Add Ur Microanalysis Reviewed Leukocyte Esterase Rfl 2+ H (Negative) KODY/UL Urine RBC 21-50 H (0-2) /hpf Urine WBC 11-20 H (0-3) /hpf Ur Squamous Epith Cells Few (Few) /hpf Urine Bacteria None seen /hpf Urine Casts 0-2 <Radha Ch APRN - Last Filed: 10/04/25 22:14> Discharge Plan Discharge Clinical Impression: Dehydration CKD (chronic kidney disease) stage 3, GFR 30-59 ml/min Qualifiers: Chronic kidney disease stage 3 subtype: stage 3b (GFR 30-44) Qualified Code(s): N18.32 - Chronic kidney disease, stage 3b UTI (urinary tract infection) Qualifiers: Urinary tract infection type: site unspecified Hematuria presence: without hematuria Qualified Code(s): N39.0 - Urinary tract infection, site not specified <Uzma Hayes PA-C - Last Filed: 10/06/25 17:08> Patient Disposition: Home <Uzma Hayes PA-C - Last Filed: 10/06/25 17:08> Condition: Stable <Uzma Hayes PA-C - Last Filed: 10/06/25 17:08> Instructions: Antibiotic Form, Dehydration (ED), Acute Diarrhea (ED) <Uzma Hayes PA-C - Last Filed: 10/06/25 17:08> Additional Instructions: Please return to the ER with any worsening symptoms. Follow-up with primary care provider as soon as possible for further evaluation. Take all medications as prescribed, including regularly scheduled medications. Complete your full dose of antibiotics. Remember to drink lots of water. Continue your Linezolid prescription to treat your cellulitis, but refrain from further Levofloxacin use. Your antibiotic will be changed for Keflex to treat your urinary tract infection. If you are able to obtains a stool sample, please bring it to the laboratory for further testing. You may take antidiarrheal medications as needed, but please take them sparingly. <Uzma Haeys PA-C - Last Filed: 10/06/25 17:08> Patient Language: Serbian <KAREN Medley Last Filed: 10/06/25 17:08> Prescriptions: New cephalexin 500 mg capsule 500 mg PO Q8H 7 Days Qty: 21 0RF diphenoxylate-atropine [Lomotil] 2.5-0.025 mg tablet 1 tablet PO TID PRN (Reason: diarrhea) Qty: 30 0RF No Action metoprolol tartrate 25 mg tablet 12.5 mg PO BID cholecalciferol (vitamin D3) 125 mcg (5,000 unit) Capsule 125 mcg PO DAILY cyanocobalamin (vitamin B-12) 1,000 mcg/mL solution 1,000 mcg IM MONTHLY Rx Instructions: Patient stated she takes injection monthly on the first Friday of the month. Eliquis 5 mg Tablet 5 mg PO Q12HR 24 Days Qty: 48 2RF dapagliflozin propanediol [Farxiga] 10 mg tablet 10 mg PO DAILY simvastatin 20 mg Tablet 20 mg PO HS lisinopril 40 mg Tablet 40 mg PO DAILY metoprolol succinate 100 mg Tablet Extended Release 24 Hr 100 mg PO DAILY metformin 500 mg tablet 500 mg PO DIRECTED Rx Instructions: 3 tablets with breakfast, 2 tablets with dinner. furosemide [Lasix] 20 mg tablet 20 mg PO DAILY linezolid 600 mg tablet 600 mg PO Q12H Qty: 20 0RF levofloxacin 250 mg tablet 250 mg PO DAILY Qty: 5 0RF fenofibrate nanocrystallized 145 mg tablet 145 mg PO DAILY <Uzma Hayes PA-C - Last Filed: 10/06/25 17:08> Follow-up/Referrals: Sandor Dye MD [Primary Care Provider, Family Practice] <Uzma Hayes PA-C - Last Filed: 10/06/25 17:08> Time of Disposition: 22:14 <Uzma Hayes PA-C - Last Filed: 10/06/25 17:08> 22:14 <Radha Ch APRN - Last Filed: 10/04/25 22:14>
[2025-10-04 16:04] LABS: Hematocrit 40.1 % (37.0-47.0); Hemoglobin 12.9 g/dL (12.0-15.0); Immature Granulocyte Percent A 0.3 % (0-0.5); Lymphocytes Absolute Auto 0.85 K/mm3 (0.9-3.2); Mean Corpuscular HGB Conc 32.2 g/dl (32-36); Mean Corpuscular Hemoglobin 28.5 pg (26-34); Mean Corpuscular Volume 88.5 fl (80-100); Nucleated Red Blood Cells Absolute Auto 0.000 K/mm3 (0.0-0.012); Nucleated Red Blood Cells Perc 0.0 % (0.0-0.2); Platelet Count Result 223 k/mm3 (150-375); Red Blood Count 4.53 M/mm3 (4.2-5.4); White Blood Count 7.0 K/mm3 (4.5-10.0)
[2025-10-04 16:16] LABS: Alanine Aminotransferase 15 U/L (6-35); Albumin Level 4.0 g/dL (3.5-5.1); Alkaline Phosphatase 66 U/L (38-126); Anion Gap 6 mmol/L (4-12); Aspartate Amino Transferase 23 U/L (14-36); Bilirubin,Total 0.6 mg/dL (0.2-1.3); Blood Urea Nitrogen 30 mg/dL (7-17); Calcium 9.1 mg/dL (8.4-10.2); Carbon Dioxide 26 mmol/L (22-30); Chloride 104 mmol/L (98-107); Estimated CRCL calculation 25 ml/min; Estimated Glomerular Filt Rate 28; Glucose 109 mg/dL (65-110); Lipase 36 U/L (23-300); Potassium 3.7 mmol/L (3.4-5.0); Sodium 136 mmol/L (137-145); Total Protein 7.1 g/dL (6.3-8.2)
[2025-10-04 16:21] LABS: Add Urine Microscopic? YES; Appearance Urine Clear (Clear); Glucose Urine UA 3+ mg/dL (Negative); Leukocyte Esterase Ur 2+ LEU/UL (Negative); Need Manual Microscopic Reviewed; Nitrate Urine Negative (Negative); Non Pathogenic Casts 0-2; Specific Grav Ur 1.012 (1.001-1.035)
--- OUTSIDE RECORDS SUMMARY | 2025-10-04 16:58 | XMS_ITS | Clinical Summary ---
Author Organization [facility] Address [address] [place] [address] Care Team Providers Care Dye And Chemical Coordinator Name Role Phone Sandor Dye MD Primary Care Provider [phone] Allergies Active Allergy Reactions Criticality Noted Date [...] mg. Assessment & Plan (01/01/2023 1:13 PM CUT TOBACCO BULKER): Impression: Chronic diabetes mellitus. Plan: Continue metformin [...] as much as possible. Follow-up with her cribbing setter. Patient has adequate blood flow to heal [...] results. Assessment & Plan (01/01/2023 1:07 PM CUT TOBACCO BULKER): Impression: Right 1st toe is erythematous with [...] Podiatry. Assessment & Plan (01/01/2023 1:07 PM CUT TOBACCO BULKER): Impression: Clean pink open ulceration to the [...] control. Assessment & Plan (01/01/2023 1:12 PM CUT TOBACCO BULKER): Impression: Patient has confirmed left popliteal and [...] on file Legal Sex Female 8:42 PM CUT TOBACCO BULKER Gender Identity Not on file Sexual Orientation Not on file Last Filed Vital Signs Vital Sign Reading Time Taken Comments Blood Pressure 122/58 01/09/2024 11:11 AM CUT TOBACCO BULKER Pulse 58 01/09/2024 11:11 AM CUT TOBACCO BULKER Temperature - - Respiratory Rate - - Oxygen Saturation 99% 01/09/2024 11:11 AM CUT TOBACCO BULKER Inhaled Oxygen Concentration - - Weight 78 kg (172 lb) 01/09/2024 11:11 AM CUT TOBACCO BULKER Height 167.6 cm (5' 6) 01/09/2024 11:11 AM CUT TOBACCO BULKER Body Mass Index 27.76 01/09/2024 11:11 AM CUT TOBACCO BULKER Plan of Treatment Health Maintenance Due Date [...] Panel 05/29/2023 05/29/2022 Covid-19 Vaccine (4 - 2024-2 6 season) 2025 07/19/2022, 02/07/2021, 01/17/2021 Influenza Vaccine (#1) 2025 , 08/17/2020, 12/09/2017, Additional history exists Pneumococcal vaccine 65+ Completed 12/09/2017, 09/10 Insurance MEDICARE [facility] Address: [address] [address] [place] [address] [facility] MEDICARE [facility] Care Teams Dye And Chemical Coordinator Relationship Specialty Start Date End Date Sandor Dye MD PCP - General Family Medicine 12/25/22
--- OUTSIDE RECORDS SUMMARY | 2025-10-04 16:58 | XMS_ITS | Clinical Summary ---
Author Organization [facility] Address [address] [place] [address] Care Team Providers Care Special Delivery Clerk Name Role Phone Sandor Dye MD Primary Care Provider Social History Tobacco Use Types Packs/Day Years Used Date Smoking Tobacco: Never Assessed Comments Unknown Sex and Gender Information Value Date Recorded Sex Assigned at Not on file Legal Sex Female 12:16 PM REALTIME REPORTER Gender Identity Not on file Sexual Orientation [...] 75+ series) 2018 COVID-19 Vaccine ( - 2024-2 6 season) 2025 Influenza Adult (#1) 2025 Hepatitis A Vaccines Aged Out No long er eligible based on patient's age to complete this topic Meningococcal B Vaccine Aged Out No l onger eligible based on patient's age to complete this topic Meningococcal Vaccine Aged Out No kendall dwight eligible based on patient's age to complete this topic RSV Immunizations Under 20 Months Aged Out No longer eligible based on patient's age to complete this topic Insurance MEDICARE [employer] Care Teams Special Delivery Clerk Relationship Specialty Start Date End Date Sandor Dye MD [address] [place] [phone] PCP - General FAMILY PRACTICE 12/28/21
--- OUTSIDE RECORDS SUMMARY | 2025-10-04 16:58 | XMS_ITS | Clinical Summary ---
Author Organization [facility] Address [address] [place] [address] Phone Care Team Providers Care Banking Services Officer Name Role Phone Sandor Dye MD Primary Care Provider + [phone] Allergies Active Allergy Reactions Criticality Noted Date [...] 2025 Insurance MEDICARE PART A AND B [facility] [id number] Member Subscriber Plan / Payer (Ef fective 2022-Present) Name:Katie Peguero Relation to Subscriber:Self Name:Katie Peguero Payer ID:[id number] (NAIC) Group ID:Not on file Type:Supplemental Address: [place] [id number] Care Teams Banking Services Officer Relationship Specialty Start Date End Date Sandor Dye MD [address] [place], [place] [phone] PCP - General Family Practice 03/20/23
--- OUTSIDE RECORDS SUMMARY | 2025-10-04 18:29 | XMS_ITS | Clinical Summary ---
Author Organization [facility] Address [address] [place] [address] Care Team Providers Care Residential Property Manager Name Role Phone Sandor Dye MD Primary Care Provider Social History Tobacco Use Types Packs/Day Years Used Date Smoking Tobacco: Never Assessed Comments Unknown Sex and Gender Information Value Date Recorded Sex Assigned at Not on file Legal Sex Female 12:16 PM CUSTOM GRINDER Gender Identity Not on file Sexual Orientation [...] this topic Insurance MEDICARE [employer] Care Teams Residential Property Manager Relationship Specialty Start Date End Date Sandor Dye MD [address] [place] [phone] PCP - General FAMILY PRACTICE 12/28/21
--- OUTSIDE RECORDS SUMMARY | 2025-10-04 18:29 | XMS_ITS | Clinical Summary ---
Author Organization [facility] Address [address] [place] [address] Phone Care Team Providers Care Direct Marketing Analyst Name Role Phone Sandor Dye MD Primary Care Provider + [phone] Allergies Active Allergy Reactions Criticality Noted Date [...] 2025 Insurance MEDICARE PART A AND B [facility] [id number] Member Subscriber Plan / Payer (Ef fective 2022-Present) Name:Katie Peguero Relation to Subscriber:Self Name:Katie Peguero Payer ID:[id number] (NAIC) Group ID:Not on file Type:Supplemental Address: [place] [phone] Care Teams Direct Marketing Analyst Relationship Specialty Start Date End Date Sandor Dye MD [address] [place], [place] [phone] PCP - General Family Practice 03/20/23
--- OUTSIDE RECORDS SUMMARY | 2025-10-04 18:29 | XMS_ITS | Clinical Summary ---
Author Organization [facility] Address [address] [place] [address] Care Team Providers Care It Infrastructure Specialist Name Role Phone Sandor Dye MD Primary Care Provider [phone] Allergies Active Allergy Reactions Criticality Noted Date [...] mg. Assessment & Plan (01/01/2023 1:13 PM FISH AND WILDLIFE BIOLOGIST): Impression: Chronic diabetes mellitus. Plan: Continue metformin [...] as much as possible. Follow-up with her rehabilitation counselor. Patient has adequate blood flow to heal [...] results. Assessment & Plan (01/01/2023 1:07 PM FISH AND WILDLIFE BIOLOGIST): Impression: Right 1st toe is erythematous with [...] Podiatry. Assessment & Plan (01/01/2023 1:07 PM FISH AND WILDLIFE BIOLOGIST): Impression: Clean pink open ulceration to the [...] control. Assessment & Plan (01/01/2023 1:12 PM FISH AND WILDLIFE BIOLOGIST): Impression: Patient has confirmed left popliteal and [...] on file Legal Sex Female 8:42 PM FISH AND WILDLIFE BIOLOGIST Gender Identity Not on file Sexual Orientation Not on file Last Filed Vital Signs Vital Sign Reading Time Taken Comments Blood Pressure 122/58 01/09/2024 11:11 AM FISH AND WILDLIFE BIOLOGIST Pulse 58 01/09/2024 11:11 AM FISH AND WILDLIFE BIOLOGIST Temperature - - Respiratory Rate - - Oxygen Saturation 99% 01/09/2024 11:11 AM FISH AND WILDLIFE BIOLOGIST Inhaled Oxygen Concentration - - Weight 78 kg (172 lb) 01/09/2024 11:11 AM FISH AND WILDLIFE BIOLOGIST Height 167.6 cm (5' 6) 01/09/2024 11:11 AM FISH AND WILDLIFE BIOLOGIST Body Mass Index 27.76 01/09/2024 11:11 AM FISH AND WILDLIFE BIOLOGIST Plan of Treatment Health Maintenance Due Date [...] vaccine 65+ Completed 12/09/2017, 09/10 Insurance MEDICARE [facility] MEDICARE [facility] Care Teams It Infrastructure Specialist Relationship Specialty Start Date End Date Sandor Dye MD PCP - General Family Medicine 12/25/22
[2025-10-04] MEDS: cefTRIAXone 1 GM VIAL IM (21:21)
[2025-10-04] MEDS: SODIUM CHLORIDE 0.9% IV 1,000 ML 999 ML IV CONT (21:32)
[2025-10-04] MEDS: DIPHENOXYLATE/ATROPINE (*CRX) 2.5 MG TABLET 1 TABLET PO (21:32)
[2025-10-04] MEDS: LINEZOLID 600 MG TABLET PO (22:46)
== END 2025-10-04 23:09 | disposition home or self-care (01) ==
PROVIDERS: Physician Assistant; Emergency Provider Registered Nurse; PCP Family Medicine
DX: N39.0 Urinary tract infection, site not specified (principal); E86.0 Dehydration; N18.32 Chronic kidney disease, stage 3b; I12.9 Hypertensive chronic kidney disease with stage 1 through stage 4 chronic kidney disease, or unspecified chronic kidney disease; E11.22 Type 2 diabetes mellitus with diabetic chronic kidney disease; Z86.718 Personal history of other venous thrombosis and embolism; E78.5 Hyperlipidemia, unspecified; Z87.442 Personal history of urinary calculi; Z79.84 Long term (current) use of oral hypoglycemic drugs
CPT/HCPCS: 36415; 80053; 81001; 83690; 85025; 87086; 96360; 96372; 99283; A9270; J0696; J7030

== ENCOUNTER 2025-10-11 13:35 | Emergency (ER) | payer MEDICARE, SELFPAY ==
[2025-10-11] VITALS (8 sets, daily range): BP systolic 139–159; BP diastolic 57–66; PULSE 63–75; RESP 11–20; TEMP 36.3; O2SAT 97–100
--- NOTE | ~2025-10-11 | US_ITS ---
EXAMINATION:US venous doppler LE BI INDICATION:Bilateral leg edema TECHNIQUE: Multiple grayscale, color flow and Doppler images of the right and left lower extremity deep venous systems were obtained and reviewed. COMPARISON:No prior studies for comparison. FINDINGS: The common femoral, superficial femoral and popliteal veins demonstrate normal respiratory variation, augmentation and compressibility. Color flow is also seen within the posterior tibial, peroneal, greater saphenous and profunda veins. IMPRESSION: 1: No lower extremity deep venous thrombosis. Reviewed, dictated and finalized at location I. WARE CLERK
--- NOTE | 2025-10-11 13:48 | ED.EXTPRO ---
HPI - Extremity Problem General Chief complaint: Extremity Problem,Nontraumatic Stated complaint: bilateral leg swelling Time Seen by Provider: 10/11/25 13:45 Source: patient Limitations: no limitations History of Present Illness HPI Narrative: Patient presents with concern for bilateral leg swelling which she says has happened before and is to some degree chronic but she noticed it seemed to be worse this morning. She denies any shortness of breath. She reports being on hydrochlorothiazide. Her primary care physician is Dr Dye. Does not see a sugar coating hand but says she has a history of CKD Stage 3 and this is why she was told her legs swell. She says that her PCP had advised that she wrap her legs which is currently done with 2 Satya wraps. She says she lives by herself but that her daughter sometimes helps her apply these compression wraps. Past medical history problem lists a history of arterial occlusive disease DVT and foot ulcer although patient denies the latter. She has a history of [id number] diabetes mellitus. She states she is not on anticoagulation and has not seen a vascular surgeon. Denies fevers or chills. Has not noticed any drainage from her legs. Related Data Home Medications ?Medication ?Instructions ?Recorded ?Confirmed ?Last Taken ?Type fenofibrate nanocrystallized 145 145 mg PO DAILY 09/15/20 09/26/25 09/25/25 History mg tablet cholecalciferol (vitamin D3) 125 125 mcg PO DAILY 06/14/21 09/26/25 09/25/25 History mcg (5,000 unit) capsule cyanocobalamin (vitamin B-12) 1,000 mcg IM MONTHLY 11/11/22 09/26/25 09/10/25 History 1,000 mcg/mL injection solution dapagliflozin propanediol 10 mg 10 mg PO DAILY 12/17/23 09/26/25 09/25/25 History tablet (Farxiga) metoprolol tartrate 25 mg tablet 12.5 mg PO BID 01/07/24 09/26/25 Unknown History lisinopril 40 mg tablet 40 mg PO DAILY 02/14/24 09/26/25 09/25/25 History metoprolol succinate 100 mg 100 mg PO DAILY 02/14/24 09/26/25 09/25/25 History tablet,extended release 24 hr simvastatin 20 mg tablet 20 mg PO HS 0409/26/25 09/25/25 History metformin 500 mg tablet 500 mg PO DIRECTED 02/15/25 09/26/25 09/25/25 History furosemide 20 mg tablet (Lasix) 20 mg PO DAILY 09/26/25 09/26/25 09/25/25 History Allergies Allergy/AdvReac Type Severity Reaction Status Date / Time Penicillins Allergy Mild Hives / Verified 10/11/25 13:49 Red Face alendronate sodium (From AdvReac Intermediate Diarrhea Verified 10/11/25 13:49 Fosamax) codeine AdvReac Mild Vomiting Verified 10/11/25 13:49 prochlorperazine AdvReac Mild Muscle Verified 10/11/25 13:49 Spasms clarithromycin (From Biaxin) AdvReac Nausea and Verified 10/11/25 13:49 Vomiting clindamycin AdvReac Diarrhea Verified 10/11/25 13:49 [facility] Past Medical History Medical History Non-insulin dependent diabetes mellitus CKD (chronic kidney disease) stage 3, GFR 30-59 ml/min Arterial occlusive disease DVT (deep venous thrombosis) Foot ulcer Obesity Dyslipidemia Hypertension Kidney stone Surgical History Surgical History S/P tonsillectomy and adenoidectomy Status post repair of ventral hernia 1997; mesh broke, she required revision 2000 History of hysterectomy Social History Social History Social History: the patient is and lives home alone. She only has 1 daughter. 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 She does not use any alcohol marijuana illicit drugs. - code status full code. Smoking status: Never smoker Alcohol intake: never Substance use: never Substance use type: does not use Lack of Transportation: No Lack of Food: Never True Current Housing: I Have Housing Concerned About Future Housing: No Difficulty Paying Gas/Electric Bills: No Difficulty Paying for Meds: No Currently Unemployed: No Education: High School Diploma/GED Difficulty w/ Childcare or Family Care: No Living arrangements: alone Gender identity (if verbalized by the patient): Female Spiritual care concerns: No Exam Narrative: GENERAL: Well-appearing, well-nourished, and in no acute distress. HEAD: Normocephalic, atraumatic. EYES: Non injected, non icteric ENT: Nares clear, no rhinorrhea or epistaxis. Gross auditory acuity intact. NECK: Supple. No meningismus. CHEST: Speaking in full sentences. No respiratory distress. HEART: Regular rate and rhythm. . ABDOMEN: Obese but Soft, Not peritoneal EXTREMITIES: Normal range of motion. Lower extremities bilaterally at the midcalf and proximally are large but without pitting. Satya wraps bilaterally had been applied from feet and ankles to distal calves, causing significant compression. Upon their removal, there is some thickened skin along the plantar aspect of left foot at the metacarpals and with some thickened moist skin/callous on the right in the same area. Skin is hydrated but otherwise intact, no ulcerations or wounds including between webspaces of toes. Palpable symmetric DP pulses in bilateral feet. Demonstrates movement at ankles. SKIN: Warm, dry. NEURO: No focal deficits. Alert and oriented. Answering questions. Following commands. Normal speech without aphasia or dysarthria. Sensation intact throughout bilateral lower extremities. PSYCH: Normal mood and affect. Course Vital Signs Vital signs: Vital Signs Temperature 97.3 F L 10/11/25 13:46 Pulse Rate 74 10/11/25 13:46 Respiratory Rate 18 10/11/25 13:46 Blood Pressure 159/66 H 10/11/25 13:46 Pulse Oximetry 100 10/11/25 13:46 Oxygen Delivery Room Air 10/11/25 13:46 Temperature 97.3 F L 10/11/25 13:46 Pulse Rate 68 10/11/25 17:36 Respiratory Rate 16 10/11/25 17:36 Blood Pressure 145/57 H 10/11/25 17:36 Pulse Oximetry 97 10/11/25 17:36 Oxygen Delivery Room Air 10/11/25 13:46 [facility] Narrative Medical decision making narrative: Patient presents with concern for bilateral lower extremity swelling which he states has happened before and is to some degree chronic but which she noticed this morning. She reports being on hydrochlorothiazide. In the emergency department she is afebrile vital signs notable for mild hypertension. Patient denies being on anticoagulation although has history of DVT listed in past medical history and Eliquis is listed on her home medications in the EMR. Baseline Cr 1.16 - 2.06 previously per review of EMR thus today likely reflects her baseline CKD. Will give 500cc IV Fluids. BNP mildly elevated but not to a degree to suggest acute heart failure especially given the reference range of the assay for patient's age. Mild new thrombocytopenia. Patient is able to ambulate with slight assistance the nurse. I did observe this. She notes that she occasionally will use a walker at home and I encouraged that she continue to use this for stability especially because she lives independently. Advised follow up with her PCP Dr Dye but she would also benefit from likely compression stockings/FREDY hose and possible referral to vascular surgeon given reported peripheral vascular disease although has strong palpable DP pulses. She had told the RN that her PCP had previously discussed compression stockings/FREDY hose. Advised the RN could apply new SATYA wrap dressings but advised she show patient how to apply these in a way that is somewhat more cone-shaped to cause gradual compression. Differential Diagnosis Differential Diagnosis: Lymphedema, DVT, symptomatic anemia, rhabdomyolysis, peripheral vascular disease including arterial occlusive disease, cellulitis, diabetic foot wounds, electrolyte abnormalities; heart failure Medical Records I have reviewed the following patient records and this information was taken into consideration when formulating the assessment and plan.: previous labs Lab Data MDM Lab Attestation statement: I personally reviewed the patient's lab results. 10/11/25 14:10 10/11/25 14:10 Labs: Lab Results 10/11/25 Range/Units 14:10 WBC 5.0 (4.5-10.0) K/mm3 RBC 4.56 (4.2-5.4) M/mm3 Hgb 12.9 (12.0-15.0) g/dL Hct 39.1 (37.0-47.0) % MCV 85.7 (80-100) fl MCH 28.3 (26-34) pg MCHC 33.0 (32-36) g/dl RDW 14.4 (11.5-14.5) % Plt Count 134 L (150-375) k/mm3 MPV 9.6 (7.4-10.4) fl Immature Gran % (Auto) 0.2 (0-0.5) % Neut % (Auto) 83.9 H (45.5-73.1) % Lymph % (Auto) 8.7 L (18.3-44.2) % Villalba % (Auto) 5.2 (2.6-8.5) % Eos % (Auto) 1.8 (0-4.4) % Baso % (Auto) 0.2 (0.2-1.2) % Lymph # (Auto) 0.44 L (0.9-3.2) K/mm3 Villalba # (Auto) 0.3 (0.1-0.6) K/mm3 Eos # (Auto) 0.1 (0-0.3) K/mm3 Baso # (Auto) 0.0 (0.0-0.1) K/mm3 Abs Immat Gran (auto) 0.01 (0.00-0.031) K/mm3 Absolute Neuts (auto) 4.2 (1.3-6.7) K/mm3 Absolute Nucleated RBC 0.000 (0.0-0.012) K/mm3 Nucleated RBC % 0.0 (0.0-0.2) % % Immature Plt Fraction 1.3 (0.9-11.2) % PT 16.3 H (11.1-14.7) Seconds INR 1.3 APTT 35.1 (22.3-36.8) Seconds Sodium 135 L (137-145) mmol/L Potassium 3.5 (3.4-5.0) mmol/L Chloride 105 (98-107) mmol/L Carbon Dioxide 21 L (22-30) mmol/L Anion Gap 9 (4-12) mmol/L BUN 23 H (7-17) mg/dL Creatinine 1.68 H (0.7-1.0) mg/dL Estim Creat Clear Calc 26 ml/min Estimated GFR 29 L (59 - ) Glucose 114 H (65-110) mg/dL Calcium 9.0 (8.4-10.2) mg/dL Magnesium 1.9 (1.6-2.3) mg/dL Total Creatine Kinase 40 (30-135) U/L NT-Pro-B Natriuret Pep 462 H (19.9-100) pg/mL Imaging Data Radiologist's impression: ITS Impressions Venous Doppler Study 10/11/25 14:37 IMPRESSION: 1: No lower extremity deep venous thrombosis. Discharge Plan Discharge Clinical Impression: CKD (chronic kidney disease), Leg swelling Patient Disposition: Home Condition: Stable Instructions: Antibiotic Form, Chronic Kidney Disease (ED), Chronic Kidney Disease Diet (DC), Leg Edema (ED) Additional Instructions: Your work up was reassuring. YOu can continue to wrap your legs with the SATYA wrap but try to achieve a gradual compression that takes the cone-like shape of your legs. You will likely benefit from FREDY hose/compression stockings. Given the report of history of peripheral vascular disease in your diagnoses in the medical record, you might also benefit from a referral to see a vascular surgeon. Your PCP can help with these things. Continue to take your medications as prescribed in the interim. Return to the ED with any new or worsening symptoms. Use your walker for stability; using this allows you to maintain your independence and reduces your risk of falls which could lead to injury. Patient Language: Thai Prescriptions: No Action metoprolol tartrate 25 mg tablet 12.5 mg PO BID cholecalciferol (vitamin D3) 125 mcg (5,000 unit) Capsule 125 mcg PO DAILY cyanocobalamin (vitamin B-12) 1,000 mcg/mL solution 1,000 mcg IM MONTHLY Rx Instructions: Patient stated she takes injection monthly on the first Friday of the month. Eliquis 5 mg Tablet 5 mg PO Q12HR 24 Days Qty: 48 2RF dapagliflozin propanediol [Farxiga] 10 mg tablet 10 mg PO DAILY simvastatin 20 mg Tablet 20 mg PO HS lisinopril 40 mg Tablet 40 mg PO DAILY metoprolol succinate 100 mg Tablet Extended Release 24 Hr 100 mg PO DAILY metformin 500 mg tablet 500 mg PO DIRECTED Rx Instructions: 3 tablets with breakfast, 2 tablets with dinner. furosemide [Lasix] 20 mg tablet 20 mg PO DAILY linezolid 600 mg tablet 600 mg PO Q12H Qty: 20 0RF levofloxacin 250 mg tablet 250 mg PO DAILY Qty: 5 0RF fenofibrate nanocrystallized 145 mg tablet 145 mg PO DAILY cephalexin 500 mg capsule 500 mg PO Q8H 7 Days Qty: 21 0RF diphenoxylate-atropine [Lomotil] 2.5-0.025 mg tablet 1 tablet PO TID PRN (Reason: diarrhea) Qty: 30 0RF Follow-up/Referrals: Sandor Dye MD [Primary Care Provider, Family Practice] Time of Disposition: 17:15
[2025-10-11 14:18] LABS: Hematocrit 39.1 % (37.0-47.0); Hemoglobin 12.9 g/dL (12.0-15.0); Immature Granulocyte Percent A 0.2 % (0-0.5); Immature Platelet Fraction Pct 1.3 % (0.9-11.2); Lymphocytes Absolute Auto 0.44 K/mm3 (0.9-3.2); Mean Corpuscular HGB Conc 33.0 g/dl (32-36); Mean Corpuscular Hemoglobin 28.3 pg (26-34); Mean Corpuscular Volume 85.7 fl (80-100); Nucleated Red Blood Cells Absolute Auto 0.000 K/mm3 (0.0-0.012); Nucleated Red Blood Cells Perc 0.0 % (0.0-0.2); Platelet Count Result 134 k/mm3 (150-375); Red Blood Count 4.56 M/mm3 (4.2-5.4); White Blood Count 5.0 K/mm3 (4.5-10.0)
[2025-10-11 14:28] LABS: INR 1.3; Partial Thromboplastin Time 35.1 Seconds (22.3-36.8); Prothrombin Time 16.3 Seconds (11.1-14.7)
[2025-10-11 14:31] LABS: Anion Gap 9 mmol/L (4-12); Blood Urea Nitrogen 23 mg/dL (7-17); Calcium 9.0 mg/dL (8.4-10.2); Carbon Dioxide 21 mmol/L (22-30); Chloride 105 mmol/L (98-107); Creatine Kinase 40 U/L (30-135); Estimated CRCL calculation 26 ml/min; Estimated Glomerular Filt Rate 29; Glucose 114 mg/dL (65-110); Magnesium 1.9 mg/dL (1.6-2.3); Potassium 3.5 mmol/L (3.4-5.0); Sodium 135 mmol/L (137-145)
--- OUTSIDE RECORDS SUMMARY | 2025-10-11 14:32 | XMS_ITS | Clinical Summary ---
Author Organization [facility] Address [address] [place] [address] Phone Care Team Providers Care Mineral Industry Teacher Name Role Phone Sandor Dye MD Primary Care Provider + [phone] Allergies Active Allergy Reactions Criticality Noted Date [...] 2025 Insurance MED[address]ARE PART [facility] AND B [facility] [id number] Member Subscriber Plan / Payer (Ef fective 2022-Present) Name:Katie Peguero Relation to Subscriber:Self Name:Katie Peguero Payer ID:[id number] (NAIC) Group ID:Not on file Type:Supplemental Address: [place] [id number] Care Teams Mineral Industry Teacher Relationship Specialty Start Date End Date Sandor Dye MD [address] [place], [place] [id number] PCP - General Family Practice 03/20/23
--- OUTSIDE RECORDS SUMMARY | 2025-10-11 14:32 | XMS_ITS | Clinical Summary ---
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
--- OUTSIDE RECORDS SUMMARY | 2025-10-11 14:32 | XMS_ITS | Clinical Summary ---
Author Organization [facility] Address [address] [place] [address] Care Team Providers Care Valet Cashier Name Role Phone Sandor Dye MD Primary Care Provider [phone] Allergies Active Allergy Reactions Criticality Noted Date [...] mg. Assessment & Plan (01/01/2023 1:13 PM FISCAL SPECIALIST): Impression: Chronic diabetes mellitus. Plan: Continue metformin [...] as much as possible. Follow-up with her biblical studies professor. Patient has adequate blood flow to heal [...] results. Assessment & Plan (01/01/2023 1:07 PM FISCAL SPECIALIST): Impression: Right 1st toe is erythematous with [...] Podiatry. Assessment & Plan (01/01/2023 1:07 PM FISCAL SPECIALIST): Impression: Clean pink open ulceration to the [...] control. Assessment & Plan (01/01/2023 1:12 PM FISCAL SPECIALIST): Impression: Patient has confirmed left popliteal and [...] on file Legal Sex Female 8:42 PM FISCAL SPECIALIST Gender Identity Not on file Sexual Orientation Not on file Last Filed Vital Signs Vital Sign Reading Time Taken Comments Blood Pressure 122/58 01/09/2024 11:11 AM FISCAL SPECIALIST Pulse 58 01/09/2024 11:11 AM FISCAL SPECIALIST Temperature - - Respiratory Rate - - Oxygen Saturation 99% 01/09/2024 11:11 AM FISCAL SPECIALIST Inhaled Oxygen Concentration - - Weight 78 kg (172 lb) 01/09/2024 11:11 AM FISCAL SPECIALIST Height 167.6 cm (5' 6) 01/09/2024 11:11 AM FISCAL SPECIALIST Body Mass Index 27.76 01/09/2024 11:11 AM FISCAL SPECIALIST Plan of Treatment Health Maintenance Due Date [...] vaccine 65+ Completed 12/09/2017, 09/10 Insurance MEDICARE [facility] MEDICARE [facility] Care Teams Valet Cashier Relationship Specialty Start Date End Date Sandor Dye MD PCP - General Family Medicine 12/25/22
[2025-10-11 14:38] LABS: NT Pro B Type Natriuretic Pept 462 pg/mL (19.9-100)
--- OUTSIDE RECORDS SUMMARY | 2025-10-11 15:19 | XMS_ITS | Clinical Summary ---
Author Organization [facility] Address [address] [place] [address] Phone Care Team Providers Care It Software Engineer Name Role Phone Sandor Dye MD Primary Care Provider + [phone] Allergies Active Allergy Reactions Criticality Noted Date [...] 2025 Insurance [facility]ARE [facility] [id number] Member Subscriber Plan / Payer (Ef fective 2022-Present) Name:Katie Peguero Relation to Subscriber:Self Name:Katie Peguero Payer ID:[id number] (NAIC) Group ID:Not on file Type:Supplemental Address: [place] [id number] Care Teams It Software Engineer Relationship Specialty Start Date End Date Sandor Dye MD [address] [place], [place] [phone] PCP - General Family Practice 03/20/23
--- OUTSIDE RECORDS SUMMARY | 2025-10-11 15:19 | XMS_ITS | Clinical Summary ---
Author Organization [facility] Address [address] [place] [address] Care Team Providers Care School Photograph Editor Name Role Phone Sandor Dye MD Primary Care Provider Social History Tobacco Use Types Packs/Day Years Used Date Smoking Tobacco: Never Assessed Comments Unknown Sex and Gender Information Value Date Recorded Sex Assigned at Not on file Legal Sex Female 12:16 PM SEASONER Gender Identity Not on file Sexual Orientation [...] this topic Insurance MEDICARE [employer] Care Teams School Photograph Editor Relationship Specialty Start Date End Date Sandor Dye MD [address] [place] [phone] PCP - General FAMILY PRACTICE 12/28/21
--- OUTSIDE RECORDS SUMMARY | 2025-10-11 15:19 | XMS_ITS | Clinical Summary ---
Author Organization [facility] Address [address] [place] [address] Care Team Providers Care Live Study Manager Name Role Phone Sandor Dye MD Primary Care Provider [phone] Allergies Active Allergy Reactions Criticality Noted Date [...] mg. Assessment & Plan (01/01/2023 1:13 PM ELECTRICIANS TOP HELPER): Impression: Chronic diabetes mellitus. Plan: Continue metformin [...] as much as possible. Follow-up with her absorption plant operator. Patient has adequate blood flow to heal [...] results. Assessment & Plan (01/01/2023 1:07 PM ELECTRICIANS TOP HELPER): Impression: Right 1st toe is erythematous with [...] Podiatry. Assessment & Plan (01/01/2023 1:07 PM ELECTRICIANS TOP HELPER): Impression: Clean pink open ulceration to the [...] control. Assessment & Plan (01/01/2023 1:12 PM ELECTRICIANS TOP HELPER): Impression: Patient has confirmed left popliteal and [...] on file Legal Sex Female 8:42 PM ELECTRICIANS TOP HELPER Gender Identity Not on file Sexual Orientation Not on file Last Filed Vital Signs Vital Sign Reading Time Taken Comments Blood Pressure 122/58 01/09/2024 11:11 AM ELECTRICIANS TOP HELPER Pulse 58 01/09/2024 11:11 AM ELECTRICIANS TOP HELPER Temperature - - Respiratory Rate - - Oxygen Saturation 99% 01/09/2024 11:11 AM ELECTRICIANS TOP HELPER Inhaled Oxygen Concentration - - Weight 78 kg (172 lb) 01/09/2024 11:11 AM ELECTRICIANS TOP HELPER Height 167.6 cm (5' 6) 01/09/2024 11:11 AM ELECTRICIANS TOP HELPER Body Mass Index 27.76 01/09/2024 11:11 AM ELECTRICIANS TOP HELPER Plan of Treatment Health Maintenance Due Date [...] vaccine 65+ Completed 12/09/2017, 09/10 Insurance MEDICARE [facility]ARE [facility] Care Teams Live Study Manager Relationship Specialty Start Date End Date Sandor Dye MD PCP - General Family Medicine 12/25/22
[2025-10-11] MEDS: ACETAMINOPHEN 500 MG TABLET 1000 MG PO (16:01)
[2025-10-11] MEDS: SODIUM CHLORIDE 0.9% IV 500 ML 999 ML IV CONT (16:03)
--- NOTE | 2025-10-11 17:15 | PC.NURSE ---
Pt ambulated to bathroom with steady gait
== END 2025-10-11 17:45 | disposition home or self-care (01) ==
PROVIDERS: Emergency Provider Student in an Organized Health Care Education/Training Program; PCP Family Medicine
DX: R22.43 Localized swelling, mass and lump, lower limb, bilateral (principal); I12.9 Hypertensive chronic kidney disease with stage 1 through stage 4 chronic kidney disease, or unspecified chronic kidney disease; E11.22 Type 2 diabetes mellitus with diabetic chronic kidney disease; N18.30 Chronic kidney disease, stage 3 unspecified; E11.51 Type 2 diabetes mellitus with diabetic peripheral angiopathy without gangrene; I73.9 Peripheral vascular disease, unspecified; E78.5 Hyperlipidemia, unspecified; Z87.442 Personal history of urinary calculi; Z86.718 Personal history of other venous thrombosis and embolism; Z90.710 Acquired absence of both cervix and uterus; Z79.84 Long term (current) use of oral hypoglycemic drugs; Z79.899 Other long term (current) drug therapy
CPT/HCPCS: 36415; 80048; 82550; 83735; 83880; 85025; 85055; 85610; 85730; 93970; 96360; 99284; A9270; J7040